=== PATIENT | male | born 1950 | race Caucasian/White ===

== ENCOUNTER 2023-10-14 12:39 | Outpatient (RCR) | payer MEDICARE, SELFPAY | END 2023-10-14 23:59 | disposition home or self-care (01) | LOC: RPT 12:39 | PROVIDERS: ATTENDING PHYSICIAN Physical Medicine & Rehabilitation; FAMILY PHYSICIAN Family Medicine | DX: M25.562 Pain in left knee (principal); M76.62 Achilles tendinitis, left leg; Z73.6 Limitation of activities due to disability | CPT/HCPCS: 97110; 97112; 97140; 97164; 97530 ==

== ENCOUNTER 2023-10-30 14:47 | Outpatient (RCR) | payer MEDICARE, SELFPAY | END 2023-11-02 07:40 | disposition home or self-care (01) | LOC: RPT 14:47 | PROVIDERS: ATTENDING PHYSICIAN Physical Medicine & Rehabilitation; FAMILY PHYSICIAN Family Medicine | DX: M25.562 Pain in left knee (principal); M76.62 Achilles tendinitis, left leg; Z73.6 Limitation of activities due to disability | CPT/HCPCS: 97110; 97112; 97140 ==

== ENCOUNTER 2024-01-19 15:57 | Emergency (ER) | payer MEDICARE, SELFPAY ==
[2024-01-19 16:03] VITALS: BP 183/90
[2024-01-19 16:23] LABS: % Basophils 0.5 % (0-2); % Eosinophils 2.8 % (0-6); % Immature Granulocytes 0.2 % (0-0.5); % Lymphocytes 24.6 % (20.5-51.1); % Monocytes 11.3 % (1.7-9.3); % Neutrophils 60.6 % (42.2-75.2); Absolute Basophils 0.1 10^3/uL (0-0.2); Absolute Eosinophils 0.3 10^3/uL (0-0.7); Absolute Lymphocytes 2.3 10^3/uL (1.2-3.4); Absolute Monocytes 1.1 10^3/uL (0.1-0.6); Absolute Neutrophils 5.7 10^3/uL (1.4-6.5); Hemoglobin 17.3 g/dL (13.0-18.0); Mean Corp Hgb Conc. 35.3 g/dL (33.0-37.0); Mean Corpuscular Hgb 33.2 pg (27.0-31.0); Mean Platelet Volume 11.2 fL (7.4-10.4); Nucleated Red Blood Cells % 0 % (-); Platelet Count 161 10^3/uL (130-400); Red Blood Cell Count 5.21 10^6/uL (4.70-6.10); Red Cell Dist. Width 11.7 % (11.5-14.5); White Blood Cell Count 9.4 10^3/uL (4.8-10.8)
[2024-01-19 16:45] LABS: ALT (SGPT) 59 U/L (0-50); AST (SGOT) 88 U/L (17-59); Albumin 4.4 g/dl (3.5-5.0); Alkaline Phosphatase 68 U/L (38-126); Blood Urea Nitrogen 39 mg/dl (9-20); Calcium 9.4 mg/dl (8.4-10.2); Carbon Dioxide 24 mmol/L (22-30); Chloride 109 mmol/L (98-107); Glucose 96 mg/dl (70-99); Potassium 4.2 mmol/L (3.5-5.1); Sodium 141 mmol/L (135-145); Total Bilirubin 0.4 mg/dl (0.2-1.3); Total Protein 6.8 g/dl (6.3-8.2); eGFR > 60.00
[2024-01-19 16:56] VITALS: BP 187/82
--- NOTE | 2024-01-19 18:35 | ED.GENMED ---
History of Present Illness
General
Chief Complaint: Psychiatric Problem
Source: patient, spouse and family
Exam Limitations: altered mental status
Time Seen by Provider: 01/19/24 16:58
Nursing documentation reviewed up to this point in time: agreed with
Travel History
Have you had any contact with someone who has COVID-19?: No
Do you have any symptoms of coronavirus? Fever > 100 degrees, chills, cough, shortness of breath, sore throat, loss of taste or smell, muscle aches, or headache?: No
History of Present Illness
History of Present Illness:
73-year-old male past medical history of ADHD anxiety bipolar disorder, CVA, hypertension hyperlipidemia presenting to the emergency department today with his roommate and family member with concerns of erratic behavior over the past few days. Had
recent changes to his psychiatric medications including discontinuation of Adderall and bupropion but additionally takes carbamazepine Xanax Vraylar topiramate. Spouse was concerned that he did not want to get dressed today and wanted to be naked
and go outside. He has been able to eat and drink. He denies any specific chest pain shortness of breath abdominal pain recent illness. He claims to have been taking his medications as prescribed he is not sure where he is he is not sure of the
date he does know the president is Gil Verdin he does know when he was born.
Past History
Past History
ED Past Medical History: HTN, Hypercholesterolemia, Psychiatric (bipolar affective disorder with manic psychosis) and Other (attention deficit hyperactivity disorder, TESTICULAR HYPOFUNCTION, POLYMYALGIA rheumatica)
ED Past Surgical History: Other (Hernia repair)
Social History
Tobacco: Former smoker
Alcohol: Occasional
Drug: None
Living: with roommate
Employment: Retired
Family History
Family History: Other (reviewed and non-contributory)
Review of Systems
Review of Systems
Allergies reviewed?: Yes
All Other Systems: ROS reviewed and negative except as documented in HPI and ROS
Phy Exam
Physical Exam
Physical Exam:
GENERAL: Alert , in no apparent distress
EYE: pupils equal and reactive
NECK: Supple, no significant adenopathy.
ENT: o/p clr, mmm.
CARDIAC: Regular rate and rhythm .
LUNGS: Clear breath sounds bilaterally, no acute respiratory distress, no wheezes/rales/rhonchi
ABDOMEN: Soft, without focal tenderness, no r/g, no cvat
NEUROLOGICAL: Alert not oriented to place or time, no focal neuro deficits
SKIN: Warm and dry, skin intact.
MUSCULOSKELETAL: No edema, well perfused.
PSYCH: Normal and appropriate interaction.
Course
Orders/Labs/Results
Orders:
Orders
01/19/24 16:08
EKG [Electrocardiogram (*1)] Urgent
Reason for Study: Fatigue / Weakness
EKG- Treatment ONCE
01/19/24 16:14
CBC/With Diff [Complete Blood Count/With Diff] Urgent
CMP [Comprehensive Metabolic Panel] Urgent
01/19/24 17:17
CT Head W/o Iv Contrast Urgent
Comment:
Reason For Exam: ams
01/19/24 19:43
Urine Drug Abuse Screen Urgent
01/19/24 20:31
one to one [ED Special Safety Observation] ONCE
Observation level: One to One
01/19/24 20:39
Urinalysis Reflex To Culture Urgent
Date Specimen was Collected: 01/19/24
Time Specimen was Collected: 20:39
Abnormal Lab Results
01/19/24
16:14
MCH 33.2 H pg
(27.0-31.0)
MPV 11.2 H fL
(7.4-10.4)
Absolute Monos (auto) 1.1 H 10^3/uL
(0.1-0.6)
Monocytes % 11.3 H %
(1.7-9.3)
Chloride 109 H mmol/L
(98-107)
BUN 39 H mg/dl
(9-20)
AST 88 H U/L
(17-59)
ALT 59 H U/L
(0-50)
01/19/24 16:14
01/19/24 16:14
Vital Signs
Initial and Last Documented VS:
Initial Vital Signs
Temp Pulse Resp BP Pulse Ox
98.9 F 87 18 183/90 97
01/19/24 16:03 01/19/24 16:03 01/19/24 16:03 01/19/24 16:03 01/19/24 16:03
Last Documented Vital Signs
Temp Pulse Resp BP Pulse Ox
98.9 F 87 16 187/82 97
01/19/24 16:03 01/19/24 16:56 01/19/24 16:56 01/19/24 16:56 01/19/24 16:56
MDM/Problems Addressed
MDM/Problems Addressed:
73-year-old male presenting to the emergency department today with concerns of confusion according to spouse and family member. He has been very erratic did not want to get dressed today one of the go outside while naked. He had a recent
medication change from his psychiatrist. Denies any specific additional symptoms other than feeling 'off'. Upon arrival here patient is hypertensive but otherwise vital signs are normal. Labs are unremarkable CT scan of the head was performed CT
scan without acute process. Labs showing potential slight dehydration but able to tolerate with oral hydration. Otherwise patient was assessed by crisis recommending inpatient psychiatric care. Patient's spouse is following 302 patient was placed
on one-to-one placement.
*Critical Care Note
Total Time (30-74mins, 75-104mins- exclusive of procedures): Not Applicable
ED Attending Note
-
Portions of this chart may have been created with voice recognition software.� Occasional wrong word or��sound alike� substitutions may have occurred due to the inherent limitations of voice recognition software.
Discharge Plan
Departure
Patient Disposition: Psych Facility
Date of Disposition: 01/19/24
Time of Disposition: 20:31
Patient with high blood pressure during this ER visit?: No
Condition: Good
Covid-19: Not Applicable
Discharge Problem:
Psychiatric disturbance
Prescriptions:
No Action
topiramate 50 MG tablet
50 mg PO HS
carbamazepine 200 MG capsule, ER multiphase 12 hr
400 mg PO BID
Vraylar 1.5 MG capsule
3 mg PO DAILY
celecoxib 200 mg capsule
200 mg PO DAILY
alprazolam 0.5 mg tablet
0.5 mg PO BID
Patient Comments:
01/19/2024: last filled 12/08/23, 60 tabs for 30 days from [facility]
tamsulosin 0.4 mg Capsule
0.4 mg PO HS
pantoprazole 40 mg Tablet,Delayed Release (Dr/Ec)
40 mg PO HS
morphine 15 mg tablet
15 mg PO BID PRN (Reason: moderate pain)
Patient Comments:
01/19/2024: last filled 12/30/23, 60 tabs for 30 days from [facility]
valsartan 160 mg tablet
160 mg PO BID
tadalafil 5 mg Tablet
5 mg PO HS
zolpidem 12.5 mg Tablet,Ext Release Multiphase
12.5 mg PO HS
Patient Comments:
01/19/2024: last filled 09/09/21, 30 tabs for 30 days from [facility]
testosterone 20.25 mg/1.25 gram (1.62 %) gel in metered-dose pump
4 pump transdermal DAILY
Patient Comments:
01/19/2024: Family friend believes pt may have used too much of this medications, due to finding multiple open packets, and saying very inappropriate remarks
Movantik 25 mg Tablet
25 mg PO HS
rosuvastatin 20 MG tablet
20 mg PO HS
aspirin 81 MG tablet,chewable
81 mg PO DAILY Qty: 90 0RF
Referrals:
Jerome Mcfadden MD [Family Provider] -
Interventions
Interventions:
*Risk Screen - Suicide Last Done: 01/19/24 16:09
*General Assessment Last Done: 01/19/24 16:09
*Neglect/Abuse Screening Last Done: 01/19/24 16:46
*ED COVID-19 Vaccine History Last Done: 01/19/24 16:09
ED-Psychological Assessment Last Done: 01/19/24 17:01
Discharge Date and Time
Print Language: NEPALI
[2024-01-19 22:40] VITALS: BP 160/92
[2024-01-19 22:57] LABS: Urine Albumin Trace (Neg - Trace); Urine Bilirubin 1+ (Negative); Urine Character Clear (Clear); Urine Color Yellow; Urine Glucose Negative (Negative); Urine Ketone Trace (Negative); Urine Leukocyte Trace (Negative); Urine Nitrite Negative (Negative); Urine Occult Blood Negative (Negative); Urine Urobilinogen 1+ (Neg - 1+)
[2024-01-19 23:06] LABS: Amphetamines Negative (Negative); Barbiturates Negative (Negative); Benzodiazepines Positive (Negative); Buprenorphine Negative (Negative); Cocaine Negative (Negative); Marijuana Positive (Negative); Methadone Negative (Negative); Methamphetamines Negative (Negative); Opiates Negative (Negative); Phencyclidine Negative (Negative); Tricyclic Antidepressants Negative (Negative)
[2024-01-19 23:07] LABS: Urine Red Blood Cell None Seen /HPF (0-2); Urine Squamous Cell 0-2 /LPF (Few); Urine White Cell 0-2 /HPF (0-5)
[2024-01-19] MEDS: XANAX 0.5 MG PO (23:32)
[2024-01-19] MEDS: AMBIEN 5 MG PO (23:32)
[2024-01-19] MEDS: TEGRETOL XR (EXTENDED RELEASE) 400 MG PO (23:32)
[2024-01-19] MEDS: MORPHINE SULFATE 15 MG PO (23:32)
[2024-01-19] MEDS: TOPAMAX 50 MG PO (23:32)
[2024-01-19 23:33] LABS: Fentanyl, Urine Negative (Negative)
[2024-01-20] MEDS: SAPHRIS 5 MG SL (06:00)
[2024-01-20 06:01] VITALS: BP 139/86
[2024-01-20 09:20] VITALS: BP 180/92
[2024-01-20] MEDS: LOW STRENGTH ASPIRIN 81 MG PO (10:42)
[2024-01-20] MEDS: TEGRETOL XR (EXTENDED RELEASE) 400 MG PO (10:42)
[2024-01-20] MEDS: DIOVAN 160 MG PO (10:42)
[2024-01-20] MEDS: CELEBREX 200 MG PO (10:42)
[2024-01-20] MEDS: XANAX 0.5 MG PO (10:42)
[2024-01-20] MEDS: MORPHINE SULFATE 15 MG PO (10:43)
[2024-01-20 12:30] LABS: COVID-19 Antigen Negative (Negative)
== END 2024-01-20 13:36 ==
LOC: EMR 15:57
PROVIDERS: Emergency Medicine; Physician Assistant; Student in an Organized Health Care Education/Training Program; EMERGENCY PHYSICIAN Emergency Medicine; FAMILY PHYSICIAN Family Medicine
DX: F99 Mental disorder, not otherwise specified (principal); I10 Essential (primary) hypertension; Z87.891 Personal history of nicotine dependence; Z11.52 Encounter for screening for COVID-19
CPT/HCPCS: 99285; 70450; 80053; 80306; 80307; 81003; 81015; 85025; 87811; 93005

== ENCOUNTER → 2024-04-29 09:28 | Outpatient (REF) | payer MEDICARE, SELFPAY ==
[2024-04-29 10:39] LABS: % Basophils 0.5 % (0-2); % Eosinophils 5.9 % (0-6); % Immature Granulocytes 0.4 % (0-0.5); % Lymphocytes 20.7 % (20.5-51.1); % Monocytes 8.7 % (1.7-9.3); % Neutrophils 63.8 % (42.2-75.2); Absolute Eosinophils 0.5 10^3/uL (0-0.7); Absolute Lymphocytes 1.7 10^3/uL (1.2-3.4); Absolute Monocytes 0.7 10^3/uL (0.1-0.6); Absolute Neutrophils 5.2 10^3/uL (1.4-6.5); Hematocrit 37.9 % (39.0-52.0); Hemoglobin 12.9 g/dL (13.0-18.0); Mean Corpuscular Hgb 33.2 pg (27.0-31.0); Mean Corpuscular Volume 97.7 fL (80.0-94.0); Mean Platelet Volume 10.3 fL (7.4-10.4); Nucleated Red Blood Cells % 0 % (-); Platelet Count 184 10^3/uL (130-400); Red Blood Cell Count 3.88 10^6/uL (4.70-6.10); Red Cell Dist. Width 12.5 % (11.5-14.5); White Blood Cell Count 8.2 10^3/uL (4.8-10.8)
[2024-04-29 11:12] LABS: ALT (SGPT) 23 U/L (0-50); AST (SGOT) 41 U/L (17-59); Albumin 3.9 g/dl (3.5-5.0); Alkaline Phosphatase 119 U/L (38-126); Blood Urea Nitrogen 21 mg/dl (9-20); Calcium 9.4 mg/dl (8.4-10.2); Carbon Dioxide 29 mmol/L (22-30); Chloride 102 mmol/L (98-107); Glucose 82 mg/dl (70-99); HDL Cholesterol 41 mg/dl; LDL Cholesterol, Calculated 76 mg/dl; Potassium 4.5 mmol/L (3.5-5.1); Sodium 139 mmol/L (135-145); Total Bilirubin 0.4 mg/dl (0.2-1.3); Total Cholesterol 140 mg/dl (50-199); Total Protein 6.2 g/dl (6.3-8.2); Triglyceride 117 mg/dl (10-149); Very Low Density Lipoprotein 23 mg/dl (0-30); eGFR > 60.00
[2024-04-29 11:42] LABS: TSH Reflex To Free T4 1.16 uIU/ml (0.47-4.68)
== END ==
LOC: REG 09:28
PROVIDERS: ATTENDING PHYSICIAN Family Medicine
DX: I10 Essential (primary) hypertension (principal); E78.00 Pure hypercholesterolemia, unspecified; E78.5 Hyperlipidemia, unspecified; Z13.0 Encounter for screening for diseases of the blood and blood-forming organs and certain disorders involving the immune mechanism; Z13.29 Encounter for screening for other suspected endocrine disorder
CPT/HCPCS: 36415; 80053; 80061; 84443; 85025

== ENCOUNTER → 2024-07-12 15:05 | Outpatient (REF) | payer MEDICARE, SELFPAY | LOC: MRI 3T 15:05 | PROVIDERS: ATTENDING PHYSICIAN Nurse Practitioner Adult Health; FAMILY PHYSICIAN Family Medicine | DX: I63.9 Cerebral infarction, unspecified (principal); R26.9 Unspecified abnormalities of gait and mobility; R53.1 Weakness | CPT/HCPCS: 70551 ==

== ENCOUNTER → 2024-11-18 11:38 | Outpatient (REF) | payer MEDICARE, SELFPAY ==
[2024-11-18 12:56] LABS: % Basophils 0.5 % (0-2); % Eosinophils 3.5 % (0-6); % Immature Granulocytes 0.3 % (0-0.5); % Lymphocytes 19.9 % (20.5-51.1); % Monocytes 8.9 % (1.7-9.3); % Neutrophils 66.9 % (42.2-75.2); Absolute Basophils 0.1 10^3/uL (0-0.2); Absolute Eosinophils 0.3 10^3/uL (0-0.7); Absolute Lymphocytes 1.9 10^3/uL (1.2-3.4); Absolute Monocytes 0.9 10^3/uL (0.1-0.6); Absolute Neutrophils 6.5 10^3/uL (1.4-6.5); Hematocrit 49.2 % (39.0-52.0); Hemoglobin 16.1 g/dL (13.0-18.0); Mean Corp Hgb Conc. 32.7 g/dL (33.0-37.0); Mean Corpuscular Hgb 31.7 pg (27.0-31.0); Mean Corpuscular Volume 96.9 fL (80.0-94.0); Mean Platelet Volume 10.6 fL (7.4-10.4); Nucleated Red Blood Cells % 0 % (-); Platelet Count 174 10^3/uL (130-400); Red Blood Cell Count 5.08 10^6/uL (4.70-6.10); Red Cell Dist. Width 13.4 % (11.5-14.5); White Blood Cell Count 9.7 10^3/uL (4.8-10.8)
[2024-11-18 13:21] LABS: Lithium < 0.2 mmol/L (0.6-1.2)
[2024-11-18 13:29] LABS: Urine Albumin Negative (Neg - Trace); Urine Bilirubin Negative (Negative); Urine Character Clear (Clear); Urine Color Yellow; Urine Glucose Negative (Negative); Urine Ketone Negative (Negative); Urine Leukocyte Negative (Negative); Urine Nitrite Negative (Negative); Urine Occult Blood Negative (Negative); Urine Urobilinogen 1+ (Neg - 1+)
== END ==
LOC: REG 11:38
PROVIDERS: ATTENDING PHYSICIAN Family Medicine
DX: R30.0 Dysuria (principal); F31.32 Bipolar disorder, current episode depressed, moderate
CPT/HCPCS: 36415; 80178; 81003; 85025

== ENCOUNTER 2024-12-29 20:43 | Inpatient (IN) | payer MEDICARE, SELFPAY ==
[2024-12-29] VITALS (8 sets, daily range): BP systolic 120–179; BP diastolic 58–98; BMI 31.4; BMI 32.3
[2024-12-29 15:16] LABS: % Basophils 0.1 % (0-2); % Eosinophils 0.1 % (0-6); % Immature Granulocytes 0.3 % (0-0.5); % Lymphocytes 4.1 % (20.5-51.1); % Monocytes 6.5 % (1.7-9.3); % Neutrophils 88.9 % (42.2-75.2); Absolute Immature Granulocytes 0.1 10^3/uL (0-0.05); Absolute Lymphocytes 0.6 10^3/uL (1.2-3.4); Hematocrit 53.8 % (39.0-52.0); Hemoglobin 18.1 g/dL (13.0-18.0); Mean Corp Hgb Conc. 33.6 g/dL (33.0-37.0); Mean Corpuscular Hgb 32.3 pg (27.0-31.0); Mean Corpuscular Volume 95.9 fL (80.0-94.0); Mean Platelet Volume 10.3 fL (7.4-10.4); Nucleated Red Blood Cells % 0 % (-); Platelet Count 172 10^3/uL (130-400); Red Blood Cell Count 5.61 10^6/uL (4.70-6.10); White Blood Cell Count 14.6 10^3/uL (4.8-10.8)
[2024-12-29 15:25] LABS: ALT (SGPT) 32 U/L (0-50); AST (SGOT) 49 U/L (17-59); Albumin 4.6 g/dl (3.5-5.0); Alkaline Phosphatase 123 U/L (38-126); Blood Urea Nitrogen 14 mg/dl (9-20); Calcium 10.4 mg/dl (8.4-10.2); Carbon Dioxide 24 mmol/L (22-30); Chloride 99 mmol/L (98-107); Glucose 179 mg/dl (70-99); Lipase 90 U/L (23-300); Potassium 4.3 mmol/L (3.5-5.1); Sodium 136 mmol/L (135-145); Total Bilirubin 0.7 mg/dl (0.2-1.3); Total Protein 7.1 g/dl (6.3-8.2); eGFR > 60.00
--- NOTE | 2024-12-29 17:11 | ED.GENMED ---
History of Present Illness
General
Chief Complaint: Abdominal Pain
Time Seen by Provider: 12/29/24 16:10
History of Present Illness
History of Present Illness:
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 Patient reports symptom since yesterday. He has not been able to tolerate p.o. since yesterday and has had
vomiting, brown in color. Reports surgical history of hernia repair. Last bowel movement was yesterday, however notes that he has been more constipated. Denies chest pain or difficulty breathing. Denies fever. Denies ever having pain like this
in the past. Denies additional acute medical complaints
Past History
Past History
ED Past Medical History: HTN, Hypercholesterolemia, Psychiatric (bipolar affective disorder with manic psychosis) and Other (attention deficit hyperactivity disorder, TESTICULAR HYPOFUNCTION, POLYMYALGIA rheumatica)
ED Past Surgical History: Other (Hernia repair)
Social History
Tobacco: Former smoker
Alcohol: Occasional
Drug: None
Living: with roommate
Employment: Retired
Family History
Family History: Other (reviewed and non-contributory)
Phy Exam
Physical Exam
Physical Exam:
General: Well-appearing, no clinical signs of dehydration, nontoxic and in no acute distress
HEENT: protecting airway
Neck: appears supple
CV: Tachycardic, regular rhythm, no evidence of cyanosis
Resp: No accessory muscle use, no increased work of breathing
Abd: Moderate distention with diffuse tenderness, brown emesis on his clothing
Extremities: No deformities, no swelling
Neuro: alert, no focal neurologic deficit
: deferred
Rectal: deferred
Psych: Normal affect
Skin: Intact
Sepsis
Sepsis Screening
Sepsis Assessment: Sepsis
Sepsis Screen
Sepsis Screen: Sepsis
Date: 12/29/24
Time: 19:34
Course
Orders/Labs/Results
Orders:
Orders
12/29/24 14:56
CMP [Comprehensive Metabolic Panel] Urgent
Complete Blood Count/With Diff Urgent
Lipase Urgent
12/29/24 16:41
CT Abd/pelvis W Iv Cont Urgent
Comment:
Reason For Exam: distension with vomiting and pain
0.9% Sodium Chloride 1000 ml [Nss] 1,000 ml IV BOLUS
Ondansetron Injectable [Zofran] 4 mg IV NOW STA
12/29/24 16:49
HYDROmorphone [Dilaudid] 1 mg IV NOW STA
12/29/24 17:21
Lactic Acid Q4H
Comment: CANCEL 2nd LACTIC ACID IF 1st LACTIC ACID IS LESS THAN 2
Blood Culture Q30M
DEVORA Source: Blood/Venous
Specimen Description:
Blood Culture Q30M
[facility]ORA Source: Blood/Venous
Specimen Description:
12/29/24 19:20
Piperacillin/Tazo 4.5 Gram [Zosyn] 4.5 gram in 100 ml IV NOW
12/29/24 19:24
NG Tube [GI tube insertion- Treatment] ONCE
Abnormal Lab Results
12/29/24
14:56
WBC 14.6 H 10^3/uL
(4.8-10.8)
Hgb 18.1 H g/dL
(13.0-18.0)
Hct 53.8 H %
(39.0-52.0)
MCV 95.9 H fL
(80.0-94.0)
MCH 32.3 H pg
(27.0-31.0)
Abs Immat Gran (auto) 0.1 H 10^3/uL
(0-0.05)
Absolute Neuts (auto) 13.0 H 10^3/uL
(1.4-6.5)
Absolute Lymphs (auto) 0.6 L 10^3/uL
(1.2-3.4)
Absolute Monos (auto) 1.0 H 10^3/uL
(0.1-0.6)
Neutrophils % 88.9 H %
(42.2-75.2)
Lymphocytes % 4.1 L %
(20.5-51.1)
Glucose 179 H mg/dl
(70-99)
Calcium 10.4 H mg/dl
(8.4-10.2)
12/29/24 14:56
12/29/24 14:56
Vital Signs
Initial and Last Documented VS:
Initial Vital Signs
Temp Pulse Resp BP Pulse Ox
98.6 F 129 20 161/98 97
12/29/24 14:48 12/29/24 14:48 12/29/24 14:48 12/29/24 14:48 12/29/24 14:48
Last Documented Vital Signs
Temp Pulse Resp BP Pulse Ox
98.6 F 106 17 125/58 97
12/29/24 14:48 12/29/24 18:15 12/29/24 17:30 12/29/24 18:00 12/29/24 18:15
MDM/Problems Addressed
MDM/Problems Addressed:
74-year-old male with history of psychiatric disease and hypertension presenting for abdominal distention and vomiting. Vital signs significant for tachycardia.
On exam patient is in no acute distress, however does appear uncomfortable secondary to pain. Patient with moderate distention to the abdomen. Primary concern for acute bowel pathology such as obstruction versus a perforation. Patient had
laboratory analysis obtained prior to my assessment, leukocytosis. Patient meeting SIRS criteria so will add lactic acid and blood cultures. Dilaudid ordered for pain, and will start patient IV fluids. Plan for CT abdominal imaging with IV
contrast.
19:30 -lactic acid within normal limits. Blood pressure remains stable. Without concern for septic shock or severe sepsis. CT shows a small bowel obstruction, consistent with exam. General surgery made aware. There is also mention of pneumonia,
concern of aspiration pneumonia. Will start on Zosyn. Plan for admission. Will place
*Critical Care Note
Total Time (30-74mins, 75-104mins- exclusive of procedures): Not Applicable
ED Attending Note
-
Portions of this chart may have been created with voice recognition software.� Occasional wrong word or��sound alike� substitutions may have occurred due to the inherent limitations of voice recognition software.
Discharge Plan
Departure
Patient Disposition: Admit
Date of Disposition: 12/29/24
Time of Disposition: 19:33
Presentation/result/management discussed w/ accepting MD/DO: Hospitalist
Patient with high blood pressure during this ER visit?: No
Condition: Fair
Discharge Problem:
Small bowel obstruction, Aspiration pneumonia
Prescriptions:
No Action
topiramate 50 MG tablet
50 mg PO HS
carbamazepine 200 MG capsule, ER multiphase 12 hr
400 mg PO BID
Vraylar 1.5 MG capsule
3 mg PO DAILY
celecoxib 200 mg capsule
200 mg PO DAILY
alprazolam 0.5 mg tablet
0.5 mg PO BID
Patient Comments:
01/19/2024: last filled 12/08/23, 60 tabs for 30 days from [facility]
tamsulosin 0.4 mg Capsule
0.4 mg PO HS
pantoprazole 40 mg Tablet,Delayed Release (Dr/Ec)
40 mg PO HS
morphine 15 mg tablet
15 mg PO BID PRN (Reason: moderate pain)
Patient Comments:
01/19/2024: last filled 12/30/23, 60 tabs for 30 days from [facility]
valsartan 160 mg tablet
160 mg PO BID
tadalafil 5 mg Tablet
5 mg PO HS
zolpidem 12.5 mg Tablet,Ext Release Multiphase
12.5 mg PO HS
Patient Comments:
01/19/2024: last filled 09/09/21, 30 tabs for 30 days from [facility]
testosterone 20.25 mg/1.25 gram (1.62 %) gel in metered-dose pump
4 pump transdermal DAILY
Patient Comments:
01/19/2024: Family friend believes pt may have used too much of this medications, due to finding multiple open packets, and saying very inappropriate remarks
Movantik 25 mg Tablet
25 mg PO HS
rosuvastatin 20 MG tablet
20 mg PO HS
aspirin 81 MG tablet,chewable
81 mg PO DAILY Qty: 90 0RF
Referrals:
Jerome Mcfadden MD [Family Provider] -
Interventions
Interventions:
*Risk Screen - Suicide Last Done: 12/29/24 14:48
*General Assessment Last Done: 12/29/24 14:48
*Neglect/Abuse Screening Last Done: 12/29/24 16:38
*ED- Fall Risk Assessment Last Done: 12/29/24 16:38
*ED COVID-19 Vaccine History Last Done: 12/29/24 16:38
BD-Kiavzr-Dzmeehirqi Assessment Last Done: 12/29/24 16:38
Discharge Date and Time
Print Language: CYMRAES
[2024-12-29] MEDS: NSS 1000 IV (17:18)
[2024-12-29] MEDS: ZOFRAN 4 MG IV (17:18)
[2024-12-29] MEDS: DILAUDID 1 MG IV (17:21)
[2024-12-29 17:50] LABS: Lactic Acid 1.9 mmol/L (0.7-2.0)
--- NOTE | 2024-12-29 19:38 | HPS.HSE ---
Family Physician
-
Family Physician: Jerome Mcfadden
Chief Complaint
-
Vomiting, Abdominal Pain and Distention
History of Present Illness
Patient is a 74 y/o male past medical history of right basal ganglia stroke, hypertension, hyperlipidemia, and bipolar disorder who presents with vomiting and abdominal pain. Patient developed vomiting two days ago. He describes the emesis as brown
in color. Last night his abdomen became more distended. He has been unable to tolerate oral intake today prompting his presentation to the emergency department. He denies fever, sweats or chills.
Medical History
Past Medical History
Past Medical History: Reports Other
Additional Past Medical History:
Right Basal Ganglia Stroke
Essential Hypertension
Hyperlipidemia
Spinal Stenosis
Bipolar Disorder / Anxiety
BPH
Hypogonadism
Past Surgical History: Reports Other
Additional Past Surgical History:
Left Direct Inguinal Hernia Repair
Social History
Tobacco: Former Smoker
Family History
Family History: Not pertinent
Allergies / Home Medications
Allergies reflects when Allergies were last updated in [facility].
Home Medications with original date entered in [facility]
Allergy/Medication List:
Allergies
Allergy/AdvReac Type Severity Reaction Status Date / Time
chlorpromazine Allergy paralysis Verified 12/29/24 14:50
[From Thorazine]
Home Medications
aspirin 81 mg chewable tablet 81 mg PO DAILY #90 tabs 01/09/22
tadalafil 5 mg tablet 5 mg PO QPM 01/19/24
tamsulosin 0.4 mg capsule 0.4 mg PO HS 01/19/24
testosterone 4 pump transdermal DAILY 01/19/24
amantadine HCl 100 mg tablet 100 mg PO DAILY 12/29/24
atorvastatin 80 mg tablet (Lipitor) 80 mg PO QPM 12/29/24
bupropion HCl 100 mg tablet,12 hr sustained-release (Wellbutrin SR) 100 mg PO DAILY 12/29/24
buspirone 10 mg tablet 10 mg PO DAILY 12/29/24
clonazepam 1 mg tablet 0.5 mg PO BID 12/29/24
coenzyme Q10 100 mg capsule (CoQ-10) 200 mg PO DAILY 12/29/24
dextroamphetamine-amphetamine 7.5 mg tablet (Adderall) 7.5 mg PO TID 12/29/24
diphenhydramine 25 mg-acetaminophen 500 mg tablet (Acetaminophen PM) 2 tab PO HS 12/29/24
doxepin 100 mg capsule 100 mg PO HS 12/29/24
glucosamine-chondroitin 250 mg-200 mg tablet (Osteo Bi-Flex) 1 tab PO DAILY 12/29/24
losartan 100 mg tablet 100 mg PO DAILY 12/29/24
oxcarbazepine 150 mg tablet 150 mg PO BID 12/29/24
risperidone 2 mg tablet (Risperdal) 2 mg PO HS 12/29/24
therapeutic multivitamin 1 tab PO DAILY 12/29/24
venlafaxine 75 mg capsule,extended release 24 hr (Effexor XR) 75 mg PO DAILY 12/29/24
Review of Systems
-
A 12 point ROS was completed and negative except as noted: Yes
Constitutional: Denies Fever
Respiratory: Reports Cough
Cardiac: Denies Chest Pain or Palpitations
Abdomen/GI: Reports See HPI
Skin: Reports Rash (Groin)
Physical Exam
Vital Signs
Vital Signs
Temp Pulse Resp BP Pulse Ox
98.6 F 106 17 125/58 97
12/29/24 14:48 12/29/24 18:15 12/29/24 17:30 12/29/24 18:00 12/29/24 18:15
Physical Exam
General: Other (Appears very uncomfortable, occasional spitting out brown colored liquid)
HEENT: Anicteric and Oxygen (Nasal Cannula)
Respiratory: Non Labored Respirations and Decreased Breath Sounds (Poor Inspirator Effort)
Cardiac: S1/S2, Regular Rhythm and Tachycardia
GI: Soft, Tender (Mild throughout), Distended and Other (High pitched bowel sounds)
Rectal: Deferred by Provider
Genito-urinary: Clear Urine
Musculoskeletal: No Clubbing, No Cyanosis and No Edema
Skin: Warm, Dry and Other (Mild erythema bilateral groin folds)
Neuro: Awake, Alert, Oriented and Nonfocal/grossly intact
Psych: Calm
Laboratory Results
-
12/29/24 14:56
12/29/24 14:56
Laboratory Results
Lactic Acid Cancelled 12/29/24 20:45
Total Bilirubin 0.7 mg/dl (0.2-1.3) 12/29/24 14:56
AST 49 U/L (17-59) 12/29/24 14:56
ALT 32 U/L (0-50) 12/29/24 14:56
Alkaline Phosphatase 123 U/L (38-126) 12/29/24 14:56
Lipase 90 U/L (23-300) 12/29/24 14:56
Data Reviewed
-
CT Scan: Report Reviewed by me
Lab Data: Labs Reviewed by me
Impression/Plan
-
Small Bowel Obstruction
-Consult Surgery
-Place NGT
-Continue NPO/IVFs
-Continue anti-emetics prn
Aspiration Pneumonia
-Continue Unasyn
Essential Hypertension
-Monitor blood pressure
-Continue hydralazine prn
Hyperlipidemia
-Statin on hold while NPO
Bipolar Disorder
-Hold all oral meds
-Will use Ativan 0.5mg q12h, and q4hprn anxiety until able to resume meds
BPH
-Monitor bladder scans
Hypogonadism
-Patient will bring own testosterone cream from home
DVT proph: Lovenox
Code Status: Full Code
--- NOTE | 2024-12-29 20:15 | W.PN.UPDATE ---
Update Note
Progress Note Update
Patient seen in conjunction with [facility] BELT INSPECTOR. I agree with the findings and assessment physical. I concur with the assessment and plan.
Briefly, this is a 74-year-old with past medical history significant for bipolar affective disorder with manic episodes, hypertension, hyperlipidemia, BPH who presents to the emergency department with abdominal pain, abdominal distention vomiting
and slight increase in oxygen requirement.
According to patient and family started having abdominal pain about 2 days ago. He was brought vomiting brown material. Overnight he developed significant distention of the abdomen compared with baseline. He also had increased abdominal pain.
Denies any fevers or chills. Denies any acute changes in medications. Denies any recent procedures. History is notable for a hernia repair in the past but nothing recent.
In the emergency department he was afebrile, blood pressure was 125/60 with a pulse of 106 and was satting 94% on 2 L. He had a white count of 14.6, hemoglobin of 18 and platelet count of 172. Electrolytes BUN/creatinine were all in the normal
range. LFTs were unremarkable.
CT of the abdomen pelvis shows an acute small bowel obstruction with transition point between the jejunum and the distal ileum. There is also a large left lower lobe consolidation and bilateral pneumonia noted on CT scan.
Assessment and plan
74-year-old with acute small bowel obstruction complicated by aspiration pneumonia.
- admit to med/surg
- etiology of obstruction likely adhesion, no signs of ischemia
- NPO, NGT placement stat
- IV maintenance fluids
- holding oral medications tonight (may restart in am if NG tube can be clamped as he is on mulitple neuroleptics and tamsulosin)
- Surgery consulted
- IV unasyn for aspiration pneumonia (no recent hospitalizations, no recent abx, no h/o DM II and no smoking hx)
DVT PPX - lovenox sq
Code status - Full Code
[2024-12-29] MEDS: UNASYN IV (20:51)
[2024-12-29] MEDS: ATIVAN 0.5 MG IV (22:54)
[2024-12-29] MEDS: NSS (PRESERVATIVE FREE) 0.25 ML IV (22:56)
[2024-12-29] MEDS: D5/0.45%NSS with KCL 10 MEQ 1000 IV (22:57)
[2024-12-29] MEDS: DESENEX/MITRAZOL/ZEASORB 1 APPLIC TOPICAL (23:12)
[2024-12-30] MEDS: UNASYN IV ×4 (01:25→19:53)
[2024-12-30 03:07] VITALS: BP 144/76
[2024-12-30 07:41] VITALS: BP 150/79
--- NOTE | 2024-12-30 08:25 | CON.GS ---
Addendum entered and electronically signed by Andrew Dumont MD 12/30/24 13:46:
Patient is a 74 yo M with a PMH of anxiety/depression, bipolar disorder, BPH, and s/p left inguinal hernia repair with mesh who presents with approximately 2 days of nausea, vomiting, and increased abdominal distention and pain. Mr. Worthy states
that his symptoms began somewhat abruptly approximately 2 days ago. He reports multiple episodes of nausea and vomiting. He continues to pass flatus including during this admission. Last bowel movement was approximately 2 days ago. He does
report chronic issues with constipation. He occasionally takes Colace and 'stool softeners'. States that he has moved his bowels daily. He does report eating a large amount of fiber cereal prior to the onset of symptoms. No fevers or chills.
Currently states that his symptoms are improved -less abdominal pain and distention, continues to pass flatus. He denies ever having a prior bowel obstruction.
Gen: NAD
HEENT: NGT with light bilious output
Abd: soft, non-tender, moderate distension, tympanitic, non-peritoneal, no palpable hernia
Labs and CT scan imaging were reviewed
Patient is a 74 yo M p/w SBO likely secondary to adhesions
The natural history and pathophysiology of bowel obstructions was reviewed. CT scan and X-ray imaging were reviewed and discussed with the patient. No evidence of bowel ischemia or perforation, no radiographic signs of closed loop obstruction.
Patient comfortable with some signs of clinical improvement. Options for management reviewed - including trial of medical management with bowel rest versus surgical management with laparoscopic possible open lysis of adhesions possible bowel
resection. Patient preference to avoid an operation if possible. Recommend and plan for bowel rest and decompression. If no improvement in 24 to 48 hours would recommend a contrasted study. All questions answered.
-- NPO, IVF, NGT decompression
-- Correct lytes, minimize narcotics
-- Contrast study in 24-48 hours if no improvement
Original Note:
Medical History
-
Chief Complaint: n/v/pain
History of Present Illness:
Mr Worthy is a 74 yo male with a history of bipolar, left inguinal hernia repair, right basal ganglia cva, spinal stenosis who is primarily WC bound but does use a walker for transfers who presents for nausea, vomiting and abdominal pain which
began 2 days ago and persisted with increasing abdominal distention which caused him to present through the ED. An NGT was placed in the ED with relief in pain and nausea. He reports the distention is better as well. His last BM was 2 days ago
before onset of symptoms. He does report that he is passing flatus occasionally. On exam, the abdomen is nontender but quite distended.
Past Medical History
Past Medical History: CVA, HTN, Psychiatric (bipolar/anxiety) and Other (bph, hypogonadism)
Past Surgical History: Hernia Repair (left direct inguinal hernia repair)
Social History
Tobacco: Former Smoker
Personal: Partner
Living: With Family
Family History
Family History: Reviewed & Not Pertinent
Allergies / Home Medications
Allergy/AdvReac Type Severity Reaction Status Date / Time
chlorpromazine Allergy paralysis Verified 12/29/24 14:50
[From Thorazine]
�Medication �Instructions �Recorded �Confirmed �Type
tadalafil 5 mg tablet 5 mg PO QPM BPH 01/19/24 12/29/24 History
tamsulosin 0.4 mg capsule 0.4 mg PO HS BPH 01/19/24 12/29/24 History
testosterone 4 pump transdermal DAILY HORMONE 01/19/24 12/29/24 History
amantadine HCl 100 mg tablet 100 mg PO DAILY PARKINSONS 12/29/24 12/29/24 History
atorvastatin 80 mg tablet (Lipitor) 80 mg PO QPM High Cholesterol 12/29/24 12/29/24 History
bupropion HCl 100 mg tablet,12 hr 100 mg PO DAILY Mental 12/29/24 12/29/24 History
sustained-release (Wellbutrin SR) Health/Anxiety
buspirone 10 mg tablet 10 mg PO DAILY Mental 12/29/24 12/29/24 History
Health/Anxiety
clonazepam 1 mg tablet 0.5 mg PO BID Mental Health/Anxiety 12/29/24 12/29/24 History
coenzyme Q10 100 mg capsule 200 mg PO DAILY Supplement 12/29/24 12/29/24 History
(CoQ-10)
dextroamphetamine-amphetamine 7.5 7.5 mg PO TID ADD 12/29/24 12/29/24 History
mg tablet (Adderall)
diphenhydramine 25 2 tab PO HS PAIN/SLEEP 12/29/24 12/29/24 History
mg-acetaminophen 500 mg tablet
(Acetaminophen PM)
doxepin 100 mg capsule 100 mg PO HS Mental Health/Anxiety 12/29/24 12/29/24 History
glucosamine-chondroitin 250 mg-200 1 tab PO DAILY Supplement 12/29/24 12/29/24 History
mg tablet (Osteo Bi-Flex)
losartan 100 mg tablet 100 mg PO DAILY Blood Pressure 12/29/24 12/29/24 History
oxcarbazepine 150 mg tablet 150 mg PO BID Mental Health/Anxiety 12/29/24 12/29/24 History
risperidone 2 mg tablet (Risperdal) 2 mg PO HS Mental Health/Anxiety 12/29/24 12/29/24 History
therapeutic multivitamin 1 tab PO DAILY Supplement 12/29/24 12/29/24 History
venlafaxine 75 mg capsule,extended 75 mg PO DAILY Mental 12/29/24 12/29/24 History
release 24 hr (Effexor XR) Health/Anxiety
aspirin 81 mg chewable tablet 81 mg PO DAILY Blood Clot 12/30/24 12/29/24 History
Prevention/Tx
Review of Systems
-
History Source: Patient
All other systems: Negative unless noted
A 10 point review of systems was completed, and was negative except as per HPI.
Physical Exam
Vital Signs
Temp Pulse Resp BP Pulse Ox
97.9 F 115 16 150/79 95
12/30/24 07:41 12/30/24 07:41 12/30/24 07:41 12/30/24 07:41 12/30/24 07:41
12/29/24 12/30/24 12/31/24
06:59 06:59 06:59
Actual Weight 93.44 kg
Body Mass Index (BMI) 32.3
Lab Results
WBC 14.6 10^3/uL (4.8-10.8) H 12/29/24 14:56
Hgb 18.1 g/dL (13.0-18.0) H 12/29/24 14:56
Hct 53.8 % (39.0-52.0) H 12/29/24 14:56
Plt Count 172 10^3/uL (130-400) 12/29/24 14:56
Abs Immat Gran (auto) 0.1 10^3/uL (0-0.05) H 12/29/24 14:56
Neutrophils % 88.9 % (42.2-75.2) H 12/29/24 14:56
Physical Exam
General: Well Developed and Well Nourished
HEENT: Moist Mucous Membranes
Respiratory: Non Labored Respirations
GI: Soft, Non Tender, Distended and Other (NGT with bilious outputs)
Skin: Warm
Neuro: Awake, Alert and AO x 3
Psych: Calm
Data Reviewed
-
CT Scan: Image Personally Visualized and interpreted, Report Reviewed by me, Discussed with Physician, Discussed with Nurse and Discussed with Patient
Labs: Labs Reviewed by me, Discussed with Physician and Discussed with Patient
Old Records: Reviewed
Assessment / Plan
-
74 yo male with h/o left inguinal hernia repair presenting with 2 days of nausea, vomiting and worsening abdominal pain. He is passing flatus but no BM's for 2 days. NGT was placed in the ED last noc for 1200ml of outputs with another 900ml this AM
of bilious outputs. Pain resolved, still with distention. Leukocytosis present on admission, now resolved. Tachycardic with hypoxia requiring O2. On ABX for aspiration PNA. CT imaging with partial small bowel obstruction and transition point near
the jejunum. Unclear etiology. No evidence of bowel threat/compromise.
--Continue NGT for decompression
--IVF while NPO
--Continue NPO. Given high NGT outputs, would hold PO meds
--Medical management as per primary team
[2024-12-30 08:30] LABS: Hematocrit 50.6 % (39.0-52.0); Mean Corp Hgb Conc. 33.6 g/dL (33.0-37.0); Mean Corpuscular Hgb 32.1 pg (27.0-31.0); Mean Corpuscular Volume 95.5 fL (80.0-94.0); Platelet Count 153 10^3/uL (130-400); Red Cell Dist. Width 14.5 % (11.5-14.5); White Blood Cell Count 7.7 10^3/uL (4.8-10.8)
[2024-12-30] MEDS: NSS (PRESERVATIVE FREE) 0.25 ML IV ×2 (08:31→19:53)
[2024-12-30] MEDS: ATIVAN 0.5 MG IV ×2 (08:31→19:53)
[2024-12-30] MEDS: DESENEX/MITRAZOL/ZEASORB 1 APPLIC TOPICAL ×2 (08:33→19:53)
[2024-12-30 09:41] LABS: Blood Urea Nitrogen 22 mg/dl (9-20); Calcium 10.2 mg/dl (8.4-10.2); Carbon Dioxide 30 mmol/L (22-30); Chloride 98 mmol/L (98-107); Estimated Creatinine Clearance 66 ml/min; Glucose 150 mg/dl (70-99); Magnesium 1.8 mg/dl (1.6-2.3); Potassium 4.2 mmol/L (3.5-5.1); Sodium 139 mmol/L (135-145); eGFR > 60.00
[2024-12-30 11:08] VITALS: BP 155/82
[2024-12-30] MEDS: D5/0.45%NSS with KCL 10 MEQ 1000 IV (14:18)
[2024-12-30] MEDS: ZOFRAN 4 MG IV (14:20)
[2024-12-30 15:07] VITALS: BP 163/94
--- NOTE | 2024-12-30 15:10 | W.PN.HOSP.TC ---
Today's Communication/Plan
-
Assessment / Plan
Assessment / Plan
NAD
Scleral Anicteric, NGT to wall suction with dark liquid material in canister
MMM
No JVD
CTABL
RRR, S1/S2
Soft, NT, distended, BS-
Warm, Dry
AAOx3
Calm
Small bowel obstruction
NGT for decompression
IV fluids
Antiemetics
Minimize narcotics
Per surgery contrast study in 24 to 48 hours if no improvement
N.p.o.
Aspiration pneumonia
Continue Unasyn
Hypertension
Continue antihypertensives
Hyperlipidemia
Resume statin when able to tolerate p.o.
Bipolar disorder
Ativan
Hold mood stabilizers
BPH
Bladder scans
Resume Flomax
Anticipated Discharge: > 48 hours
Subjective/Interval History
-
Date of Service: December 30, 2024
seen and examined
no new complaints
ngt to suction
feels a little better, abd not as distended
Objective Data
-
Labs:
Laboratory Results
12/30/24
08:02
WBC 7.7
Hgb 17.0
Hct 50.6
Plt Count 153
Sodium 139
Potassium 4.2
Chloride 98
Carbon Dioxide 30
BUN 22 H
Creatinine 1.1
Glucose 150 H
Calcium 10.2
Vital Signs:
Vital Signs
Temp Pulse Resp BP Pulse Ox
100.1 F 116 16 163/94 94
12/30/24 15:07 12/30/24 15:07 12/30/24 15:07 12/30/24 15:07 12/30/24 15:07
I&O
12/29/24 12/30/24 12/31/24
06:59 06:59 06:59
Intake Total 480 / 480
Output Total 150 / 150
Balance 330 / 330
[2024-12-30] MEDS: NON-FORMULARY ITEM TRANSDERM (15:23)
[2024-12-30] MEDS: LOVENOX 40 MG SC (17:18)
--- NOTE | 2024-12-30 17:30 | CM ---
Met with patient to obtain information for assessment. Patient stated that he lives with his significant other, his SO's son and daughter in law. He stated that he has 24 hr cg through an aide named, Ellie. Family does die cutter operator, cooking,
cleaning and laundry. Family assists with transportation when needed. He denied DME. He has never been to a SNF but did relay that he has been to an acute rehab in the past.
Patient has a prescription plan, and uses, [facility] for all of his medications.
Patient's PCP is, Jerome Mcfadden.
Plan: Case management will continue to follow and assist with discharge planning. Will watch for VN needs.
[2024-12-30 19:16] VITALS: BP 157/96
[2024-12-30 23:08] VITALS: BP 156/89
[2024-12-31] VITALS (8 sets, daily range): BP systolic 127–175; BP diastolic 57–95; BMI 32.2
[2024-12-31] MEDS: D5/0.45%NSS with KCL 10 MEQ 1000 IV ×2 (01:41→15:42)
[2024-12-31] MEDS: UNASYN IV ×4 (01:42→20:36)
[2024-12-31] MEDS: APRESOLINE 5 MG IV (03:52)
[2024-12-31] MEDS: ATIVAN 0.5 MG IV ×4 (05:27→23:45)
[2024-12-31] MEDS: NSS (PRESERVATIVE FREE) 0.25 ML IV ×4 (05:27→23:45)
--- NOTE | 2024-12-31 06:15 | PTCARENOTE ---
EKG ordered for 0600 completed per order. EKG read Critical result: long QTc. JOYA Casas notified. Plan of care ongoing.
--- NOTE | 2024-12-31 06:25 | W.PN.UPDATE ---
Update Note
Progress Note Update
qtc 659 this am, asymptomatic. Per chart review, patient on multiple different psych meds at home that was placed on hold during admission time.
Patient currently on tele, will monitor qtc, morning lab still pending will d/c zofran and repeat EKG.
Please consider cardiology consult as needed for symptoms.
[2024-12-31 07:54] LABS: Hematocrit 47.5 % (39.0-52.0); Mean Corp Hgb Conc. 33.7 g/dL (33.0-37.0); Mean Corpuscular Hgb 32.5 pg (27.0-31.0); Mean Corpuscular Volume 96.3 fL (80.0-94.0); Platelet Count 147 10^3/uL (130-400); Red Blood Cell Count 4.93 10^6/uL (4.70-6.10); Red Cell Dist. Width 14.3 % (11.5-14.5); White Blood Cell Count 4.1 10^3/uL (4.8-10.8)
[2024-12-31] MEDS: DESENEX/MITRAZOL/ZEASORB 1 APPLIC TOPICAL ×2 (08:16→20:36)
[2024-12-31] MEDS: NON-FORMULARY ITEM 4 PUMP TRANSDERM (08:20)
[2024-12-31 08:22] LABS: Blood Urea Nitrogen 25 mg/dl (9-20); Calcium 9.6 mg/dl (8.4-10.2); Carbon Dioxide 34 mmol/L (22-30); Chloride 97 mmol/L (98-107); Estimated Creatinine Clearance 73 ml/min; Glucose 140 mg/dl (70-99); Magnesium 2.1 mg/dl (1.6-2.3); Potassium 3.7 mmol/L (3.5-5.1); Sodium 139 mmol/L (135-145); eGFR > 60.00
--- NOTE | 2024-12-31 11:39 | W.PN.HOSP.TC ---
Today's Communication/Plan
-
Assessment / Plan
Assessment / Plan
NAD
Scleral Anicteric, NGT to wall suction with dark liquid material in canister
MMM
No JVD
CTABL
RRR, S1/S2
Softer then yesterdau, NT, distended, BS-
Warm, Dry
AAOx3
Calm
Small bowel obstruction
NGT for decompression
IV fluids
Antiemetics
Minimize narcotics
Per surgery contrast study in 24 to 48 hours if no improvement
N.p.o.
Abd xray
Prolonged Qtc
-avoid Qtc prolonging agents
keep K >4, Mg >2
monitor on tele
zofran stopped, started tigan
Aspiration pneumonia
Continue Unasyn
Hypertension
Continue antihypertensives
Hyperlipidemia
Resume statin when able to tolerate p.o.
Bipolar disorder
Ativan
Hold mood stabilizers
BPH
Bladder scans
Resume Flomax
Anticipated Discharge: > 48 hours
Subjective/Interval History
-
Date of Service: December 31, 2024
Seen and examined. No new complaints. No acute overnight events.
asking to drink water.
roomate are at bedside
Objective Data
-
Labs:
Laboratory Results
12/31/24
07:28
WBC 4.1 L
Hgb 16.0
Hct 47.5
Plt Count 147
Sodium 139
Potassium 3.7
Chloride 97 L
Carbon Dioxide 34 H
BUN 25 H
Creatinine 1.0
Glucose 140 H
Calcium 9.6
Vital Signs:
Vital Signs
Temp Pulse Resp BP Pulse Ox
99.1 F 93 16 134/88 94
12/31/24 11:20 12/31/24 11:20 12/31/24 11:20 12/31/24 11:20 12/31/24 11:20
I&O
12/30/24 12/31/24 01/01/25
06:59 06:59 06:59
Intake Total 480 / 480 1120 / 1120
Output Total 150 / 150 2450 / 2450
Balance 330 / 330 -1330 / -1330
--- NOTE | 2024-12-31 12:10 | W.PN.GS2 ---
Addendum entered and electronically signed by Walter Cano MD 12/31/24 13:01:
I saw and examined the patient.
The NURSE TRANSITION's note was reviewed and I agree with the note.
Comment:
74-year-old male who presents with partial SBO associated with bilateral pneumonia, history of inguinal hernia repair; being treated nonoperatively with NGT and bowel rest
Afebrile, 100-110, normotensive; ABD soft, moderately distended (slightly improved from yesterday per [place]), minimally tender, no rebound or guarding
WBC 4.1 from 7.7, Hb 16.0 from 17.0
� Partial SBO, likely adhesive, no concern for perforation or closed-loop
�Discussed the treatment options, including surgery versus nonoperative management; patient indicated he would prefer to avoid surgery if possible; explained the risk of failure of nonoperative management, including, but not limited to, worsening
of the obstruction and possible perforation requiring urgent surgery; patient understood
�Exam stable, slightly improved, and no hemodynamic instability; continue nonoperative measures
�Will repeat AXR; if no significant improvement by tomorrow, will repeat CT with p.o. contrast
� Continue n.p.o. with NGT and IVF, no p.o. meds
� Minimize narcotics
� Encourage IS, OOB
� Send EKG for tachycardia, showing junctional rhythm; discussed with hospitalist, who will repeat
� Appreciate hospitalist
Original Note:
Today's Communication / Plan
-
Continue NPO with NGT to LIWS
Assessment / Plan
-
74 yo male p/w SBO likely secondary to adhesions
On ABX for aspiration pna secondary to vomiting
Tachycardia improved this am, tmax of 100.1, BP stable
Labs stable
Patient comfortable with some signs of clinical improvement, passing flatus, no further pain. Options for management reviewed - including trial of medical management with bowel rest versus surgical management with laparoscopic possible open lysis
of adhesions possible bowel resection. Patient preference to avoid an operation if possible.
-- NPO with ice chips for comfort
-- IVF
-- XR this am
-- Continue NGT decompression
-- Correct lytes, minimize narcotics
-- Contrast study in 24-48 hours if no improvement
Subjective Data
-
Date of Service: December 31, 2024
Patient seen and examined at bedside with Dr. Cano. Denies vomiting but having intermittent nausea. Very thirsty and wants water. Denies pain. Notes that he continues to pass flatus
Objective Data
-
Intake and Output
12/30/24 12/31/24 01/01/25
06:59 06:59 06:59
Intake Total 480 / 480 1120 / 1120
Output Total 150 / 150 2450 / 2450
Balance 330 / 330 -1330 / -1330
Intake:
Oral fluids 480 / 480
IV fluids (Total) 880 / 880
IV piggybacks 240 / 240
Output:
Drain Output (Total) 2450 / 2450
Sump 2450 / 2450
Urine, Voided 150 / 150
Other:
How many times incontinent 2 1
MODERATE amount urine
How many times incontinent 3
SATURATED amount urine
Vital Signs
Temp Pulse Resp BP Pulse Ox
99.1 F 93 16 134/88 94
12/31/24 11:20 12/31/24 11:20 12/31/24 11:20 12/31/24 11:20 12/31/24 11:20
Lab Results
12/31/24 07:28
12/31/24 07:28
Calcium 9.6 mg/dl (8.4-10.2) 12/31/24 07:28
Magnesium 2.1 mg/dl (1.6-2.3) 12/31/24 07:28
Total Bilirubin 0.7 mg/dl (0.2-1.3) 12/29/24 14:56
AST 49 U/L (17-59) 12/29/24 14:56
ALT 32 U/L (0-50) 12/29/24 14:56
Alkaline Phosphatase 123 U/L (38-126) 12/29/24 14:56
Total Protein 7.1 g/dl (6.3-8.2) 12/29/24 14:56
Albumin 4.6 g/dl (3.5-5.0) 12/29/24 14:56
Physical Exam
-
NAD
ABD soft, distended, non-tender
NGT with bilious outputs
[2024-12-31] MEDS: DILAUDID 0.25 MG IV ×3 (13:11→22:37)
[2024-12-31] MEDS: FLUSH (NSS) 4 FLUSH IV (13:12)
[2024-12-31] MEDS: LOVENOX 40 MG SC (17:07)
[2024-12-31] MEDS: CHLORASEPTIC/SORE THROAT SPRAY 2 SPRAY PO ×2 (20:36→22:38)
[2024-12-31] MEDS: TIGAN 200 MG IM (23:01)
[2025-01-01] MEDS: UNASYN IV ×4 (01:58→19:40)
[2025-01-01] MEDS: DILAUDID 0.25 MG IV ×4 (02:13→22:32)
[2025-01-01 03:17] VITALS: BP 161/86
[2025-01-01] MEDS: ATIVAN 0.5 MG IV ×3 (04:53→19:39)
[2025-01-01] MEDS: D5/0.45%NSS with KCL 10 MEQ 1000 IV ×3 (04:54→23:08)
[2025-01-01] MEDS: NSS (PRESERVATIVE FREE) 0.25 ML IV ×3 (04:54→19:39)
[2025-01-01] MEDS: CHLORASEPTIC/SORE THROAT SPRAY 2 SPRAY PO (04:54)
[2025-01-01 05:30] VITALS: BMI 31.6
--- NOTE | 2025-01-01 05:33 | PTCARENOTE ---
Patient very anxious throughout shift and c/o pain. See MAR. At start of shift, patient c/o sore throat. JOYA Xie notified, new order rec'd for Chloraseptic spray PRN. See MAR. Patient c/o pain to abdomen. Low output noted in NGT at start of
shift. NGT irrigated per orders with 30 cc tap water. NGT immediately drained 400 mL of dark green output after irrigation. NGT irrigated Q4H per order. Abdomen remains firm and distended. NGT drained 1950 mL this shift. EKG done per orders this AM.
Patient remains anxious, frequently asking for water and ice chips. Patient educated on importance of following NPO order. Patient continues to ask for water. Call kerns within reach. Plan of care ongoing.
[2025-01-01 07:03] LABS: Hematocrit 48.1 % (39.0-52.0); Mean Corp Hgb Conc. 33.3 g/dL (33.0-37.0); Mean Corpuscular Hgb 32.1 pg (27.0-31.0); Mean Corpuscular Volume 96.4 fL (80.0-94.0); Mean Platelet Volume 10.1 fL (7.4-10.4); Platelet Count 148 10^3/uL (130-400); Red Blood Cell Count 4.99 10^6/uL (4.70-6.10); Red Cell Dist. Width 13.9 % (11.5-14.5); White Blood Cell Count 5.2 10^3/uL (4.8-10.8)
[2025-01-01 07:20] VITALS: BP 170/88
[2025-01-01 07:26] LABS: Blood Urea Nitrogen 26 mg/dl (9-20); Carbon Dioxide 36 mmol/L (22-30); Chloride 94 mmol/L (98-107); Estimated Creatinine Clearance 80 ml/min; Glucose 136 mg/dl (70-99); Potassium 3.5 mmol/L (3.5-5.1); Sodium 138 mmol/L (135-145); eGFR > 60.00
[2025-01-01 08:00] VITALS: BP 152/78
[2025-01-01] MEDS: NSS (PRESERVATIVE FREE) 10 ML IV (08:26)
[2025-01-01] MEDS: PROTONIX IV 40 MG IV (08:26)
[2025-01-01] MEDS: DESENEX/MITRAZOL/ZEASORB 1 APPLIC TOPICAL ×2 (08:37→19:40)
[2025-01-01] MEDS: KCL 160 MEQ IV (08:42)
--- NOTE | 2025-01-01 09:57 | W.PN.GS2 ---
Addendum entered and electronically signed by Walter Cano MD 01/01/25 19:47:
I saw and examined the patient.
The LUMBER PRESS OPERATOR's note was reviewed and I agree with the note.
Comment:
Patient denies worsening of his abdominal pain or nausea, but does feel more bloated. No flatus today.
Afebrile, vital stable, ABD soft, moderately distended and tympanitic (similar to yesterday), mildly tender in the epigastric region, no rebound or guarding
WBC 5.2, lactate 1.8
� Repeat CT showing worsening bowel distention associated with SBO, but no pneumatosis or free air; explained findings to patient and that continued nonoperative management will unlikely resolve his issue at this point; therefore, I recommend
surgery, which the patient is amenable to; will add on the case to the OR tomorrow and discuss with general surgery
�Continue n.p.o. with NGT and IVF
Original Note:
Today's Communication / Plan
-
CT abd/pelvis
Assessment / Plan
-
74 yo male p/w SBO likely secondary to adhesions
On ABX for aspiration pna secondary to vomiting
Tachycardia improved, afebrile, BP elevated but stable
CBC stable, no leukocytosis
BUN/Cr ration elevated, suspect dehydration secondary to volume loss from GI outputs
Patient with increased pain and nausea, no longer passing flatus. NGT outputs elevated overnight >2L over 24h
-- NPO with ice chips for comfort
-- IVF, increased rate to 100ml/hr
-- CT imaging this AM. PO contrast via NGT as tolerated
-- NGT decompression (clamp for contrast then resume post testing)
Further surgical recs pending repeat imaging
Subjective Data
-
Date of Service: January 01, 2025
Patient seen and examined at bedside. Feels much worse today. Nausea present. Holding emesis bag. Pain returned to upper mid abdomen. No longer passing flatus.
Objective Data
-
Intake and Output
12/31/24 01/01/25 01/02/25
06:59 06:59 06:59
Intake Total 1120 / 1120 1120 / 1120
Output Total 2450 / 2450 2350 / 2350
Balance -1330 / -1330 -1230 / -1230
Intake:
IV fluids (Total) 880 / 880 880 / 880
IV piggybacks 240 / 240 240 / 240
Output:
Drain Output (Total) 2450 / 2450 2350 / 2350
Sump 2450 / 2450 2350 / 2350
Other:
Number of approximated MODERATE 3
amounts of urine
How many times incontinent 1 1
MODERATE amount urine
How many times incontinent 3 2
SATURATED amount urine
Vital Signs
Temp Pulse Resp BP Pulse Ox
97.8 F 98 20 170/88 95
01/01/25 07:20 01/01/25 07:20 01/01/25 07:20 01/01/25 07:20 01/01/25 07:20
Lab Results
01/01/25 06:28
01/01/25 06:28
Calcium 9.0 mg/dl (8.4-10.2) 01/01/25 06:28
Magnesium 2.1 mg/dl (1.6-2.3) 12/31/24 07:28
Total Bilirubin 0.7 mg/dl (0.2-1.3) 12/29/24 14:56
AST 49 U/L (17-59) 12/29/24 14:56
ALT 32 U/L (0-50) 12/29/24 14:56
Alkaline Phosphatase 123 U/L (38-126) 12/29/24 14:56
Total Protein 7.1 g/dl (6.3-8.2) 12/29/24 14:56
Albumin 4.6 g/dl (3.5-5.0) 12/29/24 14:56
Physical Exam
-
NAD
ABD soft, significant distention, mildly tender to mid/upper abdomen
NGT with high bilious outputs
[2025-01-01] MEDS: NON-FORMULARY ITEM 4 PUMP TRANSDERM (10:30)
[2025-01-01] MEDS: OMNIPAQUE 50 ML PO (10:38)
[2025-01-01 11:20] VITALS: BP 156/83
--- NOTE | 2025-01-01 12:42 | W.PN.HOSP.TC ---
Today's Communication/Plan
-
CT abdomen pelvis with IV p.o. contrast
Continue NGT to gastric suction
IV fluids
N.p.o.
F/u surgery recs
Assessment / Plan
Assessment / Plan
NAD
Scleral Anicteric, NGT to wall suction with dark liquid material in canister
MMM
No JVD
CTABL
RRR, S1/S2
Softer then yesterdau, NT, distended, BS-
Warm, Dry
AAOx3
Calm
Small bowel obstruction
NGT for decompression
IV fluids
Antiemetics
Minimize narcotics
CT abdomen pelvis with IV p.o. contrast ordered by surgeon
N.p.o.
Prolonged Qtc
-Repeat EKG without evidence of QTc prolongation
If need to provide Zofran for other QTc prolonging antiemetics agents then can do so
-Would repeat EKG after though
Aspiration pneumonia
Continue Unasyn
Hypertension
Continue antihypertensives
Hyperlipidemia
Resume statin when able to tolerate p.o.
Bipolar disorder
Ativan
Hold mood stabilizers
BPH
Bladder scans
Resume Flomax
Anticipated Discharge: > 48 hours
Subjective/Interval History
-
Date of Service: January 01, 2025
Seen and examined. No new complaints. No acute overnight events.
Remains on NGT to suction abdomen remains distended
Objective Data
-
Labs:
Laboratory Results
01/01/25
06:28
WBC 5.2
Hgb 16.0
Hct 48.1
Plt Count 148
Sodium 138
Potassium 3.5
Chloride 94 L
Carbon Dioxide 36 H
BUN 26 H
Creatinine 0.9
Glucose 136 H
Calcium 9.0
Vital Signs:
Vital Signs
Temp Pulse Resp BP Pulse Ox
97.5 F 99 20 156/83 95
01/01/25 11:20 01/01/25 11:20 01/01/25 11:20 01/01/25 11:20 01/01/25 11:20
I&O
12/31/24 01/01/25 01/02/25
06:59 06:59 06:59
Intake Total 1120 / 1120 1120 / 1120
Output Total 2450 / 2450 2350 / 2350
Balance -1330 / -1330 -1230 / -1230
[2025-01-01 15:35] VITALS: BP 138/79
[2025-01-01] MEDS: LOVENOX 40 MG SC (17:21)
--- NOTE | 2025-01-01 18:14 | PTCARENOTE ---
Pt with temp 100.5 Dr Cano made aware, no new orders.
[2025-01-01 19:03] LABS: Lactic Acid 1.8 mmol/L (0.7-2.0)
[2025-01-01 23:00] VITALS: BP 154/86
[2025-01-01] MEDS: OFIRMEV 100 IV (23:04)
--- NOTE | 2025-01-02 00:51 | PTCARENOTE ---
Patient anxious at start of shift. Scheduled ativan administered. Patient frequently asking for water. Re-educated frequently on NPO order with some ice chips. Rounded on patient about 15 minutes later, patient pulled out IV in R hand where IVF was
running. Patient stated that he pulled out his IV because he 'wanted something to drink.' Patient trying to pull at other IV site and NGT. JOYA Xie notified. New order rec'd for b/l soft wrist limb restraints and 4 side rails. Restraints
placed on patient. Educated patient on the importance of maintaining a safe environment. Ice chips given to patient. PRN pain medication administered per orders. NGT continues to drain dark green output. Plan of care ongoing.
[2025-01-02] MEDS: UNASYN IV ×4 (01:26→21:23)
[2025-01-02] MEDS: DILAUDID 0.25 MG IV ×2 (04:39→16:04)
[2025-01-02 06:00] VITALS: BMI 31.7
[2025-01-02 07:05] VITALS: BP 157/90
[2025-01-02] MEDS: DESENEX/MITRAZOL/ZEASORB 1 APPLIC TOPICAL ×2 (07:52→21:24)
[2025-01-02] MEDS: NON-FORMULARY ITEM 4 PUMP TRANSDERM (07:58)
--- NOTE | 2025-01-02 08:09 | W.PN.GS2 ---
Addendum entered and electronically signed by Jason Ruiz MD 01/02/25 09:05:
I saw and examined the patient independently.
The resident's documentation was reviewed and I agree with the note, assessment and plan except where noted below.
Comment: This is a 74-year-old male who presents with small bowel obstruction of unclear etiology. He does have a history of a open left inguinal hernia repair but reports no prior intra-abdominal surgeries and has no abdominal incisions/scars that
I can see. He is distended on exam with an NG tube that is still putting out a significant amount of bilious output.
He is tachycardic and was febrile yesterday, I suspect this is evolving aspiration pneumonia.
Can continue NPO, okay for ice chips for comfort. Continue antibiotics, may need to broaden coverage. Will defer to primary.
Continue IV fluids
Will get a chest x-ray and abdominal x-ray.
Tentatively plan for diagnostic lap today.
All questions answered, patient agreeable to plan of care above.
Risks/Benefits/Alternatives, expected postoperative course and possible complications (bleeding, infection, injury to surrounding structures, acute/chronic pain) discussed at length. Patient wishes to proceed with surgery. All questions answered.
Consent to be obtained.
I spent 60 minutes in total for the care of this patient today including direct patient care and counseling, reviewing labs, imaging, coordination of care, as well as documentation.
Original Note:
Today's Communication / Plan
-
Most recent abdominal/pelvis CT conducted on 01/01/2025 showed findings compatible with persistent small bowel obstruction which appears to be high-grade. Continue antibiotics. X-ray of the abdomen and chest ordered. Continue NGT decompression.
Patient remains n.p.o. with ice chips. Possible surgery today if tachycardia is controlled and if patient is stable for surgery.
Assessment / Plan
-
74 yo male p/w SBO likely secondary to adhesions
On Zosyn for aspiration pneumonia secondary to vomiting - CT of abdomen on 01/01/25 showed minimal bilateral pleural effusions. Mild to moderate parenchymal opacity within the visualized lower lungs, most likely atelectasis, pneumonia could be
possible
Patient remains tachycardic but improved from yesterday, afebrile but was febrile yesterday at 102.1 �F, BP elevated at 157/90 but stable
CBC stable, no leukocytosis
BUN/Cr ration elevated, suspect dehydration secondary to volume loss from GI outputs
Patient with pain and nausea, passing a small amount of flatus. NGT -2080 from 01/01/25-01/02/25. (Intake was 820 mL and output was 2900 mL with a -2079 balance)
-- Continue NPO with ice chips for comfort
-- Continue IVF
-- CT abdomen and pelvis conducted on 01/01/2025 showed findings compatible with persistent small bowel obstruction which appears to be high-grade. Mild mesenteric edema with minimal fluid adjacent to the liver and spleen within upper quadrants seen.
-- Abdominal x-ray and chest x-ray ordered to assess SBO status and possible PNA
-- Incentive Spirometry
-- Continue NGT decompression (clamp for contrast then resume post testing)
-- Continue antibiotics for possible pneumonia
-- Tentative plan for surgery if tachycardia controlled and if patient stable for surgery
Subjective Data
-
Date of Service: January 02, 2025
Met with patient at the bedside. He is sitting uncomfortably in bed. Pain continues mid abdomen. Passing small amount of flatus. Asks for ice chips for his dry mouth.
Objective Data
-
Intake and Output
01/01/25 01/02/25 01/03/25
06:59 06:59 06:59
Intake Total 1120 / 1120 820 / 820
Output Total 2350 / 2350 1800 / 1800 1100 / 1100
Balance -1230 / -1230 -980 / -980 -1100 / -1100
Intake:
IV fluids (Total) 880 / 880 820 / 820
IV piggybacks 240 / 240
Output:
Drain Output (Total) 2350 / 2350 1100 / 1100
Sump 2350 / 2350 1100 / 1100
Gastrointestinal tube output ( 1799 / 1799
Total)
Gastrostomy 1799 / 1800
Other:
Number of approximated MODERATE 3
amounts of urine
How many times incontinent 1 1
MODERATE amount urine
How many times incontinent 2 2
SATURATED amount urine
Vital Signs
Temp Pulse Resp BP Pulse Ox
98.0 F 112 18 157/90 94
01/02/25 07:05 01/02/25 07:05 01/02/25 07:05 01/02/25 07:05 01/02/25 07:05
Lab Results
01/01/25 06:28
01/01/25 06:28
Calcium 9.0 mg/dl (8.4-10.2) 01/01/25 06:28
Magnesium 2.1 mg/dl (1.6-2.3) 12/31/24 07:28
Total Bilirubin 0.7 mg/dl (0.2-1.3) 12/29/24 14:56
AST 49 U/L (17-59) 12/29/24 14:56
ALT 32 U/L (0-50) 12/29/24 14:56
Alkaline Phosphatase 123 U/L (38-126) 12/29/24 14:56
Total Protein 7.1 g/dl (6.3-8.2) 12/29/24 14:56
Albumin 4.6 g/dl (3.5-5.0) 12/29/24 14:56
Physical Exam
-
General: Appears uncomfortable, speaks in short words with discomfort
HEENT: Anicteric and Oxygen (Nasal Cannula), NGT w/ bilious tinge
Respiratory: Non Labored Respirations, clear on auscultations
Cardiac: S1/S2, Regular Rhythm and Tachycardia
GI: Soft, Tender (Mild throughout), Distended
Musculoskeletal: No Clubbing, No Cyanosis and No Edema
Skin: Warm, Dry
Neuro: Awake, Alert, Oriented and Nonfocal/grossly intact
Patient has a weaver catheter: No
[2025-01-02] MEDS: ATIVAN 0.5 MG IV ×3 (09:17→21:22)
[2025-01-02] MEDS: PROTONIX IV 40 MG IV (09:17)
[2025-01-02] MEDS: NSS (PRESERVATIVE FREE) 10 ML IV (09:17)
[2025-01-02] MEDS: NSS (PRESERVATIVE FREE) 0.25 ML IV ×3 (09:18→21:23)
[2025-01-02] MEDS: CHLORASEPTIC/SORE THROAT SPRAY 1 SPRAY PO (09:30)
[2025-01-02] MEDS: D5/0.45%NSS with KCL 10 MEQ 1000 IV ×2 (09:37→17:48)
[2025-01-02] MEDS: TIGAN 200 MG IM (09:55)
--- NOTE | 2025-01-02 11:52 | W.PN.HOSP.TC ---
Today's Communication/Plan
-
Add tele monitor to use IV metoprolol
Assessment / Plan
Assessment / Plan
Physical Exam
General: Not in distress
HEENT: Anicteric and Oxygen (Nasal Cannula). NG tube
Respiratory: Non Labored Respirations and Decreased Breath Sounds (Poor Inspirator Effort)
Cardiac: S1/S2, Regular Rhythm and Tachycardia
GI: Soft, distended.
Rectal: No bleeding.
Genito-urinary: Clear Urine
Musculoskeletal: No Clubbing, No Cyanosis and No Edema
Skin: Warm, Dry and Other (Mild erythema bilateral groin folds)
Neuro: Awake, Alert, Oriented and Nonfocal/grossly intact
Psych: Calm
# Small bowel obstruction
NGT for decompression
IV fluids
Antiemetics
Patient continues to have abdominal discomfort requiring pain medication
Repeat abdominal x-ray showed persistent small bowel dilatation
Plan per surgery for diagnostic laparoscopy
#Prolonged Qtc
Recheck EKG. Stopped Zofran
# Acute hypoxic respiratory insufficiency, pulmonary atelectasis
No fever. Leukocytosis resolved.
Chest x-ray showed mild pulmonary edema with bibasilar opacification consistent with subsegmental atelectasis/pneumonia
On intravenous Unasyn since December 30, can do 5 days
# Sinus tachycardia, reactive
# Primary hypertension
Uncontrolled, patient has been off his blood pressure medication since admission
Will add as needed IV metoprolol
Hyperlipidemia
Resume statin when able to tolerate p.o.
Bipolar disorder/ ADHD
Patient takes Klonopin 0.5 mg twice a day. While n.p.o., changed to IV Ativan to avoid withdrawal symptoms.
Patient has not been able to take his usual psych medication including Adderall, BuSpar, Wellbutrin, doxepin and Oxcarbazepine
# BPH
Bladder scans
Resume Flomax
Total time spent to see the patient, examine the patient, review data and lab results, discuss treatment plan with patient, nursing staff around 55 minutes
Anticipated Discharge: > 48 hours
Subjective/Interval History
-
Date of Service: January 02, 2025
Seen earlier
Going to OR
Objective Data
-
Vital Signs:
Vital Signs
Temp Pulse Resp BP Pulse Ox
98.0 F 112 18 157/90 94
01/02/25 07:05 01/02/25 07:05 01/02/25 07:05 01/02/25 07:05 01/02/25 07:05
I&O
01/01/25 01/02/25 01/03/25
06:59 06:59 06:59
Intake Total 1120 / 1120 820 / 820
Output Total 2350 / 2350 1800 / 1800 1100 / 1100
Balance -1230 / -1230 -980 / -980 -1100 / -1100
[2025-01-02] MEDS: LOPRESSOR 2.5 MG IV ×2 (14:14→17:47)
[2025-01-02 15:00] VITALS: BP 181/91
--- NOTE | 2025-01-02 15:23 | CM ---
Reviewed notes, patient still requiring medical care. Will look at patient's functional status once he is able to participate therapy to determine discharge plan.
Plan: Case management will continue to follow and assist with discharge planning. SNF s home.
[2025-01-02] MEDS: APRESOLINE 5 MG IV ×2 (16:02→23:56)
[2025-01-02 17:24] LABS: Glucose - Point of Care 111 mg/dl (70-99)
[2025-01-02] MEDS: LOVENOX 40 MG SC (17:47)
[2025-01-02] MEDS: OFIRMEV 100 IV (18:06)
--- NOTE | 2025-01-02 18:31 | PTCARENOTE ---
Pt BP was 185/93 at 1600 after IV hydralazine from 1500 BP of 181/91. Temp 100.2 axillary and 102.6 rectally. HR in 120's. 94% on 2L NC. Pt has no complaints of pain, abdomen distended but non tender to touch. Pt was very diaphoretic and said he
felt 'hot'. Ice packs placed around patient's neck and head. MD notified of vitals and IV Tylenol given. 1800 IV Lopressor also given. Pt calling out for water, but currently NPO for surgery tomorrow.
[2025-01-02 19:18] VITALS: BP 152/86
[2025-01-02 23:50] VITALS: BP 209/105
[2025-01-03] VITALS (24 sets, daily range): BP systolic 100–207; BP diastolic 61–101; BMI 31.6
[2025-01-03] MEDS: LOPRESSOR 2.5 MG IV ×2 (01:00→06:22)
[2025-01-03] MEDS: UNASYN IV ×3 (02:23→14:13)
--- NOTE | 2025-01-03 07:10 | W.PN.GS2 ---
Addendum entered and electronically signed by Madhu Xavier MD 01/03/25 13:50:
Update: Pt seen together with POA in preop area. He appears to have more insight at this time, he was able to tell me his current problem (bowel obstruction) and he was able to explain the plan (laparoscopic and possible open surgery). He verbalized
understanding of the risks, including but not limited to injury to intra-abdominal structures, infection, bleeding, anastomotic leak/stricture, CVA, HI, DVT and expressed his desire to proceed with surgery. He asked that his POA sign the consent.
Addendum entered and electronically signed by Madhu Xavier MD 01/03/25 13:32:
I saw and examined the patient.
The resident's note was reviewed and I agree with the note.
Comment: Pt is not oriented, he is perseverating on wanting ice chips which he is allowed to have. Nursing reports no bowel movements. He says he is passing flatus but unclear if his answer is reliable. His belly is soft and nontender. Febrile
today to 101.4. Tachycarida to 110s. Hypertensive to SBP 180s. No leukocytosis, expected electrolyte derangements considering NPO/NGT.
Challenging situation. He is not capacitated to make his own decisions, he does not have insight into his current condition nor prognosis. His exam is fairly benign and his he has no leukocytosis. He spiked a fever again today. Unclear source, could
be aspiration PNA or intra-abdominal source. This was discussed with his POA who reports he would want to have surgery if it was a life saving measure. In my opinion his bowel obstruction will not improve without surgery. Plan for dx laparoscopy,
possible exploratory laparotomy, possible bowel resection. Upon review of CT images it appears the transition point is in the right mid abdomen, anterior.
Original Note:
Today's Communication / Plan
-
Patient remains n.p.o. with comfort ice chips. Patient's abdomen grossly distended and tympanitic. Tentative plans for surgery today.
Assessment / Plan
-
74 yo male p/w SBO likely secondary to adhesions
On Zosyn for aspiration pneumonia secondary to vomiting - CT of abdomen on 01/01/25 showed minimal bilateral pleural effusions. Mild to moderate parenchymal opacity within the visualized lower lungs, most likely atelectasis, pneumonia could be
possible
Patient remains tachycardic but improved from yesterday, afebrile but was febrile yesterday at 102.1 �F, BP elevated at 157/90 but stable
CBC stable, no leukocytosis
BUN/Cr ration elevated, suspect dehydration secondary to volume loss from GI outputs
Patient with pain and nausea, passing a small amount of flatus. NGT -2080 from 01/01/25-01/02/25. (Intake was 820 mL and output was 2900 mL with a -2079 balance)
-- Continue NPO with ice chips for comfort
-- Continue IVF
-- CT abdomen and pelvis conducted on 01/01/2025 showed findings compatible with persistent small bowel obstruction which appears to be high-grade. Mild mesenteric edema with minimal fluid adjacent to the liver and spleen within upper quadrants seen.
-- Abdominal x-ray and chest x-ray ordered to assess SBO status and possible PNA
-- Incentive Spirometry
-- Continue NGT decompression (clamp for contrast then resume post testing)
-- Continue antibiotics for possible pneumonia
-- Tentative plan for surgery today
Subjective Data
-
Date of Service: January 03, 2025
Met with patient at the bedside. He continues to be visibly uncomfortable with NG tube output. He asks for comfort ice chips repeatedly. Patient said that he had passed some flatus. Said his abdominal pain is 'a lot' but could not specify a
number. Patient states that he is still anticipating his upcoming surgery.
Objective Data
-
Intake and Output
01/02/25 01/03/25 01/04/25
06:59 06:59 06:59
Intake Total 820 / 820 1560 / 1560
Output Total 1800 / 1800 1700 / 1700
Balance -980 / -980 -140 / -140
Intake:
IV fluids (Total) 820 / 820 1200 / 1200
IV piggybacks 360 / 360
Output:
Drain Output (Total) 1700 / 1700
Sump 1700 / 1700
Gastrointestinal tube output ( 1800 / 1800
Total)
Gastrostomy 1800 / 1800
Other:
How many times incontinent 1 2
MODERATE amount urine
How many times incontinent 2 1
SATURATED amount urine
Vital Signs
Temp Pulse Resp BP Pulse Ox
99.6 F 119 19 183/99 92
01/03/25 03:55 01/03/25 06:22 01/03/25 03:55 01/03/25 06:22 01/03/25 03:55
Lab Results
01/01/25 06:28
01/01/25 06:28
Calcium 9.0 mg/dl (8.4-10.2) 01/01/25 06:28
Magnesium 2.1 mg/dl (1.6-2.3) 12/31/24 07:28
Total Bilirubin 0.7 mg/dl (0.2-1.3) 12/29/24 14:56
AST 49 U/L (17-59) 12/29/24 14:56
ALT 32 U/L (0-50) 12/29/24 14:56
Alkaline Phosphatase 123 U/L (38-126) 12/29/24 14:56
Total Protein 7.1 g/dl (6.3-8.2) 12/29/24 14:56
Albumin 4.6 g/dl (3.5-5.0) 12/29/24 14:56
Physical Exam
-
General: Appears uncomfortable, speaks in short words with discomfort
HEENT: Anicteric and Oxygen (Nasal Cannula), NGT w/ bilious tinge
Respiratory: Non Labored Respirations, clear on auscultations
Cardiac: S1/S2, Regular Rhythm and Tachycardia
GI: Soft, Tender (Mild throughout), Distended, tympanitic
Musculoskeletal: No Clubbing, No Cyanosis and No Edema
Skin: Warm, Dry
Neuro: Awake, Alert, Oriented and Nonfocal/grossly intact
Patient has a weaver catheter: No
Patient has a central line: No
[2025-01-03] MEDS: D5/0.45%NSS with KCL 10 MEQ 1000 IV (07:50)
[2025-01-03] MEDS: NON-FORMULARY ITEM 4 PUMP TRANSDERM (07:51)
[2025-01-03] MEDS: APRESOLINE 5 MG IV (07:51)
[2025-01-03] MEDS: NSS (PRESERVATIVE FREE) 0.25 ML IV ×3 (07:52→20:17)
[2025-01-03] MEDS: PROTONIX IV 40 MG IV (07:52)
[2025-01-03] MEDS: ATIVAN 0.5 MG IV ×3 (07:52→20:17)
[2025-01-03] MEDS: NSS (PRESERVATIVE FREE) 10 ML IV (07:54)
[2025-01-03] MEDS: DESENEX/MITRAZOL/ZEASORB 1 APPLIC TOPICAL (08:12)
[2025-01-03 08:42] LABS: Hematocrit 45.7 % (39.0-52.0); Hemoglobin 15.7 g/dL (13.0-18.0); Mean Corp Hgb Conc. 34.4 g/dL (33.0-37.0); Mean Corpuscular Hgb 32.2 pg (27.0-31.0); Mean Corpuscular Volume 93.6 fL (80.0-94.0); Platelet Count 143 10^3/uL (130-400); Red Blood Cell Count 4.88 10^6/uL (4.70-6.10); Red Cell Dist. Width 13.9 % (11.5-14.5); White Blood Cell Count 9.3 10^3/uL (4.8-10.8)
[2025-01-03 09:27] LABS: Blood Urea Nitrogen 18 mg/dl (9-20); Calcium 7.8 mg/dl (8.4-10.2); Carbon Dioxide 23 mmol/L (22-30); Chloride 102 mmol/L (98-107); Estimated Creatinine Clearance 90 ml/min; Glucose 102 mg/dl (70-99); Magnesium 2.1 mg/dl (1.6-2.3); Phosphorus 1.5 mg/dl (2.5-4.5); Sodium 139 mmol/L (135-145); eGFR > 60.00
[2025-01-03] MEDS: LOPRESSOR 5 MG IV ×2 (11:56→18:49)
[2025-01-03] MEDS: OFIRMEV 100 IV (11:58)
--- NOTE | 2025-01-03 12:28 | W.PN.HOSP.TC ---
Today's Communication/Plan
-
Abdomen is distended and tender, surgery is aware
Continue with strict n.p.o., IV antibiotic, IV fluid.
Assessment / Plan
Assessment / Plan
Physical Exam
General: Not in distress
HEENT: Anicteric and Oxygen (Nasal Cannula). NG tube
Respiratory: Non Labored Respirations and Decreased Breath Sounds (Poor Inspirator Effort)
Cardiac: S1/S2, Regular Rhythm and Tachycardia
GI: Soft, distended.
Rectal: No bleeding.
Genito-urinary: Clear Urine
Musculoskeletal: No Clubbing, No Cyanosis and No Edema
Skin: Warm, Dry and Other (Mild erythema bilateral groin folds)
Neuro: Awake, Alert, Oriented and Nonfocal/grossly intact
Psych: Calm
# Small bowel obstruction
Constellation of fever, tachycardia, abdominal pain and distention with signs of small bowel obstruction indicate evolving sepsis
NGT for decompression
IV fluids
Antiemetics strict NPO.
Surgery was made aware of patient's condition.
Per staff, patient was offered surgery yesterday but declined, family intervened and seem to be agreeable for surgical intervention.
Discussed with nursing staff
Appreciate surgery input
#Prolonged Qtc
Recheck EKG. Stopped Zofran
# Acute hypoxic respiratory insufficiency, pulmonary atelectasis
No fever. Leukocytosis resolved. No history of cough or worsening hypoxia.
Chest x-ray showed mild pulmonary edema with bibasilar opacification consistent with subsegmental atelectasis/pneumonia
On intravenous Unasyn since December 30,
Blood culture negative.
# Sinus tachycardia, reactive
# Primary hypertension
Uncontrolled, patient has been off his blood pressure medication since admission
With ongoing tachycardia which is reactive, we will increase dose of IV metoprolol, continue telemonitoring
Hyperlipidemia
Resume statin when able to tolerate p.o.
Bipolar disorder/ ADHD
Patient takes Klonopin 0.5 mg twice a day. While n.p.o., changed to IV Ativan to avoid withdrawal symptoms.
Patient has not been able to take his usual psych medication including Adderall, BuSpar, Wellbutrin, doxepin and Oxcarbazepine
# BPH
Bladder scans
Resume Flomax
Total time spent to see the patient, examine the patient, review data and lab results, discuss treatment plan with patient, surgery, nursing staff around 67 minutes
Anticipated Discharge: > 48 hours
Subjective/Interval History
-
Date of Service: January 03, 2025
Objective Data
-
Labs:
Laboratory Results
01/03/25
08:27
WBC 9.3
Hgb 15.7
Hct 45.7
Plt Count 143
Sodium 139
Potassium 3.0 L
Chloride 102
Carbon Dioxide 23
BUN 18
Creatinine 0.8
Glucose 102 H
Calcium 7.8 L
Vital Signs:
Vital Signs
Temp Pulse Resp BP Pulse Ox
101.4 F H 97 18 167/90 95
01/03/25 11:45 01/03/25 11:56 01/03/25 11:45 01/03/25 11:56 01/03/25 11:45
I&O
01/02/25 01/03/25 01/04/25
06:59 06:59 06:59
Intake Total 820 / 820 1560 / 1560
Output Total 1800 / 1800 1700 / 1700
Balance -980 / -980 -140 / -140
--- NOTE | 2025-01-03 15:54 | W.IMMPOSTOP ---
Surgical Immed Post Op Note
-
Primary Surgeon: Duc
Assisting: Macy BOUCHER
Pre-op Diagnosis: Small bowel obstruction
Post-op Diagnosis: Ileus
Procedure Performed: Diagnostic laparoscopy, exploratory laparotomy, repair small bowel enterotomy
Anesthesia Type: GETA + TAP block
Specimen / Cultures: None
Estimated Blood Loss: 5cc
Complications: Small bowel enterotomy, repaired in 2 layers with 2-0 silk suture
Operative Findings: Distended viable small bowel, run from ligament of treitz to cecum without any stricture, adhesions or sign of mechanical obstruction; smooth taper noted from dilated to decompressed; 3mm enterotomy mid jejunum at the mesenteric
border repaired in 2 layers with 2-0 silk suture. 2mm serosal tear repaired with 2-0 silk lembert sutures. NGT palpated in stomach. 4L warm saline washout.
[2025-01-03] MEDS: DEMEROL 12.5 MG IV (16:07)
[2025-01-03] MEDS: DILAUDID 0.25 MG IV ×4 (16:40→20:15)
[2025-01-03 16:57] LABS: Blood Urea Nitrogen 19 mg/dl (9-20); Calcium 7.2 mg/dl (8.4-10.2); Carbon Dioxide 26 mmol/L (22-30); Chloride 100 mmol/L (98-107); Estimated Creatinine Clearance 80 ml/min; Glucose 137 mg/dl (70-99); Lactic Acid 2.9 mmol/L (0.7-2.0); Magnesium 2.3 mg/dl (1.6-2.3); Phosphorus 3.1 mg/dl (2.5-4.5); Potassium 3.8 mmol/L (3.5-5.1); Sodium 140 mmol/L (135-145); eGFR > 60.00
[2025-01-03 17:04] LABS: Hematocrit 50.5 % (39.0-52.0); Hemoglobin 16.3 g/dL (13.0-18.0); Mean Corp Hgb Conc. 32.3 g/dL (33.0-37.0); Mean Corpuscular Hgb 31.9 pg (27.0-31.0); Mean Corpuscular Volume 98.8 fL (80.0-94.0); Mean Platelet Volume 10.2 fL (7.4-10.4); Platelet Count 205 10^3/uL (130-400); Red Blood Cell Count 5.11 10^6/uL (4.70-6.10); Red Cell Dist. Width 14.3 % (11.5-14.5); White Blood Cell Count 7.5 10^3/uL (4.8-10.8)
[2025-01-03 17:05] LABS: Absolute Neutrophils -Man Diff 4.1 10^3/uL (1.4-6.5); Band Neutrophils 0 % (0-3); Eosinophils 3 % (0-6); Lymphocytes 27 % (20-51); Metamyelocytes 2 % (-); Monocytes 4 % (2-9); Myelocytes 9 % (-); Platelets Checked Yes; Segmented Neutrophils 55 % (42-75)
[2025-01-03 17:06] LABS: Nucleated Red Blood Cells 2 (-)
[2025-01-03 17:07] LABS: Normal RBC Morphology No; Poikilocytosis Slight; Polychromasia 1+
[2025-01-03] MEDS: D5/0.45%NSS with KCL 10 MEQ IV (17:07)
[2025-01-03 17:09] LABS: Anisocytosis 1+; Macrocytosis 1+; Microcytosis 1+
[2025-01-03 17:10] LABS: Total Cells Counted 100
--- NOTE | 2025-01-03 17:20 | W.PN.UPDATE ---
Addendum entered and electronically signed by Tegan Emery MD 01/03/25 18:07:
Addendum
I updated his contact Mr. Walter Lewis
Original Note:
Update Note
Progress Note Update
Called to see the patient in PACU
Patient underwent diagnostic laparoscopy, exploratory laparotomy with repair of small bowel enterotomy by Dr. Xavier
Patient in PACU having high fever, rigors and was placed on nonrebreather, patient was given Demerol. Discussed with anesthesiologist
Transfer to ICU
Discussed with ICU doctor
Continue with nasal oxygen supplementation
Strict n.p.o.
Blood culture x 2
Urine test and urine culture
Lactic acid
CBC
Influenza screen/COVID screen/Legionella and streptococcal antigen tests
Procalcitonin
MRSA screen
Change antibiotic to IV cefepime and IV vancomycin
CT scan of the chest with contrast
Will follow
Discussed with ID doctor, appreciate surgery, ID and ICU doctor input
[2025-01-03 18:28] LABS: B.E. -1.6 mmol/L; HCO3 22.1 mmol/L (21-28); PCO2 34 mmHg (35-48); PO2 181 mmHg (83-108); pH 7.42 (7.35-7.45)
[2025-01-03 18:29] LABS: Urine Albumin 3+ (Neg - Trace); Urine Bilirubin Negative (Negative); Urine Glucose Negative (Negative); Urine Ketone 3+ (Negative); Urine Leukocyte Negative (Negative); Urine Nitrite Negative (Negative); Urine Occult Blood 3+ (Negative); Urine Urobilinogen Negative (Neg - 1+)
[2025-01-03 18:36] LABS: Urine Character Clear (Clear); Urine Color Yellow
[2025-01-03 18:37] LABS: Urine Squamous Cell 0-2 /LPF (Few)
[2025-01-03 18:38] LABS: Urine Bacteria Few (Negative); Urine Red Blood Cell 0-2 /HPF (0-2); Urine White Cell 0-2 /HPF (0-5)
[2025-01-03] MEDS: LOVENOX 40 MG SC (18:49)
[2025-01-03] MEDS: STERILE WATER FOR INJECTION 10 ML IV (18:51)
[2025-01-03] MEDS: MAXIPIME 2000 MG IV (18:51)
[2025-01-03] MEDS: VANCOCIN 540 MG IV (18:58)
--- NOTE | 2025-01-03 19:00 | PTCARENOTE ---
Rec'd pt from PACU @ approximately 1810. Pt rec'd drowsy but easily arousable. Knows name and . Mildly anxious...easily calmed w/ conversation. Did not arrive w/ restraints. S1 S2 reg w/ ST on monitor. +PP. No edema. On 10L simple
mask...sats 98%. Lungs diminished....right base w/ coarse crackles 1/2 up posteriorly. Moist NPC. Abdomen obese and distended...no BS. (L) fredi wood (60cm) -> LIWS...draining greenish brown liquid. Incontinent of yellow urine. Skin pale in
color. CHG bath done on arrival. Intact drsg on sacrum and bilateral heels. Mid line abdominal aquacell dressing w/ shadowing. 6 puncture sites w/ bandaids...some required reinforcement. Stage 2 noted on left side of penis. 20P LFA and 18P RW.
VS documented. All swabs, labs, and blood cultures sent per MD orders. Will continue to monitor.
[2025-01-03 19:02] LABS: Carbon Dioxide 21 mmol/L (22-30); Chloride 102 mmol/L (98-107); Potassium 3.1 mmol/L (3.5-5.1); Sodium 137 mmol/L (135-145)
[2025-01-03 19:04] LABS: COVID-19 Antigen Negative (Negative)
--- NOTE | 2025-01-03 19:10 | PHA.VAN.IN ---
Assessment
- Assessment
Renal Function: Appears similar to baseline
Maximum Temperature: 102.1 F axillary 01/01 @ 2300
Concomitant Antimicrobials: cefepime
AUC Dosing Plan
- Dosing Variables
Dosing Weight (kg): 91.5
Dosing CrCl (ml/min): 80
Vd coefficient (L/kg): 0.7
- Empiric Dosing
Initial / Loading Dose: vanc 2000mg
Maintenance Regimen: vanc 1000mg Q12H
Estimated AUC (mcg*h/mL): 457
Estimated Peak (mcg*h/mL): 27.3
Estimated Trough (mcg/ml): 12.5
Estimated Half Life (H): 9.8
- Monitoring
No levels ordered at this time: consider levels in next few days
Pharmacokinetics Vancomycin I
- -
Patient Age: 74
Patient Sex: Male
Vancomycin Day #: 1
Indication: Gi / Intra-Abdominal
Requesting Provider: Dr. Emery
Pertinent Antimicrobial Allergies:
no pertinent antimicrobial allergies
Height / Weight:
Height 5 ft 7 in
Actual Weight 91.535 kg
Pertinent Past Medical History: BMI ~32
- Vital Signs / Lab Results
Temp Pulse Resp BP Pulse Ox
101.2 F H 109 20 147/66 96
01/03/25 17:45 01/03/25 18:49 01/03/25 17:40 01/03/25 18:49 01/03/25 17:45
Lab Results - Hematology
01/01/25 01/03/25 01/03/25
06:28 08:27 16:23
WBC 5.2 9.3 7.5
Band Neutrophils 0
Lab Results - Chemistry
01/01/25 01/03/25 01/03/25
06:28 08:27 16:23
BUN 26 H 18 19
Creatinine 0.9 0.8 0.9
Estimated Creat Clear 80 90 80
01/01/25 01/03/25 01/03/25
18:42 16:23 17:08
Lactic Acid 1.8 2.9 H Cancelled
Lab Results - Urine
01/03/25
18:22
Urine Nitrite (Reflex) Negative
Leukocyte Esterase Rfl Negative
Urine WBC (Reflex) 0-2
Ur Squamous Epith Cells 0-2
Urine Bacteria (Reflex) Few A
Microbiology Results
01/03/25 18:32 Influenza Types A & B ([place]) - Final
Nasal Swab Negative for Influenza A & B, NAAT
Negative results must be combined with clinical observations
and patient history.
Nucleic Acid Amplification test (NAAT)performed on the
[employer] NOW platform.
12/29/24 17:21 Blood Culture - Final
Blood/Venous No Growth - Final Report
12/29/24 17:21 Blood Culture - Final
Blood/Venous No Growth - Final Report
[2025-01-03 19:16] LABS: Procalcitonin 1.41 ng/ml (0.0-0.25)
[2025-01-03] MEDS: KCL 160 MEQ IV (19:38)
--- NOTE | 2025-01-03 20:00 | PTCARENOTE ---
rec`d pt at 1900 drowsy but awakens to verbal stimuli. assessment as documented. ESPINO. rt hand tremors from baseline. ST on monitor. + pulses. nonrebreather POX mid 90s. coarse, crackle lung sounds. midline aquacell d/i. minimal drainage. round,
obese abdomen. left nare OGT draining green/brown bilius. heel foams. sacral foam. incontinent urine. PIVS flushed and patent. call kerns in reach. safe environment maintained.
[2025-01-03] MEDS: CALCIUM CHLORIDE 10% SYRINGE 60 MG IV (20:23)
[2025-01-03] MEDS: LASIX 40 MG IV (20:29)
[2025-01-03] MEDS: DESENEX/MITRAZOL/ZEASORB TOPICAL (21:23)
[2025-01-03] MEDS: TYLENOL/FEVERALL 650 MG RECTAL (23:06)
[2025-01-03 23:09] LABS: Lactic Acid 1.1 mmol/L (0.7-2.0)
[2025-01-04] VITALS (26 sets, daily range): BP systolic 90–161; BP diastolic 47–85; PULSE 112–127; O2SAT 95–96; BMI 30.5
[2025-01-04] MEDS: LOPRESSOR 5 MG IV ×4 (00:56→17:26)
[2025-01-04] MEDS: DILAUDID 0.25 MG IV ×7 (01:01→21:35)
[2025-01-04 04:34] LABS: ALT (SGPT) 26 U/L (0-50); AST (SGOT) 70 U/L (17-59); Albumin 2.9 g/dl (3.5-5.0); Alkaline Phosphatase 64 U/L (38-126); Blood Urea Nitrogen 22 mg/dl (9-20); Calcium 7.9 mg/dl (8.4-10.2); Carbon Dioxide 21 mmol/L (22-30); Chloride 107 mmol/L (98-107); Estimated Creatinine Clearance 72 ml/min; Glucose 116 mg/dl (70-99); Magnesium 2.3 mg/dl (1.6-2.3); Potassium 3.6 mmol/L (3.5-5.1); Sodium 142 mmol/L (135-145); Total Bilirubin 0.9 mg/dl (0.2-1.3); Total Protein 5.2 g/dl (6.3-8.2); eGFR > 60.00
[2025-01-04 04:53] LABS: Hematocrit 46.7 % (39.0-52.0); Hemoglobin 15.6 g/dL (13.0-18.0); Mean Corp Hgb Conc. 33.4 g/dL (33.0-37.0); Mean Corpuscular Hgb 31.8 pg (27.0-31.0); Mean Corpuscular Volume 95.3 fL (80.0-94.0); Mean Platelet Volume 10.5 fL (7.4-10.4); Platelet Count 166 10^3/uL (130-400); Red Cell Dist. Width 14.5 % (11.5-14.5); White Blood Cell Count 14.1 10^3/uL (4.8-10.8)
[2025-01-04] MEDS: MAXIPIME 2000 MG IV (05:53)
[2025-01-04] MEDS: STERILE WATER FOR INJECTION 10 ML IV (05:53)
[2025-01-04] MEDS: VANCOCIN 200 IV ×2 (05:53→17:26)
[2025-01-04] MEDS: TYLENOL/FEVERALL 650 MG RECTAL (05:56)
--- NOTE | 2025-01-04 06:09 | DOWNTIME ---
There was a [employer] Downtime on 01/04/2025 from 0100 to 01/05/2024 at 0420 . Downtime documentation of patient's care, including medication administrations, has been reconciled in the electronic record per guidelines. Refer to the
patient's paper chart under the miscellaneous tab to see printed paper medication records and downtime forms.
--- NOTE | 2025-01-04 06:17 | W.PN.HOSP.TC ---
Addendum entered and electronically signed by Tegan Emery MD 01/04/25 15:08:
Addendum
Acute toxic metabolic encephalopathy on underlying bipolar disorder
Original Note:
Today's Communication/Plan
-
.
Assessment / Plan
Assessment / Plan
Physical Exam
General: Not in distress
HEENT: Anicteric and Oxygen (Nasal Cannula). NG tube
Respiratory: Non Labored Respirations and Decreased Breath Sounds (Poor Inspirator Effort)
Cardiac: S1/S2, Regular Rhythm and Tachycardia
GI: Soft, distended.
Rectal: No bleeding.
Genito-urinary: Clear Urine
Musculoskeletal: No Clubbing, No Cyanosis and No Edema
Skin: Warm, Dry and Other (Mild erythema bilateral groin folds)
Neuro: Awake, Alert, Oriented and Nonfocal/grossly intact
Psych: Calm
# Small bowel obstruction
Constellation of fever, tachycardia, abdominal pain and distention with signs of small bowel obstruction indicate evolving sepsis
Status post diagnostic laparoscopy and exploratory laparotomy - Small bowel enterotomy repaired in 2 layers on 01/03
NGT for decompression
IV fluids
Antiemetics
NPO.
PICC line, TPN
Appreciate surgery input
# Hypokalemia, replete
#Prolonged Qtc
Recheck EKG. Stopped Zofran
# Acute hypoxic respiratory failure
Respiratory status worsened postoperatively that required nonrebreather
Imaging studies including CAT scan of the chest consistent with bilateral pneumonia, aspiration pneumonia
No fever. Leukocytosis resolved. No history of cough or worsening hypoxia.
Negative COVID and influenza screen. Negative Legionella and Streptococcus pneumoniae Antigen�
MRSA screen is pending.
Repeat blood culture pending. Blood culture on admission no growth
Started on broad-spectrum antibiotic
Discussed with ID and pulmonary doctors, appreciate input
# Sinus tachycardia, reactive
Continue with IV metoprolol
# Primary hypertension
Continue with IV metoprolol.
# Hyperlipidemia
Resume statin when able to tolerate p.o.
Bipolar disorder/ ADHD
Patient takes Klonopin 0.5 mg twice a day. While n.p.o., changed to IV Ativan to avoid withdrawal symptoms.
Patient has not been able to take his usual psych medication including Adderall, BuSpar, Wellbutrin, doxepin and Oxcarbazepine
Will discuss with psych doctor
# BPH
Bladder scans
High risk for retention
Total time spent to see the patient, examine the patient, review data and lab results, discuss treatment plan with patient, his friend, nursing staff around 67 minutes
Anticipated Discharge: > 48 hours
Subjective/Interval History
-
Date of Service: January 04, 2025
Objective Data
-
Labs:
Laboratory Results
01/03/25 01/03/25 01/03/25
18:22 18:29 18:35
WBC
Hgb
Hct
Plt Count
HCO3 22.1 Cancelled
Sodium 137
Potassium 3.1 L
Chloride 102
Carbon Dioxide 21 L
BUN
Creatinine
Glucose
Calcium
Total Bilirubin
AST
ALT
Alkaline Phosphatase
01/04/25
02:55
WBC 14.1 H
Hgb 15.6
Hct 46.7
Plt Count 166
HCO3
Sodium 142
Potassium 3.6
Chloride 107
Carbon Dioxide 21 L
BUN 22 H
Creatinine 1.0
Glucose 116 H
Calcium 7.9 L
Total Bilirubin 0.9
AST 70 H
ALT 26
Alkaline Phosphatase 64
Vital Signs:
Vital Signs
Temp Pulse Resp BP Pulse Ox
100.9 F H 98 34 119/66 95
01/04/25 05:30 01/04/25 06:00 01/04/25 06:00 01/04/25 06:00 01/04/25 05:45
I&O
01/02/25 01/03/25 01/04/25
06:59 06:59 06:59
Intake Total 820 / 820 1560 / 1560 400 / 400
Output Total 1800 / 1800 1700 / 1700 100 / 100
Balance -980 / -980 -140 / -140 300 / 300
--- NOTE | 2025-01-04 07:32 | W.PN.GS2 ---
Addendum entered and electronically signed by Madhu Xavier MD 01/04/25 12:38:
Addendum: IV abx for PNA
Addendum entered and electronically signed by Madhu Xavier MD 01/04/25 11:58:
I saw and examined the patient.
The resident's note was reviewed and I agree with the note.
Comment: 74M with ileus POD1 s/p dx lap converted to ex lap for sb iatrogenic injury with minimal contamination
This am perseverating about ice chips, similar to yesterday's am encounter. Denies pain, denies n/v, denies flatus/BM. Unclear how reliable his answers are. On exam he is more distended today, belly is soft and approp ttp, dressings cdi with some
strikethrough, ng output thin dawn bilious. Cont NPO/NGT. Rec psych consult (I suspect the risperidone is what led to the ileus), TPN and PICC ordered, PT/OT, abx for PNA per Hospitalist. No indication at this time for ICU status, recommend IMU level
of care.
Original Note:
Today's Communication / Plan
-
Status post diagnostic laparoscopy and exploratory laparotomy - Small bowel enterotomy repaired in 2 layers with 2-0 silk suture. Continue antibiotics and appreciate ID recommendations. NPO with TPN. Continue NGT as there is continued bilious
drainage - will consider clamp trial once appropriate.
Assessment / Plan
-
74 yo male p/w SBO likely secondary to adhesions
On Zosyn for aspiration pneumonia secondary to vomiting - CT of abdomen on 01/01/25 showed minimal bilateral pleural effusions. Mild to moderate parenchymal opacity within the visualized lower lungs, most likely atelectasis, pneumonia could be
possible
Patient remains tachycardic but improved from yesterday, afebrile but was febrile yesterday at 102.1 �F, BP elevated at 157/90 but stable
CBC stable, no leukocytosis
BUN/Cr ration elevated, suspect dehydration secondary to volume loss from GI outputs
Patient with pain and nausea, passing a small amount of flatus. NGT -2080 from 01/01/25-01/02/25. (Intake was 820 mL and output was 2900 mL with a -2079 balance)
Suspect paralytic ileus secondary to risperidone
Patient is febrile and in the ICU on 01/04/25
-- Continue NPO
-- Continue IVF
-- CT abdomen and pelvis conducted on 01/01/2025 showed findings compatible with persistent small bowel obstruction which appears to be high-grade. Mild mesenteric edema with minimal fluid adjacent to the liver and spleen within upper quadrants seen.
-- Abdominal x-ray and chest x-ray ordered to assess SBO status and possible PNA
-- Incentive Spirometry
-- Continue NGT decompression - continued bilious drainage
-- Continue antibiotics for possible aspiration pneumonia - appreciate ID recommendations
-- Status post diagnostic laparoscopy and exploratory laparotomy - Small bowel enterotomy repaired in 2 layers with 2-0 silk suture
-- Chest CT on 01/04/2025 showed parenchymal opacity within the posterior aspect of both lower lobes. There are additional patchy areas of focal airspace opacity within both lungs.
Subjective Data
-
Date of Service: January 04, 2025
Patient laying in bed sleeping. Was arousable but somnolent. Asked for fluid to wet his mouth and throat.
Objective Data
-
Intake and Output
01/03/25 01/04/25 01/05/25
06:59 06:59 06:59
Intake Total 1560 / 1560 400 / 400
Output Total 1700 / 1700 100 / 100
Balance -140 / -140 300 / 300
Intake:
IV fluids (Total) 1200 / 1200 400 / 400
Normosol 400 / 400
IV piggybacks 360 / 360
Output:
Drain Output (Total) 1700 / 1700 100 / 100
Sump 1700 / 1700 100 / 100
Other:
How many times incontinent 2 2
MODERATE amount urine
How many times incontinent 1 4
SATURATED amount urine
Vital Signs
Temp Pulse Resp BP Pulse Ox
100.9 F H 98 34 119/66 95
01/04/25 05:30 01/04/25 06:00 01/04/25 06:00 01/04/25 06:00 01/04/25 05:45
Lab Results
01/04/25 02:55
01/04/25 02:55
Calcium 7.9 mg/dl (8.4-10.2) L 01/04/25 02:55
Phosphorus 3.1 mg/dl (2.5-4.5) 01/03/25 16:23
Magnesium 2.3 mg/dl (1.6-2.3) 01/04/25 02:55
Total Bilirubin 0.9 mg/dl (0.2-1.3) 01/04/25 02:55
AST 70 U/L (17-59) H 01/04/25 02:55
ALT 26 U/L (0-50) 01/04/25 02:55
Alkaline Phosphatase 64 U/L (38-126) 01/04/25 02:55
Total Protein 5.2 g/dl (6.3-8.2) L 01/04/25 02:55
Albumin 2.9 g/dl (3.5-5.0) L 01/04/25 02:55
Physical Exam
-
General: Appears uncomfortable, somnolent, febrile
HEENT: Anicteric and Oxygen (Nasal Cannula), NGT w/ bilious tinge
Respiratory: Non Labored Respirations, clear on auscultations
Cardiac: S1/S2, Regular Rhythm and Tachycardia
GI: Soft, Tender (Mild throughout), Distended, tympanitic
Musculoskeletal: No Clubbing, No Cyanosis and No Edema
Skin: Warm, Dry
Neuro: Awake, Alert, Oriented and Nonfocal/grossly intact
Patient has a weaver catheter: No
Patient has a central line: No
[2025-01-04] MEDS: ATIVAN 0.5 MG IV ×3 (07:35→20:05)
[2025-01-04] MEDS: NSS (PRESERVATIVE FREE) 0.25 ML IV ×2 (07:36→21:36)
[2025-01-04] MEDS: PROTONIX IV 40 MG IV (07:36)
[2025-01-04] MEDS: NSS (PRESERVATIVE FREE) 10 ML IV (07:36)
--- NOTE | 2025-01-04 08:00 | PTCARENOTE ---
recd 0715 handoff at bedside, turned for comfort. VS noted. CHIQUITA garcia marked, requested pain meds for non-ratable abd pain. anxious, calls 'help me' even when standing in room performing care. no other c/o. no bowel sounds. incont, attends
changed.
--- NOTE | 2025-01-04 08:33 | CON.INTV ---
Consultation
Consultation Request
Date/Time Consultation Requested: 01/03/2025
Date/Time Consultation Performed: 01/04/2025
Requesting Provider: Tegan Emery
Performing Provider: Ruth Soler
Reason for Consultation: Hypoxia
Medical History
-
Chief Complaint: Shortness of breath
History of Present Illness:
Patient is a 74 y/o male past medical history of right basal ganglia stroke, hypertension, hyperlipidemia, and bipolar disorder who presented to ED on 12/29 with vomiting and abdominal pain. Patient developed vomiting two days prior to presentation.
CT scan was suggestive of SBO. Patient was managed conservatively without significant improvement. He had a follow-up CT scan on 01/01 which was still suggestive of bowel obstruction:
12/2015: CT Abd/Pelvis findings compatible with persistent small bowel obstruction which appears to be high-grade. Mild mesenteric edema with minimal fluid adjacent to the liver and spleen within the upper quadrants.
No evidence of free intraperitoneal air. Minimal bilateral pleural effusions. Mild to moderate parenchymal opacity within the visualized lower lungs, most likely atelectasis, although pneumonia is also possible. Two calcifications within the
visualized medial right lower lobe, most likely calcified granulomas.
01/03, patient was taken to the OR for laparotomy where no obvious obstruction was noted and patient's presentation was felt to be related to severe ileus. Postsurgery, in PACU, patient was noted to be short of breath, hypoxic with increasing
oxygen requirement. He was started on nonrebreather and was transferred to ICU. Diet Attendant consult was requested for further management.
Medical History
Past Medical History
Past Medical History: Reports Other
Additional Past Medical History:
Right Basal Ganglia Stroke
Essential Hypertension
Hyperlipidemia
Spinal Stenosis
Bipolar Disorder / Anxiety
BPH
Hypogonadism
Past Surgical History: Reports Other
Additional Past Surgical History:
Left Direct Inguinal Hernia Repair
Social History
Tobacco: Former Smoker
Family History
Family History: Not pertinent
Allergies / Home Medications
Allergies
Allergy/AdvReac Type Severity Reaction Status Date / Time
chlorpromazine Allergy paralysis Verified 12/29/24 14:50
[From Thorazine]
Home Medications
�Medication �Instructions �Recorded �Confirmed �Last Taken �Type
tadalafil 5 mg tablet 5 mg PO QPM BPH 01/19/24 12/29/24 12/28/24 History
tamsulosin 0.4 mg capsule 0.4 mg PO HS BPH 01/19/24 12/29/24 12/28/24 History
testosterone 4 pump transdermal DAILY 01/19/24 12/29/24 Unknown History
Hypogonadism
amantadine HCl 100 mg tablet 100 mg PO DAILY Parkinsons symptoms 12/29/24 12/29/24 12/28/24 History
atorvastatin 80 mg tablet (Lipitor) 80 mg PO QPM High Cholesterol 12/29/24 12/29/24 12/28/24 History
bupropion HCl 100 mg tablet,12 hr 100 mg PO DAILY Mental 12/29/24 12/29/24 12/28/24 History
sustained-release (Wellbutrin SR) Health/Anxiety
buspirone 10 mg tablet 10 mg PO DAILY Mental 12/29/24 12/29/24 12/29/24 History
Health/Anxiety
clonazepam 1 mg tablet 0.5 mg PO BID Mental Health/Anxiety 12/29/24 12/29/24 12/28/24 History
coenzyme Q10 100 mg capsule 200 mg PO DAILY Supplement 12/29/24 12/29/24 12/28/24 History
(CoQ-10)
dextroamphetamine-amphetamine 7.5 7.5 mg PO TID Mental Health/Anxiety 12/29/24 12/29/24 12/28/24 History
mg tablet (Adderall)
diphenhydramine 25 2 tab PO HS PAIN/SLEEP 12/29/24 12/29/24 12/28/24 History
mg-acetaminophen 500 mg tablet
(Acetaminophen PM)
doxepin 100 mg capsule 100 mg PO HS Mental Health/Anxiety 12/29/24 12/29/24 12/28/24 History
glucosamine-chondroitin 250 mg-200 1 tab PO DAILY Supplement 12/29/24 12/29/24 12/28/24 History
mg tablet (Osteo Bi-Flex)
losartan 100 mg tablet 100 mg PO DAILY Blood Pressure 12/29/24 12/29/24 12/28/24 History
oxcarbazepine 150 mg tablet 150 mg PO BID Mental Health/Anxiety 12/29/24 12/29/24 12/28/24 History
risperidone 2 mg tablet (Risperdal) 2 mg PO HS Mental Health/Anxiety 12/29/24 12/29/24 12/28/24 History
therapeutic multivitamin 1 tab PO DAILY Supplement 12/29/24 12/29/24 12/28/24 History
venlafaxine 75 mg capsule,extended 75 mg PO DAILY Mental 12/29/24 12/29/24 12/28/24 History
release 24 hr (Effexor XR) Health/Anxiety
aspirin 81 mg chewable tablet 81 mg PO DAILY Blood Clot 12/30/24 12/29/24 12/28/24 History
Prevention/Tx
Review of Systems
-
Hematologic/Lymphatic: Other (Reports feeling thirsty anf repeatedly asking for ice chips. )
Vitals / Labs / Diagnostic Testing
Vital Signs
Temp Pulse Resp BP Pulse Ox
100 F 98 34 119/66 95
01/04/25 07:53 01/04/25 06:00 01/04/25 06:00 01/04/25 06:00 01/04/25 05:45
Lab Data
01/04/25 02:55
01/04/25 02:55
Laboratory Results
01/03/25 01/03/25
18:22 18:29
pH 7.42 Cancelled
pCO2 34 L Cancelled
pO2 181 H Cancelled
HCO3 22.1 Cancelled
O2 Delivery Level Cancelled
Microbiology
01/03/25 18:32 Urine Legionella Urinary Antigen - Final
Negative for Legionella pneumophila Serogroup 1 antigen.
A negative result does not rule out the possiblity of
Legionella infection due to other serogroups or species of
Legionella. Clinical correlation is recommended.
01/03/25 18:32 Urine Streptococcus pneumoniae Antigen (M - Final
Negative for Streptococcus pneumoniae antigen.
A negative result does not exclude infection with
Streptococcus pneumoniae. Clinical correlation is
recommended.
01/03/25 18:32 Nasal Swab Influenza Types A & B ([place]) - Final
Negative for Influenza A & B, NAAT
Negative results must be combined with clinical observations
and patient history.
Nucleic Acid Amplification test (NAAT)performed on the
[employer] platform.
12/29/24 17:21 Blood/Venous Blood Culture - Final
No Growth - Final Report
12/29/24 17:21 Blood/Venous Blood Culture - Final
No Growth - Final Report
Diagnostic Testing:
Physical Exam
-
HEENT: Normocephalic and Moist Mucous Membranes (Dry oral mucosa )
Cardiovascular: S1/S2
Respiratory: Clear and Non-Labored Respirations
GI: Distended
Neurology: Awake and Alert
Skin: Warm
General: Comfortable
Assessment
-
Patient is a 74-year-old gentleman was admitted to hospital in 12/29 with abdominal pain and vomiting, initial CT suggestive of small bowel obstruction. He failed conservative management had a repeat CT on 01/01 which was suggestive of persistent
bowel obstruction. He was taken to the OR on 01/03 and post laparotomy developed hypoxia and increasing oxygen requirement which prompted transfer to the ICU. Patient was noted to have bilateral pneumonia, suspicious for aspiration. He responded
well to antibiotic NG tube suction and supplemental oxygen with the overnight improvement.
#1. Acute hypoxic respiratory failure with multifocal pneumonia, concerning for aspiration pneumonia. Abdominal distention and atelectasis also contributing.
-Continue O2 support, stat ABG was performed with reassuring pO2. 7.42/34/181
-Patient since has been transitioned from nonrebreather to mid flow
-Unasyn discontinued, currently on vancomycin and Zosyn. Patient received 1 dose of Lasix on 01/03.
-Follow-up on MRSA screen, sputum culture and blood cultures
-Work of breathing acceptable
-Incentive spirometry
-Antibiotic management per infectious disease service
-Activity as tolerated
#2. Severe ileus/SBO, s/p ex lap
-NG in place
-Reportedly no SBO on ex-lap, primarily ileus contributing
-Gen surgery case
-Plan for starting TPN via PICC line today
-IV Calcium given for low Ionized calcium
#3. h/o Bipolar/ADHD
-All meds on hold as NPO
-Might need to consider par-enteral alternative meds if stays NPO
#4. Incidental calcified granulomas in the right lower lobe
-This can be followed as an outpatient, likely a residual of previous infection
DVT & GI prophylaxis with Lovenox and Protonix
Critical Care time 60 mins -- The patient is admitted for acute critical illness for the treatment of vital organ failure and/or prevention of further life-threatening conditions. Total care includes time spent in review of history, physical exam,
medications, hemodynamic/ventilator parameters, laboratory data, imaging and discussion with house staff, pharmacy, respiratory therapy, alarm adjuster, and nursing.
Data:
CT Chest 01/04:
Moderate respiratory motion artifact which limits evaluation of the inferior segmental and subsegmental pulmonary arteries.
There is no evidence for central pulmonary embolism.
Minimal bilateral posterior pleural effusions
Parenchymal opacity within the posterior aspect of both lower lobes is most likely atelectasis. However, there are additional patchy areas of focal airspace opacity within both lungs, and findings would suggest that there is bilateral pneumonia as
well. Because of the patchy distribution and the lack of Maximino B lines, this is probably not a patchy pulmonary edema pattern, although also considered because of the recent surgery.
ECHO 2021:
Normal left ventricular systolic function. Left ventricular ejection fraction is 50-55% normal regional wall motion. Mild concentric left ventricular hypertrophy.
Normal right ventricular size and function. Thickened mitral valve leaflets. Mild mitral regurgitation. No intracardiac mass or thrombus formation seen on this transthoracic
echocardiogram.
--- NOTE | 2025-01-04 08:41 | PHA.VAN.FU ---
Vancomycin Assessment / Plan
- Assessment
Renal Function: Stable
WBC's are: Trending Up
In the past 24 hrs, patient has been: Febrile
Concomitant Antimicrobials: cefepime
- Dosing Plan
Continue: Vanc 1000mg Q12H
- Monitoring Plan
No level(s) ordered at this time: follow renal function trend - may consider dose by level
- Follow Up
Pharmacy will continue to follow.
Vancomycin Follow UP
- -
Patient Age: 74
Patient Sex: Male
Vancomycin Day #: 2
Indication: Gi / Intra-Abdominal
Requesting Provider: Dr. Emery
Pertinent Antimicrobial Allergies:
no pertinent antimicrobial allergies
Height / Weight:
Height 5 ft 7 in
Actual Weight 88.2 kg
Pertinent Past Medical History: BMI ~32
- Vital Signs / Lab Results
Temp Pulse Resp BP Pulse Ox
100 F 98 34 119/66 95
01/04/25 07:53 01/04/25 06:00 01/04/25 06:00 01/04/25 06:00 01/04/25 05:45
Lab Results - Hematology
01/03/25 01/03/25 01/04/25
08:27 16:23 02:55
WBC 9.3 7.5 14.1 H
Band Neutrophils 0
Lab Results - Chemistry
01/03/25 01/03/25 01/04/25
08:27 16:23 02:55
BUN 18 19 22 H
Creatinine 0.8 0.9 1.0
Estimated Creat Clear 90 80 72
Albumin 2.9 L
01/01/25 01/03/25 01/03/25
18:42 16:23 17:08
Lactic Acid 1.8 2.9 H Cancelled
01/03/25 01/03/25
18:29 22:35
Lactic Acid Cancelled 1.1
Lab Results - Urine
01/03/25
18:22
Urine Nitrite (Reflex) Negative
Leukocyte Esterase Rfl Negative
Ur Squamous Epith Cells 0-2
Microbiology Results
01/03/25 18:32 Legionella Urinary Antigen - Final
Urine Negative for Legionella pneumophila Serogroup 1 antigen.
A negative result does not rule out the possiblity of
Legionella infection due to other serogroups or species of
Legionella. Clinical correlation is recommended.
Streptococcus pneumoniae Antigen (M - Final
Negative for Streptococcus pneumoniae antigen.
A negative result does not exclude infection with
Streptococcus pneumoniae. Clinical correlation is
recommended.
01/03/25 18:32 Influenza Types A & B ([place]) - Final
Nasal Swab Negative for Influenza A & B, NAAT
Negative results must be combined with clinical observations
and patient history.
Nucleic Acid Amplification test (NAAT)performed on the
[employer] platform.
12/29/24 17:21 Blood Culture - Final
Blood/Venous No Growth - Final Report
12/29/24 17:21 Blood Culture - Final
Blood/Venous No Growth - Final Report
--- NOTE | 2025-01-04 09:30 | CON.ID ---
Consultation
-
Date/Time Consultation Requested: 01/03/25 17:10
Date/Time Consultation Performed: 01/04/25 9:31
Requesting Provider: Dr Emery
Performing Provider: Dr Garg
Reason for Consultation: fever
Chief Complaint / Past History
Chief Complaint
Vomiting, Abdominal Pain and Distention
History of Present Illness
Mr Worthy is a 74 year old male with history of R basal ganglia stroke, bipolar disorder, ambulatory dysfunction who presented here 12/29 for vomiting and abdominal pain of 2 days duration. Vomitus was nonbilious, progressed to abdominal distension
and anorexia and presented to the ER. No fevers, sweats or chills. Last BM was two days before arrival. He continued with passing flatus.
Since arrival here patient was initially afebrile, bp stable, wbc initially 14.6 then normalized on HD2 now 14, hbg currently 15, plt 166, there was a L shift on arrival resolved when last checked 01/03, na 142, cr 1.0, lactic acid 1.1, lfts
essentially normal, 01/03 a procalcitonin was done at 1.4 in the setting of normal renal function, UA 01/03 no pyuria, 01/03 covid ag negative, 01/03 CT chest PE study: Parenchymal opacity within the posterior aspect of both lower lobes is most likely
atelectasis. However, there are additional patchy areas of focal airspace opacity within both lungs, and findings would suggest that there is bilateral pneumonia as well, 01/02 CXR: Bibasilar opacification which could represent subsegmental
atelectasis and/or pneumonia. 01/02 AXR: SBO, 01/01 ct a&P iv and oral contrast: high grade sbo, possible pneumonia, 12/29 CT a/p with IV contrast: acute SBO, consolidation suspicious for aspiration pneumonia. NGT placed in the ER with improvement in
distension, nausea and vomiting, however not overall resolving, taken to the OR on 01/03 for Diagnostic laparoscopy, exploratory laparotomy, repair small bowel enterotomy. I was notified but not aware of the possible enterotomies, vancomycin and
cefepime was discussed last night via tiger text, reviewing the OR note today I have transitioned to vancomycin and zosyn.
Past History
Additional Past Medical History:
Right Basal Ganglia Stroke
Essential Hypertension
Hyperlipidemia
Spinal Stenosis
Bipolar Disorder / Anxiety
BPH
Hypogonadism
Additional Past Surgical History:
Left Direct Inguinal Hernia Repair
Allergy History:
chlorpromazine [From Thorazine] Allergy (Verified 12/29/24 14:50)
paralysis
Medications Reviewed: Yes
Social History
Tobacco: Former Smoker
Personal: Partner
Living: With Family
Family History
Family History: Not Pertinent
Review of Systems
Review of Systems
General: Fever
All systems: All other systems were reviewed and were negative
Vital Signs
Temp Pulse Resp BP Pulse Ox
100 F 98 34 119/66 95
01/04/25 07:53 01/04/25 06:00 01/04/25 06:00 01/04/25 06:00 01/04/25 05:45
Physical Exam
Physical Exam
Constitutional: Acutely Ill
Cardiovascular: Regular Rate and S1/S2; Negative Murmur or Rub
Pulmonary: Clear and Symmetric; Negative Wheezes, Rales or Rhonchi
Gastrointestinal: Soft, Tender, Distended and Normal Bowel Sounds
Skin: Warm and Dry; Negative Rash or Jaundice
Neurological: Awake
Psychological: Confused
Lab / Diagnostic Study Results
01/04/25 02:55
01/04/25 02:55
Abs Immat Gran (auto) 0.1 10^3/uL (0-0.05) H 12/29/24 14:56
Absolute Neuts (auto) 13.0 10^3/uL (1.4-6.5) H 12/29/24 14:56
Absolute Lymphs (auto) 0.6 10^3/uL (1.2-3.4) L 12/29/24 14:56
Absolute Monos (auto) 1.0 10^3/uL (0.1-0.6) H 12/29/24 14:56
Absolute Basos (auto) 0.0 10^3/uL (0-0.2) 12/29/24 14:56
Total Counted 100 01/03/25 16:23
Immature Gran % 0.3 % (0-0.5) 12/29/24 14:56
Neutrophils % 88.9 % (42.2-75.2) H 12/29/24 14:56
Lymphocytes % 4.1 % (20.5-51.1) L 12/29/24 14:56
Monocytes % 6.5 % (1.7-9.3) 12/29/24 14:56
Eosinophils % 0.1 % (0-6) 12/29/24 14:56
Basophils % 0.1 % (0-2) 12/29/24 14:56
Abs Neuts (Manual) 4.1 10^3/uL (1.4-6.5) 01/03/25 16:23
Segmented Neutrophils 55 % (42-75) 01/03/25 16:23
Band Neutrophils 0 % (0-3) 01/03/25 16:23
Lymphocytes (Manual) 27 % (20-51) 01/03/25 16:23
Eosinophils (Manual) 3 % (0-6) 01/03/25 16:23
Lactic Acid 1.1 mmol/L (0.7-2.0) 01/03/25 22:35
Procalcitonin 1.41 ng/ml (0.0-0.25) H 01/03/25 18:35
Ur Squamous Epith Cells 0-2 /LPF (Few) 01/03/25 18:22
Microbiology Results
Micro:
01/03/25 18:32 Legionella Urinary Antigen - Final
Urine Negative for Legionella pneumophila Serogroup 1 antigen.
A negative result does not rule out the possiblity of
Legionella infection due to other serogroups or species of
Legionella. Clinical correlation is recommended.
Streptococcus pneumoniae Antigen (M - Final
Negative for Streptococcus pneumoniae antigen.
A negative result does not exclude infection with
Streptococcus pneumoniae. Clinical correlation is
recommended.
01/03/25 18:32 Blood Culture - Pending
Blood/Venous
01/03/25 18:32 Influenza Types A & B ([place]) - Final
Nasal Swab Negative for Influenza A & B, NAAT
Negative results must be combined with clinical observations
and patient history.
Nucleic Acid Amplification test (NAAT)performed on the
[employer] platform.
01/03/25 18:36 Blood Culture - Pending
Blood/Venous
25 18:32 MRSA Screen - Pending
Nose
12/29/24 17:21 Blood Culture - Final
Blood/Venous No Growth - Final Report
12/29/24 17:21 Blood Culture - Final
Blood/Venous No Growth - Final Report
Assessment / Plan
Post Operative Fever
s/p 01/03 Diagnostic laparoscopy, exploratory laparotomy, repair small bowel enterotomy
Possible Aspiration Pneumonia
- 01/03 blood cultures x2 in progress
- sputum culture if able to obtain one
- procalcitonin will not price changer given enterotomy
- recently on unasyn
- agree with vancomycin pending MRSA screen
- start zosyn - given enterotomy recommend anaerobic coverage, recent course of unasyn recommend esbl and pseudomonal coverage
[2025-01-04 09:45] LABS: Glucose - Point of Care 107 mg/dl (70-99)
[2025-01-04] MEDS: NON-FORMULARY ITEM 4 PUMP TRANSDERM (11:36)
[2025-01-04] MEDS: DESENEX/MITRAZOL/ZEASORB 1 APPLIC TOPICAL ×2 (11:36→21:36)
[2025-01-04] MEDS: ZOSYN 100 IV ×2 (12:09→17:26)
--- NOTE | 2025-01-04 12:49 | PTCARENOTE ---
visitors bedside, pt with frequent requests for swab, help, ice even when delivering said requests. after 2 ice chips slowly with HOB up and supervision in room, requested oral suction, voice very thick and watery. mouth care given. c/o abd pain,
medicated see MAR for times, presently asleep. awaiting PICC line placement.
--- NOTE | 2025-01-04 13:18 | CM ---
CM following re: discharge planning.
Discussed in rounds, reviewed pt's chart, met with pt. Per Rounds meeting, pt is POD#1 Status post diagnostic laparoscopy and exploratory laparotomy, NPO with TPN. Continue NGT, continue supportive care.
Per CM note pt lives with his significant other, his SO's son and daughter in law. He stated that he has 24 hr caregivers through an aide named, Ellie and pt is assisted with ADL and IADL.
PT and OT will evaluate the pt when clinically appropriate to determine a level of care at discharge.
D/C plan: uncertain at this time and will depend on pt's progress.
CM will follow with discharge plan updates as hospitalization progresses
--- NOTE | 2025-01-04 14:19 | WOUNDNOTE ---
PENIS(LEFT SIDE)
--- NOTE | 2025-01-04 14:43 | PN.CDI ---
Addendum entered and electronically signed by Tegan Emery MD 01/04/25 15:07:
Hypokalemia
Original Note:
CDI
- -
CDI:
Physician Documentation Request
Admit Date: 12/29/24 20:43
Dear Doctor Rupert,
Patient admitted for bowel obstruction.
01/03 Potassium chloride 20 meq IV administered
Laboratory Tests
01/03/25 01/03/25
08:27 18:35
Potassium 3.0 L 3.1 L
Based on the above, could you clarify in the progress notes, the appropriate diagnosis, if significant, that supports the above abnormalities and additional evaluation, monitoring and/or treatment rendered:
Hypokalemia
Abnormal lab value insignificant
Other
Use of terms such as suspected, likely, concern for, or probable (associated with a specific diagnosis that is being evaluated, monitored, or treated as if it exists) are acceptable and can be coded in the inpatient setting, when documented at the
time of discharge.
Thank you,
Gala Ashby RN, BSN
CDI Specialist
Available via [facility] text
Please use your independent medical judgment in providing your response.
--- NOTE | 2025-01-04 14:50 | WOUNDNOTE ---
WO RN NOTE: Patient visited for stage 1 to penis. Per RN, patient was noted to have wound when condom cath was removed. Suspect that pressure from condom cath occurred due to retracted penis. Wound was cleaned and Vaseline applied. Patient is on a
Centrella max air with turning schedule. Heels and sacrum intact. Patient currently NPO with NG tube. Staff should avoid condom cath in the future due to retracted penis. Will confirm orders and update RN. Will follow as needed.
--- NOTE | 2025-01-04 15:00 | PTCARENOTE ---
OOB to chair assist 2 with PT. Back to bed for PICC placement min assist 2, once standing, legs strong and gait steady. required cuing.
--- NOTE | 2025-01-04 15:01 | CON.MD ---
Consultation - Medical
-
patient seen chart reviewed. patient appears to be in some distress. he had just received ativan prn for anxiety . he was able to tell me he has hx 'bipolar disorder, adhd and depression'. i asked him if he had ever heard voices or made a
suicide attempt both of which he denied. he said he has been hospitalized many times in the past but could not tell me when. it appears from the chart that he was last hospitalized in 2022. the patient came to w c/o abdominal pain. /distention.
there was also some ? aspiration pneumonia. the abdominal sx persisted and worsened, and he developed a fever. it was thought he had an obstruction and he had surgery on 12.29 to relieve the obstruction. he was not found to be obstructed and at
this point it is surmised that the obstruction might be secondary to medication side effect. i did call patient's out pt psychiatrist. mr mohamud was able to tell me he sees dr kyle and gave me permission to speak to him . dr kyle reports patient
has a hx of bipolar one disorder and has been floridly psychotic. (see the hospital notes on prior occasions). dr kyle also feels patient has adhd. the patient's med list as is presented in the record was verified by dr kyle. patient was
taking wellbutrin 100 mg daily buspar 10 mg daily. trileptal 150 mg bid risperdal 2 mg q hs effexor 75 mg daily doxepin 100 mt q hs klonopin o.5 mg bid adderall 7.5 mg tid and amantadine [address] kyle was considering tapering risperdal as
patient has been stable for some months. the patient is normally appropriate and able to be conversant. he does have mild cognitive impairment. dr kyle reports patient has had several strokes and through physical therapy speech improved a lot
hence ability to communicate verbally is good. the patient is npo currently and is only receiving ativan prn iv.
past psych hx patient has long hx bipolar disorder and has been depressed manic and psychotic. he has allegedly hx of adhd as well. he has been hospitalized psychiatrically several times in fact two of the episodes of psychosis are documented in
the hospital charts and resulted in two hospital stays. 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 noted vraylar
tegretol topamax xanax and zolpidem in the record in addition to those listed above he sees dr ioana kyle
medical hx see above patient w hx cva htn hld bph 'testicular hypofunctions' is mentioned gerd polymyalgia rheumatica spinal stenosis
fh non contributory
substance abuse denied
social hx lives w significant other and his family. 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 no children never
mse alert and oriented x3 speech is at times difficult to understand . thought process is slowed . paucity of thought and expression . appears depressed. denied si or psychosis. aver intelligence insight judgment impaired patient kept asking for
ice chips which is noted in others' progress notes as well.
dx tme secondary to underlying medical illness. bipolar disorder unspecified.
recommendations it is possible that patient's sx of bowel hypofunction has to do with anticholinergic effects of many of the medications he takes. risperdal, effexor, DOXEPIN and AMANTADINE... even benadryl all have anticholinergic effects. i
would not restart his psych medications for now and use prn iv ativan if needed for agitation. will reassess his condition on going and consider whether intervention w antipsychotics is needed. even his c/o need for ice chips may have to do with
the anticholinergic effect of DRY MOUTH. will follow
--- NOTE | 2025-01-04 16:22 | VATNOTE ---
01/04 RT DL 5FR PICC placed under maximum barrier sterility. Patient tolerated procedure. TCL 44cm ECL0. To be redressed next Thursday. X-ray ordered for tip placement confirmation.
[2025-01-04] MEDS: LOVENOX 40 MG SC (17:26)
[2025-01-04] MEDS: STERILE WATER FOR INJECTION IV (18:12)
--- NOTE | 2025-01-04 18:24 | PTCARENOTE ---
voice is raspy after ice chips, occas dribbling, few ice chips given. pt with continual requests for ice, nurse, help. Notes abd pain, med as noted, see MAR.
--- NOTE | 2025-01-04 19:38 | PTCARENOTE ---
report to next RN in IMU, taken by bed to room 3355. calmer after last dose pain medication. ice chips given carefully.
[2025-01-04 20:43] LABS: Magnesium 2.7 mg/dl (1.6-2.3); Triglycerides 369 mg/dl (10-149)
[2025-01-04] MEDS: Parenteral Nutrition, Central 920 IV (21:38)
[2025-01-05] VITALS (12 sets, daily range): BP systolic 101–155; BP diastolic 53–79; BMI 30.7
[2025-01-05] MEDS: ZOSYN 100 IV ×5 (01:05→23:56)
[2025-01-05] MEDS: LOPRESSOR 5 MG IV ×5 (01:06→23:56)
[2025-01-05] MEDS: ATIVAN 0.5 MG IV ×4 (01:55→20:04)
[2025-01-05] MEDS: DILAUDID 0.25 MG IV ×4 (01:55→12:22)
--- NOTE | 2025-01-05 02:14 | PTCARENOTE ---
Pt transferred from ICU via bed. Pt drowsy; not oriented to time. NGT in right nare to LIS. Pt makes no attempts to remove the tube. Pt frequently requesting ice chips; does not understand why he can't have a lot of ice. Pt c/o pain in abd;
PRN dilaudid administered per order (see MAR). Pt anxious; administered PRN Ativan per order (see MAR). Dressing on abdomen is C/D/I; original post op dressing intact. Hypoactive bowel sounds; no BM this shift. Resting in bed with call kerns in
reach.
--- NOTE | 2025-01-05 06:18 | W.PN.HOSP.TC ---
Today's Communication/Plan
-
Need bladder scan with MARIA ISABEL now
Stop Mg in TPN
Replace K
will d/w surgery
Assessment / Plan
Assessment / Plan
Physical Exam
General: Not in distress
HEENT: Anicteric and Oxygen (Nasal Cannula). NG tube
Respiratory: Non Labored Respirations and Decreased Breath Sounds (Poor Inspirator Effort)
Cardiac: S1/S2, Regular Rhythm and Tachycardia
GI: Soft, distended.
Rectal: No bleeding.
Genito-urinary: no hematuria
Musculoskeletal: No Clubbing, No Cyanosis and No Edema
Skin: Warm, Dry and Other (Mild erythema bilateral groin folds)
Neuro: Awake, Alert, Oriented and Nonfocal/grossly intact
Psych: Calm
# Small bowel obstruction
Constellation of fever, tachycardia, abdominal pain and distention with signs of small bowel obstruction indicate evolving sepsis
Status post diagnostic laparoscopy and exploratory laparotomy - Small bowel enterotomy repaired in 2 layers on 01/03
NGT for decompression
IV fluids
Antiemetics
NPO
PICC line, TPN
Appreciate surgery input
# Hypokalemia, replace
# Hypermagnesemia, will hold magnesium in TPN
# MARIA ISABEL
WIll screen and monitor for urinary retention, will d/w nursing staff
#Prolonged Qtc
Recheck EKG. Stopped Zofran
# Acute hypoxic respiratory failure
Respiratory status worsened postoperatively that required nonrebreather, now on nasal O2
Imaging studies including CAT scan of the chest consistent with bilateral pneumonia, aspiration pneumonia
No fever. Leukocytosis resolved. No history of cough or worsening hypoxia.
Negative COVID and influenza screen. Negative Legionella and Streptococcus pneumoniae Antigen�
MRSA screen is negative
Repeat blood culture negative Blood culture on admission no growth
Started on broad-spectrum antibiotic
Discussed with ID and pulmonary doctors, appreciate input
# Sinus tachycardia, reactive
Continue with IV metoprolol
# Primary hypertension
Continue with IV metoprolol.
# Hyperlipidemia
Resume statin when able to tolerate p.o.
Bipolar disorder/ ADHD
Patient takes Klonopin 0.5 mg twice a day. While n.p.o., changed to IV Ativan to avoid withdrawal symptoms.
Patient has not been able to take his usual psych medication including Adderall, BuSpar, Wellbutrin, doxepin and Oxcarbazepine
Will discuss with psych doctor
# BPH
Bladder scans
High risk for retention
Total time spent to see the patient, examine the patient, review data and lab results, discuss treatment plan with patient, his friend, nursing staff around 67 minutes
Anticipated Discharge: > 48 hours
Subjective/Interval History
-
Date of Service: January 05, 2025
No sob
No chest pain
Objective Data
-
Labs:
Laboratory Results
01/05/25
05:38
Sodium Pending
Potassium Pending
Chloride Pending
Carbon Dioxide Pending
BUN Pending
Creatinine Pending
Glucose Pending
Calcium Pending
Vital Signs:
Vital Signs
Temp Pulse Resp BP Pulse Ox
98.8 F 93 36 109/53 95
01/05/25 02:46 01/05/25 05:45 01/05/25 05:45 01/05/25 05:32 01/05/25 05:45
I&O
01/03/25 01/04/25 01/05/25
06:59 06:59 06:59
Intake Total 1560 / 1560 630 / 630 480 / 480
Output Total 1700 / 1700 700 / 700 400 / 400
Balance -140 / -140 -70 / -70 80 / 80
[2025-01-05] MEDS: VANCOCIN 200 IV (06:28)
--- NOTE | 2025-01-05 07:18 | W.PN.GS2 ---
Addendum entered and electronically signed by Jordin Gan MD 01/05/25 11:39:
Patient seen and examined in follow-up this a.m. with resident.
NG tube in place. Patient requesting ice chips. Complains of NG tube. Complains of abdominal pain.
AFVSS
ABD: Distended and tympanitic. Mild tenderness on palpation. No rigidity or guarding.
Midline incisional dressing removed and changed. Alejandro in place. No significant active drainage, old blood removed. Clean dressing reapplied.
NG tube in place with bilious contents in canister/tubing
A/P: 74-year-old male POD #2 status post exploratory laparotomy, repair of small bowel enterotomy x 2
Maintain NG tube -okay to give psychiatric medications that may be beneficial/needed with NG tube in place and clamped temporarily. Will be uncertain how well medications may be absorbed enterically.
Otherwise bowel rest except ice chips for comfort
Hospitalist adjusting and renewing TPN
Will follow
Original Note:
Today's Communication / Plan
-
Continue current anxiolytics. Continue antibiotics. Continue analgesics and antiemetics as needed. Continue TPN until diet is advanced and oral intake is adequate. Continue NGT as it is still draining diffusely bilious drainage.
Assessment / Plan
-
74 yo male p/w SBO likely secondary to adhesions
On Zosyn for aspiration pneumonia secondary to vomiting - CT of abdomen on 01/01/25 showed minimal bilateral pleural effusions. Mild to moderate parenchymal opacity within the visualized lower lungs, most likely atelectasis, pneumonia could be
possible
Patient remains tachycardic but improved from yesterday, afebrile but was febrile yesterday at 102.1 �F, BP elevated at 157/90 but stable
CBC stable, no leukocytosis
BUN/Cr ration elevated, suspect dehydration secondary to volume loss from GI outputs
Patient with pain and nausea, passing a small amount of flatus. NGT -2080 from 01/01/25-01/02/25. (Intake was 820 mL and output was 2900 mL with a -0 balance)
Suspect paralytic ileus secondary to risperidone
Patient is febrile and in the ICU on 01/04/25
-- Continue NPO
-- Continue IVF
-- CT abdomen and pelvis conducted on 01/01/2025 showed findings compatible with persistent small bowel obstruction which appears to be high-grade. Mild mesenteric edema with minimal fluid adjacent to the liver and spleen within upper quadrants seen.
-- Abdominal x-ray and chest x-ray ordered to assess SBO status and possible PNA
-- Incentive Spirometry
-- Continue NGT decompression - continued bilious drainage
-- Continue antibiotics for possible aspiration pneumonia - appreciate ID recommendations
-- PPD #3 Status post diagnostic laparoscopy and exploratory laparotomy - Small bowel enterotomy repaired in 2 layers with 2-0 silk suture
-- Chest CT on 01/04/2025 showed parenchymal opacity within the posterior aspect of both lower lobes. There are additional patchy areas of focal airspace opacity within both lungs.
Subjective Data
-
Date of Service: January 05, 2025
Met with patient at the bedside. He continues to have abdominal pain near his incision site. He asks for ice chips to wet his mouth. He states that he has passes flatus and has been passing stools.
Objective Data
-
Intake and Output
01/04/25 01/05/25 01/06/25
06:59 06:59 06:59
Intake Total 630 / 630 480 / 480
Output Total 700 / 700 400 / 400
Balance -70 / -70 80 / 80
Intake:
Oral fluids 50 / 50
IV fluids (Total) 400 / 400
Normosol 400 / 400
IV piggybacks 200 / 200 400 / 400
Amount instilled into GI Tube ( 30 / 30 30 / 30
Total)
[place] Sump 30 / 30 30 / 30
Output:
Drain Output (Total) 100 / 100
Sump 100 / 100
Gastrointestinal tube output ( 600 / 600 400 / 400
Total)
[place] Sump 600 / 600 400 / 400
Other:
How many times incontinent 1
SMALL amount urine
How many times incontinent 5 2
MODERATE amount urine
How many times incontinent 4
SATURATED amount urine
Vital Signs
Temp Pulse Resp BP Pulse Ox
98.8 F 93 36 109/53 95
01/05/25 02:46 01/05/25 05:45 01/05/25 05:45 01/05/25 05:32 01/05/25 05:45
Lab Results
01/04/25 02:55
Calcium 7.9 mg/dl (8.4-10.2) L 01/04/25 02:55
Phosphorus 3.1 mg/dl (2.5-4.5) 01/03/25 16:23
Magnesium 2.7 mg/dl (1.6-2.3) H 01/04/25 20:15
Total Bilirubin 0.9 mg/dl (0.2-1.3) 01/04/25 02:55
AST 70 U/L (17-59) H 01/04/25 02:55
ALT 26 U/L (0-50) 01/04/25 02:55
Alkaline Phosphatase 64 U/L (38-126) 01/04/25 02:55
Total Protein 5.2 g/dl (6.3-8.2) L 01/04/25 02:55
Albumin 2.9 g/dl (3.5-5.0) L 01/04/25 02:55
Physical Exam
-
General: Appears uncomfortable, somnolent, febrile
HEENT: Anicteric and Oxygen (Nasal Cannula), NGT w/ bilious tinge
Respiratory: Non Labored Respirations, clear on auscultations
Cardiac: S1/S2, Regular Rhythm and Tachycardia
GI: Soft, Tender (Mild throughout), Distended, tympanitic
Musculoskeletal: No Clubbing, No Cyanosis and No Edema
Skin: Warm, Dry
Neuro: Awake, Alert, Oriented and Nonfocal/grossly intact
Patient has a weaver catheter: No
Patient has a central line: No
[2025-01-05 09:00] LABS: Blood Urea Nitrogen 47 mg/dl (9-20); Calcium 7.5 mg/dl (8.4-10.2); Carbon Dioxide 30 mmol/L (22-30); Chloride 106 mmol/L (98-107); Estimated Creatinine Clearance 51 ml/min; Glucose 158 mg/dl (70-99); Magnesium 3.1 mg/dl (1.6-2.3); Potassium 3.3 mmol/L (3.5-5.1); Sodium 143 mmol/L (135-145)
[2025-01-05] MEDS: NSS (PRESERVATIVE FREE) 10 ML IV (09:03)
[2025-01-05] MEDS: PROTONIX IV 40 MG IV (09:03)
[2025-01-05] MEDS: NSS (PRESERVATIVE FREE) 0.25 ML IV ×2 (09:03→20:04)
[2025-01-05] MEDS: DESENEX/MITRAZOL/ZEASORB 1 APPLIC TOPICAL ×2 (09:04→21:58)
--- NOTE | 2025-01-05 09:06 | W.PN.PUL3 ---
Today's Communication / Plan
-
Continue with pain control
Head of bed elevated, aspiration precautions
TPN per surgery
DVT prophylaxis
Assessment
-
Patient is a 74-year-old gentleman was admitted to hospital in 12/29 with abdominal pain and vomiting, initial CT suggestive of small bowel obstruction. He failed conservative management had a repeat CT on 01/01 which was suggestive of persistent
bowel obstruction. He was taken to the OR on 01/03 and post laparotomy developed hypoxia and increasing oxygen requirement which prompted transfer to the ICU. Patient was noted to have bilateral pneumonia, suspicious for aspiration. He responded
well to antibiotic NG tube suction and supplemental oxygen with the overnight improvement.
#1. Acute hypoxic respiratory failure with multifocal pneumonia, concerning for aspiration pneumonia. Abdominal distention and atelectasis also contributing.
Rapid shallow breathing noted, but oxygenation adequate
patient is complaining of pain but just received pain medication per nursing
remains on Zosyn/vancomycin, vancomycin discontinued
Despite rapid shallow breathing, oxygenation stable and when not anxious, adequate breathing pattern
incentive spirometry
infectious disease following
#2. Severe ileus/SBO, s/p ex lap
NG tube remains in place
Plan for starting TPN via PICC line today
#3. h/o Bipolar/ADHD
-All meds on hold as NPO
-Might need to consider par-enteral alternative meds if stays NPO
-Patient with intermittent anxiety but appears comfortable with consolation
-Psychiatry consult
#4. Incidental calcified granulomas in the right lower lobe
This can be followed as an outpatient, likely a residual of previous infection
DVT & GI prophylaxis with Lovenox and Protonix
reviewed with nursing
Data:
CT Chest 01/04:
Moderate respiratory motion artifact which limits evaluation of the inferior segmental and subsegmental pulmonary arteries.
There is no evidence for central pulmonary embolism.
Minimal bilateral posterior pleural effusions
Parenchymal opacity within the posterior aspect of both lower lobes is most likely atelectasis. However, there are additional patchy areas of focal airspace opacity within both lungs, and findings would suggest that there is bilateral pneumonia as
well. Because of the patchy distribution and the lack of Maximino B lines, this is probably not a patchy pulmonary edema pattern, although also considered because of the recent surgery.
ECHO 2021:
Normal left ventricular systolic function. Left ventricular ejection fraction is 50-55% normal regional wall motion. Mild concentric left ventricular hypertrophy.
Normal right ventricular size and function. Thickened mitral valve leaflets. Mild mitral regurgitation. No intracardiac mass or thrombus formation seen on this transthoracic
echocardiogram.
Subjective Data
-
Date of Service:
Date of Service: January 05, 2025
Subjective:
Patient agitated at times, anxious. NG tube in place. Tremulous at times. Appears comfortable otherwise from a respiratory standpoint. Nursing at bedside
Objective Data
Data Reviewed
Vital Signs / I&O / Oxygen:
Vital Signs
Temp Pulse Resp BP Pulse Ox
98.8 F 93 36 109/53 95
01/05/25 02:46 01/05/25 05:45 01/05/25 05:45 01/05/25 05:32 01/05/25 05:45
Intake and Output
01/04/25 01/05/25 01/06/25
06:59 06:59 06:59
Intake Total 630 / 630 480 / 480
Output Total 700 / 700 400 / 400
Balance -70 / -70 80 / 80
SaO2 95
Nasal Cannula flow liters per 6
minute
Physical Exam
General: Comfortable ( anxious at times) and Other ( right upper extremity PICC)
HEENT: Normocephalic and Anicteric
Cardiovascular: S1-S2, Regular Rhythm, Murmur (n), Rub (n) and Peripheral Edema (tr)
Respiratory: Wheeze (n), Crackles (n), Rhonchi (n) and Other (Poor inspiratory effort)
GI: Soft, Non Distended, Tender ( no rebound or guarding), NG Tube and Other ( abdominal incision with dressing, no rebound)
Neurology: Awake, Alert and No Motor Deficits ( moves extremities)
Skin: Cyanosis (n), Jaundice (n) and Rash (n)
Labs/Micro/Reports
Lab Data
01/04/25 02:55
01/05/25 07:53
Microbiology
01/03/25 18:32 Nose MRSA Screen - Final
No Methicillin Resistant Staphylococcus aureus isolated.
01/03/25 18:36 Blood/Venous Blood Culture - Preliminary
No Growth in 24 hours- Final report to follow
01/03/25 18:32 Blood/Venous Blood Culture - Preliminary
No Growth in 24 hours- Final report to follow
01/03/25 18:32 Urine Legionella Urinary Antigen - Final
Negative for Legionella pneumophila Serogroup 1 antigen.
A negative result does not rule out the possiblity of
Legionella infection due to other serogroups or species of
Legionella. Clinical correlation is recommended.
01/03/25 18:32 Urine Streptococcus pneumoniae Antigen (M - Final
Negative for Streptococcus pneumoniae antigen.
A negative result does not exclude infection with
Streptococcus pneumoniae. Clinical correlation is
recommended.
01/03/25 18:32 Nasal Swab Influenza Types A & B ([place]) - Final
Negative for Influenza A & B, NAAT
Negative results must be combined with clinical observations
and patient history.
Nucleic Acid Amplification test (NAAT)performed on the
[employer] platform.
12/29/24 17:21 Blood/Venous Blood Culture - Final
No Growth - Final Report
12/29/24 17:21 Blood/Venous Blood Culture - Final
No Growth - Final Report
[2025-01-05 10:17] LABS: Phosphorus 2.1 mg/dl (2.5-4.5)
--- NOTE | 2025-01-05 11:08 | W.PN.ID1 ---
Date of Service
Date of Service: January 05, 2025
Today's Communication
- MRSA screen negative - stopped vancomycin
- c/w zosyn
Assessment / Plan
Post Operative Fever
s/p 01/03 Diagnostic laparoscopy, exploratory laparotomy, repair small bowel enterotomy
Possible Aspiration Pneumonia
Anxiety
- 01/03 blood cultures x2 in progress
- sputum culture if able to obtain one- yet to produce one
- MRSA screen negative - stopped vancomycin
- c/w zosyn
Chief Complaint
-: Fever
Subjective / Review of Systems
fever curve improved
BP stable off of antibiotics
anxiety is prominent
Vital Signs / Physical Exam
Vital Signs
Vital Signs
Temp Pulse Resp BP Pulse Ox
98.6 F 97 31 144/74 94
01/05/25 07:50 01/05/25 08:00 01/05/25 08:00 01/05/25 08:00 01/05/25 09:00
Physical Exam
Constitutional: No Acute Distress
Cardiovascular: Regular Rate and S1/S2; Negative Murmur or Rub
Pulmonary: Clear and Symmetric; Negative Wheezes, Rales or Rhonchi
Gastrointestinal: Soft, Tender, Distended and Normal Bowel Sounds
Skin: Warm and Dry; Negative Rash or Jaundice
Neurological: Awake
Psychological: Confused
Objective Data
Lab Data
Lab Results
01/04/25 02:55
01/05/25 07:53
Estimated Creat Clear 51 ml/min 01/05/25 07:53
Lactic Acid 1.1 mmol/L (0.7-2.0) 01/03/25 22:35
Total Bilirubin 0.9 mg/dl (0.2-1.3) 01/04/25 02:55
AST 70 U/L (17-59) H 01/04/25 02:55
ALT 26 U/L (0-50) 01/04/25 02:55
Alkaline Phosphatase 64 U/L (38-126) 01/04/25 02:55
Most recent labs reviewed.
Micro Results:
01/03/25 18:32 MRSA Screen - Final
Nose No Methicillin Resistant Staphylococcus aureus isolated.
01/03/25 18:36 Blood Culture - Preliminary
Blood/Venous No Growth in 24 hours- Final report to follow
01/03/25 18:32 Blood Culture - Preliminary
Blood/Venous No Growth in 24 hours- Final report to follow
01/03/25 18:32 Legionella Urinary Antigen - Final
Urine Negative for Legionella pneumophila Serogroup 1 antigen.
A negative result does not rule out the possiblity of
Legionella infection due to other serogroups or species of
Legionella. Clinical correlation is recommended.
Streptococcus pneumoniae Antigen (M - Final
Negative for Streptococcus pneumoniae antigen.
A negative result does not exclude infection with
Streptococcus pneumoniae. Clinical correlation is
recommended.
01/03/25 18:32 Influenza Types A & B ([place]) - Final
Nasal Swab Negative for Influenza A & B, NAAT
Negative results must be combined with clinical observations
and patient history.
Nucleic Acid Amplification test (NAAT)performed on the
[employer] platform.
12/29/24 17:21 Blood Culture - Final
Blood/Venous No Growth - Final Report
12/29/24 17:21 Blood Culture - Final
Blood/Venous No Growth - Final Report
--- NOTE | 2025-01-05 11:17 | CM ---
Patient with Dx SBO s/p diagnostic & exploratory laparotomy - Small bowel enterotomy 01/03. O2 6L. NGT/NPO/TPN/IVF. PICC. Seen by wound care nurse. Per nursing; drowsy, weak gait/transfers. PT/OT; requires assist of 2, recommend skilled rehab.
As per prior CM notes; patient has a 24 hour caregiver at home.
Spoke with ASHLEY Watson; his daughter in law Ellie is here at hospital today and will give him an update how patient is doing. Agree to discuss d/c needs & plans when closer to d/c.
Plan continue to follow diet needs, O2 needs, mobility needs.
Plan TBD.
[2025-01-05] MEDS: DILAUDID IV (12:20)
[2025-01-05 12:21] LABS: Glucose - Point of Care 133 mg/dl (70-99)
--- NOTE | 2025-01-05 13:28 | PTCARENOTE ---
Patient alert and oriented, very anxious. Patient calling out constantly for nurse. NPO except for ice chips. TPN infusing as ordered. VS stable.
--- NOTE | 2025-01-05 13:47 | PN.CDI ---
Addendum entered and electronically signed by Tegan Emery MD 01/05/25 14:21:
stage 1 pressure wound on penis.
Original Note:
CDI
- -
CDI:
Physician Documentation Request
Admit Date: 12/29/24 20:43
Dear Doctor Rupert,
Patient admitted for bowel obstruction.
01/04 Wound care note: 'Patient visited for stage 1 to penis. Per RN, patient was noted to have wound when condom cath was removed. Suspect that pressure from condom cath occurred due to retracted penis. Wound was cleaned and Vaseline applied.'
Physician documentation of the type and location of wounds is required for compliant documentation. Based on the above clinical findings and your assessment, please provide the following in your progress note:
1. Location of the ulcer/wound, including laterality.
2. Type (etiology) of ulcer/wound:
- Diabetic ulcer
- Arterial (ischemic) ulcer
- Traumatic wound
- Venous stasis ulcer
- Pressure (decubitus) ulcer
- Non-healing surgical wound
- Other
- Unable to determine
3. For a non-pressure ulcer, please indicate the depth/severity:
- Limited to the breakdown of skin
- With fat layer exposed
- With necrosis of muscle
- With necrosis of bone
- Other
- Unable to determine
4. If a pressure ulcer, please also include the stage* of the ulcer:
- Stage 1 - Skin intact, non-blanchable redness
- Stage 2 - Partial thickness loss of dermis, includes intact or open blister
- Stage 3 - Full thickness tissue not including bone, tendon or muscle
- Stage 4 - Full thickness tissue loss, including exposed bone, tendon or muscle
- Unstageable - Full thickness loss in which the base of the ulcer is covered by slough (yellow, dawn, meza, green or brown) and/or eschar (dawn, brown or black) in the wound bed.
- Unable to determine
Use of terms such as suspected, likely, concern for, or probable (associated with a specific diagnosis that is being evaluated, monitored, or treated as if it exists) are acceptable and can be coded in the inpatient setting, when documented at the
time of discharge.
Thank you,
Gala Ashby RN, BSN
CDI Specialist
Available via [employer] text
Please use your independent medical judgment in providing your response.
*Source: National Pressure Ulcer Advisory Panel (NPUAP)
[2025-01-05] MEDS: POTASSIUM PHOSPHATE 259.0909 MEQ IV (13:57)
[2025-01-05] MEDS: FLUSH (NSS) 1 FLUSH IV (13:58)
--- NOTE | 2025-01-05 14:27 | W.PN.UPDATE ---
Addendum entered and electronically signed by Sudheer Peter MD 01/05/25 16:13:
recheck ecg re qtc
Original Note:
Update Note
Progress Note Update
patient seen chart reviewed. spoke with nursing and with family practice resident on surgical rotation as well as pharmacy. mr mohamud is much the same. he was a little more interactive eg told me he had belly pain but most kept repeating that he
wanted 'ice chips' which could still be residua from anticholinergicity of meds. discussed w nursing and with pharmacy whether there could be some wd factor from meds which are unable to be considered given npo status. i have some concern re
psychosis without risperdal but there is no sign of it currently. if he becomes agitated would continue to use ativan. i have some concerns given qtc w using haldol iv and concerns re im zyprexa given its anticholinergicity. discussed with
pharmacy the issue of effexor withdrawal. we do only capsule effexor which we cannot administer since he is npo. the dose of effexor was on the small side 75 mg so hopefully this will not be much of an issue. will continue to follow
[2025-01-05] MEDS: DILAUDID 0.5 MG IV ×3 (16:00→23:57)
[2025-01-05] MEDS: NON-FORMULARY ITEM 4 PUMP TRANSDERM (16:57)
[2025-01-05] MEDS: LOVENOX 40 MG SC (17:21)
[2025-01-05] MEDS: TYLENOL/FEVERALL 650 MG RECTAL (17:22)
[2025-01-05 17:49] LABS: Glucose - Point of Care 129 mg/dl (70-99)
[2025-01-05] MEDS: Parenteral Nutrition, Central 1030 IV (21:58)
[2025-01-05 23:30] LABS: Glucose - Point of Care 123 mg/dl (70-99)
[2025-01-06] VITALS (13 sets, daily range): BP systolic 114–178; BP diastolic 59–84; BMI 30.3
[2025-01-06] MEDS: ATIVAN 0.5 MG IV ×5 (03:08→23:58)
[2025-01-06] MEDS: DILAUDID 0.5 MG IV ×6 (03:08→21:14)
[2025-01-06] MEDS: NSS (PRESERVATIVE FREE) 0.25 ML IV ×5 (03:09→23:58)
--- NOTE | 2025-01-06 04:08 | PTCARENOTE ---
Received pt at change off shift. Pt very anxious throughout shift; administered scheduled and PRN dose of Ativan as ordered (see MAR). Dilaudid provided per order for pain (see MAR). Both medications worked well for pt as he was able to get some
sleep. Hygiene care provided. Abd dressing remains C/D/I. Resting in bed with call kerns in reach.
[2025-01-06 04:32] LABS: Hematocrit 40.6 % (39.0-52.0); Hemoglobin 13.3 g/dL (13.0-18.0); Mean Corp Hgb Conc. 32.8 g/dL (33.0-37.0); Mean Corpuscular Hgb 31.9 pg (27.0-31.0); Mean Corpuscular Volume 97.4 fL (80.0-94.0); Mean Platelet Volume 11.2 fL (7.4-10.4); Platelet Count 173 10^3/uL (130-400); Red Blood Cell Count 4.17 10^6/uL (4.70-6.10); White Blood Cell Count 16.3 10^3/uL (4.8-10.8)
[2025-01-06 04:58] LABS: Blood Urea Nitrogen 41 mg/dl (9-20); Carbon Dioxide 28 mmol/L (22-30); Chloride 113 mmol/L (98-107); Estimated Creatinine Clearance 59 ml/min; Glucose 132 mg/dl (70-99); Magnesium 2.9 mg/dl (1.6-2.3); Phosphorus 2.5 mg/dl (2.5-4.5); Potassium 3.8 mmol/L (3.5-5.1); Sodium 148 mmol/L (135-145); eGFR > 60.00
[2025-01-06 05:58] LABS: Glucose - Point of Care 112 mg/dl (70-99)
[2025-01-06] MEDS: ZOSYN 100 IV ×4 (06:00→23:59)
[2025-01-06] MEDS: LOPRESSOR 5 MG IV ×4 (06:00→23:59)
--- NOTE | 2025-01-06 06:24 | W.PN.HOSP.TC ---
Today's Communication/Plan
-
Adjusted TPN, d/w pharmacist
low dose Risperdal
c/w IV Antibiotics
IV metoprolol
Assessment / Plan
Assessment / Plan
Physical Exam
General: Not in distress, keep saying repeating words.
HEENT: Anicteric and Oxygen (Nasal Cannula). NG tube
Respiratory: Non Labored Respirations and Decreased Breath Sounds (Poor Inspirator Effort)
Cardiac: S1/S2, Regular Rhythm and Tachycardia
GI: Soft, distended.
Rectal: No bleeding.
Genito-urinary: no hematuria
Musculoskeletal: No Clubbing, No Cyanosis and No Edema
Skin: Warm, Dry and Other (Mild erythema bilateral groin folds)
Neuro: Awake, disoriented.
Psych: agitated.
# Toxic metabolic encephalopathy
Suspect combination of sepsis/underlying mental disorder/psych medication side effects
For now focus on supportive care.
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
Add low-dose Risperdal, EKG with a QTc is normal
Pain control
Treating sepsis with antibiotics
Remains high risk for prolonged encephalopathy
# Small bowel obstruction
Constellation of fever, tachycardia, abdominal pain and distention with signs of small bowel obstruction indicate evolving sepsis
Status post diagnostic laparoscopy and exploratory laparotomy - Small bowel enterotomy repaired in 2 layers on 01/03
NGT for decompression
IV fluids
Antiemetics
NPO
PICC line, TPN
Appreciate surgery input
# Hypokalemia, replaced
# Hypermagnesemia, stopped magnesium in TPN
# Hypophosphatemia
Replaced
# MARIA ISABEL
No retention on bladder scan
creatinine came down
#Prolonged Qtc
Recheck EKG. Stopped Zofran
# Acute hypoxic respiratory failure
Respiratory status worsened postoperatively that required nonrebreather, now on nasal O2
Imaging studies including CAT scan of the chest consistent with bilateral pneumonia, aspiration pneumonia
No fever. Leukocytosis resolved. No history of cough or worsening hypoxia.
Negative COVID and influenza screen. Negative Legionella and Streptococcus pneumoniae Antigen�
MRSA screen is negative
Repeat blood culture negative Blood culture on admission no growth
Started on broad-spectrum antibiotic
Discussed with ID and pulmonary doctors, appreciate input
# Sinus tachycardia, reactive
Continue with IV metoprolol
# Primary hypertension
Continue with IV metoprolol.
# Hyperlipidemia
Resume statin when able to tolerate p.o.
Bipolar disorder/ ADHD
Patient takes Klonopin 0.5 mg twice a day. While n.p.o., changed to IV Ativan to avoid withdrawal symptoms.
Patient has not been able to take his usual psych medication including Adderall, BuSpar, Wellbutrin, doxepin and Oxcarbazepine
Will discuss with psych doctor
# BPH
Bladder scans
High risk for retention
Total time spent to see the patient, examine the patient, review data and lab results, discuss treatment plan with patient, his friend, nursing staff around 67 minutes
Anticipated Discharge: > 48 hours
Subjective/Interval History
-
Date of Service: January 06, 2025
No chest pain
No sob
Objective Data
-
Labs:
Laboratory Results
01/06/25
03:55
WBC 16.3 H
Hgb 13.3
Hct 40.6
Plt Count 173
Sodium 148 H
Potassium 3.8
Chloride 113 H
Carbon Dioxide 28
BUN 41 H
Creatinine 1.2
Glucose 132 H
Calcium 8.0 L
Vital Signs:
Vital Signs
Temp Pulse Resp BP Pulse Ox
98.1 F 103 28 173/76 93
01/06/25 03:50 01/06/25 06:00 01/06/25 06:00 01/06/25 06:00 01/05/25 22:00
I&O
01/04/25 01/05/25 01/06/25
06:59 06:59 06:59
Intake Total 630 / 630 480 / 480 1167 / 1167
Output Total 700 / 700 400 / 400 1550 / 1550
Balance -70 / -70 80 / 80 -383 / -383
[2025-01-06] MEDS: DESENEX/MITRAZOL/ZEASORB 1 APPLIC TOPICAL ×2 (07:48→19:27)
[2025-01-06] MEDS: NSS (PRESERVATIVE FREE) 10 ML IV (07:48)
[2025-01-06] MEDS: PROTONIX IV 40 MG IV (07:48)
--- NOTE | 2025-01-06 07:56 | W.PN.GS2 ---
Addendum entered and electronically signed by Jordin Gan MD 01/06/25 15:27:
Patient seen and examined independently of nursing surgical services director this afternoon.
Patient continues to call out the name of Connie. Also calling out abdominal pain and discomfort from NG tube.
Low-grade tachycardia, BP stable
Abdomen: Softly distended, mild tenderness palpation but no rebound, no rigidity, no guarding
Midline laparotomy incision with valdemar. No erythema, no drainage and skin edges approximated
NG tube remains bilious
A/P: POD #3 status post ex lap, repair of small bowel enterotomy
Maintain NG tube decompression until strong signs of GI recovery and reduced/nonbilious NG tube outputs
Hospitalist writing TPN
Leukocytosis persistent and further elevated today. Abdominal examination fairly benign other than modest distention but no signs of peritonitis. Midline incision without infectious signs. May just be reactive postoperative inflammatory nature
but closely follow.
Infectious disease following for antibiotic recommendations
Original Note:
Today's Communication / Plan
-
The patient is visibly uncomfortable and it does not appear that this patient's pain is being well controlled. He is visibly anxious and I worry that his symptoms are secondary to an infectious process rather than psychiatric decompensation.
Patient's white blood cell count continues to rise suggesting an acute infectious process. Continue IV antibiotics.
Assessment / Plan
-
74 yo male p/w SBO likely secondary to adhesions
On Zosyn for aspiration pneumonia secondary to vomiting - CT of abdomen on 01/01/25 showed minimal bilateral pleural effusions. Mild to moderate parenchymal opacity within the visualized lower lungs, most likely atelectasis, pneumonia could be
possible
Patient remains tachycardic but improved from yesterday, afebrile but was febrile yesterday at 102.1 �F, BP elevated at 157/90 but stable
CBC stable, no leukocytosis
BUN/Cr ration elevated, suspect dehydration secondary to volume loss from GI outputs
Patient with pain and nausea, passing a small amount of flatus. NGT -2079 from 01/01/25-01/02/25. (Intake was 820 mL and output was 2900 mL with a -2079 balance)
Suspect paralytic ileus secondary to risperidone
Patient is febrile and in the ICU on 01/04/25
-- Continue NPO
-- Continue IVF
-- CT abdomen and pelvis conducted on 01/01/2025 showed findings compatible with persistent small bowel obstruction which appears to be high-grade. Mild mesenteric edema with minimal fluid adjacent to the liver and spleen within upper quadrants seen.
-- Abdominal x-ray and chest x-ray ordered to assess SBO status and possible PNA
-- Incentive Spirometry
-- Continue NGT decompression - continued bilious drainage
-- Continue antibiotics for possible aspiration pneumonia - appreciate ID recommendations
-- PPD #3 Status post diagnostic laparoscopy and exploratory laparotomy - Small bowel enterotomy repaired in 2 layers with 2-0 silk suture
-- Chest CT on 01/04/2025 showed parenchymal opacity within the posterior aspect of both lower lobes. There are additional patchy areas of focal airspace opacity within both lungs.
-- Continue IV antibiotics
Subjective Data
-
Date of Service: January 06, 2025
Met with patient at the bedside. He appears acutely uncomfortable and states that his abdomen hurts immensely. When asked to point where it hurts he points to his surgical incision wound. He also points to his abdomen diffusely. He is unable to
specify more than that as to where his abdomen hurts. Patient repeatedly repeats the word 'please' over and over in an anxious manner.
Objective Data
-
Intake and Output
01/05/25 01/06/25 01/07/25
06:59 06:59 06:59
Intake Total 480 / 480 1167 / 1167
Output Total 400 / 400 1550 / 1550
Balance 80 / 80 -383 / -383
Intake:
Oral fluids 50 / 50
IV piggybacks 400 / 400 650 / 650
TPN/PPN 387 / 387
Amount instilled into GI Tube ( 130 / 130
Total)
Temple Sump 30 130 / 130
Output:
Gastrointestinal tube output ( 400 / 400 1550 / 1550
Total)
Temple Sump 400 / 400 1550 / 1550
Other:
How many times incontinent 1
SMALL amount urine
How many times incontinent 2 1
MODERATE amount urine
How many times incontinent 1
SATURATED amount urine
Vital Signs
Temp Pulse Resp BP Pulse Ox
98.1 F 103 28 173/76 93
01/06/25 03:50 01/06/25 06:00 01/06/25 06:00 01/06/25 06:00 01/05/25 22:00
Lab Results
01/06/25 03:55
01/06/25 03:55
Calcium 8.0 mg/dl (8.4-10.2) L 01/06/25 03:55
Phosphorus 2.5 mg/dl (2.5-4.5) 01/06/25 03:55
Magnesium 2.9 mg/dl (1.6-2.3) H 01/06/25 03:55
Total Bilirubin 0.9 mg/dl (0.2-1.3) 01/04/25 02:55
AST 70 U/L (17-59) H 01/04/25 02:55
ALT 26 U/L (0-50) 01/04/25 02:55
Alkaline Phosphatase 64 U/L (38-126) 01/04/25 02:55
Total Protein 5.2 g/dl (6.3-8.2) L 01/04/25 02:55
Albumin 2.9 g/dl (3.5-5.0) L 01/04/25 02:55
Physical Exam
-
General: Appears uncomfortable, somnolent, febrile
HEENT: Anicteric and Oxygen (Nasal Cannula), NGT w/ slightly bilious tinge
Respiratory: Non Labored Respirations, clear on auscultations
Cardiac: S1/S2, Regular Rhythm
GI: Soft, Tender (Mild throughout), Distended
Musculoskeletal: No Clubbing, No Cyanosis and No Edema
Skin: Warm, Dry
Neuro: Awake, Alert
Psych: Anxious
Patient has a weaver catheter: No
Patient has a central line: No
[2025-01-06] MEDS: NON-FORMULARY ITEM 4 PUMP TRANSDERM (08:34)
[2025-01-06] MEDS: RISPERDAL 0.25 MG PO ×2 (08:39→19:28)
--- NOTE | 2025-01-06 08:42 | W.PN.PUL3 ---
Today's Communication / Plan
-
continue antibiotics per primary service, surgery
NG tube remains in place
Oxygen weaning down to 3 L, 98%
Aspiration precautions, nutrition
DVT prophylaxis
We will sign off. Please call with questions
Assessment
-
Patient is a 74-year-old gentleman was admitted to hospital in 12/29 with abdominal pain and vomiting, initial CT suggestive of small bowel obstruction. He failed conservative management had a repeat CT on 01/01 which was suggestive of persistent
bowel obstruction. He was taken to the OR on 01/03 and post laparotomy developed hypoxia and increasing oxygen requirement which prompted transfer to the ICU. Patient was noted to have bilateral pneumonia, suspicious for aspiration. He responded
well to antibiotic NG tube suction and supplemental oxygen with the overnight improvement.
#1. Acute hypoxic respiratory failure with multifocal pneumonia, concerning for aspiration pneumonia. Abdominal distention and atelectasis also contributing.
patient appears to be comfortable while sleeping this morning,Weaned down to 3 L, 98% during my assessment
Suspect that many of his symptoms may be due to anxiety, pain
remains on Zosyn
incentive spirometry
infectious disease following
Doppler study negative for DVT
#2. Severe ileus/SBO, s/p ex lap
NG tube remains in place
TPN via PICC line today
#3. h/o Bipolar/ADHD
-All meds on hold as NPO
-Might need to consider par-enteral alternative meds if stays NPO
-Patient with intermittent anxiety but appears comfortable with consolation
-Psychiatry consult
#4. Incidental calcified granulomas in the right lower lobe
This can be followed as an outpatient, likely a residual of previous infection
DVT & GI prophylaxis with Lovenox and Protonix
reviewed with nursing
We will sign off. Please call with questions
Data:
CT Chest 01/04:
Moderate respiratory motion artifact which limits evaluation of the inferior segmental and subsegmental pulmonary arteries.
There is no evidence for central pulmonary embolism.
Minimal bilateral posterior pleural effusions
Parenchymal opacity within the posterior aspect of both lower lobes is most likely atelectasis. However, there are additional patchy areas of focal airspace opacity within both lungs, and findings would suggest that there is bilateral pneumonia as
well. Because of the patchy distribution and the lack of Maximino B lines, this is probably not a patchy pulmonary edema pattern, although also considered because of the recent surgery.
ECHO 2021:
Normal left ventricular systolic function. Left ventricular ejection fraction is 50-55% normal regional wall motion. Mild concentric left ventricular hypertrophy.
Normal right ventricular size and function. Thickened mitral valve leaflets. Mild mitral regurgitation. No intracardiac mass or thrombus formation seen on this transthoracic
echocardiogram.
Subjective Data
-
Date of Service:
Date of Service: January 06, 2025
Subjective:
Patient examined earlier this morning, sleeping comfortably. 98% on 6 L. Did not awaken during the exam
Objective Data
Data Reviewed
Vital Signs / I&O / Oxygen:
Vital Signs
Temp Pulse Resp BP Pulse Ox
99.2 F 103 28 173/76 93
01/06/25 07:29 01/06/25 06:00 01/06/25 06:00 01/06/25 06:00 01/05/25 22:00
Intake and Output
01/05/25 01/06/25 01/07/25
06:59 06:59 06:59
Intake Total 480 / 480 1167 / 1167
Output Total 400 / 400 1550 / 1550
Balance 80 / 80 -383 / -383
SaO2 93
Nasal Cannula flow liters per 6
minute
Physical Exam
General: Comfortable ( anxious at times) and Other ( right upper extremity PICC)
HEENT: Normocephalic
Cardiovascular: S1-S2, Regular Rhythm, Murmur (n), Rub (n) and Peripheral Edema (tr)
Respiratory: Wheeze (n), Crackles (n), Rhonchi (n) and Other ( decreased)
GI: Soft, Non Distended, Non Tender, NG Tube and Other ( abdominal incision with dressing, no rebound)
Neurology: No Motor Deficits ( moves extremities) and Lethargic ( moves extremities while examined but does not fully awaken)
Skin: Cyanosis (n) and Rash (n)
Labs/Micro/Reports
Lab Data
01/06/25 03:55
01/06/25 03:55
Microbiology
01/03/25 18:36 Blood/Venous Blood Culture - Preliminary
No Growth in 48 hours- Final report to follow
01/03/25 18:32 Blood/Venous Blood Culture - Preliminary
No Growth in 48 hours- Final report to follow
01/03/25 18:32 Nose MRSA Screen - Final
No Methicillin Resistant Staphylococcus aureus isolated.
01/03/25 18:32 Urine Legionella Urinary Antigen - Final
Negative for Legionella pneumophila Serogroup 1 antigen.
A negative result does not rule out the possiblity of
Legionella infection due to other serogroups or species of
Legionella. Clinical correlation is recommended.
01/03/25 18:32 Urine Streptococcus pneumoniae Antigen (M - Final
Negative for Streptococcus pneumoniae antigen.
A negative result does not exclude infection with
Streptococcus pneumoniae. Clinical correlation is
recommended.
01/03/25 18:32 Nasal Swab Influenza Types A & B ([place]) - Final
Negative for Influenza A & B, NAAT
Negative results must be combined with clinical observations
and patient history.
Nucleic Acid Amplification test (NAAT)performed on the
[employer] platform.
12/29/24 17:21 Blood/Venous Blood Culture - Final
No Growth - Final Report
12/29/24 17:21 Blood/Venous Blood Culture - Final
No Growth - Final Report
--- NOTE | 2025-01-06 10:38 | PTCARENOTE ---
Assumed care of patient this morning. While awake, patient just keeps repeating the same words. Pt will answer some questions with one word answers but then goes back to repeating whatever word he was saying prior. He states that his stomach hurts.
RN explained that he has had surgery on his stomach and there may be some pain, patient does not appear to understand. Pain medication given as ordered. Abdomen is round and tender to palpation, hypoactive bowel sounds. He did have a small BM smear.
NGT remains in his L nare, flushed and site care performed. Pt was bathed with CHG wipes and pericare performed. Pt cooperative with care. Assessment, care and VS as charted.
--- NOTE | 2025-01-06 11:11 | W.PN.ID1 ---
Date of Service
Date of Service: January 06, 2025
Today's Communication
- stopped vancomycin 01/05, given relapse of fevers, progression of leukocytosis will restart at this time
- c/w zosyn
- add micafungin
Assessment / Plan
Post Operative Fever
s/p 01/03 Diagnostic laparoscopy, exploratory laparotomy, repair small bowel enterotomy
Possible Aspiration Pneumonia
Anxiety
- 01/03 blood cultures x2 in progress
- sputum culture if able to obtain one- yet to produce one
- stopped vancomycin 01/05, given relapse of fevers, progression of leukocytosis will restart at this time
- c/w zosyn
- add micafungin
Chief Complaint
-: Fever
Subjective / Review of Systems
febrile to tamx os 101.4 yesterday, overall fever curve improved
hypertensive
remains repetitive and anxious
'my stomach hurts' - expected post operatively, abdomen soft
Vital Signs / Physical Exam
Vital Signs
Vital Signs
Temp Pulse Resp BP Pulse Ox
99.2 F 93 30 178/84 92
01/06/25 07:29 01/06/25 11:02 01/06/25 10:00 01/06/25 11:02 01/06/25 10:33
Physical Exam
Constitutional: No Acute Distress
Cardiovascular: Regular Rate and S1/S2; Negative Murmur or Rub
Pulmonary: Clear and Symmetric; Negative Wheezes, Rales or Rhonchi
Gastrointestinal: Soft, Non Tender, Non Distended and Normal Bowel Sounds
Skin: Warm and Dry; Negative Rash or Jaundice
Wound: Other (surgical site clean, no erythema/warmth or drainage)
Neurological: Awake
Psychological: Confused
Objective Data
Lab Data
Lab Results
01/06/25 03:55
01/06/25 03:55
Estimated Creat Clear 59 ml/min 01/06/25 03:55
Lactic Acid 1.1 mmol/L (0.7-2.0) 01/03/25 22:35
Total Bilirubin 0.9 mg/dl (0.2-1.3) 01/04/25 02:55
AST 70 U/L (17-59) H 01/04/25 02:55
ALT 26 U/L (0-50) 01/04/25 02:55
Alkaline Phosphatase 64 U/L (38-126) 01/04/25 02:55
Most recent labs reviewed.
Micro Results:
01/03/25 18:36 Blood Culture - Preliminary
Blood/Venous No Growth in 48 hours- Final report to follow
01/03/25 18:32 Blood Culture - Preliminary
Blood/Venous No Growth in 48 hours- Final report to follow
01/03/25 18:32 MRSA Screen - Final
Nose No Methicillin Resistant Staphylococcus aureus isolated.
01/03/25 18:32 Legionella Urinary Antigen - Final
Urine Negative for Legionella pneumophila Serogroup 1 antigen.
A negative result does not rule out the possiblity of
Legionella infection due to other serogroups or species of
Legionella. Clinical correlation is recommended.
Streptococcus pneumoniae Antigen (M - Final
Negative for Streptococcus pneumoniae antigen.
A negative result does not exclude infection with
Streptococcus pneumoniae. Clinical correlation is
recommended.
01/03/25 18:32 Influenza Types A & B ([place]) - Final
Nasal Swab Negative for Influenza A & B, NAAT
Negative results must be combined with clinical observations
and patient history.
Nucleic Acid Amplification test (NAAT)performed on the
[employer] platform.
12/29/24 17:21 Blood Culture - Final
Blood/Venous No Growth - Final Report
12/29/24 17:21 Blood Culture - Final
Blood/Venous No Growth - Final Report
--- NOTE | 2025-01-06 11:30 | PHA.VAN.FU ---
Vancomycin Assessment / Plan
- Assessment
Renal Function: SCR Decreasing (increased from 01/05 but decreased today 1-->1.4-->1.2)
WBC's are: Trending Up
Concomitant Antimicrobials: piperacillin/tazobactam, micafungin
- Dosing Plan
Adjust Regimen to: dosing by level
Dosing by Level: Re-dose today (Vanc 1500mg)
Will start with dosing by level today as SCR & BUN slightly increased from earlier this admission
Vanc discontinued and resumed - missed approximately 2 doses
- Monitoring Plan
Random Level: 01/07 0600
- Follow Up
Pharmacy will continue to follow.
Vancomycin Follow UP
- -
Patient Age: 74
Patient Sex: Male
Vancomycin Day #: 4 (d/c'ed after 01/05 AM dose and resumed 01/06 AM)
Indication: Gi / Intra-Abdominal
Requesting Provider: Dr. Garg
Pertinent Antimicrobial Allergies:
no pertinent antimicrobial allergies
Height / Weight:
Height 5 ft 7 in
Actual Weight 87.6 kg
Pertinent Past Medical History: BMI ~32
- Vital Signs / Lab Results
Temp Pulse Resp BP Pulse Ox
99.2 F 93 30 178/84 92
01/06/25 07:29 01/06/25 11:02 01/06/25 10:00 01/06/25 11:02 01/06/25 10:33
Lab Results - Hematology
01/03/25 01/04/25 01/06/25
16:23 02:55 03:55
WBC 7.5 14.1 H 16.3 H
Band Neutrophils 0
Lab Results - Chemistry
01/03/25 01/04/25 01/05/25
16:23 02:55 05:38
BUN 19 22 H Cancelled
Creatinine 0.9 1.0 Cancelled
Estimated Creat Clear 80 72 Cancelled
Albumin 2.9 L
01/05/25 01/06/25
07:53 03:55
BUN 47 H 41 H
Creatinine 1.4 H 1.2
Estimated Creat Clear 51 59
Albumin
01/03/25 01/03/25 01/03/25
16:23 17:08 18:29
Lactic Acid 2.9 H Cancelled Cancelled
01/03/25
22:35
Lactic Acid 1.1
Microbiology Results
01/03/25 18:36 Blood Culture - Preliminary
Blood/Venous No Growth in 48 hours- Final report to follow
01/03/25 18:32 Blood Culture - Preliminary
Blood/Venous No Growth in 48 hours- Final report to follow
01/03/25 18:32 MRSA Screen - Final
Nose No Methicillin Resistant Staphylococcus aureus isolated.
01/03/25 18:32 Legionella Urinary Antigen - Final
Urine Negative for Legionella pneumophila Serogroup 1 antigen.
A negative result does not rule out the possiblity of
Legionella infection due to other serogroups or species of
Legionella. Clinical correlation is recommended.
Streptococcus pneumoniae Antigen (M - Final
Negative for Streptococcus pneumoniae antigen.
A negative result does not exclude infection with
Streptococcus pneumoniae. Clinical correlation is
recommended.
[2025-01-06] MEDS: VANCOCIN 530 MG IV (12:08)
[2025-01-06 12:50] LABS: Glucose - Point of Care 118 mg/dl (70-99)
[2025-01-06] MEDS: MYCAMINE 105 MG IV (12:56)
[2025-01-06] MEDS: CHLORASEPTIC/SORE THROAT SPRAY 2 SPRAY PO (14:04)
--- NOTE | 2025-01-06 15:16 | W.PN.UPDATE ---
Update Note
Progress Note Update
patient seen chart reviewed. spoke with nursing and dr aguilar. family at bedside. the patient kept repeating over and over that his stomach hurts grabbing my hand and asking for me to do something. noted surgery note this am suggests pain may be
more of a factor than psych decompenstation. in my opinion this is not psychiatrically motivated. sent message to dr aguilar. noted that small dose of risperdal has been added to patient's medications. await dr aguilar recommendation re pain.
[2025-01-06] MEDS: DILAUDID 0.25 MG IV (15:37)
[2025-01-06] MEDS: OFIRMEV 100 IV ×2 (15:45→21:14)
--- NOTE | 2025-01-06 15:55 | PTCARENOTE ---
Patient's pain medication regimen changed by . Patient expressing pain but now not due for scheduled dose of pain medication until 1800. Patient given PRN dose and scheduled dose of Ofirmev. Family at bedside updated.
[2025-01-06] MEDS: LOVENOX 40 MG SC (17:19)
[2025-01-06 17:56] LABS: Glucose - Point of Care 118 mg/dl (70-99)
[2025-01-06] MEDS: Parenteral Nutrition, Central 1030 IV (20:56)
--- NOTE | 2025-01-06 22:41 | PTCARENOTE ---
Pt received at beginning of shift resting in bed. Received pain med just prior to start of shift. Drowsy. Pt intermittently calling out/moaning. Repeatedly saying 'stomach.' Receiving Dilaudid and Ativan as ordered. Was able to take Risperdal.
Abdominal incision [employer]. Alejandro intact. Approximated with scabbed areas. Hypoactive BS. Left NGT in place at 60cm atif LIWS. Draining dark green liquid in canister. NGT patent and flushed as ordered without issue. VSS. Afebrile. POX 95% on RA. SR on
CM. Incontinent urine. Cleansed and changed. Rest of assessment as documented. Maintained on Q2hr turns. Call kerns remain within reach. Will continue to monitor.
[2025-01-06 23:47] LABS: Glucose - Point of Care 112 mg/dl (70-99)
[2025-01-06] MEDS: FLUSH (NSS) 2 FLUSH IV (23:59)
[2025-01-07] VITALS (15 sets, daily range): BP systolic 117–179; BP diastolic 55–83; BMI 29.7
[2025-01-07] MEDS: DILAUDID 0.25 MG IV ×5 (01:11→23:50)
[2025-01-07] MEDS: DILAUDID 0.5 MG IV ×6 (02:34→21:19)
[2025-01-07] MEDS: CHLORASEPTIC/SORE THROAT SPRAY 2 SPRAY PO ×2 (02:35→21:35)
[2025-01-07] MEDS: OFIRMEV 100 IV ×3 (03:49→19:10)
[2025-01-07 04:32] LABS: Hematocrit 39.4 % (39.0-52.0); Hemoglobin 12.8 g/dL (13.0-18.0); Mean Corp Hgb Conc. 32.5 g/dL (33.0-37.0); Mean Corpuscular Hgb 31.9 pg (27.0-31.0); Mean Corpuscular Volume 98.3 fL (80.0-94.0); Mean Platelet Volume 11.4 fL (7.4-10.4); Platelet Count 164 10^3/uL (130-400); Red Blood Cell Count 4.01 10^6/uL (4.70-6.10); Red Cell Dist. Width 15.1 % (11.5-14.5); White Blood Cell Count 16.4 10^3/uL (4.8-10.8)
[2025-01-07 04:43] LABS: Blood Urea Nitrogen 36 mg/dl (9-20); Calcium 8.6 mg/dl (8.4-10.2); Carbon Dioxide 26 mmol/L (22-30); Chloride 115 mmol/L (98-107); Estimated Creatinine Clearance 64 ml/min; Glucose 113 mg/dl (70-99); Magnesium 2.3 mg/dl (1.6-2.3); Potassium 4.2 mmol/L (3.5-5.1); Sodium 149 mmol/L (135-145); eGFR > 60.00
[2025-01-07 04:47] LABS: Vancomycin Random 10.3 ug/ml
[2025-01-07] MEDS: ZOSYN 100 IV ×4 (05:07→23:59)
[2025-01-07] MEDS: LOPRESSOR 5 MG IV ×3 (05:07→17:12)
[2025-01-07 05:17] LABS: Glucose - Point of Care 101 mg/dl (70-99)
--- NOTE | 2025-01-07 06:40 | W.PN.HOSP.TC ---
Today's Communication/Plan
-
Treat hypernatremia
c/w current pain control regimen, seems to work better
Blood glucose checks q 4 h for one day while on D5W
Assessment / Plan
Assessment / Plan
Physical Exam
General: No respiratory distress, patient started mumbling and became agitated upon examination
HEENT: Anicteric and Oxygen (Nasal Cannula). NG tube
Respiratory: Non Labored Respirations and Decreased Breath Sounds (Poor Inspirator Effort)
Cardiac: S1/S2, Regular Rhythm and Tachycardia
GI: Soft, distended. Unable to listen to bowel sound because of patient's continued talking
Rectal: No bleeding.
Genito-urinary: no hematuria
Musculoskeletal: No Clubbing, No Cyanosis and No Edema
Skin: Warm, Dry and Other (Mild erythema bilateral groin folds)
Neuro: Awake, disoriented. Not following commands
Psych: Agitated upon examination,
# Toxic metabolic encephalopathy
Suspect combination of sepsis/underlying mental disorder/psych medication side effects
For now focus on supportive care.
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
Add low-dose Risperdal, EKG with a QTc is normal
Pain control
CT head if no improvement
Treating sepsis with antibiotics
Remains high risk for prolonged encephalopathy
# Small bowel obstruction
Constellation of fever, tachycardia, abdominal pain and distention with signs of small bowel obstruction indicate evolving sepsis
Status post diagnostic laparoscopy and exploratory laparotomy - Small bowel enterotomy repaired in 2 layers on 01/03
NGT for decompression
IV fluids
Antiemetics
NPO
PICC line, TPN
Appreciate surgery input
# Hypernatremia, will do limited volume hypotonic IVF
# Hypokalemia, replaced
# Hypermagnesemia, stopped magnesium in TPN
# Hypophosphatemia
Replaced
# MARIA ISABEL
No retention on bladder scan
creatinine came down
#Prolonged Qtc
Recheck EKG. Stopped Zofran
# Acute hypoxic respiratory failure
Respiratory status worsened postoperatively that required nonrebreather, now on nasal O2
Imaging studies including CAT scan of the chest consistent with bilateral pneumonia, aspiration pneumonia
No fever. Leukocytosis resolved. No history of cough or worsening hypoxia.
Negative COVID and influenza screen. Negative Legionella and Streptococcus pneumoniae Antigen�
MRSA screen is negative
Repeat blood culture negative Blood culture on admission no growth
Started on broad-spectrum antibiotic
Started back on vancomycin due to high WBC. c/w Zosyn, added Micafungin.
Appreciate ID help
# Sinus tachycardia, reactive
Continue with IV metoprolol
# Primary hypertension
Continue with IV metoprolol.
# Hyperlipidemia
Resume statin when able to tolerate p.o.
Bipolar disorder/ ADHD
Patient takes Klonopin 0.5 mg twice a day. While n.p.o., changed to IV Ativan to avoid withdrawal symptoms.
Patient has not been able to take his usual psych medication including Adderall, BuSpar, Wellbutrin, doxepin and Oxcarbazepine
Will discuss with psych doctor
# BPH
Bladder scans
High risk for retention
Total time spent to see the patient, examine the patient, review data and lab results, discuss treatment plan with patient, his friend, nursing staff around 67 minutes
Anticipated Discharge: > 48 hours
Subjective/Interval History
-
Date of Service: January 07, 2025
Still incoherent and mumbling this morning
Nursing staff, patient had a peaceful night and pain is better controlled with current regimen
Objective Data
-
Labs:
Laboratory Results
01/07/25
03:56
WBC 16.4 H
Hgb 12.8 L
Hct 39.4
Plt Count 164
Sodium 149 H
Potassium 4.2
Chloride 115 H
Carbon Dioxide 26
BUN 36 H
Creatinine 1.1
Glucose 113 H
Calcium 8.6
Vital Signs:
Vital Signs
Temp Pulse Resp BP Pulse Ox
98.4 F 79 23 117/56 97
01/06/25 23:37 01/07/25 06:00 01/07/25 06:00 01/07/25 06:00 01/07/25 06:00
I&O
01/05/25 01/06/25 01/07/25
06:59 06:59 06:59
Intake Total 480 / 480 1167 / 1167 1036 / 1036
Output Total 400 / 400 1550 / 1550 450 / 450
Balance 80 / 80 -383 / -383 586 / 586
[2025-01-07] MEDS: NSS (PRESERVATIVE FREE) 10 ML IV (07:57)
[2025-01-07] MEDS: NSS (PRESERVATIVE FREE) 0.25 ML IV ×3 (07:57→21:34)
[2025-01-07] MEDS: PROTONIX IV 40 MG IV (07:57)
[2025-01-07] MEDS: ATIVAN 0.5 MG IV ×4 (07:57→21:33)
[2025-01-07] MEDS: RISPERDAL 0.25 MG PO (07:58)
[2025-01-07] MEDS: NON-FORMULARY ITEM 4 PUMP TRANSDERM (07:58)
[2025-01-07] MEDS: D5W 1000 IV (08:02)
[2025-01-07] MEDS: DESENEX/MITRAZOL/ZEASORB 1 APPLIC TOPICAL ×2 (08:06→20:00)
--- NOTE | 2025-01-07 08:14 | PHA.VAN.FU ---
Vancomycin Assessment / Plan
- Assessment
Renal Function: Stable
WBC's are: Trending Up
In the past 24 hrs, patient has been: Afebrile
Concomitant Antimicrobials: ZOSYN, MICAFUNGIN
- Assessment - Therapeutic Drug Monitoring
Random Level: 10.3
- Dosing Plan
Dosing by Level: Re-dose today (1500MG)
- Monitoring Plan
Random Level: 01/08 IN AM
CONSIDER SCHEDULE DOSING IF KIDNEY FX MAINTAINS
- Follow Up
Pharmacy will continue to follow.
Vancomycin Follow UP
- -
Patient Age: 74
Patient Sex: Male
Vancomycin Day #: 5 (d/c'ed after 01/05 AM dose and resumed 01/06 AM)
Indication: Gi / Intra-Abdominal
Requesting Provider: Dr. Garg
Pertinent Antimicrobial Allergies:
no pertinent antimicrobial allergies
Height / Weight:
Height 5 ft 7 in
Actual Weight 85.9 kg
Pertinent Past Medical History: BMI ~32
- Vital Signs / Lab Results
Temp Pulse Resp BP Pulse Ox
98.4 F 79 23 117/56 97
01/06/25 23:37 01/07/25 06:00 01/07/25 06:00 01/07/25 06:00 01/07/25 06:00
Lab Results - Hematology
01/06/25 01/07/25
03:55 03:56
WBC 16.3 H 16.4 H
Lab Results - Chemistry
01/05/25 01/05/25 01/06/25
05:38 07:53 03:55
BUN Cancelled 47 H 41 H
Creatinine Cancelled 1.4 H 1.2
Estimated Creat Clear Cancelled 51 59
01/07/25
03:56
BUN 36 H
Creatinine 1.1
Estimated Creat Clear 64
Microbiology Results
01/03/25 18:32 Blood Culture - Preliminary
Blood/Venous No Growth in 72 hours- Final report to follow
01/03/25 18:36 Blood Culture - Preliminary
Blood/Venous No Growth in 72 hours- Final report to follow
01/03/25 18:32 MRSA Screen - Final
Nose No Methicillin Resistant Staphylococcus aureus isolated.
Therapeutic Drug Monitoring
Random Vancomycin 10.3 ug/ml 01/07/25 03:56
[2025-01-07] MEDS: VANCOCIN 530 MG IV (09:56)
--- NOTE | 2025-01-07 10:24 | W.PN.ID1 ---
Date of Service
Date of Service: January 07, 2025
Today's Communication
Continue antibiotics.
Assessment / Plan
Post Operative Fever
- s/p 01/03 Diagnostic laparoscopy, exploratory laparotomy, repair small bowel enterotomy
Possible Aspiration Pneumonia
Anxiety
- 01/03 blood cultures x2 in progress
- sputum culture if able to obtain - yet to produce one
Continue with empiric vancomycin, Zosyn and micafungin.
Monitor white count and temperature curve.
Follow cultures.
����������������������������������������������������������
Chief Complaint
-: Fever
Subjective / Review of Systems
Patient seen and examined. No significant changes overnight.
Vital Signs / Physical Exam
Vital Signs
Vital Signs
Temp Pulse Resp BP Pulse Ox
98.4 F 79 23 117/56 97
01/06/25 23:37 01/07/25 06:00 01/07/25 06:00 01/07/25 06:00 01/07/25 06:00
Physical Exam
Constitutional: No Acute Distress, Comfortable and Non-toxic
Head: Other (NG tube in place to suction)
Cardiovascular: Regular Rate and S1/S2
Pulmonary: Clear and Symmetric; Negative Wheezes, Rales or Rhonchi
Gastrointestinal: Soft, Non Tender, Non Distended and Decreased Bowel Sounds
Skin: Warm and Dry; Negative Rash or Jaundice
Wound: Other (surgical site clean, no erythema/warmth or drainage)
Psychological: Calm
Objective Data
Lab Data
Lab Results
01/07/25 03:56
01/07/25 03:56
Estimated Creat Clear 64 ml/min 01/07/25 03:56
Lactic Acid 1.1 mmol/L (0.7-2.0) 01/03/25 22:35
Total Bilirubin 0.9 mg/dl (0.2-1.3) 01/04/25 02:55
AST 70 U/L (17-59) H 01/04/25 02:55
ALT 26 U/L (0-50) 01/04/25 02:55
Alkaline Phosphatase 64 U/L (38-126) 01/04/25 02:55
Most recent labs reviewed.
Micro Results:
01/03/25 18:32 Blood Culture - Preliminary
Blood/Venous No Growth in 72 hours- Final report to follow
01/03/25 18:36 Blood Culture - Preliminary
Blood/Venous No Growth in 72 hours- Final report to follow
01/03/25 18:32 MRSA Screen - Final
Nose No Methicillin Resistant Staphylococcus aureus isolated.
01/03/25 18:32 Legionella Urinary Antigen - Final
Urine Negative for Legionella pneumophila Serogroup 1 antigen.
A negative result does not rule out the possiblity of
Legionella infection due to other serogroups or species of
Legionella. Clinical correlation is recommended.
Streptococcus pneumoniae Antigen (M - Final
Negative for Streptococcus pneumoniae antigen.
A negative result does not exclude infection with
Streptococcus pneumoniae. Clinical correlation is
recommended.
01/03/25 18:32 Influenza Types A & B ([place]) - Final
Nasal Swab Negative for Influenza A & B, NAAT
Negative results must be combined with clinical observations
and patient history.
Nucleic Acid Amplification test (NAAT)performed on the
[employer] platform.
12/29/24 17:21 Blood Culture - Final
Blood/Venous No Growth - Final Report
12/29/24 17:21 Blood Culture - Final
Blood/Venous No Growth - Final Report
--- NOTE | 2025-01-07 12:03 | W.PN.GS2 ---
Addendum entered and electronically signed by Madhu Xavier MD 01/07/25 16:01:
I saw and examined the patient.
The Tool And Die Supervisor's note was reviewed and I agree with the note.
Comment: Incremental improvement. Difficult to ascertain his pain/nausea level or bowel function as this am he is non-communicative and simply repeats 'please.' Nursing recorded 2 small BMs. NGT output remains bilious. Belly is soft and approp ttp,
less distended today. Cont NPO/NGT/TPN for now. IV abx per ID.
Original Note:
Today's Communication / Plan
-
NGT/NPO
Assessment / Plan
-
74 yo male p/w SBO taken to OR with ileus noted. Suspect secondary to risperidone (currently being weaned down)
POD #4 ex lap and repair of small bowel enterotomy
Being followed on ABX for possible PNA, intermittent low grade fevers. Flu neg. Leukocytosis persists
H/H stable
Vitals stable
Beginning to have some positive signs of bowel recovery with small bm's, NGT outputs still bilious
Psychiatry following
-- Continue NPO/NGT/IVF
-- OK to clamp NGT for PO meds, IV meds preferable until more robust ROBF
-- ABX as per ID
-- Appreciate psychiatry recs
-- OOB as able
-- TPN being managed by medicine service
-- Lovenox and SCDs for VTE ppx
Subjective Data
-
Date of Service: January 07, 2025
Patient seen and examined at bedside with Dr. Xavier. Denies nausea, reports some pain. Family at bedside.
Objective Data
-
Intake and Output
01/06/25 01/07/25 01/08/25
06:59 06:59 06:59
Intake Total 1167 / 1167 1036 / 1036
Output Total 1550 / 1550 450 / 450
Balance -383 / -383 586 / 586
Intake:
IV piggybacks 650 / 650 400 / 400
TPN/PPN 387 / 387 516 / 516
Amount instilled into GI Tube ( 130 / 130 120 / 120
Total)
[place] Sump 130 / 130 120 / 120
Output:
Gastrointestinal tube output ( 1550 / 1550 450 / 450
Total)
[place] Sump 1550 / 1550 450 / 450
Other:
How many times incontinent 1 1
MODERATE amount urine
How many times incontinent 1 1 1
SATURATED amount urine
Vital Signs
Temp Pulse Resp BP Pulse Ox
100.6 F H 79 23 117/56 97
01/07/25 07:45 01/07/25 06:00 01/07/25 06:00 01/07/25 06:00 01/07/25 06:00
Lab Results
01/07/25 03:56
01/07/25 03:56
Calcium 8.6 mg/dl (8.4-10.2) 01/07/25 03:56
Phosphorus 2.5 mg/dl (2.5-4.5) 01/06/25 03:55
Magnesium 2.3 mg/dl (1.6-2.3) 01/07/25 03:56
Total Bilirubin 0.9 mg/dl (0.2-1.3) 01/04/25 02:55
AST 70 U/L (17-59) H 01/04/25 02:55
ALT 26 U/L (0-50) 01/04/25 02:55
Alkaline Phosphatase 64 U/L (38-126) 01/04/25 02:55
Total Protein 5.2 g/dl (6.3-8.2) L 01/04/25 02:55
Albumin 2.9 g/dl (3.5-5.0) L 01/04/25 02:55
Physical Exam
-
General: NAD, disheveled
HEENT: Anicteric
Respiratory: Non Labored Respirations
GI: Soft, Tender (Mild throughout), ND, NGT with bilious outputs
Musculoskeletal: No Clubbing, No Cyanosis and No Edema
Skin: Warm, Dry
Patient has a weaver catheter: No
Patient has a central line: No
[2025-01-07 12:17] LABS: Glucose - Point of Care 124 mg/dl (70-99)
[2025-01-07] MEDS: MYCAMINE 105 MG IV (12:32)
[2025-01-07 16:24] LABS: Glucose - Point of Care 117 mg/dl (70-99)
[2025-01-07] MEDS: APRESOLINE 5 MG IV (17:11)
[2025-01-07] MEDS: LOVENOX 40 MG SC (17:12)
--- NOTE | 2025-01-07 18:11 | W.PN.UPDATE ---
Update Note
Progress Note Update
Chart reviewed,spoke to nurse. This 74 y/o man admitted with bowel obstruction symptoms thought to likely be due to excessive anticholinergic medications continues to have impaired mental status. Has history of strokes. He repeatedly asks for
help. Complains of abdominal pain, but is not overtly in pain. He was restarted on low-dose Risperdal yesterday. His friend, Ellie, with whom he lives told the nurse that she though Risperdal was causing adverse effects.
Given his history of kandis and psychosis with hospitalizaitons, I am reluctant to stop all antipsychotics. Will therefore substitute Saphris (asenapine) 2.5 mg. SL HS.
Psychiatry will follow.
[2025-01-07] MEDS: FLUSH (NSS) 2 FLUSH IV ×2 (19:02→21:34)
--- NOTE | 2025-01-07 19:19 | PTCARENOTE ---
Pt with rectal temp 101.4. Skin warm to touch, flushed. Ofirmev given as ordered. Will continue to monitor.
[2025-01-07 19:31] LABS: Glucose - Point of Care 116 mg/dl (70-99)
[2025-01-07] MEDS: SAPHRIS 2.5 MG SL (21:19)
[2025-01-07] MEDS: Parenteral Nutrition, Central 1020 IV (21:20)
[2025-01-07 23:25] LABS: Glucose - Point of Care 122 mg/dl (70-99)
[2025-01-08] VITALS (13 sets, daily range): BP systolic 116–174; BP diastolic 64–90; BMI 29.3
--- NOTE | 2025-01-08 00:30 | PTCARENOTE ---
Pt continues to call out for 'Ellie', 'Rosalia' or 'please, please, please I'm going to .' Pt assured he is ok and that he is getting all the pain meds he can have. Discussed with Marli HINSON on floor. Will continue with current scheduled pain med
and prn pain med. Also receiving scheduled Ativan and prn Ativan. Giving Chloraseptic spray as needed for sore mouth. Pt continues with weak moist manager utilization cough. Oral care given. Left nare NGT patent and flushes easily. Green liquid in canister. Rest of
assessment as documented. Maintained on Q2hr turns. Can be grossly incontinent urine at times. Small smears soft brown bm intermittently. TPN continues infusing as ordered. Accuchecks as documented. Earlier rectal temp 101.4. Received Ofirmev with
good result. SR/ST on CM. 97% RA pox. Call kerns remains within reach. Will continue to monitor.
[2025-01-08] MEDS: DILAUDID 0.5 MG IV ×5 (01:49→21:47)
[2025-01-08] MEDS: ATIVAN 0.5 MG IV ×4 (01:49→12:42)
[2025-01-08] MEDS: NSS (PRESERVATIVE FREE) 0.25 ML IV ×2 (01:50→08:51)
[2025-01-08] MEDS: APRESOLINE 5 MG IV (01:50)
[2025-01-08] MEDS: FLUSH (NSS) 3 FLUSH IV (01:51)
--- NOTE | 2025-01-08 02:06 | PTCARENOTE ---
Upon assessment of pt this RN observed left nare NGT out of pt's nose and in his hand. Pt stated he didn't want it anymore. Approx 175mls green liquid in canister. Marli HINSON TT'd and made aware. Will hold off in reinserted NGT at this time. Will see
how pt's does. B/L mitts ordered to keep pt from pulling out his PICC line. Pt received schedule Dilaudid and prn Ativan at this time. Will continue to monitor.
[2025-01-08 03:19] LABS: Glucose - Point of Care 121 mg/dl (70-99)
--- NOTE | 2025-01-08 04:46 | W.PN.UPDATE ---
Update Note
Progress Note Update
notified by nurse that pt pulled NG tube out. had min drainage. Will leave out for now. May need replaced if n/v
mitts added so he does not pull out picc
[2025-01-08] MEDS: ZOSYN 100 IV ×4 (05:12→23:09)
[2025-01-08] MEDS: LOPRESSOR 5 MG IV ×5 (05:12→23:09)
[2025-01-08 05:20] LABS: Vancomycin Random 8.4 ug/ml
--- NOTE | 2025-01-08 06:18 | PTCARENOTE ---
Pt remains without NGT since he pulled it out earlier tonight. Denies nausea. No vomiting. Did c/o of B/L eyes hurting him. Eye drops ordered and instilled. Currently pt resting comfortably after received prn dose Ativan and scheduled Dilaudid. Will
continue to monitor.
--- NOTE | 2025-01-08 06:53 | W.PN.HOSP.TC ---
Today's Communication/Plan
-
Seems to have Manic episode, will reach out to Psych doctor.
Head CT scan
Pulled NG, good bowel sounds, can remain off NG for now, he can have oral Psych medications
Ordered TPN
Pending mental status, we can resume oral BP medications and oral Tylenol in near future.
Assessment / Plan
Assessment / Plan
Physical Exam
General: No respiratory distress, patient started mumbling and became agitated upon examination
HEENT: Anicteric and Oxygen (Nasal Cannula). off NG tube
Respiratory: Non Labored Respirations and Decreased Breath Sounds (Poor Inspirator Effort)
Cardiac: S1/S2, Regular Rhythm and Tachycardia
GI: Soft, less distended. + bowel sounds.
Rectal: No bleeding.
Genito-urinary: no hematuria
Musculoskeletal: No Clubbing, No Cyanosis and No Edema
Skin: Warm,
Neuro: Awake, disoriented. Not following commands
Psych: Agitated upon examination,
# Toxic metabolic encephalopathy with manic episode
Suspect combination of sepsis/underlying mental disorder- seems worsening with psychosis /psych medication side effects
c/w supportive care. His Abdominal exam is better, can have oral Psych medications.
Was on low-dose Risperdal but stopped. Was give SL Asenapine at night
CT head today with persistent altered mentation and inability to follow commands.
Remains high risk for prolonged encephalopathy due to underlying mental disorder.
History of Bipolar disorder/ ADHD
Patient takes Klonopin 0.5 mg twice a day. While n.p.o., changed to IV Ativan to avoid withdrawal symptoms.
Home regimen: Adderall, BuSpar, Wellbutrin, doxepin and Oxcarbazepine
He is followed closely by psych doctor to adjust his medications.
# Small bowel obstruction
Seems improving. Abdomen is soft and good BS.
Status post diagnostic laparoscopy and exploratory laparotomy - Small bowel enterotomy repaired in 2 layers on 01/03
NGT for decompression,pt pulled it out 01/08.
PICC line, TPN
Appreciate surgery input
# Acute hypoxic respiratory failure, now on 3-4 liters.
Respiratory status worsened postoperatively that required nonrebreather, now on nasal O2
Imaging studies including CAT scan of the chest consistent with bilateral pneumonia, aspiration pneumonia
No fever. Leukocytosis resolved. No history of cough or worsening hypoxia.
Negative COVID and influenza screen. Negative Legionella and Streptococcus pneumoniae Antigen�
MRSA screen is negative
Repeat blood culture negative Blood culture on admission no growth
Started on broad-spectrum antibiotic
Started back on vancomycin due to high WBC. c/w Zosyn, added Micafungin.
Appreciate ID help
# Hypernatremia, resolved with hypotonic IVF
# Hypokalemia, replaced
# Hypermagnesemia, resolved, held magnesium in TPN
# Hypophosphatemia
Replaced
# MARIA ISABEL
No retention on bladder scan
resolved.
#Prolonged Qtc
Resolved.
# Sinus tachycardia, reactive
Continue with IV metoprolol
# Primary hypertension
Continue with IV metoprolol & PRN IV hydralazine.
# Hyperlipidemia
Resume statin when able to tolerate p.o.
# BPH
Bladder scans
High risk for retention
Total time spent to see the patient, examine the patient, review data and lab results, discuss treatment plan with patient, psych doctor, nursing staff around 59 minutes
Anticipated Discharge: > 48 hours
Subjective/Interval History
-
Date of Service: January 08, 2025
Objective Data
-
Labs:
Laboratory Results
01/08/25
06:42
WBC Pending
Hgb Pending
Hct Pending
Plt Count Pending
Sodium Pending
Potassium Pending
Chloride Pending
Carbon Dioxide Pending
BUN Pending
Creatinine Pending
Glucose Pending
Calcium Pending
Total Bilirubin Pending
AST Pending
ALT Pending
Alkaline Phosphatase Pending
Vital Signs:
Vital Signs
Temp Pulse Resp BP Pulse Ox
98.1 F 92 28 116/64 96
01/08/25 03:00 01/08/25 06:00 01/08/25 06:00 01/08/25 06:00 01/08/25 06:00
I&O
01/06/25 01/07/25 01/08/25
06:59 06:59 06:59
Intake Total 1167 / 1167 1036 / 1036 966 / 966
Output Total 1550 / 1550 450 / 450 625 / 625
Balance -383 / -383 586 / 586 341 / 341
[2025-01-08 07:16] LABS: % Basophils 0.7 % (0-2); % Eosinophils 2.1 % (0-6); % Immature Granulocytes 4.8 % (0-0.5); % Lymphocytes 10.9 % (20.5-51.1); % Neutrophils 77.5 % (42.2-75.2); Absolute Basophils 0.1 10^3/uL (0-0.2); Absolute Eosinophils 0.3 10^3/uL (0-0.7); Absolute Immature Granulocytes 0.7 10^3/uL (0-0.05); Absolute Lymphocytes 1.6 10^3/uL (1.2-3.4); Absolute Monocytes 0.6 10^3/uL (0.1-0.6); Absolute Neutrophils 11.6 10^3/uL (1.4-6.5); Hematocrit 40.6 % (39.0-52.0); Hemoglobin 13.3 g/dL (13.0-18.0); Mean Corp Hgb Conc. 32.8 g/dL (33.0-37.0); Mean Corpuscular Hgb 32.8 pg (27.0-31.0); Mean Platelet Volume 12.2 fL (7.4-10.4); Nucleated Red Blood Cells % 0.1 % (-); Platelet Count 196 10^3/uL (130-400); Red Blood Cell Count 4.06 10^6/uL (4.70-6.10)
--- NOTE | 2025-01-08 07:45 | PTCARENOTE ---
report received. already into see pt. head ct ordered. rajendra altamirano @ 43cc/hr. call kerns in reach. will monitor.
[2025-01-08 08:06] LABS: ALT (SGPT) 67 U/L (0-50); AST (SGOT) 103 U/L (17-59); Albumin 2.8 g/dl (3.5-5.0); Alkaline Phosphatase 84 U/L (38-126); Blood Urea Nitrogen 26 mg/dl (9-20); Calcium 9.3 mg/dl (8.4-10.2); Carbon Dioxide 26 mmol/L (22-30); Chloride 112 mmol/L (98-107); Estimated Creatinine Clearance 69 ml/min; Glucose 148 mg/dl (70-99); Potassium 4.1 mmol/L (3.5-5.1); Sodium 142 mmol/L (135-145); Total Protein 5.5 g/dl (6.3-8.2); eGFR > 60.00
--- NOTE | 2025-01-08 08:20 | PHA.VAN.FU ---
Vancomycin Assessment / Plan
- Assessment
Renal Function: Stable
WBC's are: Trending Down
In the past 24 hrs, patient has been: Febrile (101.4F)
Concomitant Antimicrobials: MICAFUNGIN, ZOSYN
- Assessment - Therapeutic Drug Monitoring
Random Level: 8.4
- Dosing Plan
Adjust Regimen to: 1000MG Q12H
New Regimen Predicts: AUC (563), Peak (32.2), Trough (16.3)
- Monitoring Plan
No level(s) ordered at this time: CONSIDER AT STEADY STATE
- Follow Up
Pharmacy will continue to follow.
Vancomycin Follow UP
- -
Patient Age: 74
Patient Sex: Male
Vancomycin Day #: 6 (d/c'ed after 01/05 AM dose and resumed 01/06 AM)
Indication: Gi / Intra-Abdominal
Requesting Provider: Dr. Garg
Pertinent Antimicrobial Allergies:
no pertinent antimicrobial allergies
Height / Weight:
Height 5 ft 7 in
Actual Weight 84.9 kg
Pertinent Past Medical History: BMI ~32
- Vital Signs / Lab Results
Temp Pulse Resp BP Pulse Ox
98.1 F 92 28 116/64 96
01/08/25 03:00 01/08/25 06:00 01/08/25 06:00 01/08/25 06:00 01/08/25 06:00
Lab Results - Hematology
01/06/25 01/07/25 01/08/25
03:55 03:56 06:42
WBC 16.3 H 16.4 H 15.0 H
Lab Results - Chemistry
01/05/25 01/06/25 01/07/25
07:53 03:55 03:56
BUN 47 H 41 H 36 H
Creatinine 1.4 H 1.2 1.1
Estimated Creat Clear 51 59 64
Albumin
01/08/25 01/08/25
06:42 07:34
BUN Cancelled 26 H
Creatinine Cancelled 0.9
Estimated Creat Clear Cancelled 69
Albumin Cancelled 2.8 L
Microbiology Results
01/03/25 18:36 Blood Culture - Preliminary
Blood/Venous No Growth in 4 days- Final report to follow
01/03/25 18:32 Blood Culture - Preliminary
Blood/Venous No Growth in 4 days- Final report to follow
Therapeutic Drug Monitoring
Random Vancomycin 8.4 ug/ml 01/08/25 04:33
[2025-01-08] MEDS: PROTONIX IV 40 MG IV (08:51)
[2025-01-08] MEDS: NSS (PRESERVATIVE FREE) 10 ML IV (08:52)
[2025-01-08] MEDS: DESENEX/MITRAZOL/ZEASORB 1 APPLIC TOPICAL ×2 (08:52→19:21)
[2025-01-08] MEDS: NON-FORMULARY ITEM 4 PUMP TRANSDERM (08:52)
[2025-01-08] MEDS: VANCOCIN 200 IV ×2 (09:02→17:13)
--- NOTE | 2025-01-08 10:40 | W.PN.UPDATE ---
Addendum entered and electronically signed by Ralph Johnson MD 01/08/25 11:03:
CT of head is negative for acute changes. I spoke to Dr. Emery who gave further history of his mental state during the hospitalization with deterioration after stopping home meds even before surgery (requiring restraint). She notes he has had
crying episodes. We decided on adding Wellbutrin SR 100 mg. in AM and observing for signs of kandis. At this point, I don't thing Effexor withdrawal would be major contributor. She will be tapering Dilaudid.
Original Note:
Update Note
Progress Note Update
74 y/o man s/p abdominal surgery with history of bipolar disorder with psychosis and several hospitalizations seen for follow-up. Yesterday, I stopped Risperdal and gave Saphris 2.5 mg. SL HS which is antipsychotic mood stabilizer. He is also on
iv Ativan 0.5 mg. BID + 0.5 mg. Q4 PRN of which he has been getting doses. The nurse indicates that the Ativan is beneficial for him and wondered if an increased dose would be helpful. Dr. Emery indicated he can now have PO meds as he pulled his
own NG tube last night.
On exam today he was fast asleep. He awoke but was still repetitive in his speech and disoriented to day. Did not know name of nurse or tech. I asked about the two people he lives with and he gave minimal responses. I do not see any signs of
kandis in his behavior or speech. Seems more of a TMS presentation than psychosis.
I will continue Saphris 2.5 mg. HS which has no anticholinergic properties but should help prevent a mood episode (does can certainly be increased if necessary and can be given BID), but will increase Ativan to 1 mg. PO Q 12 H and leave 0.5 mg. IV
PRN.
Psychiatry will follow.
[2025-01-08] MEDS: MYCAMINE 105 MG IV (12:03)
[2025-01-08] MEDS: OFIRMEV 100 IV ×2 (12:32→22:55)
[2025-01-08] MEDS: DILAUDID 0.25 MG IV ×2 (12:39→17:26)
--- NOTE | 2025-01-08 14:28 | W.PN.GS2 ---
Addendum entered and electronically signed by Madhu Xavier MD 01/08/25 15:11:
I saw and examined the patient.
The Senior Speech Pathologist's note was reviewed and I agree with the note.
Comment: Pulled NGT overnight, no increased distention or emesis since then. BMs recorded by nursing. Will obtain AIRCRAFT STRUCTURAL REPAIR MECHANIC eval, OK for cld from surg standpoint pending result. TPN per hospitalist
Original Note:
Today's Communication / Plan
-
AIRCRAFT STRUCTURAL REPAIR MECHANIC eval
IVF/NPO
Assessment / Plan
-
74 yo male p/w SBO taken to OR with ileus noted. Suspect secondary to risperidone
POD #5 ex lap and repair of small bowel enterotomy
Being followed on ABX for possible PNA, intermittent low grade fevers. Flu neg. Leukocytosis persists
H/H stable
Vitals stable, continues to have intermittent fevers
Beginning to have some positive signs of bowel recovery with small bm's and improvement in exams
NGT dislodged overnight by patient
Psychiatry following and adjusting meds
CT head without acute abnormality today
-- Continue NPO/IVF
-- AIRCRAFT STRUCTURAL REPAIR MECHANIC consult prior to starting clear liquids and advancing diet
-- Replace NGT if n/v recurs
-- ABX as per ID
-- Appreciate psychiatry recs
-- OOB as able
-- TPN being managed by medicine service
-- Lovenox and SCDs for VTE ppx
Subjective Data
-
Date of Service: January 08, 2025
Patient seen and examined at bedside with Dr. Xavier. Calling out but not coherant. Answering simple yes and no questions. NGT was accidentally dislodged overnight.
Objective Data
-
Intake and Output
01/07/25 01/08/25 01/09/25
06:59 06:59 06:59
Intake Total 1036 / 1036 966 / 966
Output Total 450 / 450 625 / 625
Balance 586 / 586 341 / 341
Intake:
IV piggybacks 400 / 400 300 / 300
TPN/PPN 516 / 516 516 / 516
Amount instilled into GI Tube ( 120 / 120 150 / 150
Total)
[place] Sump 120 / 120 150 / 150
Output:
Gastrointestinal tube output ( 450 / 450 625 / 625
Total)
[place] Sump 450 / 450 625 / 625
Other:
How many times incontinent 1
MODERATE amount urine
How many times incontinent 1 1
SATURATED amount urine
Vital Signs
Temp Pulse Resp BP Pulse Ox
97.3 F 105 24 161/77 96
01/08/25 07:05 01/08/25 12:00 01/08/25 12:00 01/08/25 12:00 01/08/25 12:00
Lab Results
01/08/25 06:42
01/08/25 07:34
Calcium 9.3 mg/dl (8.4-10.2) 01/08/25 07:34
Phosphorus 2.5 mg/dl (2.5-4.5) 01/06/25 03:55
Magnesium 2.3 mg/dl (1.6-2.3) 01/07/25 03:56
Total Bilirubin 1.0 mg/dl (0.2-1.3) 01/08/25 07:34
AST 103 U/L (17-59) H 01/08/25 07:34
ALT 67 U/L (0-50) H 01/08/25 07:34
Alkaline Phosphatase 84 U/L (38-126) 01/08/25 07:34
Total Protein 5.5 g/dl (6.3-8.2) L 01/08/25 07:34
Albumin 2.8 g/dl (3.5-5.0) L 01/08/25 07:34
Physical Exam
-
General: NAD, disheveled
HEENT: Anicteric
Respiratory: Non Labored Respirations
GI: Soft, Tender (Mild throughout), ND
Patient has a weaver catheter: No
Patient has a central line: No
--- NOTE | 2025-01-08 14:56 | PTOTSP ---
SPEECH THERAPY SWALLOW EVALUATION:
Patient exhibits clinical signs of oropharyngeal dysphagia, likely acutely related critical illness 2/2 complicated medical course involving SBO, exlap, AHRF, pneumonia, and now TME. Possible chronic dysphagia component related to esophageal
dysphagia as indicated during prior VSE 04/30/2023. Patient remains at HIGH RISK for aspiration and related complications given weakness/deconditioning and confusion/agitation. Exhibiting signs concerning for aspiration at this time. Recommend strict
NPO at this time; Consider temporary non-oral means for nutrition/medication/hydration. Discussed recommendations with Dr. Emery, who reported patient requiring oral psych medications due to 'becoming suicidal and psychotic' with no alternative
after speaking with psychiatrist. Given this, discussed with Dr. Emery recommendation for ONLY NECESSARY medications crushed in puree. ST to follow, re-assess in 24 hours, determine readiness for further p.o. trials and/or oral diet and/or
instrumental assessment of swallowing as appropriate.
RECOMMEND:
1) strict NPO
2) non-oral medications/nutrition/hydration; If necessary oral medication, given crushed in puree
3) ST to follow, re-assess in 24 hours
4) Aggressive oral care QID
[2025-01-08] MEDS: LOVENOX 40 MG SC (17:13)
[2025-01-08] MEDS: CHLORASEPTIC/SORE THROAT SPRAY 2 SPRAY PO (17:26)
[2025-01-08] MEDS: ATIVAN 1 MG PO (19:21)
[2025-01-08] MEDS: NSS (PRESERVATIVE FREE) IV (19:59)
[2025-01-08] MEDS: Parenteral Nutrition, Central 1020 IV (21:49)
[2025-01-08] MEDS: SAPHRIS 2.5 MG SL (22:17)
--- NOTE | 2025-01-08 23:38 | PTCARENOTE ---
Pt AAOx2, forgetful to time but able to report place. Presents with repetitive, rushed speech. Skin flushed/red and feels hot. Axillary temp 100.7, BENDER HAND Marli notified via TT, ofirmev hung per orders. Tachycardic and hypertensive, scheduled IV
lopressor given per DEC. PO ativan scheduled, pt was able to take crushed in small amount of applesauce. Pt does present with wet/gurgly voice quality, wet PAINTER HELPER cough. Mouth care performed. Pt incontinent of urine. C/o abdominal pain, scheduled pain
medication given per DEC. Bladder scan performed to ensure urine is not causing abd pain, 95mls present post void. [place] intact on midline abd incision with some old sanguinous drainage present, ALICE. Care ongoing.
[2025-01-09] VITALS (15 sets, daily range): BP systolic 125–185; BP diastolic 62–95; BMI 29.3
[2025-01-09] MEDS: ATIVAN 0.5 MG IV ×4 (01:54→23:17)
[2025-01-09] MEDS: NSS (PRESERVATIVE FREE) 0.25 ML IV ×4 (01:55→23:17)
[2025-01-09] MEDS: DILAUDID 0.5 MG IV ×4 (03:18→21:07)
[2025-01-09 04:34] LABS: Hematocrit 44.5 % (39.0-52.0); Hemoglobin 14.8 g/dL (13.0-18.0); Mean Corp Hgb Conc. 33.3 g/dL (33.0-37.0); Mean Corpuscular Hgb 32.2 pg (27.0-31.0); Mean Corpuscular Volume 96.9 fL (80.0-94.0); Mean Platelet Volume 11.2 fL (7.4-10.4); Platelet Count 257 10^3/uL (130-400); Red Blood Cell Count 4.59 10^6/uL (4.70-6.10); Red Cell Dist. Width 14.9 % (11.5-14.5); White Blood Cell Count 17.8 10^3/uL (4.8-10.8)
[2025-01-09 04:56] LABS: ALT (SGPT) 84 U/L (0-50); AST (SGOT) 131 U/L (17-59); Albumin 3.1 g/dl (3.5-5.0); Alkaline Phosphatase 108 U/L (38-126); Blood Urea Nitrogen 40 mg/dl (9-20); Calcium 10.2 mg/dl (8.4-10.2); Carbon Dioxide 24 mmol/L (22-30); Chloride 114 mmol/L (98-107); Estimated Creatinine Clearance 42 ml/min; Glucose 143 mg/dl (70-99); Phosphorus 3.8 mg/dl (2.5-4.5); Potassium 4.6 mmol/L (3.5-5.1); Sodium 147 mmol/L (135-145); Total Protein 6.2 g/dl (6.3-8.2); eGFR 49.16
[2025-01-09 04:57] LABS: Triglycerides 500 mg/dl (10-149)
[2025-01-09] MEDS: ZOSYN 100 IV ×3 (05:15→23:13)
[2025-01-09] MEDS: LOPRESSOR 5 MG IV ×4 (05:16→23:14)
[2025-01-09] MEDS: VANCOCIN 200 IV (06:05)
--- NOTE | 2025-01-09 06:26 | PTCARENOTE ---
Pt continues with flushing, diaphoresis, feels hot to the touch. T axillary 100.9. Ice packs placed under b/l arms. Pt continues with moaning, repetitive calls for help. When asked what he needs right now, pt states 'sugar'. BG checked, 135.
Educated pt that he is getting TPN which will maintain his BG, although BG checks will continue to be performed.
[2025-01-09 06:34] LABS: Glucose - Point of Care 135 mg/dl (70-99)
--- NOTE | 2025-01-09 07:17 | W.PN.GS2 ---
Today's Communication / Plan
-
Patient should remain n.p.o. as per REGIONAL TRUCK DRIVER eval. Continue IV fluids and TPN while patient is NPO.
Assessment / Plan
-
74 yo male p/w SBO taken to OR with ileus noted. Suspected secondary to risperidone
Patient is postprocedure day #6 ex lap and repair of small bowel enterotomy
Abdominal wall incision wound appears to be healing without any drainage on 01/09/2025
Being followed on ABX for possible PNA, intermittent low grade fevers. Flu neg. Leukocytosis persists
H/H stable
Vitals stable, continues to have intermittent fevers
Beginning to have some positive signs of bowel recovery with small bm's and improvement in exams
Patient no longer has NGT�will monitor for abdominal distention
Psychiatry following and adjusting meds
CT head without acute abnormality on 01/08/2025
-- Continue NPO/IVF
-- REGIONAL TRUCK DRIVER assessment recommended that the patient remain n.p.o. and only essential crushed medicines added to pur�ed food - can be reassessed when the patient is more at his baseline
-- Replace NGT if n/v recurs or abdominal distention
-- ABX as per ID
-- Appreciate psychiatry recs
-- OOB as able
-- TPN being managed by medicine service
-- Lovenox and SCDs for VTE ppx
Subjective Data
-
Date of Service: January 09, 2025
Met with patient at the bedside. He is awake laying in bed repeating the phrase 'please' over and over. Patient was unable to answer if he was in pain or not. Patient visibly anxious and it is uncertain if he is understanding the questions asked
of him.
Objective Data
-
Intake and Output
01/08/25 01/09/25 01/10/25
06:59 06:59 06:59
Intake Total 966 / 966 1316 / 1316
Output Total 625 / 625 300 / 300
Balance 341 / 341 1016 / 1016
Intake:
IV piggybacks 300 / 300 800 / 800
TPN/PPN 516 / 516 516 / 516
Amount instilled into GI Tube ( 150 / 150
Total)
[place] Sump 150 / 150
Output:
Gastrointestinal tube output ( 625 / 625
Total)
[place] Sump 625 / 625
Urine, Voided 300 / 300
Other:
How many times incontinent 1 1
SATURATED amount urine
Vital Signs
Temp Pulse Resp BP Pulse Ox
100.9 F H 108 25 151/81 92
01/09/25 06:17 01/09/25 06:02 01/09/25 06:02 01/09/25 06:02 01/09/25 06:02
Lab Results
01/09/25 04:13
01/09/25 04:13
Calcium 10.2 mg/dl (8.4-10.2) 01/09/25 04:13
Phosphorus 3.8 mg/dl (2.5-4.5) 01/09/25 04:13
Magnesium 2.0 mg/dl (1.6-2.3) 01/09/25 04:13
Total Bilirubin 1.0 mg/dl (0.2-1.3) 01/09/25 04:13
AST 131 U/L (17-59) H 01/09/25 04:13
ALT 84 U/L (0-50) H 01/09/25 04:13
Alkaline Phosphatase 108 U/L (38-126) 01/09/25 04:13
Total Protein 6.2 g/dl (6.3-8.2) L 01/09/25 04:13
Albumin 3.1 g/dl (3.5-5.0) L 01/09/25 04:13
Physical Exam
-
General: NAD, disheveled
HEENT: Anicteric
Respiratory: Non Labored Respirations
GI: Soft, Tender (Mild throughout), ND
Patient has a weaver catheter: No
Patient has a central line: No
[2025-01-09] MEDS: NSS (PRESERVATIVE FREE) IV (07:35)
[2025-01-09] MEDS: OFIRMEV 100 IV ×3 (08:27→20:32)
[2025-01-09] MEDS: DILAUDID 0.25 MG IV ×4 (08:27→23:57)
[2025-01-09] MEDS: ATIVAN 1 MG PO (08:27)
[2025-01-09] MEDS: DESENEX/MITRAZOL/ZEASORB 1 APPLIC TOPICAL ×2 (08:28→20:32)
[2025-01-09] MEDS: PROTONIX IV 40 MG IV (08:28)
[2025-01-09] MEDS: NON-FORMULARY ITEM 4 PUMP TRANSDERM (08:28)
[2025-01-09] MEDS: NSS (PRESERVATIVE FREE) 10 ML IV (08:28)
[2025-01-09] MEDS: APRESOLINE 5 MG IV (08:29)
[2025-01-09] MEDS: REFRESH EYE DROPS (PF) 1 DROPS OPHTH (08:29)
[2025-01-09] MEDS: WELLBUTRIN REGULAR RELEASE 50 MG PO ×2 (10:08→20:32)
[2025-01-09] MEDS: 0.45%NACL 1000 IV (10:08)
[2025-01-09 10:44] LABS: COVID-19 Antigen Negative (Negative)
[2025-01-09 11:20] LABS: Glucose - Point of Care 146 mg/dl (70-99)
--- NOTE | 2025-01-09 11:38 | PTCARENOTE ---
Patient tachycardic, diaphoretic, tachypneic and with fevers. Given dose of Ofirmev this morning. Also orders for EKG, CT abd/pelvis, NGT for contrast, IVF, and now cooling blanket. Pt with eyes open, repeating himself over and over. Pt not
answering questions, other than orientation questions. Pt medicated per MAR for pain and anxiety. NGT placed, portable abd XR taken. Midline abdominal incision is intact, old yellow bruising around incision. Pt's partner and the partner's daughter
were at the bedside and updated. Assessment, care and VS as charted.
--- NOTE | 2025-01-09 11:55 | W.PN.ID1 ---
Date of Service
Date of Service: January 09, 2025
Today's Communication
CT a/p,
Continue abx's.
Assessment / Plan
Fever - persists
Leukocytosis trending up
Sepsis
High grade SBO s/p 01/03 Diagnostic laparoscopy, exploratory laparotomy, repair small bowel enterotomy
Acute elevated LFT's
Anxiety
- 01/03 blood cultures x2 neg
-COVID/Flu neg
- Chest CT atelectasis
- Pt without improvement despite broad-spectrum antibiotics
- Recommend CT a/p to evaluate for abscess.
- Continue with empiric vancomycin, Zosyn and micafungin for now
Monitor white count and temperature curve.
����������������������������������������������������������
Chief Complaint
-: Fever
Subjective / Review of Systems
c/o abdominal pain
Vital Signs / Physical Exam
Vital Signs
Vital Signs
Temp Pulse Resp BP Pulse Ox
101.5 F H 132 33 150/78 90
01/09/25 07:05 01/09/25 10:00 01/09/25 08:00 01/09/25 10:00 01/09/25 11:46
Physical Exam
Constitutional: Acutely Ill
Head: Other (NGT in place)
Eyes: Sclera Anicteric
Cardiovascular: S1/S2 and Other (tachycardic)
Pulmonary: Coarse (bases)
Gastrointestinal: Soft, Tender (mild diffuse), Distended and Other (No bowel sounds)
Genito-Urinary: Negative CVA Tenderness
Extremities: Negative Edema
Neurological: Awake
Lines: PICC
Objective Data
Lab Data
Lab Results
01/09/25 04:13
Estimated Creat Clear 42 ml/min 01/09/25 04:13
Lactic Acid 1.1 mmol/L (0.7-2.0) 01/03/25 22:35
Total Bilirubin 1.0 mg/dl (0.2-1.3) 01/09/25 04:13
AST 131 U/L (17-59) H 01/09/25 04:13
ALT 84 U/L (0-50) H 01/09/25 04:13
Alkaline Phosphatase 108 U/L (38-126) 01/09/25 04:13
Most recent labs reviewed.
Micro Results:
01/09/25 10:16 Influenza Types A & B ([place]) - Final
Nasal Swab Negative for Influenza A & B, NAAT
Negative results must be combined with clinical observations
and patient history.
Nucleic Acid Amplification test (NAAT)performed on the
[employer] platform.
01/03/25 18:36 Blood Culture - Final
Blood/Venous No Growth - Final Report
01/03/25 18:32 Blood Culture - Final
Blood/Venous No Growth - Final Report
01/03/25 18:32 MRSA Screen - Final
Nose No Methicillin Resistant Staphylococcus aureus isolated.
01/03/25 18:32 Legionella Urinary Antigen - Final
Urine Negative for Legionella pneumophila Serogroup 1 antigen.
A negative result does not rule out the possiblity of
Legionella infection due to other serogroups or species of
Legionella. Clinical correlation is recommended.
Streptococcus pneumoniae Antigen (M - Final
Negative for Streptococcus pneumoniae antigen.
A negative result does not exclude infection with
Streptococcus pneumoniae. Clinical correlation is
recommended.
01/03/25 18:32 Influenza Types A & B ([place]) - Final
Nasal Swab Negative for Influenza A & B, NAAT
Negative results must be combined with clinical observations
and patient history.
Nucleic Acid Amplification test (NAAT)performed on the
[employer] platform.
12/29/24 17:21 Blood Culture - Final
Blood/Venous No Growth - Final Report
12/29/24 17:21 Blood Culture - Final
Blood/Venous No Growth - Final Report
01/09/25 AXR: Several dilated bowel loops seen within the left lower quadrant.
Care Review
Plan reviewed with: Physician (Dr. Florecita Bell and Jourdan Dunn)
[2025-01-09] MEDS: TORADOL 15 MG IV (12:01)
--- NOTE | 2025-01-09 12:01 | W.PN.HOSP.TC ---
Addendum entered and electronically signed by Saturnino Bell MD 01/09/25 16:21:
Sepsis with unclear source at this time
Will obtain CT abdomen pelvis with IV and p.o. contrast to rule out abscess
Continue empiric antibiotics
Fever follow-up on CT abdomen pelvis
Consider repeat cultures
Appreciate ID inputs
Cooling blanket as elevated renal function therefore cannot provide NSAID and elevated LFTs and cannot provide IV acetaminophen
ID following
Ileus
S/p ex lap with small bowel enterotomy
Removed NGT overnight
Surgery will plan to replace today
TME likely multifactorial in the setting of sepsis
Psychiatric disorders
Continue IV Ativan as on home Klonopin
Hyponatremia and MARIA ISABEL with a free water deficit of 2.5 L
On TPN likely underdosed
Would appreciate surgery and pharmacies recommendations in terms of repletion
As next TPN bag will start in the evening we will start half NS at a rate of 75 and repeat BMP in afternoon
Transaminitis
Likely related to sepsis, viral panel negative
Avoid hepatotoxins.
Follow-up abdominal CT
Original Note:
Today's Communication/Plan
-
-Abdominal CT
-Started IV fluids for free water deficit
-Started on bupropion 50 mg twice daily
-Follow-up cultures
-Follow-up BMP, CBC, temperature curve
-Follow-up mental status
Assessment / Plan
Assessment / Plan
#Sepsis likely secondary to SBO versus pneumonia
-CT abdomen pending
-Fever spikes-persistent leukocytosis
-Continue broad empiric antibiotic regimen
-No growth on blood cultures so far
# TME likely multifactorial secondary to sepsis and contribution due to underlying psychiatric disorder (BPD with manic episode/ADHD)
-Mental condition status does not seem improved
-CT head on 01/08/2025: No acute abnormality
-Possible secondary combination of sepsis and underlying psychiatric disorders
-Home medication for his psychiatric problems include: Adderall, BuSpar, Wellbutrin, doxepin and Oxcarbazepine
-Psychiatry on board (antipsychotic medication-will continue asenapine at night) -he was started on bupropion 50 mg twice daily(ER form changed to IR form to be able to get crushed) on 01/09/2025
-Patient`s home dose Klonopin was switched to IV Ativan to avoid withdrawal symptoms and being n.p.o.
-Patient has history of prolonged encephalopathy secondary having mental disorder-has a close follow-up at [facility]
# S/P ex lap and repair of small bowel enterotomy
-Status post diagnostic laparoscopy and exploratory laparotomy - Small bowel enterotomy repaired in 2 layers on 01/03
-Patient underwent surgery due SBO and ileus was noted which suspected secondary to risperidone.
-POD#6
-Patient removed NGT tube by himself which was for decompression on 01/09/2024--can be considered to replace if patient develops vomiting/nausea or abdominal distention
-General Surgery on board
-Strict n.p.o.-patient has been on TPN-on the essential crush medication can be only given
-Likely developed free water deficit on TPN-started on IV fluids
-Fever spikes with persistent leukocytosis-ID on board
-Abdominal CT with contrast ordered and pending
# Possible aspiration pneumonia
-Continue with empiric vancomycin, Zosyn and micafungin
-Follow-up temperature curve and WBC
# MARIA ISABEL likely secondary to free water deficit
-Sodium level 147, BUN 40, creatinine 1.5 this a.m.
-Free water deficit calculated as 2.5 L(started on DS 5 and NS)
-Patient has been on TPN-surgery team will be discussed about adjustments for TPN
-Vancomycin dose adjusted based on creatinine level per pharmacy
-Follow-up with bladder scan
-Follow CMP
# Transaminitis possibly secondary to sepsis versus hepatobiliary disease
-LFTs gradually increasing
-Total bilirubin WNL( 1.0)
-No findings on physical exam
-Abdominal CT pending
-GI consultation can be considered with worsening LFT levels
# Hypernatremia
-Started on IV fluids
-Follow BMPs
# Hypokalemia
-Resolved
# Hypermagnesemia
-Resolved, held magnesium in TPN
# Hypophosphatemia
-Resolved
#Prolonged Qtc
-Resolved.
# Sinus tachycardia, reactive
Continue with IV metoprolol
# Primary hypertension
Continue with IV metoprolol & PRN IV hydralazine.
# Hyperlipidemia
Resume statin when able to tolerate p.o.
# BPH
Bladder scans
High risk for retention
#DVT prophylaxis
Lovenox and SCDs
Anticipated Discharge: 24 - 48 hours
Subjective/Interval History
-
Date of Service: January 09, 2025
Patient was seen in his bed, moaning and asking help repeatedly. He was awake, but not alert or oriented. He had difficulty to apply apply simple two words comments.
Objective Data
-
Labs:
Laboratory Results
01/09/25 01/09/25
04:13 13:00
WBC 17.8 H
Hgb 14.8
Hct 44.5
Plt Count 257 D
Sodium 147 H Pending
Potassium 4.6 Pending
Chloride 114 H Pending
Carbon Dioxide 24 Pending
BUN 40 H Pending
Creatinine 1.5 H Pending
Glucose 143 H Pending
Calcium 10.2 Pending
Total Bilirubin 1.0
AST 131 H
ALT 84 H
Alkaline Phosphatase 108
Vital Signs:
Vital Signs
Temp Pulse Resp BP Pulse Ox
101.5 F H 132 33 150/78 90
01/09/25 07:05 01/09/25 10:00 01/09/25 08:00 01/09/25 10:00 01/09/25 11:46
I&O
01/08/25 01/09/25 01/10/25
06:59 06:59 06:59
Intake Total 966 / 966 1316 / 1316
Output Total 625 / 625 300 / 300
Balance 341 / 341 1016 / 1016
Review of Systems
-
Unable to obtain full review of systems at this time due to: Other (Patient seems some agitated and does not responds to questions. ROS was not reliable due to patient's mental status)
Physical Exam
-
General: Appears Chronically Ill
HEENT: Normocephalic, Atraumatic and Oxygen (On nasal supplemental oxygen)
Respiratory: Non Labored Respirations and Decreased Breath Sounds
Cardiac: Regular Rhythm, S1/S2 and Tachycardic
GI: Soft, Nondistended, Tender (Mildly) and Other (Remote NG tube yesterday by the patient himself)
Genito-urinary: [place] (Urine color seems normal yellow)
Musculoskeletal: No Clubbing, No Cyanosis and No Edema
Skin: Warm and IV Access / Catheter Site (PICC line on the right side(on right cubitus) )
Neuro: Awake and Oriented (disoriented)
Psych: Confused and Agitated
[2025-01-09] MEDS: MYCAMINE 105 MG IV (12:11)
--- NOTE | 2025-01-09 12:29 | PHA.VAN.FU ---
Vancomycin Assessment / Plan
- Assessment
Renal Function: SCR Increasing
WBC's are: Trending Up
Concomitant Antimicrobials: piperacillin/tazobactam, micafungin
- Dosing Plan
Adjust Regimen to: dosing by level due to increase in SCR
- Monitoring Plan
Random Level: 01/10 0600
- Follow Up
Pharmacy will continue to follow.
Vancomycin Follow UP
- -
Patient Age: 74
Patient Sex: Male
Vancomycin Day #: 7 (d/c'ed after 01/05 AM dose and resumed 01/06 AM)
Indication: Gi / Intra-Abdominal
Requesting Provider: Dr. Garg
Pertinent Antimicrobial Allergies:
no pertinent antimicrobial allergies
Height / Weight:
Height 5 ft 7 in
Actual Weight 84.7 kg
Pertinent Past Medical History: BMI ~32
- Vital Signs / Lab Results
Temp Pulse Resp BP Pulse Ox
101.5 F H 132 38 129/72 90
01/09/25 07:05 01/09/25 12:02 01/09/25 12:00 01/09/25 12:02 01/09/25 11:46
Lab Results - Hematology
01/07/25 01/08/25 01/09/25
03:56 06:42 04:13
WBC 16.4 H 15.0 H 17.8 H
Lab Results - Chemistry
01/07/25 01/08/25 01/08/25
03:56 06:42 07:34
BUN 36 H Cancelled 26 H
Creatinine 1.1 Cancelled 0.9
Estimated Creat Clear 64 Cancelled 69
Albumin Cancelled 2.8 L
01/09/25
04:13
BUN 40 H
Creatinine 1.5 H
Estimated Creat Clear 42
Albumin 3.1 L
Microbiology Results
01/09/25 10:16 Influenza Types A & B ([place]) - Final
Nasal Swab Negative for Influenza A & B, NAAT
Negative results must be combined with clinical observations
and patient history.
Nucleic Acid Amplification test (NAAT)performed on the
[employer] platform.
01/03/25 18:36 Blood Culture - Final
Blood/Venous No Growth - Final Report
01/03/25 18:32 Blood Culture - Final
Blood/Venous No Growth - Final Report
Therapeutic Drug Monitoring
Random Vancomycin 8.4 ug/ml 01/08/25 04:33
[2025-01-09] MEDS: ZOSYN 50 IV (13:16)
[2025-01-09] MEDS: OMNIPAQUE 50 ML PO (14:02)
--- NOTE | 2025-01-09 14:53 | W.PN.UPDATE ---
Update Note
Progress Note Update
Pt seen, chart reviewed, discussed with nursing staff. Pt npo due to aspiration risk, is able to take SL Saphris, Bupropion 50 mg crushed in small amount of applesauce. On approach pt asleep, upon waking pt mumbling 'please, please hurry' over and
over, does not make eye contact or answer any questions. Pt noted to be restless when awake. Reviewed prescriptions in PDMP- Klonopin was last filled Nov 13- almost 2 months ago. Pt's psychiatric polypharmacy, including multiple anticholinergic
agents, multiple classes and Adderall, have been held. Low dose of immediate release Wellbutrin ordered due to reported crying spells. Ativan 1 mg IV Q12 hr started at HS 01/08. Pt is receiving doses of Ativan 0.5 mg Q4 hr prn.
Imp: TME, with confusion, lethargy, mild restlessness and anxiety
Rec: continue Saphris (SL, not significantly anticholinergic), taper standing Ativan to 0.5 mg BID, continue prn IV Ativan 0.5 mg, continue immediate release Bupropion
will follow
[2025-01-09 15:41] LABS: Blood Urea Nitrogen 43 mg/dl (9-20); Calcium 9.7 mg/dl (8.4-10.2); Carbon Dioxide 24 mmol/L (22-30); Chloride 113 mmol/L (98-107); Estimated Creatinine Clearance 45 ml/min; Glucose 155 mg/dl (70-99); Potassium 4.2 mmol/L (3.5-5.1); Sodium 145 mmol/L (135-145)
--- NOTE | 2025-01-09 15:41 | CM ---
CM following re: discharge planning.
Reviewed pt's chart, met with p[t.
Pt is POD#6 ex lap and repair of small bowel enterotomy, awake, but not alert or oriented, continue TPN, psychiatry, ID, Surgery following.
PT and OT evaluation noted - SNF level of care recommended. CM will discuss options of SNFs when pt is more awake and able to participate in conversation.
D/C plan: preferred SNF.
CM will follow with discharge plan updates as hospitalization progresses
--- NOTE | 2025-01-09 16:39 | PTCARENOTE ---
Patient taken to and from CT scan with RN.
[2025-01-09] MEDS: LOVENOX 40 MG SC (17:02)
[2025-01-09] MEDS: NOVOLOG FLEXPEN-LOW RESISTANCE SC (18:32)
[2025-01-09 18:42] LABS: Glucose - Point of Care 123 mg/dl (70-99)
[2025-01-09] MEDS: Parenteral Nutrition, Central 1070 IV (21:04)
[2025-01-09] MEDS: SAPHRIS 2.5 MG SL (21:07)
--- NOTE | 2025-01-09 21:55 | PTCARENOTE ---
Received patient at start of shift. Patient aao x1-[address], confusion and forgetfulness noted. Patient with frequent, repetative, garbled verbalizations, unable to console. ST on the monitor. Rectal temp 100.4 at start of shift. Around
2100 rectal temp increased to 100.6. Cooling blanket resumed at that time. Lung sounds are coarse, rhonchi noted with wet intermittent cough. NGT at 75 to left nare, connected to LWIS and draining dark green fluid. Patient incontinent, saturated
covidien. Hygiene provided and patient bathed with CHG wipes, repositioned for pressure relief and comfort. TPN started at 2100 at 45ml/hr per order to right PICC. Foams to heels remain c/d/i. Patient has NS 0.45% at 75ml/hr to right PICC. Will
continue to monitor patient closely.
[2025-01-09 23:44] LABS: Glucose - Point of Care 151 mg/dl (70-99)
[2025-01-09] MEDS: NOVOLOG FLEXPEN-LOW RESISTANCE 1 UNITS SC (23:57)
[2025-01-10] VITALS (36 sets, daily range): BP systolic 131–190; BP diastolic 67–112; PULSE 115; O2SAT 96; BMI 29.4
[2025-01-10] MEDS: OFIRMEV 100 IV ×2 (02:45→08:08)
[2025-01-10] MEDS: 0.45%NACL 1000 IV ×3 (02:56→20:32)
[2025-01-10] MEDS: DILAUDID 0.5 MG IV ×4 (03:00→22:46)
[2025-01-10] MEDS: ATIVAN 0.5 MG IV ×4 (04:57→20:07)
[2025-01-10] MEDS: NSS (PRESERVATIVE FREE) 0.25 ML IV ×4 (04:58→20:08)
[2025-01-10] MEDS: DILAUDID 0.25 MG IV ×2 (04:59→20:06)
[2025-01-10] MEDS: LOPRESSOR 5 MG IV ×3 (05:00→17:52)
[2025-01-10 05:01] LABS: Hematocrit 41.3 % (39.0-52.0); Hemoglobin 13.4 g/dL (13.0-18.0); Mean Corp Hgb Conc. 32.4 g/dL (33.0-37.0); Mean Corpuscular Hgb 31.5 pg (27.0-31.0); Mean Corpuscular Volume 96.9 fL (80.0-94.0); Mean Platelet Volume 11.5 fL (7.4-10.4); Platelet Count 264 10^3/uL (130-400); Red Blood Cell Count 4.26 10^6/uL (4.70-6.10); Red Cell Dist. Width 14.7 % (11.5-14.5); White Blood Cell Count 18.8 10^3/uL (4.8-10.8)
[2025-01-10] MEDS: ZOSYN 100 IV (05:03)
[2025-01-10 05:31] LABS: Vancomycin Random 9.4 ug/ml
[2025-01-10 05:41] LABS: Blood Urea Nitrogen 46 mg/dl (9-20); Calcium 10.3 mg/dl (8.4-10.2); Carbon Dioxide 24 mmol/L (22-30); Chloride 113 mmol/L (98-107); Estimated Creatinine Clearance 48 ml/min; Glucose 149 mg/dl (70-99); Magnesium 1.8 mg/dl (1.6-2.3); Phosphorus 3.6 mg/dl (2.5-4.5); Potassium 4.4 mmol/L (3.5-5.1); Sodium 148 mmol/L (135-145); eGFR 58.37
[2025-01-10 05:42] LABS: Triglycerides 416 mg/dl (10-149)
[2025-01-10] MEDS: NOVOLOG FLEXPEN-LOW RESISTANCE 1 UNITS SC ×2 (06:28→13:55)
[2025-01-10 06:35] LABS: Glucose - Point of Care 155 mg/dl (70-99)
--- NOTE | 2025-01-10 07:08 | W.PN.GS2 ---
Addendum entered and electronically signed by Madhu Xavier MD 01/10/25 10:35:
I saw and examined the patient.
The resident's note was reviewed and I agree with the note.
Comment: Does not participate in encounter. BM recorded yesterday. Abd soft, mild distention. Incision without erythema or drainage, mild ecchymosis is present. Failed swallow eval, will cont NGT/NPO/TPN. CT yesterday without intra-abdominal fluid
collection, images are c/w ongoing ileus. Small subcutaneous fluid collection noted at midline incision, without rim enhancement. Several valdemar were removed at bedside and old blood was evacuated. This was cultured. There was no pus, no odor.
Suspect ongoing infectious issues are of pulmonary origin. Wound was packed, wound care orders placed.
Original Note:
Today's Communication / Plan
-
Patient remains n.p.o. with NGT. NGT drained [address] of the abdomen conducted on 01/10/2025 hide findings suggesting an adynamic ileus - partial small bowel obstruction was also possible. surgical incision from procedure appears to be
healing well with no discoloration or drainage.
Assessment / Plan
-
74 yo male p/w SBO taken to OR with ileus noted. Suspected secondary to risperidone
Patient is postprocedure day #6 ex lap and repair of small bowel enterotomy
Abdominal wall incision wound appears to be healing without any drainage on 01/09/2025
Being followed on ABX for possible PNA, intermittent low grade fevers. Flu neg. Leukocytosis persists
H/H stable
Vitals stable, continues to have intermittent fevers
Beginning to have some positive signs of bowel recovery with small bm's and improvement in exams
NGT has been reinserted -500 mL of output on 01/10/2025
Psychiatry following and adjusting meds
CT head without acute abnormality on 01/08/2025
CT of the abdomen conducted on 01/10/2025 hide findings suggesting an adynamic ileus - partial small bowel obstruction was also possible.
-- Continue NPO/IVF
-- [employer] assessment recommended that the patient remain n.p.o. and only essential crushed medicines added to pur�ed food - can be reassessed when the patient is more at his baseline
-- NGT has been replaced - following output
-- ABX as per ID
-- Appreciate psychiatry recs
-- OOB as able
-- TPN being managed by medicine service
-- Lovenox and SCDs for VTE ppx
Subjective Data
-
Date of Service: January 10, 2025
Met with patient at the bedside. He is still perseverating that he needs help and repeats the word 'please' over and over. Patient is responsive to questions and when asked if his abdomen hurts he said no. Patient was unable to clarify whether he
has had a bowel movement or passed flatus recently.
Objective Data
-
Intake and Output
01/09/25 01/10/25 01/11/25
06:59 06:59 06:59
Intake Total 1316 / 1316 2585 / 2585
Output Total 300 / 300 500 / 500
Balance 1016 / 1016 2084 / 2084
Intake:
IV fluids (Total) 1800 / 1800
IV piggybacks 800 / 800 755 / 755
TPN/PPN 516 / 516
Amount instilled into GI Tube ( 30 / 30
Total)
[place] Sump 30 / 30
Output:
Gastrointestinal tube output ( 500 / 500
Total)
[place] Sump 500 / 500
Urine, Voided 300 / 300
Other:
How many times incontinent 1
MODERATE amount urine
How many times incontinent 1 3
SATURATED amount urine
Vital Signs
Temp Pulse Resp BP Pulse Ox
99.2 F 85 22 135/71 91
01/10/25 02:56 01/10/25 06:00 01/10/25 06:00 01/10/25 06:00 01/10/25 05:00
Lab Results
01/10/25 04:46
01/10/25 04:46
Calcium 10.3 mg/dl (8.4-10.2) H 01/10/25 04:46
Phosphorus 3.6 mg/dl (2.5-4.5) 01/10/25 04:46
Magnesium 1.8 mg/dl (1.6-2.3) 01/10/25 04:46
Total Bilirubin 1.0 mg/dl (0.2-1.3) 01/09/25 04:13
AST 131 U/L (17-59) H 01/09/25 04:13
ALT 84 U/L (0-50) H 01/09/25 04:13
Alkaline Phosphatase 108 U/L (38-126) 01/09/25 04:13
Total Protein 6.2 g/dl (6.3-8.2) L 01/09/25 04:13
Albumin 3.1 g/dl (3.5-5.0) L 01/09/25 04:13
Physical Exam
-
General: NAD, disheveled
HEENT: Anicteric
Respiratory: Non Labored Respirations
GI: Soft, Tender (Mild throughout), ND
Patient has a weaver catheter: No
Patient has a central line: No
[2025-01-10] MEDS: APRESOLINE 5 MG IV (08:04)
[2025-01-10] MEDS: NSS (PRESERVATIVE FREE) 10 ML IV (08:11)
[2025-01-10] MEDS: PROTONIX IV 40 MG IV (08:11)
[2025-01-10] MEDS: DESENEX/MITRAZOL/ZEASORB 1 APPLIC TOPICAL ×2 (08:11→20:33)
[2025-01-10 08:19] LABS: ALT (SGPT) 85 U/L (0-50); AST (SGOT) 115 U/L (17-59)
--- NOTE | 2025-01-10 08:22 | PHA.VAN.FU ---
Vancomycin Assessment / Plan
- Assessment
Renal Function: SCR Decreasing
WBC's are: Stable
Concomitant Antimicrobials: piperacillin/tazobactam, micafungin
received IV contrast 01/09
- Assessment - Therapeutic Drug Monitoring
Random Level: 9.4 - drawn ~22.5H after previous dose of 1g
- Dosing Plan
Dosing by Level: Re-dose today (Vanc 1500mg)
- Monitoring Plan
Random Level: 01/11 06
- Follow Up
Pharmacy will continue to follow.
Vancomycin Follow UP
- -
Patient Age: 74
Patient Sex: Male
Vancomycin Day #: 8 (d/c'ed after 01/05 AM dose and resumed 01/06 AM)
Indication: Gi / Intra-Abdominal
Requesting Provider: Dr. Garg
Pertinent Antimicrobial Allergies:
no pertinent antimicrobial allergies
Height / Weight:
Height 5 ft 7 in
Actual Weight 85.2 kg
Pertinent Past Medical History: BMI ~32
- Vital Signs / Lab Results
Temp Pulse Resp BP Pulse Ox
99.2 F 100 22 170/82 91
01/10/25 02:56 01/10/25 08:04 01/10/25 06:00 01/10/25 08:04 01/10/25 05:00
Lab Results - Hematology
01/08/25 01/09/25 01/10/25
06:42 04:13 04:46
WBC 15.0 H 17.8 H 18.8 H
Lab Results - Chemistry
01/08/25 01/08/25 01/09/25
06:42 07:34 04:13
BUN Cancelled 26 H 40 H
Creatinine Cancelled 0.9 1.5 H
Estimated Creat Clear Cancelled 69 42
Albumin Cancelled 2.8 L 3.1 L
01/09/25 01/09/25 01/09/25
13:20 14:14 15:06
BUN Cancelled Cancelled 43 H
Creatinine Cancelled Cancelled 1.4 H
Estimated Creat Clear Cancelled Cancelled 45
Albumin
01/10/25
04:46
BUN 46 H
Creatinine 1.3
Estimated Creat Clear 48
Albumin
Microbiology Results
01/09/25 10:16 Influenza Types A & B ([place]) - Final
Nasal Swab Negative for Influenza A & B, NAAT
Negative results must be combined with clinical observations
and patient history.
Nucleic Acid Amplification test (NAAT)performed on the
[employer] platform.
01/03/25 18:36 Blood Culture - Final
Blood/Venous No Growth - Final Report
01/03/25 18:32 Blood Culture - Final
Blood/Venous No Growth - Final Report
Therapeutic Drug Monitoring
Random Vancomycin 9.4 ug/ml 01/10/25 04:46
--- NOTE | 2025-01-10 09:09 | W.PN.HOSP.TC ---
Today's Communication/Plan
-
-Replace Zosyn with meropenem in case of drug fever
-Follow up wound culture
-Rect supp ordered for rectal dilatation
-Started on 0.45% NS at 100 ml/h to manage free water deficit
-Stopped giving med through NGT (draining fluid )
-Follow CBC, CMP, lactic acid
Assessment / Plan
Assessment / Plan
#Sepsis likely secondary to SBO versus pneumonia
-CT abdomen c/w adynamic ileus, a possible partial small bowel obstruction and a possible small bowel infarction and a possible pneumonia
-Fever spikes continues -persistent leukocytosis
-Continue with empiric vancomycin and micafungin
-Zosyn replaced with meropenem in case of drug fever
-No growth on blood cultures so far
-General surgery saw the patient this am noting mild ecchymosis on incision area (CT on 01/09/25 showed small subcutaneous fluid collection at midline incision without rim enhancement) Surhery team removed several valdemar and old blood was evacuated
and sent for to be cultured. No pus or odor was observed on incision area
-Follow up wound culture
-Follow up lactic acid: Lactic acid 0.8
-Rectal supp ordered for rectal dilatation
# TME likely multifactorial secondary to sepsis and contribution due to underlying psychiatric disorder (BPD with manic episode/ADHD)
-Mental condition status does not seem improved
-CT head on 01/08/2025: No acute abnormality
-Possible secondary combination of sepsis and underlying psychiatric disorders
-Home medication for his psychiatric problems include: Adderall, BuSpar, Wellbutrin, doxepin and Oxcarbazepine
-Psychiatry on board (antipsychotic medication-will continue asenapine at night) -he was started on bupropion 50 mg twice daily(ER form changed to IR form to be able to get crushed) on 01/09/2025
-His bupropion could not be given due NGT suction
-Patient`s home dose Klonopin was switched to IV Ativan to avoid withdrawal symptoms and being n.p.o.
-Patient has history of prolonged encephalopathy secondary having mental disorder-has a close follow-up at IMU
# S/P ex lap and repair of small bowel enterotomy
-Status post diagnostic laparoscopy and exploratory laparotomy - Small bowel enterotomy repaired in 2 layers on 01/03
-Patient underwent surgery due SBO and ileus was noted which suspected secondary to risperidone.
-POD#7
-Patient removed NGT tube by himself which was for decompression on 01/09/2024--NGT placed again on 01/09/25
-General Surgery on board
-Strict n.p.o.-patient has been on TPN
-Likely developed free water deficit on TPN-started on IV fluids
-Fever spikes with persistent leukocytosis-ID on board
# Possible aspiration pneumonia
-Continue with empiric vancomycin,meropenem and micafungin
-Follow-up temperature curve and WBC
# MARIA ISABEL likely secondary to free water deficit
-Sodium level 148, BUN 46, creatinine 1.3 this a.m.
-Free water deficit calculated as 2.9 L(started on 0.45 NS at 100 ml/h)
-Patient has been on TPN-surgery team following
-Vancomycin dose adjusted based on creatinine level per pharmacy
-Follow-up with bladder scan
-Follow CMP
# Transaminitis possibly secondary to sepsis versus hepatobiliary disease
-LFTs gradually increased and still elevated
-Total bilirubin WNL( 1.0)
-No findings on physical exam
-GI consultation can be considered with worsening LFT levels
# Hypernatremia
-Started on IV fluids
-Follow BMPs
# Hypokalemia
-Resolved
# Hypermagnesemia
-Resolved, held magnesium in TPN
# Hypophosphatemia
-Resolved
#Prolonged Qtc
-Resolved.
# Sinus tachycardia, reactive
Continue with IV metoprolol
# Primary hypertension
Continue with IV metoprolol & PRN IV hydralazine.
# Hyperlipidemia
Resume statin when able to tolerate p.o.
# BPH
Bladder scans
High risk for retention
#DVT prophylaxis
Lovenox and SCDs
Anticipated Discharge: 24 - 48 hours
Subjective/Interval History
-
Date of Service: January 10, 2025
Patient was seen with his caregiver at bedside. Patient repeating the word of please over and over again. Patient had some facial expressions complaint with abdominal pain during abdominal exam .
Objective Data
-
Labs:
Laboratory Results
01/10/25
04:46
WBC 18.8 H
Hgb 13.4
Hct 41.3
Plt Count 264
Sodium 148 H
Potassium 4.4
Chloride 113 H
Carbon Dioxide 24
BUN 46 H
Creatinine 1.3
Glucose 149 H
Calcium 10.3 H
AST 115 H
ALT 85 H
Vital Signs:
Vital Signs
Temp Pulse Resp BP Pulse Ox
99.2 F 100 22 170/82 91
01/10/25 02:56 01/10/25 08:04 01/10/25 06:00 01/10/25 08:04 01/10/25 05:00
I&O
01/09/25 01/10/25 01/11/25
06:59 06:59 06:59
Intake Total 1316 / 1316 2585 / 2585
Output Total 300 / 300 500 / 500
Balance 1016 / 1016 208 / 2085
Review of Systems
-
Unable to obtain full review of systems at this time due to: Other (Patient had difficulty to communicate due his mental status. His ROS is not reliable)
Physical Exam
-
General: Well Developed, Well Nourished, Appears Chronically Ill and Obese
HEENT: Normocephalic, Atraumatic, Moist Mucous Membranes, Oxygen (On nasal supplemental oxygen) and Other (Has NGT )
Respiratory: Non Labored Respirations and Decreased Breath Sounds
Cardiac: Regular Rhythm, S1/S2 and Tachycardic
GI: Nondistended and Tender
Musculoskeletal: No Clubbing, No Cyanosis and No Edema
Skin: Warm and IV Access / Catheter Site (PICC line on the right side(on right cubitus) )
Neuro: Awake and Other (Disoriented )
[2025-01-10] MEDS: VANCOCIN 530 MG IV (10:09)
[2025-01-10 10:27] LABS: Lactic Acid 0.8 mmol/L (0.7-2.0)
--- NOTE | 2025-01-10 11:01 | W.PN.ID1 ---
Date of Service
Date of Service: January 10, 2025
Today's Communication
- Continue with empiric vancomycin and micafungin for now.
- Replace Zosyn with meropenem in case of drug fever
Assessment / Plan
Fever - may be trending down past 24hrs
Leukocytosis persists
Sepsis
High grade SBO s/p 01/03 Diagnostic laparoscopy, exploratory laparotomy, repair small bowel enterotomy
Encephalopathy
Anxiety
- 01/03 blood cultures x2 neg
-COVID/Flu neg
- Chest CT atelectasis
- 01/09 CT a/p: no intra-abd abscess; possible hematoma underlying skin valdemar.
Surgery removed valdemar and evacuated old blood -> cx pending.
- Continue with empiric vancomycin and micafungin for now.
- Replace Zosyn with meropenem in case of drug fever
- Monitor white count and temperature curve.
Updated [id number] Ellie White ([phone])
����������������������������������������������������������
Chief Complaint
-: Fever and Leukocytosis
Subjective / Review of Systems
keeps repeating 'please, please'
Vital Signs / Physical Exam
Vital Signs
Vital Signs
Temp Pulse Resp BP Pulse Ox
99.1 F 100 22 170/82 91
01/10/25 07:05 01/10/25 08:04 01/10/25 06:00 01/10/25 08:04 01/10/25 05:00
Physical Exam
Constitutional: Acutely Ill
Head: Other (NGT in place)
Eyes: Sclera Anicteric
Cardiovascular: S1/S2 and Other (tachycardic)
Pulmonary: Coarse (bases)
Gastrointestinal: Soft, Tender (mild diffuse), Distended and Other (No bowel sounds)
Genito-Urinary: Negative [place] or CVA Tenderness
Extremities: Negative Edema
Skin: Negative Rash
Wound: Other (Abdomen dressing dry)
Neurological: Negative Meningeal Signs
Psychological: Confused
Lines: PICC
Objective Data
Lab Data
Lab Results
01/10/25 04:46
01/10/25 04:46
Estimated Creat Clear 48 ml/min 01/10/25 04:46
Lactic Acid 0.8 mmol/L (0.7-2.0) 01/10/25 10:00
Total Bilirubin 1.0 mg/dl (0.2-1.3) 01/09/25 04:13
AST 115 U/L (17-59) H 01/10/25 04:46
ALT 85 U/L (0-50) H 01/10/25 04:46
Alkaline Phosphatase 108 U/L (38-126) 01/09/25 04:13
Most recent labs reviewed.
Micro Results:
01/10/25 10:22 Anaerobic Culture - Pending
Hematoma
01/10/25 10:04 Wound Culture - Pending
Hematoma Gram Stain - Pending
01/09/25 10:16 Influenza Types A & B ([place]) - Final
Nasal Swab Negative for Influenza A & B, NAAT
Negative results must be combined with clinical observations
and patient history.
Nucleic Acid Amplification test (NAAT)performed on the
[employer] platform.
01/03/25 18:36 Blood Culture - Final
Blood/Venous No Growth - Final Report
01/03/25 18:32 Blood Culture - Final
Blood/Venous No Growth - Final Report
01/03/25 18:32 MRSA Screen - Final
Nose No Methicillin Resistant Staphylococcus aureus isolated.
01/03/25 18:32 Legionella Urinary Antigen - Final
Urine Negative for Legionella pneumophila Serogroup 1 antigen.
A negative result does not rule out the possiblity of
Legionella infection due to other serogroups or species of
Legionella. Clinical correlation is recommended.
Streptococcus pneumoniae Antigen (M - Final
Negative for Streptococcus pneumoniae antigen.
A negative result does not exclude infection with
Streptococcus pneumoniae. Clinical correlation is
recommended.
01/03/25 18:32 Influenza Types A & B ([place]) - Final
Nasal Swab Negative for Influenza A & B, NAAT
Negative results must be combined with clinical observations
and patient history.
Nucleic Acid Amplification test (NAAT)performed on the
[employer] platform.
12/29/24 17:21 Blood Culture - Final
Blood/Venous No Growth - Final Report
12/29/24 17:21 Blood Culture - Final
Blood/Venous No Growth - Final Report
01/09/25 AXR: Several dilated bowel loops seen within the left lower quadrant.
01/09/25 CT a/p: Dilated loops of proximal to mid small bowel with normal caliber distal small bowel, although a focal isolated transition zone is not demonstrated. Findings most likely represent an adynamic ileus. A partial small bowel obstruction
is still possible. As warranted, follow-up abdominal radiographs may be helpful to assess progression of intraluminal GI contrast through the bowel. Midline anterior abdominal and pelvic scar with skin valdemar. There is some soft tissue density
within the anterior abdominal and pelvic wall underlying the skin valdemar, including a rounded component. This may suggest hematoma/blood products. No evidence for a focal fluid collection at this time.Small amount of fluid in the posterior lower
right hemithorax, with mild loculation. Parenchymal opacity within both lower lobes, most likely atelectasis, although pneumonia is also possible. Moderate distention of the rectum with stool, transverse dimension of 6.4 cm. No evidence for
stercoral colitis.
[2025-01-10] MEDS: WELLBUTRIN REGULAR RELEASE PO (11:27)
[2025-01-10] MEDS: NON-FORMULARY ITEM 4 PUMP TRANSDERM (11:35)
[2025-01-10] MEDS: MYCAMINE 105 MG IV (11:47)
[2025-01-10] MEDS: REFRESH EYE DROPS (PF) 1 DROPS OPHTH ×2 (12:13→20:48)
[2025-01-10 13:15] LABS: Glucose - Point of Care 170 mg/dl (70-99)
--- NOTE | 2025-01-10 13:18 | CM ---
Patient with Dx High grade SBO s/p 01/03 diagnostic & exploratory laparotomy, small bowel enterotomy, sepsis. Febrile - cooling blanket. Elevated WBC. O2 3L midflow. NPO/NGT/TPN. PICC. Receiving Ofirmev gtt, IV Abx, IV Dilaudid. PT & OT 01/04;
assist of 2, recommend skilled rehab. PT/OT held 01/09; not medically stable for activity. Nurses notes 01/09; confused, forgetful. Seen by wound care nurse.
CM continuing to follow.
Plan follow up once seen again by PT/OT.
Plan speak with patient/SO Walter re; SNF when patient is closer to discharge.
[2025-01-10] MEDS: STERILE WATER FOR INJECTION 10 ML IV ×2 (13:56→22:47)
[2025-01-10] MEDS: MERREM 500 MG IV ×2 (13:57→22:47)
--- NOTE | 2025-01-10 14:13 | PTCARENOTE ---
Patient is confused, moaning at times with anxiety. Tremors from rectal temp of 101.3. Discussed with resident Janett. Patient has green drainage from NGT. TPN infusing, CHG bath completed. Family at bedside.
[2025-01-10] MEDS: TORADOL 15 MG IV (14:40)
--- NOTE | 2025-01-10 15:24 | W.PN.UPDATE ---
Update Note
Progress Note Update
Pt seen, reviewed with nursing staff. Pt continues to be confused/delirious, moaning, repeats 'please,please, come here', but unable to say more/express what is going on. Nursing reports pt appearing to RIS/hallucinate; was talking to
relatives per family. Pt is NPO, not able to take Wellbutrin today, started and took 2 doses yesterday. Pt is febrile, with generalized tremor. Pt is receiving doses of prn Ativan 0.5 mg IV in addition to routine dosing, with limited benefit. Pt
has been able to get Saphris 2.5 mg SL at HS, started on 01/07.
Imp: TME, with confusion, lethargy, mild restlessness/tremor and anxiety, reported hallucinations.
Hx of Bipolar d/o with h/o episodes of akndis in the past
Rec: Increase Saphris to 2.5 mg BID (SL, not significantly anticholinergic), continue Ativan to 0.5 mg BID with plan to taper off, continue prn IV Ativan 0.5 mg
Will stop immediate release Bupropion- pt unable to take po and may be increasing tremor/anxiety/hallucinations
will follow
[2025-01-10] MEDS: DULCOLAX 10 MG RECTAL (16:16)
[2025-01-10] MEDS: LOVENOX 40 MG SC (17:52)
[2025-01-10] MEDS: FLUSH (NSS) 2 FLUSH IV (17:53)
[2025-01-10 18:13] LABS: Glucose - Point of Care 149 mg/dl (70-99)
[2025-01-10] MEDS: NOVOLOG FLEXPEN-LOW RESISTANCE SC (18:24)
--- NOTE | 2025-01-10 19:14 | PTCARENOTE ---
Complete patient care provided. Pt given rectal suppository for small amount of loose brown stool.
[2025-01-10] MEDS: SAPHRIS 2.5 MG SL (20:34)
[2025-01-10] MEDS: Parenteral Nutrition, Central 1030 IV (20:38)
[2025-01-10 23:49] LABS: Glucose - Point of Care 143 mg/dl (70-99)
[2025-01-11] VITALS (34 sets, daily range): BP systolic 137–188; BP diastolic 57–106; BMI 29.8
[2025-01-11] MEDS: NOVOLOG FLEXPEN-LOW RESISTANCE SC ×4 (00:30→17:29)
[2025-01-11] MEDS: LOPRESSOR 5 MG IV ×5 (00:30→23:55)
[2025-01-11] MEDS: ATIVAN 0.5 MG IV ×4 (00:31→20:19)
[2025-01-11] MEDS: NSS (PRESERVATIVE FREE) 0.25 ML IV ×4 (00:32→20:19)
--- NOTE | 2025-01-11 01:45 | PTCARENOTE ---
Assumed care of Pt from Day RN. When bringing in medication for Pt pain and anxiety Pt was seen with oxygen off in hand by nose with NGT also between fingers. Pt listening to request to let go of NGT, luckily bridge tape that is holding in place was
sturdy. No marking movement of NGT still at 75, placement heard and flushed, Pt appeared to tolerated well. Requesting B/L mitts from night [employer], order placed. Pt repeatedly crying out saying 'help me, please please'. Emotional support given along
with PRN medications. Pt having multiple soft stools through out shift.
[2025-01-11] MEDS: DILAUDID 0.25 MG IV ×2 (02:07→17:48)
[2025-01-11] MEDS: DILAUDID 0.5 MG IV ×4 (04:41→21:17)
[2025-01-11] MEDS: APRESOLINE 5 MG IV ×2 (04:42→16:45)
[2025-01-11] MEDS: MERREM 500 MG IV ×4 (05:27→23:55)
[2025-01-11] MEDS: STERILE WATER FOR INJECTION 10 ML IV ×4 (05:28→23:55)
[2025-01-11 05:36] LABS: Glucose - Point of Care 119 mg/dl (70-99)
[2025-01-11 05:52] LABS: Lactic Acid 0.7 mmol/L (0.7-2.0)
[2025-01-11 05:56] LABS: Vancomycin Random 10.8 ug/ml
[2025-01-11 05:58] LABS: Hematocrit 38.1 % (39.0-52.0); Hemoglobin 12.5 g/dL (13.0-18.0); Mean Corp Hgb Conc. 32.8 g/dL (33.0-37.0); Mean Corpuscular Hgb 31.7 pg (27.0-31.0); Mean Corpuscular Volume 96.7 fL (80.0-94.0); Mean Platelet Volume 11.9 fL (7.4-10.4); Platelet Count 275 10^3/uL (130-400); Red Blood Cell Count 3.94 10^6/uL (4.70-6.10); Red Cell Dist. Width 14.6 % (11.5-14.5); White Blood Cell Count 13.8 10^3/uL (4.8-10.8)
--- NOTE | 2025-01-11 06:12 | PTCARENOTE ---
PRNs given for hypertension, pain and anxiety(see MAR). Pt continues to cry out saying, 'please please please'. When asking what we can do for him Pt responding 'I want to , Im going to '. Emotional support given through out night.
[2025-01-11 06:16] LABS: Blood Urea Nitrogen 37 mg/dl (9-20); Carbon Dioxide 22 mmol/L (22-30); Chloride 115 mmol/L (98-107); Estimated Creatinine Clearance 70 ml/min; Glucose 146 mg/dl (70-99); Potassium 4.4 mmol/L (3.5-5.1); Sodium 145 mmol/L (135-145); eGFR > 60.00
[2025-01-11 08:28] LABS: ALT (SGPT) 62 U/L (0-50); AST (SGOT) 85 U/L (17-59); Magnesium 1.9 mg/dl (1.6-2.3)
[2025-01-11 08:46] LABS: Triglycerides 392 mg/dl (10-149)
--- NOTE | 2025-01-11 09:05 | PHA.VAN.FU ---
Vancomycin Assessment / Plan
- Assessment
Renal Function: SCR Decreasing
WBC's are: Trending Down
Concomitant Antimicrobials: meropenem, micafungin
- Assessment - Therapeutic Drug Monitoring
Random Level: 10.8 - drawn ~19.5H after previous dose of 1250mg
- Dosing Plan
Dosing by Level: Re-dose today (Vanc 1500mg)
Will keep as once daily dosing for today - with BUN & SCR continuing to trend down, may eventually require Q12; however, levels currently remain appropriate for Q24H dosing
- Monitoring Plan
Random Level: 01/12 0600
Monitoring Comments: received IV contrast 01/09
- Follow Up
Pharmacy will continue to follow.
Vancomycin Follow UP
- -
Patient Age: 74
Patient Sex: Male
Vancomycin Day #: 9 (d/c'ed after 01/05 AM dose and resumed 01/06 AM)
Indication: Gi / Intra-Abdominal
Requesting Provider: Dr. Garg
Pertinent Antimicrobial Allergies:
no pertinent antimicrobial allergies
Height / Weight:
Height 5 ft 7 in
Actual Weight 86.3 kg
Pertinent Past Medical History: BMI ~32
- Vital Signs / Lab Results
Temp Pulse Resp BP Pulse Ox
99.4 F 91 22 163/75 96
01/11/25 07:30 01/11/25 06:00 01/11/25 06:00 01/11/25 06:00 01/11/25 06:00
Lab Results - Hematology
01/09/25 01/10/25 01/11/25
04:13 04:46 05:26
WBC 17.8 H 18.8 H 13.8 H
Lab Results - Chemistry
01/09/25 01/09/25 01/09/25
04:13 13:20 14:14
BUN 40 H Cancelled Cancelled
Creatinine 1.5 H Cancelled Cancelled
Estimated Creat Clear 42 Cancelled Cancelled
Albumin 3.1 L
01/09/25 01/10/25 01/11/25
15:06 04:46 05:26
BUN 43 H 46 H 37 H
Creatinine 1.4 H 1.3 1.0
Estimated Creat Clear 45 48 70
Albumin
01/10/25 01/11/25
10:00 05:26
Lactic Acid 0.8 0.7
Microbiology Results
01/10/25 10:04 Gram Stain - Preliminary
Hematoma
01/09/25 10:16 Influenza Types A & B ([place]) - Final
Nasal Swab Negative for Influenza A & B, NAAT
Negative results must be combined with clinical observations
and patient history.
Nucleic Acid Amplification test (NAAT)performed on the
[employer] platform.
Therapeutic Drug Monitoring
Random Vancomycin 10.8 ug/ml 01/11/25 05:26
--- NOTE | 2025-01-11 09:08 | W.PN.HOSP.TC ---
Today's Communication/Plan
-
-NGT was removed by surgery team
-Oxygen is weaning as able to
-Started on IV Enalaprilat
-Failed at swallow test - Will stay NPO
-Wound culture negative gram stain/ culture pending
-Micafungin stopped by ID
Assessment / Plan
Assessment / Plan
#Sepsis likely secondary to SBO versus pneumonia
-CT abdomen 01/09: c/w adynamic ileus, a possible partial small bowel obstruction and a possible small bowel infarction and a possible pneumonia
-Fever spikes continues
-Lactic acid: Lactic acid 0.8 on 01/10 and 0.7 on 01/11-No need to track - not likely bowel infarction
-persistent leukocytosis with gradually trending down WBC -ID on board
-Continue with empiric meropenem and vancomycin --- stopped micafungin
-No growth on blood cultures so far
-General surgery following: NGT was removed this am- failed with speech assessment-will continue TPN- wound negative gram satin-wound culture pending- at wound area no pus, no erythema, no odor
# TME likely multifactorial secondary to sepsis and contribution due to underlying psychiatric disorder (BPD with manic episode/ADHD)
-Mental condition status seen improved this morning-oriented to place and himself
-CT head on 01/08/2025: No acute abnormality
-Possible secondary combination of sepsis and underlying psychiatric disorders
-Home medication for his psychiatric problems include: Adderall, BuSpar, Wellbutrin, doxepin and Oxcarbazepine
-Psychiatry on board (antipsychotic medication-will continue asenapine at night) -he was started on bupropion 50 mg twice daily(ER form changed to IR form to be able to get crushed) on 01/09/2025
-His bupropion could not be given due NGT suction on 01/10
-Patient`s home dose Klonopin was switched to IV Ativan to avoid withdrawal symptoms and being n.p.o.
-Patient has history of prolonged encephalopathy secondary having mental disorder-has a close follow-up at IMU
# S/P ex lap and repair of small bowel enterotomy
-Status post diagnostic laparoscopy and exploratory laparotomy - Small bowel enterotomy repaired in 2 layers on 01/03
-Patient underwent surgery due SBO and ileus was noted which suspected secondary to risperidone.
-POD#8
-General Surgery on board
-NGT removed this am
-He failed at swallow test-Will stay NPO
# Possible aspiration pneumonia
-Continue with empiric vancomycin,meropenem and micafungin
-Follow-up temperature curve and WBC
# MARIA ISABEL likely secondary to free water deficit
-Improved following IV Fluids
-Sodium level 145, BUN 37, creatinine 1.0 this a.m.
-Patient has been on TPN-surgery team following
-Follow-up with bladder scan
-Follow CMP
# Transaminitis possibly secondary to sepsis versus hepatobiliary disease
-Improving
-LFTs gradually trending down
-No findings on physical exam
-GI consultation can be considered with worsening LFT levels
# Hypernatremia
-Resolved
-Follow BMPs
# Hypokalemia
-Resolved
# Hypermagnesemia
-Resolved, held magnesium in TPN
# Hypophosphatemia
-Resolved
#Prolonged Qtc
-Resolved.
# Sinus tachycardia, reactive
Continue with IV metoprolol
# Primary hypertension
-Started IV Enalaprilat
-Continue with IV metoprolol & PRN IV hydralazine.
# Hyperlipidemia
Resume statin when able to tolerate p.o.
# BPH
Bladder scans
High risk for retention
#DVT prophylaxis
Lovenox and SCDs
Anticipated Discharge: 24 - 48 hours
Subjective/Interval History
-
Date of Service: January 11, 2025
At 08.00 am-Patient was seen at bedside moaning. He was repeating the sentence of 'I need my eyes and please'. He could not follow 2 words commands.
Around 10.00 am, He was seen with Dr Bell. He was found awake and oriented to place and himself.
Objective Data
-
Labs:
Laboratory Results
01/11/25
05:26
WBC 13.8 H
Hgb 12.5 L
Hct 38.1 L
Plt Count 275
Sodium 145
Potassium 4.4
Chloride 115 H
Carbon Dioxide 22
BUN 37 H
Creatinine 1.0
Glucose 146 H
Calcium 9.0
AST 85 H
ALT 62 H
Vital Signs:
Vital Signs
Temp Pulse Resp BP Pulse Ox
99.4 F 91 22 163/75 96
01/11/25 07:30 01/11/25 06:00 01/11/25 06:00 01/11/25 06:00 01/11/25 06:00
I&O
01/10/25 01/11/25 01/12/25
06:59 06:59 06:59
Intake Total 2585 / 2585 3783 / 3783
Output Total 500 / 500 300 / 300
Balance 2085 / 2085 3483 / 3483
Review of Systems
-
Unable to obtain full review of systems at this time due to: Other (ROS is not reliable due patient`s mental status )
Physical Exam
-
General: Well Developed, Well Nourished, Appears Chronically Ill and Obese
HEENT: Normocephalic, Atraumatic and Other (NGT removed this am )
Respiratory: Non Labored Respirations, Decreased Breath Sounds and Other (on 5 L nasal cannula )
Cardiac: Regular Rhythm, S1/S2 and Tachycardic
GI: Soft and Tender (mildly)
Genito-urinary: Other (weaver removed/ on pad )
Musculoskeletal: No Clubbing, No Cyanosis and No Edema
Skin: Warm, Dry and IV Access / Catheter Site (PICC line on the right arm )
Neuro: Awake, Oriented (oriented himself and place ) and Other
[2025-01-11] MEDS: 0.45%NACL 1000 IV ×3 (09:09→20:18)
[2025-01-11] MEDS: DESENEX/MITRAZOL/ZEASORB 1 APPLIC TOPICAL ×2 (09:36→21:20)
[2025-01-11] MEDS: PROTONIX IV 40 MG IV (09:36)
[2025-01-11] MEDS: NSS (PRESERVATIVE FREE) 10 ML IV (09:37)
[2025-01-11] MEDS: SAPHRIS 2.5 MG SL ×2 (09:37→20:19)
--- NOTE | 2025-01-11 09:45 | W.PN.ID1 ---
Date of Service
Date of Service: January 11, 2025
Today's Communication
- Continue with empiric vancomycin today
- stopped micafungin
- Replaced Zosyn with meropenem 01/10 in case of drug fever
- Monitor white count and temperature curve.
Assessment / Plan
Fever - may be trending down
Leukocytosis persists
Sepsis
High grade SBO s/p 01/03 Diagnostic laparoscopy, exploratory laparotomy, repair small bowel enterotomy
Encephalopathy
Anxiety
- Chest CT atelectasis and possible pneumonia
- was not able to produce a sputum
- 01/09 CT a/p: no intra-abd abscess; possible hematoma underlying skin valdemar.
Surgery removed valdemar and evacuated old blood -> cx negative.
- Continue with empiric vancomycin today
- stopped micafungin
- Replaced Zosyn with meropenem 01/10 in case of drug fever
- Monitor white count and temperature curve.
Updated [id number] Ellie White ([phone])
����������������������������������������������������������
Chief Complaint
-: Fever and Leukocytosis
Subjective / Review of Systems
fever curve may be resolving
BP stable
incontinent of urine
complaining that he needs to pee
more alert today by nursing report
Vital Signs / Physical Exam
Vital Signs
Vital Signs
Temp Pulse Resp BP Pulse Ox
99.4 F 91 22 163/75 96
01/11/25 07:30 01/11/25 06:00 01/11/25 06:00 01/11/25 06:00 01/11/25 06:00
Physical Exam
Constitutional: No Acute Distress
Cardiovascular: Regular Rate and S1/S2; Negative Murmur or Rub
Pulmonary: Clear and Symmetric; Negative Wheezes or Rales
Gastrointestinal: Soft, Non Tender, Non Distended and Normal Bowel Sounds
Skin: Warm and Dry; Negative Rash or Jaundice
Objective Data
Lab Data
Lab Results
01/11/25 05:26
01/11/25 05:26
Estimated Creat Clear 70 ml/min 01/11/25 05:26
Lactic Acid 0.7 mmol/L (0.7-2.0) 01/11/25 05:
Total Bilirubin 1.0 mg/dl (0.2-1.3) 01/09/25 04:13
AST 85 U/L (17-59) H 01/11/25 05:26
ALT 62 U/L (0-50) H 01/11/25 05:26
Alkaline Phosphatase 108 U/L (38-126) 01/09/25 04:13
Most recent labs reviewed.
Micro Results:
01/10/25 10:22 Anaerobic Culture - Preliminary
Hematoma Culture pending. Anaerobic cultures are examined after 3
days incubation. Additional information to follow.
01/10/25 10:04 Wound Culture - Preliminary
Hematoma No growth
Gram Stain - Preliminary
01/09/25 10:16 Influenza Types A & B ([place]) - Final
Nasal Swab Negative for Influenza A & B, NAAT
Negative results must be combined with clinical observations
and patient history.
Nucleic Acid Amplification test (NAAT)performed on the
[employer] platform.
01/03/25 18:36 Blood Culture - Final
Blood/Venous No Growth - Final Report
01/03/25 18:32 Blood Culture - Final
Blood/Venous No Growth - Final Report
01/03/25 18:32 MRSA Screen - Final
Nose No Methicillin Resistant Staphylococcus aureus isolated.
01/03/25 18:32 Legionella Urinary Antigen - Final
Urine Negative for Legionella pneumophila Serogroup 1 antigen.
A negative result does not rule out the possiblity of
Legionella infection due to other serogroups or species of
Legionella. Clinical correlation is recommended.
Streptococcus pneumoniae Antigen (M - Final
Negative for Streptococcus pneumoniae antigen.
A negative result does not exclude infection with
Streptococcus pneumoniae. Clinical correlation is
recommended.
01/03/25 18:32 Influenza Types A & B ([place]) - Final
Nasal Swab Negative for Influenza A & B, NAAT
Negative results must be combined with clinical observations
and patient history.
Nucleic Acid Amplification test (NAAT)performed on the
[employer] platform.
12/29/24 17:21 Blood Culture - Final
Blood/Venous No Growth - Final Report
12/29/24 17:21 Blood Culture - Final
Blood/Venous No Growth - Final Report
01/09/25 AXR: Several dilated bowel loops seen within the left lower quadrant.
01/09/25 CT a/p: Dilated loops of proximal to mid small bowel with normal caliber distal small bowel, although a focal isolated transition zone is not demonstrated. Findings most likely represent an adynamic ileus. A partial small bowel obstruction
is still possible. As warranted, follow-up abdominal radiographs may be helpful to assess progression of intraluminal GI contrast through the bowel. Midline anterior abdominal and pelvic scar with skin valdemar. There is some soft tissue density
within the anterior abdominal and pelvic wall underlying the skin valdemar, including a rounded component. This may suggest hematoma/blood products. No evidence for a focal fluid collection at this time.Small amount of fluid in the posterior lower
right hemithorax, with mild loculation. Parenchymal opacity within both lower lobes, most likely atelectasis, although pneumonia is also possible. Moderate distention of the rectum with stool, transverse dimension of 6.4 cm. No evidence for
stercoral colitis.
[2025-01-11] MEDS: NON-FORMULARY ITEM 4 PUMP TRANSDERM (10:37)
[2025-01-11] MEDS: VANCOCIN 530 MG IV (10:38)
--- NOTE | 2025-01-11 11:14 | W.PN.GS2 ---
Addendum entered and electronically signed by Madhu Xavier MD 01/11/25 12:03:
I saw and examined the patient.
The resident's note was reviewed and I agree with the note.
Comment: Does not participate in encounter. Multiple BMs. Minimal NGT output. Belly soft, incision cdi, wound opening with some old blood, no pus, no erythema, no odor. Wound Cx pending. DC NGT. Cont TPN. IV abx per ID. Swallow eval
Original Note:
Today's Communication / Plan
-
Abdominal incision wound was repacked. There was no pus and no odor. Patient had 3 small bowel movements in the last 24 hours. NGT discontinued. Continue TPN until adequate oral intake. Antibiotics as per infectious diseases. Appreciate
psychiatry recommendations.
Assessment / Plan
-
74 yo male p/w SBO taken to OR with ileus noted. Suspected secondary to risperidone
Patient is postprocedure day #8 ex lap and repair of small bowel enterotomy
Abdominal wall incision wound appears to be healing without any drainage on 01/09/2025
Being followed on ABX for possible PNA, intermittent low grade fevers. Flu neg. Leukocytosis persists
H/H stable
Vitals stable, continues to have intermittent fevers
Beginning to have some positive signs of bowel recovery with small bm's and improvement in exams
NGT has been reinserted -500 mL of output on 01/10/2025
Psychiatry following and adjusting meds
CT head without acute abnormality on 01/08/2025
CT of the abdomen conducted on 01/10/2025 hide findings suggesting an adynamic ileus - partial small bowel obstruction was also possible.
-- Continue NPO/IVF
-- ABAP DEVELOPER assessment recommended that the patient remain n.p.o. and only essential crushed medicines added to pur�ed food - can be reassessed when the patient is more at his baseline
-- NGT has been replaced - following output
-- ABX as per ID
-- Appreciate psychiatry recs
-- OOB as able
-- TPN being managed by medicine service
-- Lovenox and SCDs for VTE ppx
Subjective Data
-
Date of Service: January 11, 2025
Met with patient at the bedside. He seems more calm today but remains confused and unable to articulate what he is feeling physically. Continuously repeats the word 'please.'
Objective Data
-
Intake and Output
01/10/25 01/11/25 01/12/25
06:59 06:59 06:59
Intake Total 2585 / 2585 3783 / 3783
Output Total 500 / 500 300 / 300
Balance 2085 / 2085 3483 / 3483
Intake:
Oral fluids 0 / 0
IV fluids (Total) 1800 / 1800 2300 / 2300
IV piggybacks 755 / 755 300 / 300
TPN/PPN 1013 / 1013
Amount instilled into GI Tube ( 30 / 30 170 / 170
Total)
[place] Sump 30 / 30 170 / 170
Output:
Gastrointestinal tube output ( 500 / 500 300 / 300
Total)
[place] Sump 500 / 500 300 / 300
Other:
Number of approximated MODERATE 1
amounts of urine
How many times incontinent 1 1
MODERATE amount urine
How many times incontinent 3 1 1
SATURATED amount urine
Vital Signs
Temp Pulse Resp BP Pulse Ox
99.3 F 99 25 174/82 95
01/11/25 11:09 01/11/25 11:00 01/11/25 11:00 01/11/25 11:00 01/11/25 11:00
Lab Results
01/11/25 05:26
01/11/25 05:26
Calcium 9.0 mg/dl (8.4-10.2) 01/11/25 05:26
Phosphorus 3.6 mg/dl (2.5-4.5) 01/10/25 04:46
Magnesium 1.9 mg/dl (1.6-2.3) 01/11/25 05:26
Total Bilirubin 1.0 mg/dl (0.2-1.3) 01/09/25 04:13
AST 85 U/L (17-59) H 01/11/25 05:26
ALT 62 U/L (0-50) H 01/11/25 05:26
Alkaline Phosphatase 108 U/L (38-126) 01/09/25 04:13
Total Protein 6.2 g/dl (6.3-8.2) L 01/09/25 04:13
Albumin 3.1 g/dl (3.5-5.0) L 01/09/25 04:13
Physical Exam
-
General: NAD, disheveled
HEENT: Anicteric
Respiratory: Non Labored Respirations
NGT with clear and bilious drainage
GI: Soft, Tender (Mild throughout), ND
Patient has a weaver catheter: No
Patient has a central line: No
[2025-01-11] MEDS: REFRESH EYE DROPS (PF) 1 DROPS OPHTH ×3 (11:36→21:22)
[2025-01-11 12:24] LABS: Glucose - Point of Care 139 mg/dl (70-99)
--- NOTE | 2025-01-11 13:58 | PTCARENOTE ---
Patient is awake, alert today, oriented to person, place and and year. Patient is able to make needs known, sitting in chair position in bed with family at bedside. NGT removed as per surgeons orders, patient weaned off oxygen, pulse ox 97% on room
air. Patient is less anxious today, easily calmed down. Only one dose of ativan administered today. Patients temp is 99 rectally at this time, improved from yesterday.
[2025-01-11] MEDS: VASOTEC 0.625 MG IV (14:28)
--- NOTE | 2025-01-11 15:23 | W.PN.UPDATE ---
Update Note
Progress Note Update
patient seen chart reviewed. discussed w nursing. noted patient now taking saphris 2.5 mg bid . he continues w ativan o.5 mg bid continues w prn ativan but none during day shift today as per ju his nurse. (he did have two in the wee hours of
the morning.) patient did seem a tad better today. he was oriented x3 which of course is positive but still unable to engage in any meaningful conversation. he continues to murmur 'help me help me' and to ask for ice chips. called pharmacy for
artificial saliva thinking that dry mouth of anticholinergicity could be playing a role here. he also complained his eyes hurt. he has artificial tears. agree w holding wellbutrin which is difficult to administer given npo . some people also find
it to be anxiety provoking as well. will continue to follow.
[2025-01-11] MEDS: OASIS 2 SPRAY PO ×3 (16:41→21:17)
[2025-01-11] MEDS: LOVENOX 40 MG SC (17:39)
[2025-01-11 17:40] LABS: Glucose - Point of Care 124 mg/dl (70-99)
[2025-01-11] MEDS: CHLORASEPTIC/SORE THROAT SPRAY 1 SPRAY PO (17:43)
[2025-01-11] MEDS: Parenteral Nutrition, Central 1030 IV (20:21)
--- NOTE | 2025-01-11 22:29 | PTCARENOTE ---
Patient awake and alert at start of shift. Repetitive verbalizations for short period of time, able to reassure over time. NSR on the monitor, trace edema to b/l le's, weak pedal pulses, positive radial pulses b/l. Lungs with coarse rhonchi, pox 95%
on ra. BS hypoactive x4, patient had small smear of bm at start of shift. Incontinent of large amount of urine aeb saturated covidien. Hygiene provided at that time along with CHG wipes. Sacral dressing c/d/i. Abd dressing to be changed shortly.
Small amount of sangenous shading noted on ABD pad. New TPN administered and running at 43ml/hr through right PICC, 0.45% NS at 100ml running through 2nd lumen of right PICC as well. Patient resting in bed at this time with observed comfort. Will
continue to monitor patient closely.
[2025-01-12] VITALS (26 sets, daily range): BP systolic 97–198; BP diastolic 58–100; PULSE 95; O2SAT 98; BMI 29.4
[2025-01-12] MEDS: DILAUDID 0.25 MG IV ×3 (00:09→13:59)
[2025-01-12] MEDS: REFRESH EYE DROPS (PF) 1 DROPS OPHTH ×2 (00:10→15:01)
[2025-01-12] MEDS: NOVOLOG FLEXPEN-LOW RESISTANCE SC (00:14)
[2025-01-12 00:26] LABS: Glucose - Point of Care 136 mg/dl (70-99)
[2025-01-12] MEDS: ATIVAN 0.5 MG IV ×4 (01:14→20:36)
[2025-01-12] MEDS: NSS (PRESERVATIVE FREE) 0.25 ML IV ×3 (01:14→20:36)
[2025-01-12 04:13] LABS: Hematocrit 38.3 % (39.0-52.0); Hemoglobin 12.7 g/dL (13.0-18.0); Mean Corp Hgb Conc. 33.2 g/dL (33.0-37.0); Mean Corpuscular Hgb 32.2 pg (27.0-31.0); Mean Corpuscular Volume 97.2 fL (80.0-94.0); Mean Platelet Volume 11.6 fL (7.4-10.4); Platelet Count 329 10^3/uL (130-400); Red Blood Cell Count 3.94 10^6/uL (4.70-6.10); Red Cell Dist. Width 14.4 % (11.5-14.5); White Blood Cell Count 13.4 10^3/uL (4.8-10.8)
[2025-01-12] MEDS: DILAUDID 0.5 MG IV ×4 (04:25→21:34)
[2025-01-12 04:36] LABS: ALT (SGPT) 70 U/L (0-50); AST (SGOT) 92 U/L (17-59); Albumin 2.8 g/dl (3.5-5.0); Alkaline Phosphatase 114 U/L (38-126); Blood Urea Nitrogen 29 mg/dl (9-20); Calcium 8.6 mg/dl (8.4-10.2); Carbon Dioxide 22 mmol/L (22-30); Chloride 115 mmol/L (98-107); Estimated Creatinine Clearance 78 ml/min; Glucose 147 mg/dl (70-99); Potassium 4.3 mmol/L (3.5-5.1); Sodium 144 mmol/L (135-145); Total Bilirubin 0.5 mg/dl (0.2-1.3); Total Protein 5.7 g/dl (6.3-8.2); eGFR > 60.00
--- NOTE | 2025-01-12 04:43 | PTCARENOTE ---
Patients BP elevated. Scheduled Dilaudid administered per order. Will monitor BP and administer additional PRN medications as needed. Will continue to monitor closely.
Patient saturated covidien at this time. Care provided. Patient has saturated covidien 4x thus far. Will continue to monitor.
--- NOTE | 2025-01-12 04:54 | PTCARENOTE ---
Patient calling out overnight, 'Please, help me, please', repetitively. RN provided support, active listening, and prn's as needed throughout shift. Midline dressing changed earlier this am, dressing remains c/d/i. Will continue to monitor.
[2025-01-12] MEDS: MERREM 500 MG IV ×4 (05:56→23:55)
[2025-01-12] MEDS: STERILE WATER FOR INJECTION 10 ML IV ×4 (05:56→23:55)
[2025-01-12] MEDS: LOPRESSOR 5 MG IV ×3 (05:56→17:51)
[2025-01-12] MEDS: NOVOLOG FLEXPEN-LOW RESISTANCE 1 UNITS SC ×3 (06:07→18:47)
[2025-01-12 06:19] LABS: Glucose - Point of Care 160 mg/dl (70-99)
--- NOTE | 2025-01-12 06:45 | W.PN.HOSP.TC ---
Addendum entered and electronically signed by Saturnino Bell MD 01/12/25 13:07:
Sepsis, unclear as to etiology but likely related to PNA, ? Drug-induced fever
-Currently on meropenem per infectious diseases.
-Vancomycin and Zosyn and micafungin have been discontinued
-Culture data negative thus far which includes blood cultures wound culture Legionella strep
-COVID flu negative
Ileus
S/p ex lap with small bowel enterotomy
S?p NGT, removed on 01/11
-Evaled by speech rec IDDSI 4
On TPN, would continue for now to ensure tolerating PO intake well
-Will need to follow for refeeding syndrome, Daily Ca, Phos, Mg and K
Surgery was able to take some stapls and drain hematoma - cx thus far negative
TME likely multifactorial in the setting of sepsis
Psychiatric disorders
Resume home neuropsych agents
Hyponatremia and MARIA ISABEL Resolved
Transaminitis
Likely related to sepsis, viral panel negative
Avoid hepatotoxins.
Follow-up abdominal CT
Original Note:
Today's Communication/Plan
-
-Palliative care assessment pending
-Follow temperature curve, CBC, CMP, Mg, P
-Speech reassessed the patient this am - started on clear liquids with surgery team recc
Assessment / Plan
Assessment / Plan
#Sepsis likely secondary to SBO versus pneumonia
-CT abdomen 01/09: c/w adynamic ileus, a possible partial small bowel obstruction and a possible small bowel infarction and a possible pneumonia
-Fever spikes continues
-Lactic acid: Lactic acid 0.8 on 01/10 and 0.7 on 01/11-No need to track - not likely bowel infarction
-persistent leukocytosis with gradually trending down WBC -ID on board
-Continue with empiric meropenem and vancomycin --- stopped micafungin
-No growth on blood cultures so far
-General surgery following: NGT was removed on 01/11
-Wound negative gram satin-wound culture no growth so far - at wound area no pus, no erythema, no odor
# TME likely multifactorial secondary to sepsis and contribution due to underlying psychiatric disorder (BPD with manic episode/ADHD)
-Mental condition status seen improved-oriented X3
-CT head on 01/08/2025: No acute abnormality
-Possible secondary combination of sepsis and underlying psychiatric disorders
-Home medication for his psychiatric problems include: Adderall, BuSpar, Wellbutrin, doxepin and Oxcarbazepine
-Psychiatry on board (antipsychotic medication-will continue asenapine at night) -he was started on bupropion 50 mg twice daily(ER form changed to IR form to be able to get crushed) on 01/09/2025
-His bupropion could not be given due NGT suction on 01/10-- Can be restarted if can tolerate liquid diet
-Patient`s home dose Klonopin was switched to IV Ativan to avoid withdrawal symptoms and being n.p.o.
-Patient has history of prolonged encephalopathy secondary having mental disorder-has a close follow-up at [facility]
-Palliative care was consulted
# S/P ex lap and repair of small bowel enterotomy
-Status post diagnostic laparoscopy and exploratory laparotomy - Small bowel enterotomy repaired in 2 layers on 01/03
-Patient underwent surgery due SBO and ileus was noted which suspected secondary to risperidone.
-POD#8
-General Surgery on board
-NGT removed
-Speech reassessed the patient and will start thin liquids which discussed with general surgery
- Will continue TPN until fully tolerate oral taking
# Possible aspiration pneumonia
-Continue with empiric vancomycin,meropenem
-Follow-up temperature curve and WBC
# MARIA ISABEL likely secondary to free water deficit
-Improved following IV Fluids
-Creatinine 0.9 this a.m.
-Follow-up with bladder scan
-Follow CMP
# Transaminitis possibly secondary to sepsis versus hepatobiliary disease
-Improving
-LFTs gradually trending down
-No findings on physical exam
-GI consultation can be considered with worsening LFT levels
# Hypernatremia
-Resolved
-Follow BMPs
# Hypokalemia
-Resolved
# Hypermagnesemia
-Mg 2.4 this am
-Pharmacy informed
-TPN will be adjusted
# Hypophosphatemia
-Resolved
#Prolonged Qtc
-Resolved.
# Sinus tachycardia, reactive
Continue with IV metoprolol
# Primary hypertension
-Continue IV Enalaprilat
-Continue with IV metoprolol & PRN IV hydralazine.
# Hyperlipidemia
Resume statin when able to tolerate p.o.
# BPH
Bladder scans
High risk for retention
#DVT prophylaxis
Lovenox and SCDs
Anticipated Discharge: 24 - 48 hours
Subjective/Interval History
-
Date of Service: January 12, 2025
Patient seen more awake and alert this morning. He was fully oriented. Complained abdominal pain and pointed surgery site. He was able to follow 2 words commands. He repeated the word of please many times during the visit.
Objective Data
-
Labs:
Laboratory Results
01/12/25
04:05
WBC 13.4 H
Hgb 12.7 L
Hct 38.3 L
Plt Count 329
Sodium 144
Potassium 4.3
Chloride 115 H
Carbon Dioxide 22
BUN 29 H
Creatinine 0.9
Glucose 147 H
Calcium 8.6
Total Bilirubin 0.5
AST 92 H
ALT 70 H
Alkaline Phosphatase 114
Vital Signs:
Vital Signs
Temp Pulse Resp BP Pulse Ox
98.7 F 98 19 166/81 96
01/12/25 03:00 01/12/25 05:56 01/12/25 04:00 01/12/25 05:56 01/12/25 04:00
I&O
01/10/25 01/11/25 01/12/25
06:59 06:59 06:59
Intake Total 2585 / 2585 3783 / 3783 2916 / 2916
Output Total 500 / 500 300 / 300
Balance 2085 / 2085 3483 / 3483 2916 / 2916
Review of Systems
-
History Source: Patient
EENT: Reports No Symptoms Reported
Respiratory: Reports No Symptoms
Cardiac: Reports No Symptoms
Abdomen/GI: Reports Abdominal Pain
Genitourinary: Reports No Symptoms
Musculoskeletal: Reports Other (generalized weakness)
Skin: Reports No Symptoms
Neuro: Reports No Symptoms
Physical Exam
-
General: Well Developed, Well Nourished, Appears Chronically Ill and Obese
HEENT: Normocephalic and Atraumatic
Respiratory: Clear to Auscultation
Cardiac: Regular Rhythm and S1/S2
GI: Soft, Nondistended and Tender (Mild abdominal area )
Musculoskeletal: No Clubbing, No Cyanosis and No Edema
Skin: Warm
Neuro: Awake, Alert, Oriented and AO x 3
Psych: Anxious
--- NOTE | 2025-01-12 07:11 | W.PN.GS2 ---
Addendum entered and electronically signed by Andrew Dumont MD 01/12/25 11:45:
Patient seen and examined.
Limiting reactions. Does report abdominal soreness. Currently undergoing speech eval. Reports from nursing of continued flatus and loose stools.
Gen: NAD
Abd: soft, mild tenderness, mild distension, non-peritoneal, incision c/d/i - valdemar in place, 2-3 cm opening, bloody drainage, no bilious or purulent discharge
74 yo male p/w SBO taken to OR with ileus noted. Suspected secondary to risperidone
POD#9 s/p ex lap and repair of small bowel enterotomy
Abdominal wall incision wound appears to be healing without any drainage on 01/09/2025
Being followed on ABX for possible PNA, intermittent low grade fevers. Flu neg. Leukocytosis continues to trend downward
H/H stable
Vitals stable, afebrile
Beginning to have some positive signs of bowel recovery with small bm's and improvement in exams
Psychiatry following and adjusting meds
CT head without acute abnormality on 01/08/2025
CT of the abdomen conducted on 01/10/2025 hide findings suggesting an adynamic ileus - partial small bowel obstruction was also possible.
-- BUYER TOBACCO HEAD assessment recommended that the patient remain n.p.o. and only essential crushed medicines added to pur�ed food - can be reassessed when the patient is more at his baseline
-- TPN renewed
-- NGT has been discontinued�monitor for abdominal distention, discomfort, nausea, vomiting
-- Abdominal wound culture negative
-- ABX as per ID
-- Appreciate psychiatry recs
-- OOB as able
-- Lovenox and SCDs for VTE ppx
Original Note:
Today's Communication / Plan
-
Patient's white blood cell count continues to trend downward. Patient remains n.p.o. until repeat swallow eval following NGT removal. May advance diet if appropriate depending on evaluation from speech eval. If oral intake is adequate we may
consider discontinuing TPN. Appreciate psychiatry and infectious diseases recommendations.
Assessment / Plan
-
74 yo male p/w SBO taken to OR with ileus noted. Suspected secondary to risperidone
Patient is postprocedure day #9 ex lap and repair of small bowel enterotomy
Abdominal wall incision wound appears to be healing without any drainage on 01/09/2025
Being followed on ABX for possible PNA, intermittent low grade fevers. Flu neg. Leukocytosis continues to trend downward
H/H stable
Vitals stable, afebrile
Beginning to have some positive signs of bowel recovery with small bm's and improvement in exams
Psychiatry following and adjusting meds
CT head without acute abnormality on 01/08/2025
CT of the abdomen conducted on 01/10/2025 hide findings suggesting an adynamic ileus - partial small bowel obstruction was also possible.
-- Continue NPO/IVF
-- BUYER TOBACCO HEAD assessment recommended that the patient remain n.p.o. and only essential crushed medicines added to pur�ed food - can be reassessed when the patient is more at his baseline
-- NGT has been discontinued�monitor for abdominal distention, discomfort, nausea, vomiting
-- Abdominal wound culture negative
-- ABX as per ID
-- Appreciate psychiatry recs
-- OOB as able
-- Lovenox and SCDs for VTE ppx
Subjective Data
-
Date of Service: January 12, 2025
Was patient to the bedside. Patient had a slightly better day yesterday as per nursing staff. Patient shared some stories about his past and also made mention of a prior marriage. Unfortunately he again became confused later on in the evening.
Patient saturated his bed sheet over 4 times. Patient has only had small smears of bowel movements.
Objective Data
-
Intake and Output
01/11/25 01/12/25 01/13/25
06:59 06:59 06:59
Intake Total 3783 / 3783 2916 / 2916
Output Total 300 / 300
Balance 3483 / 3483 2916 / 2916
Intake:
Oral fluids 0 / 0 0 / 0
IV fluids (Total) 2300 / 2300 2400 / 2400
IV piggybacks 300 / 300
TPN/PPN 1013 / 1013 516 / 516
Amount instilled into GI Tube ( 170 / 170
Total)
[place] Sump 170 / 170
Output:
Gastrointestinal tube output ( 300 / 300
Total)
[place] Sump 300 / 300
Other:
Number of approximated MODERATE 1
amounts of urine
How many times incontinent 1
MODERATE amount urine
How many times incontinent 1 1
SATURATED amount urine
Vital Signs
Temp Pulse Resp BP Pulse Ox
98.7 F 98 19 166/81 96
01/12/25 03:00 01/12/25 05:56 01/12/25 04:00 01/12/25 05:56 01/12/25 04:00
Lab Results
01/12/25 04:05
01/12/25 04:05
Calcium 8.6 mg/dl (8.4-10.2) 01/12/25 04:05
Phosphorus 3.6 mg/dl (2.5-4.5) 01/10/25 04:46
Magnesium 1.9 mg/dl (1.6-2.3) 01/11/25 05:26
Total Bilirubin 0.5 mg/dl (0.2-1.3) 01/12/25 04:05
AST 92 U/L (17-59) H 01/12/25 04:05
ALT 70 U/L (0-50) H 01/12/25 04:05
Alkaline Phosphatase 114 U/L (38-126) 01/12/25 04:05
Total Protein 5.7 g/dl (6.3-8.2) L 01/12/25 04:05
Albumin 2.8 g/dl (3.5-5.0) L 01/12/25 04:05
Physical Exam
-
General: NAD, disheveled
HEENT: Anicteric
Respiratory: Non Labored Respirations
GI: Soft, incision healing, wound opening with some old blood, no pus, no erythema, no odor
Patient has a weaver catheter: No
Patient has a central line: No
[2025-01-12 07:15] LABS: Magnesium 2.4 mg/dl (1.6-2.3); Phosphorus 2.7 mg/dl (2.5-4.5)
--- NOTE | 2025-01-12 08:11 | PHA.VAN.FU ---
Vancomycin Assessment / Plan
- Assessment
Renal Function: SCR Decreasing
WBC's are: Stable
In the past 24 hrs, patient has been: Afebrile
Concomitant Antimicrobials: meropenem
- Assessment - Therapeutic Drug Monitoring
Random Level: 11 - drawn ~17.5H after previous dose of 1500mg
- Dosing Plan
Dosing by Level: Re-dose today (Vanc 1500mg)
- Monitoring Plan
Random Level: 01/13 0600
- Follow Up
Pharmacy will continue to follow.
Vancomycin Follow UP
- -
Patient Age: 74
Patient Sex: Male
Vancomycin Day #: 10 (d/c'ed after 01/05 AM dose and resumed 01/06 AM)
Indication: Gi / Intra-Abdominal
Requesting Provider: Dr. Garg
Pertinent Antimicrobial Allergies:
no pertinent antimicrobial allergies
Height / Weight:
Height 5 ft 7 in
Actual Weight 85 kg
Pertinent Past Medical History: BMI ~32
- Vital Signs / Lab Results
Temp Pulse Resp BP Pulse Ox
98.7 F 98 19 166/81 96
01/12/25 03:00 01/12/25 05:56 01/12/25 04:00 01/12/25 05:56 01/12/25 04:00
Lab Results - Hematology
01/10/25 01/11/25 01/12/25
04:46 05:26 04:05
WBC 18.8 H 13.8 H 13.4 H
Lab Results - Chemistry
01/09/25 01/09/25 01/09/25
13:20 14:14 15:06
BUN Cancelled Cancelled 43 H
Creatinine Cancelled Cancelled 1.4 H
Estimated Creat Clear Cancelled Cancelled 45
Albumin
01/10/25 01/11/25 01/12/25
04:46 05:26 04:05
BUN 46 H 37 H 29 H
Creatinine 1.3 1.0 0.9
Estimated Creat Clear 48 70 78
Albumin 2.8 L
01/10/25 01/11/25
10:00 05:26
Lactic Acid 0.8 0.7
Microbiology Results
01/10/25 10:22 Anaerobic Culture - Preliminary
Hematoma Culture pending. Anaerobic cultures are examined after 3
days incubation. Additional information to follow.
01/10/25 10:04 Wound Culture - Preliminary
Hematoma No growth
Gram Stain - Preliminary
Therapeutic Drug Monitoring
Random Vancomycin 11.0 ug/ml 01/12/25 04:05
[2025-01-12] MEDS: DESENEX/MITRAZOL/ZEASORB 1 APPLIC TOPICAL ×2 (08:12→20:38)
[2025-01-12] MEDS: PROTONIX IV 40 MG IV (08:13)
[2025-01-12] MEDS: NSS (PRESERVATIVE FREE) 10 ML IV (08:15)
[2025-01-12] MEDS: OASIS 2 SPRAY PO ×4 (08:16→21:35)
[2025-01-12] MEDS: SAPHRIS 2.5 MG SL ×2 (08:17→20:36)
--- NOTE | 2025-01-12 09:05 | W.PN.ID1 ---
Date of Service
Date of Service: January 12, 2025
Today's Communication
- awaiting anaerobic culture
- increased suspicion of drug fever
- stopped vancomycin today
- c/w meropenem day 10 of antibiotics since the OR
Assessment / Plan
Fever - resolved
Leukocytosis improving
High grade SBO s/p 01/03 Diagnostic laparoscopy, exploratory laparotomy, repair small bowel enterotomy
Encephalopathy
Anxiety
- awaiting anaerobic culture
- increased suspicion of drug fever
- stopped vancomycin today
- c/w meropenem day 10 of antibiotics since the OR
- double lumen PICC in the right arm
- Monitor white count and temperature curve.
����������������������������������������������������������
Chief Complaint
-: Fever and Leukocytosis
Subjective / Review of Systems
remains afebrile
bp stable
delirium overnight
NGT removed yesterday
less ativan required yesterday
remains on TPN for present
Vital Signs / Physical Exam
Vital Signs
Vital Signs
Temp Pulse Resp BP Pulse Ox
98.7 F 98 19 166/81 96
01/12/25 03:00 01/12/25 05:56 01/12/25 04:00 01/12/25 05:56 01/12/25 04:00
Physical Exam
Constitutional: No Acute Distress, Chronically Ill and Non-toxic
Cardiovascular: Regular Rate and S1/S2; Negative Murmur or Rub
Pulmonary: Clear and Symmetric; Negative Wheezes or Rales
Gastrointestinal: Soft, Non Tender, Non Distended and Normal Bowel Sounds
Skin: Warm and Dry; Negative Rash or Jaundice
Wound: Other (mild strike through on the dressing)
Objective Data
Lab Data
Lab Results
01/12/25 04:05
01/12/25 04:05
Estimated Creat Clear 78 ml/min 01/12/25 04:05
Lactic Acid 0.7 mmol/L (0.7-2.0) 01/11/25 05:26
Total Bilirubin 0.5 mg/dl (0.2-1.3) 01/12/25 04:05
AST 92 U/L (17-59) H 01/12/25 04:05
ALT 70 U/L (0-50) H 01/12/25 04:05
Alkaline Phosphatase 114 U/L (38-126) 01/12/25 04:05
Most recent labs reviewed.
Micro Results:
01/10/25 10:22 Anaerobic Culture - Preliminary
Hematoma Culture pending. Anaerobic cultures are examined after 3
days incubation. Additional information to follow.
01/10/25 10:04 Wound Culture - Preliminary
Hematoma No growth
Gram Stain - Preliminary
01/09/25 10:16 Influenza Types A & B ([place]) - Final
Nasal Swab Negative for Influenza A & B, NAAT
Negative results must be combined with clinical observations
and patient history.
Nucleic Acid Amplification test (NAAT)performed on the
[employer] platform.
01/03/25 18:36 Blood Culture - Final
Blood/Venous No Growth - Final Report
01/03/25 18:32 Blood Culture - Final
Blood/Venous No Growth - Final Report
01/03/25 18:32 MRSA Screen - Final
Nose No Methicillin Resistant Staphylococcus aureus isolated.
01/03/25 18:32 Legionella Urinary Antigen - Final
Urine Negative for Legionella pneumophila Serogroup 1 antigen.
A negative result does not rule out the possiblity of
Legionella infection due to other serogroups or species of
Legionella. Clinical correlation is recommended.
Streptococcus pneumoniae Antigen (M - Final
Negative for Streptococcus pneumoniae antigen.
A negative result does not exclude infection with
Streptococcus pneumoniae. Clinical correlation is
recommended.
01/03/25 18:32 Influenza Types A & B ([place]) - Final
Nasal Swab Negative for Influenza A & B, NAAT
Negative results must be combined with clinical observations
and patient history.
Nucleic Acid Amplification test (NAAT)performed on the
[employer] platform.
12/29/24 17:21 Blood Culture - Final
Blood/Venous No Growth - Final Report
12/29/24 17:21 Blood Culture - Final
Blood/Venous No Growth - Final Report
01/09/25 AXR: Several dilated bowel loops seen within the left lower quadrant.
01/09/25 CT a/p: Dilated loops of proximal to mid small bowel with normal caliber distal small bowel, although a focal isolated transition zone is not demonstrated. Findings most likely represent an adynamic ileus. A partial small bowel obstruction
is still possible. As warranted, follow-up abdominal radiographs may be helpful to assess progression of intraluminal GI contrast through the bowel. Midline anterior abdominal and pelvic scar with skin valdemar. There is some soft tissue density
within the anterior abdominal and pelvic wall underlying the skin valdemar, including a rounded component. This may suggest hematoma/blood products. No evidence for a focal fluid collection at this time.Small amount of fluid in the posterior lower
right hemithorax, with mild loculation. Parenchymal opacity within both lower lobes, most likely atelectasis, although pneumonia is also possible. Moderate distention of the rectum with stool, transverse dimension of 6.4 cm. No evidence for
stercoral colitis.
[2025-01-12] MEDS: NON-FORMULARY ITEM 4 PUMP TRANSDERM (10:36)
[2025-01-12] MEDS: 0.45%NACL 1000 IV ×2 (10:39→19:31)
[2025-01-12] MEDS: TIGAN 200 MG IM (10:50)
--- NOTE | 2025-01-12 11:10 | PTOTSP ---
Dysphagia Therapy
Impression: At least moderate oral stage, unspecified pharyngeal dysphagia. Dysphagia risk elevated given acute on chronic cognitive changes, dependence for assistance with feeding. Patient at risk for fluctuations in swallowing function including
due to on-going need for medications that may impact NGOC. Discontinue diet if worsened dysphagia or aspiration signs observed.
Recommendation:
1. Cautious IDDSI Level 4 Puree, Thin Liquids
2. Medications: crushed in puree if medically cleared to do so
3. Strategies: upright to 90 degrees, full supervision/assistance, small single sips/bites, slow rate, ensure patient swallows before next sip/bite, check for oral residue, oral care w/ suctioning after meals, remain upright 30 minutes after meals
4. Oral care 3-5x daily
5. Video swallow study if/when cleared to objectively assess swallowing function
6. Dysphagia tx f/u at the acute care level for instruction in compensations
[2025-01-12] MEDS: DULCOLAX 10 MG RECTAL (11:19)
--- NOTE | 2025-01-12 11:20 | W.PN.UPDATE ---
Update Note
Progress Note Update
patient seen chart reviewed. patient was in with PT when seen . he is definitely better oriented yesterday and today and was able to answer some questions eg was that his partner's d that was visiting earlier this week but remains difficult to
engage in any signficant conversation. nursing over night felt he had regressed and that he had continued to be restless mumbling throughout the night. he received one prn ativan during the night. he felt nauseated when seen this am and needed a
bucket in case he vomited. no changes made in his psych medication. while he is marginally improved it is not clear to me that so far asenapine has offered any great benefit although it is still early
[2025-01-12] MEDS: VASOTEC 0.625 MG IV ×2 (11:22→17:51)
[2025-01-12 12:12] LABS: Glucose - Point of Care 157 mg/dl (70-99)
--- NOTE | 2025-01-12 14:48 | PTCARENOTE ---
Pt presents as assessed. Aox3, very agitated and restless. Emotional support provided. OOB to chair with PT for a short time via segundo lift. Cleared by ST for diet with supervision; full liquids ordered by provider. Pt tolerated well. Family at
bedside, updated on plan of care. Safe environment and Q2T maintained.
[2025-01-12] MEDS: APRESOLINE 5 MG IV (14:57)
[2025-01-12] MEDS: LOVENOX 40 MG SC (17:50)
[2025-01-12 18:45] LABS: Glucose - Point of Care 158 mg/dl (70-99)
[2025-01-12] MEDS: Parenteral Nutrition, Central 1170 IV (21:13)
[2025-01-12 21:43] LABS: Glucose - Point of Care 129 mg/dl (70-99)
[2025-01-12 22:09] LABS: Glucose - Point of Care 131 mg/dl (70-99)
[2025-01-13] VITALS (25 sets, daily range): BP systolic 99–168; BP diastolic 55–118; BMI 29.7
[2025-01-13] MEDS: LOPRESSOR 5 MG IV ×5 (00:01→23:40)
--- NOTE | 2025-01-13 01:14 | PTCARENOTE ---
Caring for pt overnight. aaox3 but confused and forgetful. Hand tremors. Very anxious. Repeating words/sayings. Q2T. TPN. IVF. IVabx. Incontinent. BA on. Ativan & dilaudid given. Hypoactive BS. Midline incision CDI. Pt currently sleeping, call kerns
in reach. Will monitor.
[2025-01-13] MEDS: DILAUDID 0.5 MG IV (04:04)
[2025-01-13 04:41] LABS: Hematocrit 38.9 % (39.0-52.0); Hemoglobin 12.7 g/dL (13.0-18.0); Mean Corp Hgb Conc. 32.6 g/dL (33.0-37.0); Mean Platelet Volume 11.8 fL (7.4-10.4); Platelet Count 367 10^3/uL (130-400); Red Blood Cell Count 3.97 10^6/uL (4.70-6.10); Red Cell Dist. Width 14.3 % (11.5-14.5); White Blood Cell Count 13.2 10^3/uL (4.8-10.8)
[2025-01-13 05:05] LABS: Blood Urea Nitrogen 30 mg/dl (9-20); Calcium 8.6 mg/dl (8.4-10.2); Carbon Dioxide 21 mmol/L (22-30); Chloride 112 mmol/L (98-107); Estimated Creatinine Clearance 78 ml/min; Glucose 127 mg/dl (70-99); Magnesium 2.6 mg/dl (1.6-2.3); Potassium 4.5 mmol/L (3.5-5.1); Sodium 143 mmol/L (135-145); eGFR > 60.00
[2025-01-13] MEDS: VASOTEC 0.625 MG IV ×5 (05:16→23:40)
[2025-01-13] MEDS: STERILE WATER FOR INJECTION 10 ML IV ×4 (05:17→23:39)
[2025-01-13] MEDS: MERREM 500 MG IV ×4 (05:17→23:39)
--- NOTE | 2025-01-13 07:00 | W.PN.GS2 ---
Today's Communication / Plan
-
Patient's white blood cell count continues to trend downward. TPN continues as the the patient's oral intake is still not adequate. Speech and swallow recommends IDDSI level 4 pur�e, thin liquids. They recommend that medications can be crushed in
pur�e if medically cleared to do so.
Assessment / Plan
-
74 yo male p/w SBO taken to OR with ileus noted. Suspected secondary to risperidone
Patient is postprocedure day #10 ex lap and repair of small bowel enterotomy
Abdominal wall incision wound appears to be healing without any drainage on 01/09/2025
Being followed on ABX for possible PNA, intermittent low grade fevers. Flu neg. Leukocytosis continues to trend downward
H/H stable
Vitals stable, afebrile
Beginning to have some positive signs of bowel recovery with small bm's and improvement in exams
Psychiatry following and adjusting meds
CT head without acute abnormality on 01/08/2025
CT of the abdomen conducted on 01/10/2025 hide findings suggesting an adynamic ileus - partial small bowel obstruction was also possible.
-- Continue NPO/IVF
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 They also recommended that medications be crushed in pur�e if medically cleared to do so.
-- NGT has been discontinued�monitor for abdominal distention, discomfort, nausea, vomiting
-- Abdominal wound culture negative
-- ABX as per ID
-- Appreciate psychiatry recs
-- OOB as able
-- Lovenox and SCDs for VTE ppx
Subjective Data
-
Date of Service: January 13, 2025
Met with patient at the bedside. He was seen laying in bed sleeping. Patient stated that he felt hot and wanted to be uncovered. He also was thirsty for ice chips and asked for them. When asked if he feels any pain he states yes and that he
points to his abdomen generalized. He describes the pain as a 'gas attack.' He states that he has passed flatus but no stool.
Objective Data
-
Intake and Output
01/12/25 01/13/25 01/14/25
06:59 06:59 06:59
Intake Total 2916 / 2916
Balance 2916 / 2916
Intake:
Oral fluids 0 / 0
IV fluids (Total) 2400 / 2400
TPN/PPN 516 / 516
Other:
How many times incontinent 1
MODERATE amount urine
How many times incontinent 1 1
SATURATED amount urine
Vital Signs
Temp Pulse Resp BP Pulse Ox
98.4 F 94 20 163/89 97
01/13/25 04:03 01/13/25 04:01 01/13/25 04:01 01/13/25 04:01 01/13/25 04:01
Lab Results
01/13/25 04:08
01/13/25 04:08
Calcium 8.6 mg/dl (8.4-10.2) 01/13/25 04:08
Phosphorus 2.7 mg/dl (2.5-4.5) 01/12/25 04:05
Magnesium 2.6 mg/dl (1.6-2.3) H 01/13/25 04:08
Total Bilirubin 0.5 mg/dl (0.2-1.3) 01/12/25 04:05
AST 92 U/L (17-59) H 01/12/25 04:05
ALT 70 U/L (0-50) H 01/12/25 04:05
Alkaline Phosphatase 114 U/L (38-126) 01/12/25 04:05
Total Protein 5.7 g/dl (6.3-8.2) L 01/12/25 04:05
Albumin 2.8 g/dl (3.5-5.0) L 01/12/25 04:05
Physical Exam
-
General: NAD, disheveled
HEENT: Anicteric
Respiratory: Non Labored Respirations
GI: Soft, incision healing, wound opening with some old blood, no pus, no erythema, no odor
Patient has a weaver catheter: No
Patient has a central line: No
[2025-01-13] MEDS: NON-FORMULARY ITEM 4 PUMP TRANSDERM (07:56)
[2025-01-13] MEDS: NSS (PRESERVATIVE FREE) 0.25 ML IV ×2 (07:59→19:34)
[2025-01-13] MEDS: PROTONIX IV 40 MG IV (07:59)
[2025-01-13] MEDS: OASIS 2 SPRAY PO ×4 (08:00→21:14)
[2025-01-13] MEDS: SAPHRIS 2.5 MG SL (08:00)
[2025-01-13] MEDS: ATIVAN 0.5 MG IV ×2 (08:00→19:35)
[2025-01-13] MEDS: NSS (PRESERVATIVE FREE) 10 ML IV (08:00)
[2025-01-13] MEDS: DESENEX/MITRAZOL/ZEASORB 1 APPLIC TOPICAL ×2 (08:00→19:34)
[2025-01-13 08:33] LABS: Glucose - Point of Care 158 mg/dl (70-99)
--- NOTE | 2025-01-13 08:45 | W.PN.HOSP.TC ---
Addendum entered and electronically signed by Saturnino Bell MD 01/13/25 16:27:
NAD
Scleral Anicteric
MMM
No JVD
CTABL
RRR, S1/S2
Soft, NT, ND, BS+
-Staple line appears intact
Warm, Dry
AAOx person place
Sepsis, unclear as to etiology but likely related to PNA, ? Drug-induced fever
-Currently on meropenem per infectious diseases, day
-Vancomycin and Zosyn and micafungin have been discontinued
-Culture data negative thus far which includes blood cultures wound culture Legionella strep
-COVID flu negative
Ileus
S/p ex lap with small bowel enterotomy
S?p NGT, removed on 01/11
-Evaled by speech rec IDDSI 4
On TPN, would continue for now to ensure tolerating PO intake well
-Will need to follow for refeeding syndrome, Daily Ca, Phos, Mg and K
Surgery was able to take some stapls and drain hematoma - cx thus far negative
TME likely multifactorial in the setting of sepsis
Psychiatric disorders
Psychiatry adjusted neuropsychiatric agents and started Seroquel
Hyponatremia and MARIA ISABEL Resolved
Transaminitis
Likely related to sepsis, viral panel negative
Avoid hepatotoxins.
Original Note:
Today's Communication/Plan
-
-Speech on board for following oral taking
-IV opioids switched oral oxycodone
-Planing to switch oral losartan and ordered 50 mg-( If can tolerate oral taking losartan can go up 100 and IV enalaprilat can be dc)
-Bupropion 50 mg can be restarted based on his oral taking
-Palliative care assessment
-Follow CBC, CMP, Ca, Phos, Mg and K
Assessment / Plan
Assessment / Plan
#Sepsis unclear as to etiology but likely related to PNA vs SBO
-CT abdomen 01/09: c/w adynamic ileus, a possible partial small bowel obstruction and a possible small bowel infarction and a possible pneumonia
-Fever spikes continues
-persistent leukocytosis with gradually trending down WBC -ID on board
-Continue with empiric meropenem/ vancomycin, zosyn and micafungin stopped
-No growth on blood cultures so far
-Wound negative gram satin-wound culture no growth so far - at wound area no pus, no erythema, no odor
# S/P ex lap and repair of small bowel enterotomy
-Status post diagnostic laparoscopy and exploratory laparotomy on 01/03 due SBO which suspected secondary to risperidone.
-POD#10
-General surgery following: NGT was removed on 01/11
-Speech reassessed the patient and will start thin liquids which discussed with general surgery
-Will continue TPN until tolerate oral taking
-Evaluated by speech rec: IDDSI 4
-Switched IV opioids to oral form for abdominal pain
-IV Toradol PRN with cautious given recovering from MARIA ISABEL
# Primary hypertension
-Continue IV Enalaprilat
-Planing to switch oral losartan and ordered 50 mg-
-If can tolerate oral taking losartan can go up 100 and enalaprilat can be discontinued
-Patient has difficulty to tolerate oral taking
-Speech team is following
-Continue with IV metoprolol & PRN IV hydralazine.
# TME likely multifactorial secondary to sepsis and contribution due to underlying psychiatric disorder (BPD with manic episode/ADHD)
-Mental condition status seen improved-oriented X3
-CT head on 01/08/2025: No acute abnormality
-Possible secondary combination of sepsis and underlying psychiatric disorders
-Home medication for his psychiatric problems include: Adderall, BuSpar, Wellbutrin, doxepin and Oxcarbazepine
-Psychiatry on board (antipsychotic medication-will continue asenapine at night) -he was started on bupropion 50 mg twice daily(ER form changed to IR form to be able to get crushed) on 01/09/2025
-His bupropion could not be given due NGT suction on 01/10-- Can be restarted if can tolerate liquid diet
-Patient`s home dose Klonopin was switched to IV Ativan to avoid withdrawal symptoms and being n.p.o.
-Patient has history of prolonged encephalopathy secondary having mental disorder-has a close follow-up at [facility]
-Palliative care was awaiting today to assess the patient
# MARIA ISABEL likely secondary to free water deficit
-Improved following IV Fluids
-Creatinine 0.9 this a.m.
-Follow-up with bladder scan
-Follow CMP
# Transaminitis possibly secondary to sepsis versus hepatobiliary disease
-Improving
-LFTs gradually trending down
-No findings on physical exam
-GI consultation can be considered with worsening LFT levels
# Hypermagnesemia
-Mg 2.4 this am
-Pharmacy informed
-TPN will be adjusted
# Sinus tachycardia, reactive
Continue with IV metoprolol
# Hyperlipidemia
Resume statin when able to tolerate p.o.
# BPH
Bladder scans
High risk for retention
#DVT prophylaxis
Lovenox and SCDs
Anticipated Discharge: 24 - 48 hours
Subjective/Interval History
-
Date of Service: January 13, 2025
Patient was found awake and alert this am in his bed. He reported having abdominal pain. He asked for more ice-chips. He was able to tolerate ice cream yesterday, but had difficulty to tolerate all clear liquids. Speech is on board and following.
Objective Data
-
Labs:
Laboratory Results
01/13/25
04:08
WBC 13.2 H
Hgb 12.7 L
Hct 38.9 L
Plt Count 367
Sodium 143
Potassium 4.5
Chloride 112 H
Carbon Dioxide 21 L
BUN 30 H
Creatinine 0.9
Glucose 127 H
Calcium 8.6
Vital Signs:
Vital Signs
Temp Pulse Resp BP Pulse Ox
98.4 F 86 19 164/89 95
01/13/25 04:03 01/13/25 07:00 01/13/25 07:00 01/13/25 07:00 01/13/25 08:12
I&O
01/12/25 01/13/25 01/14/25
06:59 06:59 06:59
Intake Total 2915 / 2915
Balance 2915 / 2915
Review of Systems
-
History Source: Patient
EENT: Reports No Symptoms Reported
Respiratory: Reports No Symptoms
Cardiac: Reports No Symptoms
Abdomen/GI: Reports Abdominal Pain
Genitourinary: Reports No Symptoms
Musculoskeletal: Reports Other (generalized weakness)
Skin: Reports No Symptoms
Neuro: Reports No Symptoms and Other (See HPI )
Psych: Reports Other (See HPI )
Physical Exam
-
General: Well Developed, Well Nourished, Appears Chronically Ill and Obese
HEENT: Normocephalic and Atraumatic
Respiratory: Clear to Auscultation
Cardiac: Regular Rhythm and S1/S2
GI: Soft, Nondistended and Tender (Mild abdominal area)
Musculoskeletal: No Clubbing, No Cyanosis and No Edema
Skin: Warm and IV Access / Catheter Site (PICC line on the right arm)
Neuro: Awake, Alert, Oriented, AO x 3 and Other (Can follow 2 word commands-but can not continue a meaningful conversation )
Psych: Calm
[2025-01-13] MEDS: NOVOLOG FLEXPEN-LOW RESISTANCE 1 UNITS SC ×2 (09:39→17:25)
[2025-01-13] MEDS: TORADOL 15 MG IV (09:40)
[2025-01-13 09:56] LABS: ALT (SGPT) 97 U/L (0-50); AST (SGOT) 114 U/L (17-59)
--- NOTE | 2025-01-13 10:03 | W.PN.ID1 ---
Date of Service
Date of Service: January 13, 2025
Today's Communication
- c/w meropenem day 11 of 14 of antibiotics since the OR
- double lumen PICC in the right arm
- Monitor white count and temperature curve.
Assessment / Plan
Fever - resolved
Leukocytosis improving
High grade SBO s/p 01/03 Diagnostic laparoscopy, exploratory laparotomy, repair small bowel enterotomy
Encephalopathy
Anxiety
- awaiting anaerobic culture
- increased suspicion of drug fever
- c/w meropenem day 11 of 14 of antibiotics since the OR
- double lumen PICC in the right arm
- Monitor white count and temperature curve.
����������������������������������������������������������
Chief Complaint
-: Fever and Leukocytosis
Subjective / Review of Systems
afebrile
bp stable
confusion, agitation ongoing
Vital Signs / Physical Exam
Vital Signs
Vital Signs
Temp Pulse Resp BP Pulse Ox
98.4 F 86 19 164/89 95
01/13/25 04:03 01/13/25 07:00 01/13/25 07:00 01/13/25 07:00 01/13/25 08:12
Physical Exam
Constitutional: No Acute Distress and Chronically Ill
Cardiovascular: Regular Rate and S1/S2; Negative Murmur or Rub
Pulmonary: Clear and Symmetric; Negative Wheezes or Rales
Gastrointestinal: Soft, Non Tender, Non Distended and Normal Bowel Sounds
Skin: Warm and Dry; Negative Rash or Jaundice
Objective Data
Lab Data
Lab Results
01/13/25 04:08
01/13/25 04:08
Estimated Creat Clear 78 ml/min 01/13/25 04:08
Lactic Acid 0.7 mmol/L (0.7-2.0) 01/11/25 05:26
Total Bilirubin 0.5 mg/dl (0.2-1.3) 01/12/25 04:05
AST 114 U/L (17-59) H 01/13/25 04:08
ALT 97 U/L (0-50) H 01/13/25 04:08
Alkaline Phosphatase 114 U/L (38-126) 01/12/25 04:05
Most recent labs reviewed.
Micro Results:
01/10/25 10:04 Wound Culture - Preliminary
Hematoma No growth
Gram Stain - Preliminary
01/10/25 10:22 Anaerobic Culture - Preliminary
Hematoma Culture pending. Anaerobic cultures are examined after 3
days incubation. Additional information to follow.
01/09/25 10:16 Influenza Types A & B ([place]) - Final
Nasal Swab Negative for Influenza A & B, NAAT
Negative results must be combined with clinical observations
and patient history.
Nucleic Acid Amplification test (NAAT)performed on the
[employer] platform.
01/03/25 18:36 Blood Culture - Final
Blood/Venous No Growth - Final Report
01/03/25 18:32 Blood Culture - Final
Blood/Venous No Growth - Final Report
01/03/25 18:32 MRSA Screen - Final
Nose No Methicillin Resistant Staphylococcus aureus isolated.
01/03/25 18:32 Legionella Urinary Antigen - Final
Urine Negative for Legionella pneumophila Serogroup 1 antigen.
A negative result does not rule out the possiblity of
Legionella infection due to other serogroups or species of
Legionella. Clinical correlation is recommended.
Streptococcus pneumoniae Antigen (M - Final
Negative for Streptococcus pneumoniae antigen.
A negative result does not exclude infection with
Streptococcus pneumoniae. Clinical correlation is
recommended.
01/03/25 18:32 Influenza Types A & B ([place]) - Final
Nasal Swab Negative for Influenza A & B, NAAT
Negative results must be combined with clinical observations
and patient history.
Nucleic Acid Amplification test (NAAT)performed on the
[employer] platform.
12/29/24 17:21 Blood Culture - Final
Blood/Venous No Growth - Final Report
12/29/24 17:21 Blood Culture - Final
Blood/Venous No Growth - Final Report
01/09/25 AXR: Several dilated bowel loops seen within the left lower quadrant.
01/09/25 CT a/p: Dilated loops of proximal to mid small bowel with normal caliber distal small bowel, although a focal isolated transition zone is not demonstrated. Findings most likely represent an adynamic ileus. A partial small bowel obstruction
is still possible. As warranted, follow-up abdominal radiographs may be helpful to assess progression of intraluminal GI contrast through the bowel. Midline anterior abdominal and pelvic scar with skin valdemar. There is some soft tissue density
within the anterior abdominal and pelvic wall underlying the skin valdemar, including a rounded component. This may suggest hematoma/blood products. No evidence for a focal fluid collection at this time.Small amount of fluid in the posterior lower
right hemithorax, with mild loculation. Parenchymal opacity within both lower lobes, most likely atelectasis, although pneumonia is also possible. Moderate distention of the rectum with stool, transverse dimension of 6.4 cm. No evidence for
stercoral colitis.
--- NOTE | 2025-01-13 10:47 | W.CON.PAL ---
Consultation
-
Date/Time Consultation Requested: 01/12/2025
Date/Time Consultation Performed: 01/13/2025
Performing Provider: Dr. Youssef
Reason for Consult: Goals of Care Discussion
Primary Diagnosis: Encephalopathy
Reason for Admission
Illness Course/HPI
Renée is a 74 y/o male with pmhx of r basal canglia cva, bipolar disorder, htn, hld, who was admtite to hospital 12/29 with SBO. he has been confused and encephalopathic, and was receiving nutrition via TPN during hospital course. Palliative care
consulted to assess given concern for nutrition and encepahlopathy, if hospice appropriate.
Chart reviewed. Reviewed psychiatry and other speciality notes.
Today Renée is awake and conversant. appars confused, however able to tell me his name. that his partner's name is walter. walter's son and daughter in law dariela have been his primary caregivers. 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
He was started on clear liquid diet yesterday and has been doing well with this.
Functional Status
Spoke with Walter over the phone who confirmed details that Renée had shared.
Renée requires asstiance for transfers at baseline, ambulates short distances with walker with standby assistance. family assists with IADLs. They have housekeeping services. Walter is physically ill himself, and walter's son and daughter in law
moved up to stay with them to help take care of them which has been a huge assitance for both of them.
Goals of Care Discussion
-
Patient able to participate in discussion at time of visit: No
Patient Goals
Patient is conversant but unable to have meaningful discussion today on goals of care.
Spoke with Walter who reports he has medical poa. He reports that renée has completed a LW but never submitted it to his primary care doctor and he does not know if it was finalized or what it contained. He states that renée told the doctors this
time he would want everything to be done. We talked about the concern for nutrition and encephalopathy, but that also today seems to be doing a bit better - tolerating clears. Will need to see how he does over the next few days. Walter shares that
renée would likely not want a feeding tube as his mother needed a feeding tube for her last year of life and that was not a good experience. Walter shares that renée does not like the word 'hospice' based on his mother's experiences and other
friends experiences. Will revisit this discussion as we sees how he progresses over next few days. We discussed palliative care services and is interested in this at this time.
Pain & Symptom Assessment
-
patient reports back pain
Objective Data
-
Objective Data:
Vital Signs
Temp Pulse Resp BP Pulse Ox
97.5 F 86 19 164/89 95
01/13/25 07:11 01/13/25 07:00 01/13/25 07:00 01/13/25 07:00 01/13/25 08:12
Laboratory Results
01/13/25 04:08
01/13/25 04:08
Total Protein 5.7 g/dl (6.3-8.2) L 01/12/25 04:05
Albumin 2.8 g/dl (3.5-5.0) L 01/12/25 04:05
Urine Color Yellow 01/03/25 18:22
Urine Clarity Clear (Clear) 01/03/25 18:22
Urine pH 6.0 (5.0-9.0) 01/03/25 18:22
Ur Specific [place] 1.010 (<1.030) 01/03/25 18:22
Urine Ketones 3+ (Negative) A 01/03/25 18:22
Urine Bilirubin Negative (Negative) 01/03/25 18:22
Palliative Performance Scale
Palliative Performance Scale:
PPS Level Ambulation Activity & Evidence of Disease Self Care Intake Conscious Level
100% Full Normal Activity & Work; Full Intake Full
No Evidence of Disease
90% Full Normal Activity & Work; Full Normal Full
Some Evidence of Disease
80% Full Normal Activity with Effort Full Normal or Full
Some Evidence of Disease Reduced
70% Reduced Unable Normal Job/Work Full Normal or Full
Significant Disease Reduced
60% Reduced Unable Hobby/Housework Occasional Normal or Full or Confusion
Significant Disease Assistance Reduced
50% Mainly Sit/Lie Unable to do Any Work Considerable Normal or Full or Confusion
Extensive Disease Assistance Req'd Reduced
40% Mainly in Bed Unable to do Most Activity Mainly Assistance Normal or Full or Drowsy;
Extensive Disease Reduced +/- Confusion
30% Totally Bed Unable to do Any Activity Total Care Normal or Full or Drowsy;
Bound Extensive Disease Reduced +/- Confusion
20% Totally Bed Bound Unable to do Any Activity Total Care Minimal to Full or Drowsy;
Extensive Disease Sips +/- Confusion
10% Totally Bed Bound Unable to do Any Activity Total Care Mouth Care Drowsy or Coma;
Extensive Disease Only +/- Confusion
0%
PPS Score Level:
Palliative Performance Score Response
Palliative Performance Score Response: 40%
Physical Exam
-
General: Well Developed and No Apparent Distress
Skin: Facial Flushing
Neuro: Awake and Alert
Psych: Anxious
Assessment / Plan
-
Assessment/Plan:
Goals of care - ongoing discussions. Diet advanced to clears yesterday.
Palliative care to follow
total floor time, discusison with patient, rn, telephone call to poa 60 mins
--- NOTE | 2025-01-13 12:34 | W.PN.UPDATE ---
Addendum entered and electronically signed by Sudheer Peter MD 01/13/25 12:48:
patient had been on seroquel in the past stopped bc qtc . qtc is now normal.
Original Note:
Update Note
Progress Note Update
patient seen chart reviewed. spoke with nursing. the patient is more alert each day and he is grossly oriented to time place and person but he continues to be unable to engage in fluid conversation. he continues to complain of abdominal pain but i
am not sure he comprehends my explanation of why he may be in pain. he repeats frequently 'help me help me'. i did note tremor. he also seems to me to have cogwheeling rigidity. do my knowledge he was not dx w PD although had been rx with
amantadine by dr kyle for eps associated with risperdal which dr kyle was thinking of dc'ing as he had not noted psychosis in some time. will dc asenapine which can cause eps. seroquel is the best antipsychotic re eps (except clozaril which we
would not use here). i don't see overt psychosis but he is very anxious . have dc'ed asenapine and started seroquel 25 mg q hs only. called dr carolyn thomas to discuss. will have psych see patient over weekend to address. would consider neuro consult.
--- NOTE | 2025-01-13 12:45 | PTOTSP ---
Dysphagia Therapy
Impression: Mild-moderate oral stage dysphagia without overt signs/reports concerning for pharyngeal dysphagia or aspiration at the bedside. Dysphagia risk elevated given acute on chronic cognitive changes, dependence for assistance with feeding.
Patient's ability to communicate and participate in therapy improved today.
Recommendation:
1. IDDSI Level 5 Minced and Moist Thin Liquids
2. Medications: crushed in puree if medically cleared to do so
3. Strategies: upright to 90 degrees, full supervision/assistance, small single sips/bites, slow rate, ensure patient swallows before next sip/bite, check for oral residue, oral care w/ suctioning after meals, remain upright 30 minutes after meals
4. Oral care 3-5x daily
5. Dysphagia tx f/u at the acute care level for instruction in compensations
[2025-01-13] MEDS: ROXICODONE 5 MG PO ×3 (13:03→23:39)
[2025-01-13] MEDS: APRESOLINE 5 MG IV (13:06)
[2025-01-13] MEDS: NOVOLOG FLEXPEN-LOW RESISTANCE SC (13:14)
[2025-01-13 13:24] LABS: Glucose - Point of Care 148 mg/dl (70-99)
--- NOTE | 2025-01-13 13:41 | PTCARENOTE ---
Pt presents as assessed. Aox3, continues to be agitated and restless. Emotional support provided. Tolerating diet with supervision; advanced to M&M #5 by provider. Pt tolerated well. Family at bedside briefly, updated on plan of care. Safe
environment and Q2T maintained.
[2025-01-13] MEDS: COZAAR 50 MG PO (15:19)
--- NOTE | 2025-01-13 15:28 | PTCARENOTE ---
While providing pt care, pt tearful and told this RN 'I want to kill myself.' When questioned further, pt states 'I'm mentally ill; I have bipolar disorder.' [facility] placed at bedside. Nursing cutting room supervisor and Dr. Peter notified. Pt remains
tearful and continues to state he 'wants to kill himself, but believes in god so will not'. Emotional support provided. [facility] [employer] [facility] remains at bedside.
[2025-01-13] MEDS: LOVENOX 40 MG SC (17:12)
[2025-01-13 17:33] LABS: Glucose - Point of Care 155 mg/dl (70-99)
[2025-01-13] MEDS: Parenteral Nutrition, Central 1170 IV (21:12)
[2025-01-13] MEDS: SEROQUEL 25 MG PO (21:13)
[2025-01-13 22:20] LABS: Glucose - Point of Care 125 mg/dl (70-99)
[2025-01-14] VITALS (27 sets, daily range): BP systolic 93–181; BP diastolic 56–94
--- NOTE | 2025-01-14 00:22 | PTCARENOTE ---
assumed care of patient. pt is AAOx3 but forgetful, anxious, and restless at times. some garbled speech noted. sitter remains at bedside. NSR on the monitor. 92% RA. pt given full CHG bath in beginning of shift. incontinent of bowel and bladder.
midline abdominal dressing remains intact. q2t. TPN infusing without issues in right PICC. pt able to take pills with applesauce without issues. care ongoing.
[2025-01-14] MEDS: LOPRESSOR 5 MG IV ×4 (05:42→23:41)
[2025-01-14] MEDS: ROXICODONE 5 MG PO (05:42)
[2025-01-14] MEDS: STERILE WATER FOR INJECTION 10 ML IV ×4 (05:43→23:42)
[2025-01-14] MEDS: MERREM 500 MG IV ×4 (05:43→23:42)
[2025-01-14] MEDS: VASOTEC 0.625 MG IV ×4 (05:43→23:43)
[2025-01-14 05:49] LABS: Hematocrit 40.2 % (39.0-52.0); Hemoglobin 13.3 g/dL (13.0-18.0); Mean Corp Hgb Conc. 33.1 g/dL (33.0-37.0); Mean Corpuscular Hgb 31.8 pg (27.0-31.0); Mean Corpuscular Volume 96.2 fL (80.0-94.0); Mean Platelet Volume 11.4 fL (7.4-10.4); Platelet Count 432 10^3/uL (130-400); Red Blood Cell Count 4.18 10^6/uL (4.70-6.10); Red Cell Dist. Width 14.3 % (11.5-14.5); White Blood Cell Count 14.4 10^3/uL (4.8-10.8)
[2025-01-14 06:09] LABS: ALT (SGPT) 103 U/L (0-50); AST (SGOT) 113 U/L (17-59); Albumin 3.3 g/dl (3.5-5.0); Alkaline Phosphatase 149 U/L (38-126); Blood Urea Nitrogen 32 mg/dl (9-20); Calcium 8.8 mg/dl (8.4-10.2); Carbon Dioxide 21 mmol/L (22-30); Chloride 110 mmol/L (98-107); Estimated Creatinine Clearance 78 ml/min; Glucose 146 mg/dl (70-99); Magnesium 2.4 mg/dl (1.6-2.3); Phosphorus 2.7 mg/dl (2.5-4.5); Potassium 4.9 mmol/L (3.5-5.1); Sodium 141 mmol/L (135-145); Total Bilirubin 0.6 mg/dl (0.2-1.3); Total Protein 6.4 g/dl (6.3-8.2); eGFR > 60.00
[2025-01-14 07:57] LABS: Glucose - Point of Care 137 mg/dl (70-99)
[2025-01-14] MEDS: NOVOLOG FLEXPEN-LOW RESISTANCE SC ×3 (08:04→17:16)
[2025-01-14] MEDS: ATIVAN 0.5 MG IV ×3 (08:05→22:36)
[2025-01-14] MEDS: NSS (PRESERVATIVE FREE) 0.25 ML IV ×2 (08:06→22:36)
[2025-01-14] MEDS: COZAAR 50 MG PO (08:06)
[2025-01-14] MEDS: PROTONIX IV 40 MG IV (08:07)
[2025-01-14] MEDS: NSS (PRESERVATIVE FREE) 10 ML IV (08:07)
[2025-01-14] MEDS: OASIS 2 SPRAY PO ×4 (08:08→22:43)
--- NOTE | 2025-01-14 09:22 | W.PN.HOSP.TC ---
Today's Communication/Plan
-
Begin dispo planning
PT/OT recommending rehab
Assessment / Plan
Assessment / Plan
NAD
Scleral Anicteric
MMM
No JVD
CTABL
RRR, S1/S2
Soft, NT, Distended, Staple line appears CDI, though most of it is covered, the bandage is not soaked, BS+
-Staple line appears intact
Warm, Dry
AAOx person place
Sepsis, unclear as to etiology but likely related to PNA,
-Currently on meropenem per infectious diseases, day
--With that adjustment of antibiotics has been fever free since January 10
-Vancomycin and Zosyn and micafungin have been discontinued
-Culture data negative thus far which includes blood cultures wound culture Legionella strep
-COVID flu negative
Ileus
S/p ex lap with small bowel enterotomy
S?p NGT, removed on 01/11
-Evaled by speech rec IDDSI 5
On TPN, would continue for now to ensure tolerating PO intake well,
-would appreciate surgery's input on additional TPN as it appears that he is tolerating a diet
-Will need to follow for refeeding syndrome, Daily Ca, Phos, Mg and K
Surgery was able to take some stapls and drain hematoma - cx thus far negative
TME likely multifactorial in the setting of sepsis
Psychiatric disorders
Psychiatry adjusted neuropsychiatric agents and started Seroquel
Hyponatremia and MARIA ISABEL Resolved
Transaminitis
Likely related to sepsis, viral panel negative
Avoid hepatotoxins.
PT/OT recommending rehab
Anticipated Discharge: 24 - 48 hours
Subjective/Interval History
-
Date of Service: January 14, 2025
Seen and examined. Patient urgent care feeding at bedside. Tolerating diet and oral intake well
Though does state that he does not feel well however not elaborating much
Objective Data
-
Labs:
Laboratory Results
01/14/25
05:23
WBC 14.4 H
Hgb 13.3
Hct 40.2
Plt Count 432 H
Sodium 141
Potassium 4.9
Chloride 110 H
Carbon Dioxide 21 L
BUN 32 H
Creatinine 0.9
Glucose 146 H
Calcium 8.8
Total Bilirubin 0.6
AST 113 H
ALT 103 H
Alkaline Phosphatase 149 H
Vital Signs:
Vital Signs
Temp Pulse Resp BP Pulse Ox
99.1 F 82 15 132/71 95
01/14/25 07:33 01/14/25 06:00 01/14/25 06:00 01/14/25 06:00 01/14/25 06:00
--- NOTE | 2025-01-14 11:19 | W.PN.UPDATE ---
Update Note
Progress Note Update
Patient seems quite anxious with flat affect and mostly depressed mood. However denies hopelessness or suicidal thoughts which he has yesterday. He cannot sustain attention and is unable to concentrate. Intermittently he repeats 'Help me, help me '.
He is not agitated or acutely psychotic.
At this point I would continue current psychotropic medications; we will continue to F/U.
[2025-01-14 12:39] LABS: Glucose - Point of Care 148 mg/dl (70-99)
[2025-01-14] MEDS: NON-FORMULARY ITEM 4 PUMP TRANSDERM (12:58)
[2025-01-14] MEDS: DESENEX/MITRAZOL/ZEASORB 1 APPLIC TOPICAL ×2 (13:02→21:23)
--- NOTE | 2025-01-14 13:56 | W.PN.GS2 ---
Addendum entered and electronically signed by Andrew Dumont MD 01/14/25 14:50:
Patient seen and examined.
No complaints.
Gen: NAD
Abd: soft, mild tenderness, ND, non-peritoneal, midline dressing c/d/i
74 yo male p/w SBO taken to OR with ileus noted
POD#11 ex lap and repair of small bowel enterotomy
01/09 CT with small fluid collection at midline incision. Several valdemar removed and old blood evacuated. Cx sent and with no growth to date
Leukocytosis persists
No fever since 01/10, VSS
H/H stable
Psychiatry following and adjusting meds.
Ileus resolving, passing stools. Still with poor appetite and PO intake
-- Continue TPN until good PO intake
-- TECHNICIAN HELPER INSTRUMENT following, continue IDDSI 5 diet, thin liquids, crushed pills as tolerated
-- ABX as per ID
-- Appreciate psychiatry recs
-- OOB as able. PT/OT following
-- D/C scheduled narcotics, changed to PO and prn
-- Continue local incisional care
-- Lovenox and SCDs for VTE ppx
-- Medical management as per primary team
Original Note:
Today's Communication / Plan
-
Continue diet, TPN until good PO intake
Assessment / Plan
-
74 yo male p/w SBO taken to OR with ileus noted
POD#11 ex lap and repair of small bowel enterotomy
01/09 CT with small fluid collection at midline incision. Several valdemar removed and old blood evacuated. Cx sent and with no growth to date
Leukocytosis persists
No fever since 01/10, VSS
H/H stable
Psychiatry following and adjusting meds.
Ileus resolving, passing stools. Still with poor appetite and PO intake
-- Continue TPN until good PO intake
-- TECHNICIAN HELPER INSTRUMENT following, continue IDDSI 5 diet, thin liquids, crushed pills as tolerated
-- ABX as per ID
-- Appreciate psychiatry recs
-- OOB as able. PT/OT following
-- D/C scheduled narcotics, changed to PO and prn
-- Continue local incisional care
-- Lovenox and SCDs for VTE ppx
-- Medical management as per primary team
Subjective Data
-
Date of Service: January 14, 2025
Patient seen and examined at bedside with Dr. Dumont. OOB to chair. PCT at bedside and notes he has had 2 BM's. Untouched lunch tray in room, patient notes he doesn't want to eat it. Denies n/v. Denies pain.
Objective Data
-
Intake and Output
01/13/25 01/14/25 01/15/25
06:59 06:59 06:59
Intake Total 600 / 600
Output Total 50 / 50
Balance 550 / 550
Intake:
Oral fluids 600 / 600
Output:
Urine, Voided 50 / 50
Other:
How many times incontinent 1
MODERATE amount urine
How many times incontinent 1 2 1
SATURATED amount urine
Vital Signs
Temp Pulse Resp BP Pulse Ox
97.1 F 79 16 135/69 97
01/14/25 11:00 01/14/25 12:00 01/14/25 12:00 01/14/25 12:00 01/14/25 11:00
Lab Results
01/14/25 05:23
01/14/25 05:23
Calcium 8.8 mg/dl (8.4-10.2) 01/14/25 05:23
Phosphorus 2.7 mg/dl (2.5-4.5) 01/14/25 05:23
Magnesium 2.4 mg/dl (1.6-2.3) H 01/14/25 05:23
Total Bilirubin 0.6 mg/dl (0.2-1.3) 01/14/25 05:23
AST 113 U/L (17-59) H 01/14/25 05:23
ALT 103 U/L (0-50) H 01/14/25 05:23
Alkaline Phosphatase 149 U/L (38-126) H 01/14/25 05:23
Total Protein 6.4 g/dl (6.3-8.2) 01/14/25 05:23
Albumin 3.3 g/dl (3.5-5.0) L 01/14/25 05:23
Physical Exam
-
General: NAD
HEENT: Anicteric
Respiratory: Non Labored Respirations
GI: Soft, incision healing, dressing intact
Patient has a central line: Yes
[2025-01-14] MEDS: TORADOL 15 MG IV (15:26)
[2025-01-14] MEDS: DULCOLAX 10 MG RECTAL (16:43)
[2025-01-14 16:58] LABS: Glucose - Point of Care 131 mg/dl (70-99)
[2025-01-14] MEDS: LOVENOX 40 MG SC (18:12)
[2025-01-14] MEDS: MIRALAX 17 GRAMS PO (18:13)
--- NOTE | 2025-01-14 19:17 | PTCARENOTE ---
Ox3 course tremers intermittently (pt states TD), however flat/ withdrawn, depressed affect. Suicidal 1:[address] Dickson today. Remains on RAIR tele shows SR with pacs. Abdomen distended, firm +BS +Flatus. Pain throughout given Tylenol x1
and Toradol x1 today. Midline incision redressed. OOB to chair and bsc 2x today only returned pebble sized stool today - relayed to provider- SC Dulcolax given with out results- PO Miralax initiated. Incontinent of urine - uses urinal with
assistance prn. Turn q2.
[2025-01-14] MEDS: SEROQUEL 25 MG PO (21:22)
[2025-01-14] MEDS: Parenteral Nutrition, Central 1170 IV (21:24)
[2025-01-14 21:36] LABS: Glucose - Point of Care 108 mg/dl (70-99)
--- NOTE | 2025-01-14 23:58 | PTCARENOTE ---
Pt received from previous shift in bed. AAOx3, forgetful, anxious, flat affect, slow speech. Telemetry = SR w/PACs. Full phsyical assessment documented (refer to worklist). TPN infusing via RDL (brisk blood returns via both lumens). Incontinent
bowel/bladder. Assisted to bedpan, small loose brown mucoid stools. Full CHG bath completed, assisted w/oral hygiene. Turned and positioned for comfort. Call kerns w/in reach (although pt does not utilize --> calls out). Bed alarm active for
safety.
[2025-01-15] VITALS (28 sets, daily range): BP systolic 99–144; BP diastolic 56–99; PULSE 90; O2SAT 96; BMI 29.7
[2025-01-15 05:01] LABS: Hematocrit 39.1 % (39.0-52.0); Hemoglobin 12.9 g/dL (13.0-18.0); Mean Platelet Volume 11.1 fL (7.4-10.4); Platelet Count 432 10^3/uL (130-400); Red Blood Cell Count 4.03 10^6/uL (4.70-6.10); Red Cell Dist. Width 14.1 % (11.5-14.5); White Blood Cell Count 14.4 10^3/uL (4.8-10.8)
[2025-01-15] MEDS: LOPRESSOR IV (05:12)
[2025-01-15 05:26] LABS: Blood Urea Nitrogen 42 mg/dl (9-20); Calcium 8.6 mg/dl (8.4-10.2); Carbon Dioxide 22 mmol/L (22-30); Chloride 111 mmol/L (98-107); Estimated Creatinine Clearance 78 ml/min; Glucose 145 mg/dl (70-99); Potassium 4.9 mmol/L (3.5-5.1); Sodium 139 mmol/L (135-145); eGFR > 60.00
[2025-01-15] MEDS: VASOTEC IV (05:35)
[2025-01-15] MEDS: STERILE WATER FOR INJECTION 10 ML IV ×4 (05:40→23:33)
[2025-01-15] MEDS: MERREM 500 MG IV ×4 (05:40→23:33)
[2025-01-15 07:51] LABS: Glucose - Point of Care 133 mg/dl (70-99)
[2025-01-15] MEDS: NOVOLOG FLEXPEN-LOW RESISTANCE SC ×2 (08:39→12:50)
--- NOTE | 2025-01-15 09:25 | W.PN.HOSP.TC ---
Today's Communication/Plan
-
Complete meropenem dose 01/16/2025
Tolerating IDDSI 5 diet well appears to have eaten all of his breakfast tray
Await surgery recommendations on TPN
Begin disposition planning with case management
Assessment / Plan
Assessment / Plan
NAD
Scleral Anicteric
MMM
No JVD
CTABL
RRR, S1/S2
Soft, NT, distended however softer than previous day, Staple line appears CDI, though most of it is covered, the bandage is not soaked, BS+
-Staple line appears intact
Warm, Dry
AAOx person place
Sepsis, unclear as to etiology but likely related to PNA,
-Currently on meropenem per infectious diseases, day
--With that adjustment of antibiotics has been fever free since January 10
-Vancomycin and Zosyn and micafungin have been discontinued
-Culture data negative thus far which includes blood cultures wound culture Legionella strep
-COVID flu negative
Ileus
S/p ex lap with small bowel enterotomy
S/p NGT, removed on 01/11
-Evaled by speech rec IDDSI 5
On TPN, would continue for now to ensure tolerating PO intake well,
-would appreciate surgery's input on additional TPN as it appears that he is tolerating a diet
-Will need to follow for refeeding syndrome, Daily Ca, Phos, Mg and K
Surgery was able to take some stapls and drain hematoma - cx thus far negative
TME likely multifactorial in the setting of sepsis
Psychiatric disorders
Psychiatry adjusted neuropsychiatric agents and started Seroquel
Hyponatremia and MARIA ISABEL Resolved
Transaminitis
Likely related to sepsis, viral panel negative
Avoid hepatotoxins.
PT/OT recommending rehab
Anticipated Discharge: Within 24 hours
Subjective/Interval History
-
Date of Service: January 15, 2025
Seen and examined. No new complaints. No acute.
Patient medicare biller was feeding him breakfast tolerating well
Today does not state that he is in pain nor is he stating healthy
Past if he could just continue eating
Does that he is at [facility]
Objective Data
-
Labs:
Laboratory Results
01/15/25
04:39
WBC 14.4 H
Hgb 12.9 L
Hct 39.1
Plt Count 432 H
Sodium 139
Potassium 4.9
Chloride 111 H
Carbon Dioxide 22
BUN 42 H
Creatinine 0.9
Glucose 145 H
Calcium 8.6
Vital Signs:
Vital Signs
Temp Pulse Resp BP Pulse Ox
98.1 F 101 17 106/90 94
01/15/25 07:35 01/15/25 06:00 01/15/25 06:00 01/15/25 06:00 01/15/25 06:00
I&O
01/14/25 01/15/25 01/16/25
06:59 06:59 06:59
Intake Total 1428 / 1428
Output Total 50 / 50
Balance 1378 / 1378
--- NOTE | 2025-01-15 10:23 | W.PN.GS2 ---
Today's Communication / Plan
-
-- TELEVISION RECEIVER ANALYZER following, continue IDDSI 5 diet, thin liquids, crushed pills as tolerated
-- Hold on further TPN
-- Transfer to floors
Assessment / Plan
-
74 yo male p/w SBO taken to OR with ileus noted
POD#11 ex lap and repair of small bowel enterotomy
01/09 CT with small fluid collection at midline incision. Several valdemar removed and old blood evacuated. Cx sent and with no growth to date
Leukocytosis persists
No fever since 01/10, VSS
H/H stable
Psychiatry following and adjusting meds.
Ileus resolving, passing stools. PO intake improving
-- TELEVISION RECEIVER ANALYZER following, continue IDDSI 5 diet, thin liquids, crushed pills as tolerated
-- Hold on further TPN
-- Pain control: Tylenol, Toradol, Oxycodone PRN
-- ABX as per ID
-- Appreciate psychiatry recs
-- OOB as able. PT/OT following
-- Continue local incisional care
-- Lovenox and SCDs for VTE ppx
-- Medical management as per primary team
-- OK to transfer to floors
Subjective Data
-
Date of Service: January 15, 2025
No major complaints, continues to perseverate on issues with constipation. Nursing reports multiple loose bowel movements. No nausea or vomiting. Ate 100% of tray for breakfast. No fevers. OOB to chair.
Objective Data
-
Intake and Output
01/14/25 01/15/25 01/16/25
06:59 06:59 06:59
Intake Total 1428 / 1428 240 / 240
Output Total 50 / 50
Balance 1378 / 1378 240 / 240
Intake:
Oral fluids 840 / 840 240 / 240
TPN/PPN 588 / 588
Output:
Urine, Voided 50 / 50
Other:
How many times incontinent 1
MODERATE amount urine
How many times incontinent 2 1 1
SATURATED amount urine
Vital Signs
Temp Pulse Resp BP Pulse Ox
98.1 F 101 17 106/90 94
01/15/25 07:35 01/15/25 06:00 01/15/25 06:00 01/15/25 06:00 01/15/25 06:00
Lab Results
01/15/25 04:39
01/15/25 04:39
Calcium 8.6 mg/dl (8.4-10.2) 01/15/25 04:39
Phosphorus 2.7 mg/dl (2.5-4.5) 01/14/25 05:23
Magnesium 2.4 mg/dl (1.6-2.3) H 01/14/25 05:23
Total Bilirubin 0.6 mg/dl (0.2-1.3) 01/14/25 05:23
AST 113 U/L (17-59) H 01/14/25 05:23
ALT 103 U/L (0-50) H 01/14/25 05:23
Alkaline Phosphatase 149 U/L (38-126) H 01/14/25 05:23
Total Protein 6.4 g/dl (6.3-8.2) 01/14/25 05:23
Albumin 3.3 g/dl (3.5-5.0) L 01/14/25 05:23
Physical Exam
-
Gen: NAD
Abd: soft, minimal tenderness, stable mild distension, non-peritoneal, incision c/d/i - no erythema, ecchymosis around umbilicus, 3 cm opening infraumbilical with healthy granulation tissue and some old clot, no active drainage
Patient has a weaver catheter: No
Patient has a central line: Yes
[2025-01-15] MEDS: NSS (PRESERVATIVE FREE) 0.25 ML IV (10:46)
[2025-01-15] MEDS: ATIVAN 0.5 MG IV (10:46)
[2025-01-15] MEDS: PROTONIX IV 40 MG IV (10:46)
[2025-01-15] MEDS: OASIS 2 SPRAY PO ×3 (10:47→21:55)
[2025-01-15] MEDS: NSS (PRESERVATIVE FREE) 10 ML IV (10:47)
[2025-01-15] MEDS: COZAAR 50 MG PO (10:53)
[2025-01-15] MEDS: DESENEX/MITRAZOL/ZEASORB 1 APPLIC TOPICAL ×2 (10:59→22:00)
[2025-01-15] MEDS: NON-FORMULARY ITEM 4 PUMP TRANSDERM (11:06)
[2025-01-15 12:35] LABS: Glucose - Point of Care 141 mg/dl (70-99)
[2025-01-15] MEDS: VASOTEC 0.625 MG IV ×3 (13:34→23:34)
[2025-01-15] MEDS: LOPRESSOR 5 MG IV ×3 (13:37→23:34)
--- NOTE | 2025-01-15 13:44 | W.PN.UPDATE ---
Update Note
Progress Note Update
Patient is doing better, somewhat less anxious, recalls my visit wait with him yesterday.
Nursing reports coco no longer need to give him the regular Ativan as he is at times sleepy or drowsy.
Cognitively he still has difficulty sustaining attention and performing simple tasks but better.
Will D/C the standing dose of Ativan.
[2025-01-15] MEDS: OASIS PO (13:58)
--- NOTE | 2025-01-15 14:46 | PTCARENOTE ---
Patient is oriented to person, place, time and diagnosis. Today patient ate 100% of his meals, sat on the side of the bed. Watching the [employer] game in good spirits. Stating at times that he is scared, however overall anxiety is greatly improved.
[2025-01-15] MEDS: NOVOLOG FLEXPEN-LOW RESISTANCE 1 UNITS SC (17:18)
[2025-01-15] MEDS: MIRALAX 17 GRAMS PO (17:20)
[2025-01-15 17:22] LABS: Glucose - Point of Care 157 mg/dl (70-99)
[2025-01-15] MEDS: LOVENOX 40 MG SC (17:23)
[2025-01-15 21:49] LABS: Glucose - Point of Care 147 mg/dl (70-99)
[2025-01-15] MEDS: SEROQUEL 25 MG PO (22:00)
[2025-01-16] VITALS (25 sets, daily range): BP systolic 110–160; BP diastolic 62–118; BMI 29.3
--- NOTE | 2025-01-16 00:50 | PTCARENOTE ---
Pt received from previous shift in bed. AAOx3 (forgetful, flat, withdrawn, somewhat anxious). Telemetry = SR. Full physical assessment documented (refer to worklist). Pt verbalizing being constipated despite incontinence of numerous
liquid/mucoid stools. Assisted w/bedpan, pt states 'just gas' stool observed. +BS hyperactive, tympanic. Tolerating PO w/o complaint. TPN completed. Brisk blood return observed via both lumens RDL PICC. CHG bath completed. Assisted w/oral
hygiene. Protective foams placed to bilateral heels and elbows. Bed alarm active for safety. Call kerns w/in reach.
[2025-01-16] MEDS: LOPRESSOR 5 MG IV ×2 (05:57→12:01)
[2025-01-16] MEDS: VASOTEC 0.625 MG IV ×2 (05:58→12:00)
[2025-01-16] MEDS: STERILE WATER FOR INJECTION 10 ML IV ×3 (05:59→12:00)
[2025-01-16] MEDS: MERREM 500 MG IV ×3 (05:59→17:02)
[2025-01-16 06:47] LABS: ALT (SGPT) 92 U/L (0-50); AST (SGOT) 94 U/L (17-59); Alkaline Phosphatase 138 U/L (38-126); Blood Urea Nitrogen 35 mg/dl (9-20); Calcium 8.8 mg/dl (8.4-10.2); Carbon Dioxide 23 mmol/L (22-30); Chloride 110 mmol/L (98-107); Estimated Creatinine Clearance 69 ml/min; Glucose 104 mg/dl (70-99); Magnesium 2.2 mg/dl (1.6-2.3); Phosphorus 2.7 mg/dl (2.5-4.5); Potassium 5.1 mmol/L (3.5-5.1); Sodium 140 mmol/L (135-145); Total Bilirubin 0.5 mg/dl (0.2-1.3); Total Protein 5.8 g/dl (6.3-8.2); Triglycerides 395 mg/dl (10-149); eGFR > 60.00
--- NOTE | 2025-01-16 07:15 | W.PN.GS2 ---
Today's Communication / Plan
-
Patient has tolerated his IDDSI 5 minced and moist diet. CONVEYOR WEIGHER OPERATOR continues to follow. Leukocytosis continues with WBCs at 14.4 and stable. Management as per medical team.
Assessment / Plan
-
74 yo male p/w SBO taken to OR with ileus noted
POD#12 ex lap and repair of small bowel enterotomy
01/09 CT with small fluid collection at midline incision. Several valdemar removed and old blood evacuated. Cx sent and with no growth to date
Leukocytosis persists
No fever since 01/10, VSS
H/H stable
Psychiatry following and adjusting meds.
Ileus resolving, passing numerous loose stools. PO intake improving
-- CONVEYOR WEIGHER OPERATOR following, continue IDDSI 5 diet, thin liquids, crushed pills as tolerated
-- Hold on further TPN
-- Pain control: Tylenol, Toradol, Oxycodone PRN
-- ABX as per ID
-- Appreciate psychiatry recs
-- OOB as able. PT/OT following
-- Continue local incisional care
-- Lovenox and SCDs for VTE ppx
-- Medical management as per primary team
-- OK to transfer to floors
Subjective Data
-
Date of Service: January 16, 2025
Met with patient at the bedside. He is doing much better and was able to participate in the encounter. He states that his abdomen no longer that he is passing flatus easily. He stated that he was hungry and was hoping to order his breakfast soon.
Patient states that he has chills and feels cold and requested a blanket.
Objective Data
-
Intake and Output
01/15/25 01/16/25 01/17/25
06:59 06:59 06:59
Intake Total 1428 / 1428 1228 / 1228
Output Total 50 / 50
Balance 1378 / 1378 1228 / 1228
Intake:
Oral fluids 840 / 840 540 / 540
IV fluids (Total) 100 / 100
TPN/PPN 588 / 588 588 / 588
Output:
Urine, Voided 50 / 50
Other:
How many times incontinent 1 1
MODERATE amount urine
How many times incontinent 1 1
SATURATED amount urine
Number of unmeasured liquid
stools
Rectum 1
Vital Signs
Temp Pulse Resp BP Pulse Ox
98.3 F 83 14 133/69 96
01/16/25 03:17 01/16/25 06:00 01/16/25 06:00 01/16/25 06:00 01/16/25 06:00
Lab Results
01/15/25 04:39
01/16/25 05:55
Calcium 8.8 mg/dl (8.4-10.2) 01/16/25 05:55
Phosphorus 2.7 mg/dl (2.5-4.5) 01/16/25 05:55
Magnesium 2.2 mg/dl (1.6-2.3) 01/16/25 05:55
Total Bilirubin 0.5 mg/dl (0.2-1.3) 01/16/25 05:55
AST 94 U/L (17-59) H 01/16/25 05:55
ALT 92 U/L (0-50) H 01/16/25 05:55
Alkaline Phosphatase 138 U/L (38-126) H 01/16/25 05:55
Total Protein 5.8 g/dl (6.3-8.2) L 01/16/25 05:55
Albumin 3.0 g/dl (3.5-5.0) L 01/16/25 05:55
Physical Exam
-
Gen: NAD
Abd: soft, minimal tenderness, stable minimal distension, non-peritoneal, incision c/d/i - no erythema, ecchymosis around umbilicus, wound dressing in place with no active drainage
Patient has a weaver catheter: No
Patient has a central line: Yes
[2025-01-16 07:50] LABS: Glucose - Point of Care 93 mg/dl (70-99)
--- NOTE | 2025-01-16 08:37 | W.PN.HOSP.TC ---
Addendum entered and electronically signed by Donavon Bell MD 01/16/25 17:34:
I saw and evaluated the patient. I reviewed the resident�s note and agree with findings and plan as documented in the resident�s note.
Sepsis, unclear as to etiology but likely related to PNA,
-ID managing antibiotics and help appreciated
-Suspected fever relapsed today ID doing repeat infection workup
-Patient finished 14 days of meropenem therapy
-Repeat blood culture if patient starts to having fever again
Ileus - resolved
S/p ex lap with small bowel enterotomy
-S/p NGT, removed on 01/11
-Patient finished course of TPN
-Will need to follow for refeeding syndrome, Daily Ca, Phos, Mg and K
-Surgery was able to take some valdemar and drain hematoma - cx thus far negative
TME likely multifactorial in the setting of sepsis
Psychiatric disorders
Psychiatry adjusted neuropsychiatric agents and started Seroquel
Hyponatremia
MARIA ISABEL
-resolved
Transaminitis
Likely related to sepsis, viral panel negative
Avoid hepatotoxins.
Transfer med/surg
Original Note:
Today's Communication/Plan
-
-Tolerating oral taking well- PICC line removed /peripheral arterial IV ordered
-IV meds switching to oral form
-Transfer from IMU to med/surgery
-Repeat EKG (check for QT prolongation)
Assessment / Plan
Assessment / Plan
#Sepsis, unclear as to etiology possibly due to PNA
-Currently on meropenem per infectious diseases, on day 14 of 14
-Vancomycin and Zosyn and micafungin have been discontinued
-Previous blood culture and wound culture resulted negative
-Leukocytosis improving gradually
-ID on board
-No fever spikes between 01/10-01/16 am
-Suspected possible Relapse of Fever on clinically on 01/16/25 by ID: Checking for a possible source of infection
-Follow-up UA, CXR, covid/influenza screens -consideration order blood culturesX2 based on patient's clinic (temperature curve, sweating, chills)
#Ileus
-S/p ex lap with small bowel enterotomy
-S/p NGT, removed on 01/11
-Evaled by speech rec IDDSI 5-tolerating well his diet
-TPN discontinued by surgery team
-PICC line removed-continue IV meds with peripheral arterial line
-His meds planned to switch to oral form
-Will follow for refeeding syndrome, Daily Ca, Phos, Mg and K
#TME likely multifactorial in the setting of sepsis and underlying psychiatric disorders
-Improving
-Psychiatry on board adjusting neuropsychiatric agents
-Continue Seroquel 25 mg
#Hyponatremia and MARIA ISABEL Resolved
#Transaminitis
Likely related to sepsis, viral panel negative
Avoid hepatotoxin
Plan for palliative home visits after discharge.
PT/OT recommending rehab
Anticipated Discharge: 24 - 48 hours
Subjective/Interval History
-
Date of Service: January 16, 2025
This morning patient was found more awake, alert and oriented x 3. He reported some generalized and abdominal pain. He is tolerating his oral taking well.
Objective Data
-
Labs:
Laboratory Results
01/16/25 01/16/25
05:55 07:15
WBC Pending
Hgb Pending
Hct Pending
Plt Count Pending
Sodium 140
Potassium 5.1
Chloride 110 H
Carbon Dioxide 23
BUN 35 H
Creatinine 0.9
Glucose 104 H
Calcium 8.8
Total Bilirubin 0.5
AST 94 H
ALT 92 H
Alkaline Phosphatase 138 H
Vital Signs:
Vital Signs
Temp Pulse Resp BP Pulse Ox
98.3 F 83 14 133/69 96
01/16/25 03:17 01/16/25 06:00 01/16/25 06:00 01/16/25 06:00 01/16/25 06:00
I&O
01/15/25 01/16/25 01/17/25
06:59 06:59 06:59
Intake Total 1428 / 1428 1228 / 1228
Output Total 50 / 50
Balance 1378 / 1378 1228 / 1228
Review of Systems
-
History Source: Patient, Family and Records
EENT: Reports No Symptoms Reported
Respiratory: Reports No Symptoms
Cardiac: Reports No Symptoms
Abdomen/GI: Reports Abdominal Pain
Breast: Reports No Symptoms
Genitourinary: Reports No Symptoms
Musculoskeletal: Reports Other (Generalized muscle weakness)
Skin: Reports No Symptoms and Other
Neuro: Reports No Symptoms
Physical Exam
-
General: Well Developed, Well Nourished, Appears Chronically Ill and Obese
HEENT: Normocephalic and Atraumatic
Respiratory: Clear to Auscultation
Cardiac: Regular Rhythm and S1/S2
GI: Soft, Nontender (Mild tenderness on midabdominal area) and Nondistended
Musculoskeletal: No Clubbing, No Cyanosis and No Edema
Skin: Warm and IV Access / Catheter Site (PICC line on the right-planning to removed this a.m.)
Neuro: Awake, Alert, Oriented and AO x 3
Psych: Calm
[2025-01-16] MEDS: NOVOLOG FLEXPEN-LOW RESISTANCE SC ×3 (08:48→17:11)
[2025-01-16] MEDS: COZAAR 50 MG PO (08:55)
[2025-01-16] MEDS: PROTONIX IV 40 MG IV (08:56)
[2025-01-16] MEDS: DESENEX/MITRAZOL/ZEASORB 1 APPLIC TOPICAL ×2 (08:56→22:27)
[2025-01-16] MEDS: NON-FORMULARY ITEM 4 PUMP TRANSDERM (08:56)
[2025-01-16] MEDS: NSS (PRESERVATIVE FREE) 10 ML IV (08:56)
--- NOTE | 2025-01-16 09:31 | W.PN.ID1 ---
Date of Service
Date of Service: January 16, 2025
Today's Communication
Possible Relapse of Fever - clinically
- asked tech to check vitals
- UA, CXR, covid/influenza screens
- no phlebitis on exam, surgical site appears clean
- if found to have a kushal fever would repeat blood cultures x2 sets
- further workup pending observing patient today
Assessment / Plan
Fever
Leukocytosis improving
High grade SBO s/p 01/03 Diagnostic laparoscopy, exploratory laparotomy, repair small bowel enterotomy
Encephalopathy
Anxiety
Possible Relapse of Fever - clinically
- asked tech to check vitals
- UA, CXR, covid/influenza screens
- no phlebitis on exam, surgical site appears clean
- if found to have a kushal fever would repeat blood cultures x2 sets
- anaerobic culture negative
- day 14 of 14 of meropenem
- double lumen PICC in the right arm - would remove prior to dc
����������������������������������������������������������
Chief Complaint
-: Leukocytosis and Other
Subjective / Review of Systems
no fevers recorded - however on my exam flushed and sweaty, appears febrile
bp stable
ROS only notable for expected abdominal pain which has been present since surgery
Specifically denies: headache, sinus tenderness, sore throat, cough, sputum production, nausea, vomiting, diarrhea, constipation, dysuria, new rashes, tenderness over the lines, new wounds
Vital Signs / Physical Exam
Vital Signs
Vital Signs
Temp Pulse Resp BP Pulse Ox
98.3 F 87 14 126/93 96
01/16/25 03:17 01/16/25 08:55 01/16/25 06:00 01/16/25 08:55 01/16/25 06:00
Physical Exam
Constitutional: Chronically Ill and Other (flushed and sweaty)
Cardiovascular: Regular Rate and S1/S2; Negative Murmur or Rub
Pulmonary: Clear and Symmetric; Negative Wheezes or Rales
Gastrointestinal: Soft, Non Tender, Non Distended and Normal Bowel Sounds
Genito-Urinary: Negative Suprapubic Tenderness
Skin: Warm and Dry; Negative Rash or Jaundice
Wound: Other (surgical site clean, packing without drainage, no erythema, warmth, )
Neurological: Awake and Alert
Objective Data
Lab Data
Lab Results
01/16/25 05:55
Estimated Creat Clear 69 ml/min 01/16/25 05:55
Lactic Acid 0.7 mmol/L (0.7-2.0) 01/11/25 05:26
Total Bilirubin 0.5 mg/dl (0.2-1.3) 01/16/25 05:55
AST 94 U/L (17-59) H 01/16/25 05:55
ALT 92 U/L (0-50) H 01/16/25 05:55
Alkaline Phosphatase 138 U/L (38-126) H 01/16/25 05:55
Most recent labs reviewed.
Micro Results:
01/10/25 10:04 Wound Culture - Final
Hematoma No growth
Gram Stain - Final
01/10/25 10:22 Anaerobic Culture - Final
Hematoma NO ANAEROBES ISOLATED
01/09/25 10:16 Influenza Types A & B ([place]) - Final
Nasal Swab Negative for Influenza A & B, NAAT
Negative results must be combined with clinical observations
and patient history.
Nucleic Acid Amplification test (NAAT)performed on the
[employer] platform.
01/03/25 18:36 Blood Culture - Final
Blood/Venous No Growth - Final Report
01/03/25 18:32 Blood Culture - Final
Blood/Venous No Growth - Final Report
01/03/25 18:32 MRSA Screen - Final
Nose No Methicillin Resistant Staphylococcus aureus isolated.
01/03/25 18:32 Legionella Urinary Antigen - Final
Urine Negative for Legionella pneumophila Serogroup 1 antigen.
A negative result does not rule out the possiblity of
Legionella infection due to other serogroups or species of
Legionella. Clinical correlation is recommended.
Streptococcus pneumoniae Antigen (M - Final
Negative for Streptococcus pneumoniae antigen.
A negative result does not exclude infection with
Streptococcus pneumoniae. Clinical correlation is
recommended.
01/03/25 18:32 Influenza Types A & B ([place]) - Final
Nasal Swab Negative for Influenza A & B, NAAT
Negative results must be combined with clinical observations
and patient history.
Nucleic Acid Amplification test (NAAT)performed on the
[employer] platform.
12/29/24 17:21 Blood Culture - Final
Blood/Venous No Growth - Final Report
12/29/24 17:21 Blood Culture - Final
Blood/Venous No Growth - Final Report
01/09/25 AXR: Several dilated bowel loops seen within the left lower quadrant.
01/09/25 CT a/p: Dilated loops of proximal to mid small bowel with normal caliber distal small bowel, although a focal isolated transition zone is not demonstrated. Findings most likely represent an adynamic ileus. A partial small bowel obstruction
is still possible. As warranted, follow-up abdominal radiographs may be helpful to assess progression of intraluminal GI contrast through the bowel. Midline anterior abdominal and pelvic scar with skin valdemar. There is some soft tissue density
within the anterior abdominal and pelvic wall underlying the skin valdemar, including a rounded component. This may suggest hematoma/blood products. No evidence for a focal fluid collection at this time.Small amount of fluid in the posterior lower
right hemithorax, with mild loculation. Parenchymal opacity within both lower lobes, most likely atelectasis, although pneumonia is also possible. Moderate distention of the rectum with stool, transverse dimension of 6.4 cm. No evidence for
stercoral colitis.
Care Review
Plan reviewed with: Physician (Dr Bell- pt appears febrile)
[2025-01-16] MEDS: OASIS 2 SPRAY PO ×4 (09:39→22:27)
[2025-01-16 09:42] LABS: Hematocrit 40.3 % (39.0-52.0); Hemoglobin 13.2 g/dL (13.0-18.0); Mean Corp Hgb Conc. 32.8 g/dL (33.0-37.0); Mean Corpuscular Hgb 31.9 pg (27.0-31.0); Mean Corpuscular Volume 97.3 fL (80.0-94.0); Mean Platelet Volume 10.8 fL (7.4-10.4); Platelet Count 423 10^3/uL (130-400); Red Blood Cell Count 4.14 10^6/uL (4.70-6.10); Red Cell Dist. Width 14.2 % (11.5-14.5); White Blood Cell Count 14.3 10^3/uL (4.8-10.8)
[2025-01-16] MEDS: TORADOL 15 MG IV (09:50)
[2025-01-16 10:51] LABS: COVID-19 Antigen Negative (Negative)
[2025-01-16] MEDS: ATIVAN 0.5 MG IV ×2 (11:56→20:19)
[2025-01-16 12:33] LABS: Glucose - Point of Care 126 mg/dl (70-99)
--- NOTE | 2025-01-16 12:37 | PTCARENOTE ---
Patient is eating 100% of meals. No nausea or vomiting. TPN discontinued. PICC line removed for infection control. CHG bath was completed today. Patient complaining of fullness in rectal area. Surgery notified. Abdominal xray to be completed today.
Rectal temp is 98.6.
--- NOTE | 2025-01-16 12:59 | W.PN.PAL2 ---
Today's Communication
-
TPN discontinued, tolerating meals
finish abx course
Assessment / Plan
-
Assessment/Plan:
- last day of abx today
- eating 100% of meals, TPN discontinued as well as PICC
- dispo pending - agreeable to palliative home visits after discharge
Objective Data
-
Objective Data:
Vital Signs
Temp Pulse Resp BP Pulse Ox
98.6 F 89 19 146/86 98
01/16/25 10:43 01/16/25 12:01 01/16/25 12:00 01/16/25 12:01 01/16/25 12:00
Laboratory Results
01/16/25 09:28
01/16/25 05:55
Total Protein 5.8 g/dl (6.3-8.2) L 01/16/25 05:55
Albumin 3.0 g/dl (3.5-5.0) L 01/16/25 05:55
Urine Color Yellow 01/03/25 18:22
Urine Clarity Clear (Clear) 01/03/25 18:22
Urine pH 6.0 (5.0-9.0) 01/03/25 18:22
Ur Specific [place] 1.010 (<1.030) 01/03/25 18:22
Urine Ketones 3+ (Negative) A 01/03/25 18:22
Urine Bilirubin Negative (Negative) 01/03/25 18:22
Palliative Performance Scale
Palliative Performance Scale:
PPS Level Ambulation Activity & Evidence of Disease Self Care Intake Conscious Level
100% Full Normal Activity & Work; Full Intake Full
No Evidence of Disease
90% Full Normal Activity & Work; Full Normal Full
Some Evidence of Disease
80% Full Normal Activity with Effort Full Normal or Full
Some Evidence of Disease Reduced
70% Reduced Unable Normal Job/Work Full Normal or Full
Significant Disease Reduced
60% Reduced Unable Hobby/Housework Occasional Normal or Full or Confusion
Significant Disease Assistance Reduced
50% Mainly Sit/Lie Unable to do Any Work Considerable Normal or Full or Confusion
Extensive Disease Assistance Req'd Reduced
40% Mainly in Bed Unable to do Most Activity Mainly Assistance Normal or Full or Drowsy;
Extensive Disease Reduced +/- Confusion
30% Totally Bed Unable to do Any Activity Total Care Normal or Full or Drowsy;
Bound Extensive Disease Reduced +/- Confusion
20% Totally Bed Bound Unable to do Any Activity Total Care Minimal to Full or Drowsy;
Extensive Disease Sips +/- Confusion
10% Totally Bed Bound Unable to do Any Activity Total Care Mouth Care Drowsy or Coma;
Extensive Disease Only +/- Confusion
0%
PPS Score Level:
Physical Exam
-
General: Appears Chronically Ill
HEENT: Normocephalic
Respiratory: Clear to Auscultation
Cardiac: Regular Rhythm
Peripheral Vascular: No Edema
GI: Soft and Nondistended
Skin: Warm
Neuro: Awake and Alert
Care Reviewed
Data Reviewed
Medical Tests: I reviewed
Reviewed with: Patient
[2025-01-16 13:01] LABS: Urine Albumin 1+ (Neg - Trace); Urine Bilirubin Negative (Negative); Urine Character Clear (Clear); Urine Color Yellow; Urine Glucose Negative (Negative); Urine Ketone Negative (Negative); Urine Leukocyte Negative (Negative); Urine Nitrite Negative (Negative); Urine Occult Blood Negative (Negative); Urine Specific Gravity 1.015 (<1.030); Urine Urobilinogen Negative (Neg - 1+)
[2025-01-16 13:19] LABS: Urine Mucus Few; Urine Squamous Cell 0-2 /LPF (Few)
[2025-01-16 13:20] LABS: Urine Bacteria Few (Negative); Urine Red Blood Cell 0-2 /HPF (0-2); Urine White Cell 0-2 /HPF (0-5)
--- NOTE | 2025-01-16 14:25 | CM ---
CM following rte: discharge planning.
Reviewed pt's chart, met with pt. Pt's SO Walter and friend Love at bedside.
PT and OT evaluations noted - SNF level of care recommended. Pt's SO and pt's friend are aware, expressed their agreement. A list of SNFs provided to them. Following SNFs preferred: [facility], [facility], [facility]. A referral to above SNFs made.
D/C plan: preferred SNF: [facility], [facility], [facility].
CM will follow with discharge plan updates as hospitalization progresses
--- NOTE | 2025-01-16 14:52 | W.PN.UPDATE ---
Update Note
Progress Note Update
Pt seen, reviewed with nursing staff; pt doing much better, able to make his needs known, is more conversant. Pt was able to express feeling constipated, given enema. Pt eating meals, taking meds po. Pt reports feeling depressed; family
reportedly asking when pt's previous medications will be resumed. Pt still soft-spoken, with limited spontaneous speech, has jaw tremor, affect dysphoric. 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 No overt signs of psychosis. Pt
managing with Ativan IV prn only, took one dose today, did not need yesterday per nursing.
Imp: TME, with confusion, lethargy- improving, sensorium clearer. Pt c/o feeling depressed.
Hx of Bipolar d/o with h/o episodes of kandis in the past
Rec: Cont. low dose of Seroquel; re-start Wellbutrin SR 100 mg AM (starting dose); continue prn IV Ativan; Minimizing anticholinergic agents
Will follow
--- NOTE | 2025-01-16 15:40 | PTCARENOTE ---
Soap suds enema administered as per doctors orders. Liquid brown output observed, hard stool in rectum causing difficulty inserting enema. Notified surgery, repeat enema ordered for this evening.
[2025-01-16] MEDS: FLOMAX 0.4 MG PO (17:01)
[2025-01-16] MEDS: LOVENOX 40 MG SC (17:01)
[2025-01-16] MEDS: MIRALAX 17 GRAMS PO (17:02)
[2025-01-16] MEDS: LOPRESSOR 25 MG PO (20:19)
[2025-01-16] MEDS: NSS (PRESERVATIVE FREE) 0.25 ML IV (20:20)
[2025-01-16] MEDS: SEROQUEL 25 MG PO (22:52)
[2025-01-17] VITALS (13 sets, daily range): BP systolic 104–138; BP diastolic 63–88; BMI 28.9
--- NOTE | 2025-01-17 01:00 | PTCARENOTE ---
Pt can answer all orientation questions. anxious at times. makes needs known. Soap suds enema administered. scant output of stool produced. Assessment as documented. call light in reach.
[2025-01-17 05:07] LABS: Hematocrit 40.4 % (39.0-52.0); Hemoglobin 13.2 g/dL (13.0-18.0); Mean Corp Hgb Conc. 32.7 g/dL (33.0-37.0); Mean Corpuscular Hgb 31.6 pg (27.0-31.0); Mean Corpuscular Volume 96.7 fL (80.0-94.0); Mean Platelet Volume 11.2 fL (7.4-10.4); Platelet Count 375 10^3/uL (130-400); Red Blood Cell Count 4.18 10^6/uL (4.70-6.10); White Blood Cell Count 9.3 10^3/uL (4.8-10.8)
[2025-01-17 05:31] LABS: ALT (SGPT) 79 U/L (0-50); AST (SGOT) 83 U/L (17-59); Alkaline Phosphatase 143 U/L (38-126); Blood Urea Nitrogen 34 mg/dl (9-20); Calcium 8.8 mg/dl (8.4-10.2); Carbon Dioxide 24 mmol/L (22-30); Chloride 109 mmol/L (98-107); Estimated Creatinine Clearance 69 ml/min; Glucose 107 mg/dl (70-99); Magnesium 2.2 mg/dl (1.6-2.3); Phosphorus 3.2 mg/dl (2.5-4.5); Potassium 5.3 mmol/L (3.5-5.1); Sodium 140 mmol/L (135-145); Total Bilirubin 0.5 mg/dl (0.2-1.3); Total Protein 5.9 g/dl (6.3-8.2); eGFR > 60.00
--- NOTE | 2025-01-17 06:56 | W.PN.GS2 ---
Addendum entered and electronically signed by Andrew Dumont MD 01/17/25 11:26:
Patient seen and examined.
No complaints. No reports of worsening abdominal pain, nausea, or vomiting. Continues to pass flatus and stools.
Gen: NAD
Abd: soft, NT/ND, non-peritoneal, midline dressing c/d/i
74 yo male p/w SBO taken to OR with ileus noted
POD#13 ex lap and repair of small bowel enterotomy
01/09 CT with small fluid collection at midline incision. Several valdemar removed and old blood evacuated. Cx sent and with no growth to date
Leukocytosis resolved
No fever since 01/10, VSS
H/H stable
Psychiatry following and adjusting meds.
No issues. No changes from GS perspective.
-- AUTOMOTIVE GENERAL MANAGER following, continue IDDSI 5 diet, thin liquids, crushed pills as tolerated
-- Pain control: Tylenol, Toradol, Oxycodone PRN
-- ABX as per ID
-- Appreciate psychiatry recs
-- OOB as able. PT/OT following
-- Continue local incisional care, will need senior care plan - likely outpatient follow-up with removal of valdemar 3 weeks post-op
-- Lovenox and SCDs for VTE ppx
-- Medical management as per primary team
-- OK to transfer to [facility]
Original Note:
Today's Communication / Plan
-
The patient's leukocytosis is resolved with a value of 9.3 on 01/17/2025. Patient's ileus appears to be slowly resolving as he continues to pass flatus. Patient continues to have low stool output but this may be due to slowly resolving ileus or
recent resumption of oral intake. Abdomen not distended. Dressing in place without any oozing or irritation. Continue IDDSI 5 minced and moist diet as per AUTOMOTIVE GENERAL MANAGER recommendations.
Assessment / Plan
-
74 yo male p/w SBO taken to OR with ileus noted
POD#13 ex lap and repair of small bowel enterotomy
01/09 CT with small fluid collection at midline incision. Several valdemar removed and old blood evacuated. Cx sent and with no growth to date
Leukocytosis resolved
No fever since 01/10, VSS
H/H stable
Psychiatry following and adjusting meds.
Ileus appears to be resolving, patient received enema which produced small amount of stool. Abdomen does not appear to be distended.
-- AUTOMOTIVE GENERAL MANAGER following, continue IDDSI 5 diet, thin liquids, crushed pills as tolerated
-- Hold on further TPN
-- Pain control: Tylenol, Toradol, Oxycodone PRN
-- ABX as per ID
-- Appreciate psychiatry recs
-- OOB as able. PT/OT following
-- Continue local incisional care
-- Lovenox and SCDs for VTE ppx
-- Medical management as per primary team
-- OK to transfer to [facility]
Subjective Data
-
Date of Service: January 17, 2025
Met with the patient at the bedside. He was resting in bed comfortably watching television. Patient was able to engage in the encounter and was answering questions coherently. Patient states that he believes he has been passing flatus but cannot
recall if he has had a bowel movement. He states that his stomach is a little uncomfortable but he is not feeling any sharp pain or acute discomfort. He has mild irritation of the skin near the incision site when he touches it but he thinks that
it is healing. Patient polite and cooperative throughout entire encounter. Patient has received an enema because he felt constipated and there was no stool output. Enema produced only a small amount of stool.
Objective Data
-
Intake and Output
01/15/25 01/16/25 01/17/25
06:59 06:59 06:59
Intake Total 1428 / 1428 1228 / 1228 620 / 620
Output Total 50 / 50 200 / 200
Balance 1378 / 1378 1228 / 1228 420 / 420
Intake:
Oral fluids 840 / 840 540 / 540 620 / 620
IV fluids (Total) 100 / 100
TPN/PPN 588 / 588 588 / 588
Output:
Urine, Voided 50 / 50 200 / 200
Other:
How many times incontinent 1 1 2
MODERATE amount urine
How many times incontinent 1 1 2
SATURATED amount urine
Number of unmeasured liquid
stools
Rectum 1
Vital Signs
Temp Pulse Resp BP Pulse Ox
98.0 F 73 16 138/88 96
01/16/25 23:51 01/17/25 06:00 01/17/25 06:00 01/17/25 06:00 01/17/25 04:03
Lab Results
01/17/25 04:34
01/17/25 04:34
Calcium 8.8 mg/dl (8.4-10.2) 01/17/25 04:34
Phosphorus 3.2 mg/dl (2.5-4.5) 01/17/25 04:34
Magnesium 2.2 mg/dl (1.6-2.3) 01/17/25 04:34
Total Bilirubin 0.5 mg/dl (0.2-1.3) 01/17/25 04:34
AST 83 U/L (17-59) H 01/17/25 04:34
ALT 79 U/L (0-50) H 01/17/25 04:34
Alkaline Phosphatase 143 U/L (38-126) H 01/17/25 04:34
Total Protein 5.9 g/dl (6.3-8.2) L 01/17/25 04:34
Albumin 3.0 g/dl (3.5-5.0) L 01/17/25 04:34
Physical Exam
-
Gen: NAD
Abd: soft, minimal tenderness, stable minimal distension, non-peritoneal, incision c/d/i - no erythema, ecchymosis around umbilicus, wound dressing in place with no active drainage
Patient has a weaver catheter: No
Patient has a central line: Yes
--- NOTE | 2025-01-17 08:02 | W.PN.HOSP.TC ---
Today's Communication/Plan
-
-Follow up Temperature curve
-Follow CBC, CMP, LDH
-IV Lasix
-Diet upgraded to IDDSI 6
Assessment / Plan
Assessment / Plan
#Sepsis, unclear as to etiology possibly due to PNA
-Completed 14 days course of meropenem on 01/16/25
-Vancomycin and Zosyn and micafungin have been discontinued
-Previous blood culture and wound culture resulted negative
-Leukocytosis improving gradually
-ID on board
-Suspected possible Relapse of Fever on clinically on 01/16/25 by ID: Checking for a possible source of infection-influenza negative/ CXR unremarkable/ UA unremarkable
-No fever spikes since 01/10-01/16
-Leukocytosis resolved
#Ileus
-Resolved
-S/p ex lap with small bowel enterotomy
-S/p NGT, removed on 01/11
-Evaled by speech rec IDDSI 5-tolerating well his diet
-TPN discontinued by surgery team on 01/16
-PICC line removed-continue IV meds with peripheral arterial line on 01/16
-Meds planned to switch to oral form
-Follow for refeeding syndrome, Daily Ca, Phos, Mg and K
#TME likely multifactorial in the setting of sepsis and underlying psychiatric disorders
-Improving
-Psychiatry on board adjusting neuropsychiatric agents
-Continue Seroquel 25 mg
-Added Wellbutrin 100 mg
#Hyperkalemia
-K was found 5.3 this a.m.
-LDH ordered
-IV Lasix 20 mg was ordered
-Follow BMP
#Hyponatremia and MARIA ISABEL Resolved
#Transaminitis
-Improving
-Likely related to sepsis, viral panel negative
-Avoid hepatotoxin
Plan for palliative home visits after discharge.
PT/OT recommending rehab
Anticipated Discharge: 24 - 48 hours
Subjective/Interval History
-
Date of Service: January 17, 2025
Patient was found in his bed awake alert and oriented. He denied chest and back pain but complained having some abdominal pain pointing his surgery area. Care team reports the patient is tolerating oral taking well
Objective Data
-
Labs:
Laboratory Results
01/17/25
04:34
WBC 9.3
Hgb 13.2
Hct 40.4
Plt Count 375
Sodium 140
Potassium 5.3 H
Chloride 109 H
Carbon Dioxide 24
BUN 34 H
Creatinine 0.9
Glucose 107 H
Calcium 8.8
Total Bilirubin 0.5
AST 83 H
ALT 79 H
Alkaline Phosphatase 143 H
Vital Signs:
Vital Signs
Temp Pulse Resp BP Pulse Ox
98.1 F 73 16 138/88 96
01/17/25 07:30 01/17/25 06:00 01/17/25 06:00 01/17/25 06:00 01/17/25 04:03
I&O
01/16/25 01/17/25 01/18/25
06:59 06:59 06:59
Intake Total 1228 / 1228 620 / 620
Output Total 200 / 200
Balance 1228 / 1228 420 / 420
Review of Systems
-
History Source: Patient
EENT: Reports No Symptoms Reported
Respiratory: Reports No Symptoms
Cardiac: Reports No Symptoms
Abdomen/GI: Reports Abdominal Pain (Mild tenderness on surgery area )
Genitourinary: Reports No Symptoms
Musculoskeletal: Reports Muscle Weakness
Skin: Reports No Symptoms
Neuro: Reports Weakness
Physical Exam
-
General: Well Developed, Well Nourished, Appears Chronically Ill and Obese
HEENT: Normocephalic and Atraumatic
Respiratory: Clear to Auscultation
Cardiac: Regular Rhythm and S1/S2
GI: Soft, Nontender (Mild tenderness on midabdominal area) and Nondistended
Musculoskeletal: No Clubbing, No Cyanosis and No Edema
Skin: Warm and Other (peripheral arterial line )
Neuro: Awake, Alert, Oriented and AO x 3
[2025-01-17] MEDS: COZAAR 100 MG PO (08:54)
[2025-01-17] MEDS: PROTONIX 40 MG PO (08:54)
[2025-01-17] MEDS: LOPRESSOR 25 MG PO ×2 (08:56→20:28)
[2025-01-17] MEDS: FLOMAX 0.4 MG PO (08:56)
[2025-01-17] MEDS: WELLBUTRIN SR (12 hour sustained release) 100 MG PO (08:56)
[2025-01-17] MEDS: DESENEX/MITRAZOL/ZEASORB 1 APPLIC TOPICAL ×2 (08:56→20:28)
[2025-01-17] MEDS: OASIS 2 SPRAY PO ×4 (08:57→21:20)
[2025-01-17] MEDS: NON-FORMULARY ITEM 4 PUMP TRANSDERM (09:52)
--- NOTE | 2025-01-17 10:37 | W.PN.ID1 ---
Date of Service
Date of Service: January 17, 2025
Today's Communication
- double lumen PICC in the right arm - would remove prior to dc
- follow up with PCP
Assessment / Plan
Fever
Leukocytosis improving
High grade SBO s/p 01/03 Diagnostic laparoscopy, exploratory laparotomy, repair small bowel enterotomy
Encephalopathy
Anxiety
- remained afebrile overnight
- UA negative, CXR no infiltrates, covid/influenza screens - negative
- no phlebitis on exam, surgical site appears clean
- completed 14 day course of meropenem yesterday
- double lumen PICC in the right arm - would remove prior to dc
- follow up with PCP
����������������������������������������������������������
Chief Complaint
-: Leukocytosis and Other
Subjective / Review of Systems
remained afebrile overnight
bp stable
no complaints
Vital Signs / Physical Exam
Vital Signs
Vital Signs
Temp Pulse Resp BP Pulse Ox
98.1 F 97 16 125/73 96
01/17/25 07:30 01/17/25 08:56 01/17/25 06:00 01/17/25 08:56 01/17/25 04:03
Physical Exam
Constitutional: No Acute Distress and Chronically Ill
Cardiovascular: Regular Rate and S1/S2; Negative Murmur or Rub
Pulmonary: Clear and Symmetric; Negative Wheezes or Rales
Gastrointestinal: Soft, Non Tender, Non Distended and Normal Bowel Sounds
Skin: Warm and Dry; Negative Rash or Jaundice
Objective Data
Lab Data
Lab Results
01/17/25 04:34
01/17/25 04:34
Estimated Creat Clear 69 ml/min 01/17/25 04:34
Lactic Acid 0.7 mmol/L (0.7-2.0) 01/11/25 05:26
Total Bilirubin 0.5 mg/dl (0.2-1.3) 01/17/25 04:34
AST 83 U/L (17-59) H 01/17/25 04:34
ALT 79 U/L (0-50) H 01/17/25 04:34
Alkaline Phosphatase 143 U/L (38-126) H 01/17/25 04:34
Most recent labs reviewed.
Micro Results:
01/16/25 11:18 Influenza Types A & B ([place]) - Final
Nasal Swab Negative for Influenza A & B, NAAT
Negative results must be combined with clinical observations
and patient history.
Nucleic Acid Amplification test (NAAT)performed on the
[employer] platform.
01/16/25 10:28 Influenza Types A & B ([place]) - Final
Nasal Swab Test repeatedly invalid.
Nucleic Acid Amplification test (NAAT)performed on the
[employer] NOW platform.
01/10/25 10:04 Wound Culture - Final
Hematoma No growth
Gram Stain - Final
01/10/25 10:22 Anaerobic Culture - Final
Hematoma NO ANAEROBES ISOLATED
01/09/25 10:16 Influenza Types A & B ([place]) - Final
Nasal Swab Negative for Influenza A & B, NAAT
Negative results must be combined with clinical observations
and patient history.
Nucleic Acid Amplification test (NAAT)performed on the
[employer] platform.
01/03/25 18:36 Blood Culture - Final
Blood/Venous No Growth - Final Report
01/03/25 18:32 Blood Culture - Final
Blood/Venous No Growth - Final Report
01/03/25 18:32 MRSA Screen - Final
Nose No Methicillin Resistant Staphylococcus aureus isolated.
01/03/25 18:32 Legionella Urinary Antigen - Final
Urine Negative for Legionella pneumophila Serogroup 1 antigen.
A negative result does not rule out the possiblity of
Legionella infection due to other serogroups or species of
Legionella. Clinical correlation is recommended.
Streptococcus pneumoniae Antigen (M - Final
Negative for Streptococcus pneumoniae antigen.
A negative result does not exclude infection with
Streptococcus pneumoniae. Clinical correlation is
recommended.
01/03/25 18:32 Influenza Types A & B ([place]) - Final
Nasal Swab Negative for Influenza A & B, NAAT
Negative results must be combined with clinical observations
and patient history.
Nucleic Acid Amplification test (NAAT)performed on the
[employer] platform.
12/29/24 17:21 Blood Culture - Final
Blood/Venous No Growth - Final Report
12/29/24 17:21 Blood Culture - Final
Blood/Venous No Growth - Final Report
01/09/25 AXR: Several dilated bowel loops seen within the left lower quadrant.
01/09/25 CT a/p: Dilated loops of proximal to mid small bowel with normal caliber distal small bowel, although a focal isolated transition zone is not demonstrated. Findings most likely represent an adynamic ileus. A partial small bowel obstruction
is still possible. As warranted, follow-up abdominal radiographs may be helpful to assess progression of intraluminal GI contrast through the bowel. Midline anterior abdominal and pelvic scar with skin valdemar. There is some soft tissue density
within the anterior abdominal and pelvic wall underlying the skin valdemar, including a rounded component. This may suggest hematoma/blood products. No evidence for a focal fluid collection at this time.Small amount of fluid in the posterior lower
right hemithorax, with mild loculation. Parenchymal opacity within both lower lobes, most likely atelectasis, although pneumonia is also possible. Moderate distention of the rectum with stool, transverse dimension of 6.4 cm. No evidence for
stercoral colitis.
[2025-01-17] MEDS: ROXICODONE 5 MG PO ×2 (11:44→17:51)
--- NOTE | 2025-01-17 14:06 | W.PN.UPDATE ---
Update Note
Progress Note Update
I saw and evaluated the patient. I reviewed the resident�s note and agree with findings and plan as documented in the resident�s note.
Sepsis, unclear as to etiology but likely related to PNA,
-ID managing antibiotics and help appreciated
-Repeat infection workup negative. No further fever episode.
-Patient finished 14 days of meropenem therapy
-Repeat blood culture if patient starts to having fever again
Ileus - resolved
S/p ex lap with small bowel enterotomy
-S/p NGT, removed on 01/11
-Patient finished course of TPN
-Will need to follow for refeeding syndrome, Daily Ca, Phos, Mg and K
-Surgery was able to take some valdemar and drain hematoma - cx thus far negative
TME likely multifactorial in the setting of sepsis
Psychiatric disorders
Psychiatry adjusted neuropsychiatric agents and started Seroquel
Hyponatremia
MARIA ISABEL
-resolved
Hyperkalemia
-Hold IAN/ARB
-Change diet to low potassium diet
-IV Lasix 20 mg once
Dysphagia
-Patient cleared for IDDSI 6 diet
Transaminitis
-Likely related to sepsis, viral panel negative
-Avoid hepatotoxins.
Total time spent : 39mins
--- NOTE | 2025-01-17 14:24 | PTCARENOTE ---
Attempt to call report pt still in room and not leaving till 430. wcb
[2025-01-17] MEDS: LASIX 20 MG IV (14:53)
--- NOTE | 2025-01-17 16:41 | PTCARENOTE ---
Report to 4th floor
--- NOTE | 2025-01-17 17:15 | PTCARENOTE ---
01/17- Patient transferred and oriented to unit without issue. MedSurg. Patient is currently AAOX3 but flat affect, anxious, mildly diaphoretic in the face, but VSS. Skin Warm/[place] with +Pulses/Sensation X4 with Cap Refill<[id number]. Abdominal
dressing on surgical site CDI, freshly changed today by IMU RN. Testosterone creamsX2 placed in Lock Drawer witnessed by IMU RN. Patient c/o 10 tender pain at surgical site. Will administer PRN pain medication as ordered. Continue to monitor.
[2025-01-17] MEDS: LOVENOX 40 MG SC (17:46)
[2025-01-17] MEDS: MIRALAX 17 GRAMS PO (17:47)
[2025-01-17] MEDS: SEROQUEL 25 MG PO (21:23)
[2025-01-18 03:56] VITALS: BMI 29.4
[2025-01-18 07:00] VITALS: BP 130/68
--- NOTE | 2025-01-18 07:17 | W.PN.HOSP.TC ---
Today's Communication/Plan
-
- Follow BMP, CBC
-Follow neurology recc
-Follow psychiatry recc
-Neurology cons
Assessment / Plan
Assessment / Plan
#Sepsis, unclear as to etiology possibly due to PNA
-Completed 14 days course of meropenem on 01/16/25
-Vancomycin and Zosyn and micafungin had been discontinued
-Previous blood culture and wound culture resulted negative
-ID on board
-Suspected possible Relapse of Fever on clinically on 01/16/25 by ID: Checking for a possible source of infection-influenza negative/ CXR unremarkable/ UA unremarkable
-No fever spikes since 01/10
-Leukocytosis resolved since 01/17
#Ileus
-Resolved
-S/p ex lap with small bowel enterotomy-POD #14
-S/p NGT, removed on 01/11
-Surgery team on board
-Evaled by speech rec IDDSI 5-tolerating well his diet
-TPN discontinued by surgery team on 01/16
-PICC line removed-continue IV meds with peripheral arterial line on 01/16
-Meds switched to oral form
-Follow for refeeding syndrome, Daily Ca, Phos, Mg and K
#TME likely multifactorial in the setting of sepsis and underlying psychiatric disorders
-Improving
-Psychiatry on board adjusting neuropsychiatric agents
-Continue Seroquel 25 mg
-Continue Wellbutrin 100 mg
#Rigidity and tremor
-Hx of Right Basal Ganglia Stroke
-Amantadine 100 mg as home med?
-Unclear history of Parkinson
-Neurology was consulted
#Hyperkalemia
-Resolved
-Follow BMP
#Hyponatremia and MARIA ISABEL Resolved
#Transaminitis
-Improving
-Likely related to sepsis, viral panel negative
-Avoid hepatotoxin
Plan for palliative home visits after discharge.
PT/OT recommending rehab
Anticipated Discharge: 24 - 48 hours
Subjective/Interval History
-
Date of Service: January 18, 2025
Patient reports some abdominal discomfort on his surgery area. Otherwise denies chest pain and back pain. He was found awake, alert and oriented this morning. The patient had difficulty to drink and feed himself likely due to his rigidity and
resting tremor.
Objective Data
-
Labs:
Laboratory Results
01/18/25
06:14
WBC Pending
Hgb Pending
Hct Pending
Plt Count Pending
Sodium Pending
Potassium Pending
Chloride Pending
Carbon Dioxide Pending
BUN Pending
Creatinine Pending
Glucose Pending
Calcium Pending
Total Bilirubin Pending
AST Pending
ALT Pending
Alkaline Phosphatase Pending
Vital Signs:
Vital Signs
Temp Pulse Resp BP Pulse Ox
98.1 F 85 18 113/68 98
01/17/25 23:05 01/17/25 23:05 01/17/25 23:05 01/17/25 23:05 01/17/25 23:05
I&O
01/17/25 01/18/25 01/19/25
06:59 06:59 06:59
Intake Total 620 / 620 240 / 240
Output Total 200 / 200
Balance 420 / 420 240 / 240
Review of Systems
-
History Source: Patient
EENT: Reports No Symptoms Reported
Respiratory: Reports No Symptoms
Cardiac: Reports No Symptoms
Abdomen/GI: Reports Other (Abdominal discomfort on surgery area)
Genitourinary: Reports No Symptoms
Musculoskeletal: Reports Muscle Weakness
Skin: Reports No Symptoms
Neuro: Reports No Symptoms
Endocrine: Reports No Symptoms
Physical Exam
-
General: Well Developed, Well Nourished, Appears Chronically Ill and Obese
HEENT: Normocephalic and Atraumatic
Respiratory: Clear to Auscultation
Cardiac: Regular Rhythm and S1/S2
GI: Soft, Nondistended and Tender (Mild tenderness on midabdominal area)
Musculoskeletal: No Clubbing, No Cyanosis and No Edema
Skin: Warm
Neuro: Awake, Alert, Oriented, AO x 3 and Other
Psych: Calm
[2025-01-18 07:20] LABS: Hematocrit 41.1 % (39.0-52.0); Hemoglobin 13.6 g/dL (13.0-18.0); Mean Corp Hgb Conc. 33.1 g/dL (33.0-37.0); Mean Corpuscular Hgb 31.9 pg (27.0-31.0); Mean Corpuscular Volume 96.3 fL (80.0-94.0); Mean Platelet Volume 11.2 fL (7.4-10.4); Platelet Count 405 10^3/uL (130-400); Red Blood Cell Count 4.27 10^6/uL (4.70-6.10); Red Cell Dist. Width 14.2 % (11.5-14.5); White Blood Cell Count 9.5 10^3/uL (4.8-10.8)
[2025-01-18 07:59] LABS: ALT (SGPT) 72 U/L (0-50); AST (SGOT) 80 U/L (17-59); Albumin 3.4 g/dl (3.5-5.0); Alkaline Phosphatase 155 U/L (38-126); Blood Urea Nitrogen 41 mg/dl (9-20); Calcium 9.1 mg/dl (8.4-10.2); Carbon Dioxide 26 mmol/L (22-30); Chloride 104 mmol/L (98-107); Estimated Creatinine Clearance 52 ml/min; Glucose 119 mg/dl (70-99); LDH 230 U/L (120-246); Magnesium 2.3 mg/dl (1.6-2.3); Sodium 138 mmol/L (135-145); Total Bilirubin 0.5 mg/dl (0.2-1.3); Total Protein 6.4 g/dl (6.3-8.2); eGFR > 60.00
[2025-01-18 09:08] VITALS: BP 136/71; PULSE 98
[2025-01-18] MEDS: FLOMAX 0.4 MG PO (09:14)
[2025-01-18] MEDS: WELLBUTRIN SR (12 hour sustained release) 100 MG PO (09:15)
[2025-01-18] MEDS: LOPRESSOR 25 MG PO ×2 (09:15→21:12)
[2025-01-18] MEDS: PROTONIX 40 MG PO (09:15)
[2025-01-18] MEDS: CHLORASEPTIC/SORE THROAT SPRAY 1 SPRAY PO (09:16)
[2025-01-18] MEDS: DESENEX/MITRAZOL/ZEASORB 1 APPLIC TOPICAL ×2 (09:16→21:13)
[2025-01-18] MEDS: OASIS 2 SPRAY PO ×4 (09:20→21:13)
[2025-01-18 09:21] VITALS: BP 136/71; PULSE 98; O2SAT 96
[2025-01-18] MEDS: NON-FORMULARY ITEM 4 PUMP TRANSDERM (09:24)
--- NOTE | 2025-01-18 10:13 | W.PN.GS2 ---
Addendum entered and electronically signed by Madhu Xavier MD 01/18/25 14:46:
I saw and examined the patient.
The resident's note was reviewed and I agree with the note.
Comment: Continues to improve. Does not participate in encounter. Endorses abd pain when asked, unclear how reliable his answers are. OOBTC, sallie PO with help feeding from his caregivers, passing BMs, midline incision cdi with opening appearing
healthy without drainage, dressing changed. Cont daily packing changes with saline wet-to-dry. GS will s/o. For outpt f/u 11/26 in my office for wound check and staple removal
Original Note:
Today's Communication / Plan
-
Patient is tolerating his pur�ed diet. Continues to pass flatus and most recent stool was loose. Appreciate FLEXO PRESS OPERATOR recommendations in regards to diet. Continue medical management as per hospitalists. This patient will need outpatient follow-up with
plan to remove valdemar approximately 3 weeks postop if the incisional wound is healing adequately.
Assessment / Plan
-
74 yo male p/w SBO taken to OR with ileus noted
POD#14 ex lap and repair of small bowel enterotomy
01/09 CT with small fluid collection at midline incision. Several valdemar removed and old blood evacuated. Cx sent and with no growth to date
Leukocytosis resolved
No fever since 01/10, VSS
H/H stable
Psychiatry following and adjusting meds.
Ileus appears to be resolving, patient received enema which produced small amount of stool. Abdomen does not appear to be distended.
-- FLEXO PRESS OPERATOR following, continue IDDSI 5 diet, thin liquids, crushed pills as tolerated
-- Hold on further TPN
-- Pain control: Tylenol, Toradol, Oxycodone PRN
-- ABX as per ID
-- Appreciate psychiatry recs
-- OOB as able. PT/OT following
-- Continue local incisional care -this patient will need outpatient follow-up with plan to remove valdemar approximately 3 weeks postop if the incisional wound is healing adequately.
-- Lovenox and SCDs for VTE ppx
-- Medical management as per primary team
Subjective Data
-
Date of Service: January 18, 2025
Met with patient at the bedside. He is calm and comfortable lying in bed. Patient was able to participate in the encounter and stated that he was feeling better than he was last week. He has mild irritation and pain at the incisional site only on
palpation. He stated that he had vomited within the last 24 hours but upon asking nursing staff it appears that this may not be the case. Patient does not feel nausea at the present time. Tolerating his pur�ed diet.
Objective Data
-
Intake and Output
01/17/25 01/18/25 01/19/25
06:59 06:59 06:59
Intake Total 620 / 620 240 / 240
Output Total 200 / 200
Balance 420 / 420 240 / 240
Intake:
Oral fluids 620 / 620 240 / 240
Output:
Urine, Voided 200 / 200
Other:
How many times incontinent 2
MODERATE amount urine
How many times incontinent 2 1
SATURATED amount urine
Vital Signs
Temp Pulse Resp BP Pulse Ox
97.5 F 90 22 130/68 98
01/18/25 07:00 01/18/25 09:15 01/18/25 07:00 01/18/25 09:15 01/18/25 07:00
Lab Results
01/18/25 06:14
01/18/25 06:14
Calcium 9.1 mg/dl (8.4-10.2) 01/18/25 06:14
Phosphorus 4.0 mg/dl (2.5-4.5) 01/18/25 06:14
Magnesium 2.3 mg/dl (1.6-2.3) 01/18/25 06:14
Total Bilirubin 0.5 mg/dl (0.2-1.3) 01/18/25 06:14
AST 80 U/L (17-59) H 01/18/25 06:14
ALT 72 U/L (0-50) H 01/18/25 06:14
Alkaline Phosphatase 155 U/L (38-126) H 01/18/25 06:14
Total Protein 6.4 g/dl (6.3-8.2) 01/18/25 06:14
Albumin 3.4 g/dl (3.5-5.0) L 01/18/25 06:14
Physical Exam
-
Gen: NAD
Abd: soft, minimal tenderness, stable minimal distension, non-peritoneal, incision c/d/i - no erythema, ecchymosis around umbilicus, wound dressing in place with no active drainage
Patient has a weaver catheter: No
Patient has a central line: Yes
--- NOTE | 2025-01-18 11:56 | W.PN.UPDATE ---
Update Note
Progress Note Update
patient seen chart reviewed. discussed with nursing. 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 abbey for his partner and partner's d at bedside this am. he is awake sitting
in chair. more or less alert. he made one spontaneous comment that he does not smoke anymore which was out of the blue. nursing reports he cannot feed himself. he had three drinks in front of him and asked for something to drink . he is notable
rigid with signficant cogwheeling rigidity at wrists. resting tremor. mask like facies and his psychiatrist told me he had noted rigidity aircraft captain assumed it was from risperdal and added amantadine which may have contributed to his ileus which is
resolved. would suggest neuro consult which i communicated to dr thomas and perhaps neuro might suggest mri. stopped seroquel even though it has less eps than other antipsychotics it still can have some and not clear he needs any type of sedation
at this point. he last had ativan on january 16. still using some oxycodone will follow
--- NOTE | 2025-01-18 14:19 | W.PN.ID1 ---
Date of Service
Date of Service: January 18, 2025
Today's Communication
- completed 14 day course of meropenem 01/16
- double lumen PICC in the right arm - would remove prior to dc
- follow up with PCP
Assessment / Plan
Leukocytosis resolved
High grade SBO s/p 01/03 Diagnostic laparoscopy, exploratory laparotomy, repair small bowel enterotomy
Encephalopathy
Anxiety
- completed 14 day course of meropenem 01/16
- double lumen PICC in the right arm - would remove prior to dc
- follow up with PCP
����������������������������������������������������������
Chief Complaint
-: Leukocytosis and Other
Subjective / Review of Systems
afebrile
bp stable
no events overnight
Vital Signs / Physical Exam
Vital Signs
Vital Signs
Temp Pulse Resp BP Pulse Ox
97.5 F 90 22 130/68 98
01/18/25 07:00 01/18/25 09:15 01/18/25 07:00 01/18/25 09:15 01/18/25 09:00
Physical Exam
Constitutional: No Acute Distress
Cardiovascular: Regular Rate and S1/S2; Negative Murmur or Rub
Pulmonary: Clear and Symmetric; Negative Wheezes or Rales
Gastrointestinal: Soft, Non Tender, Non Distended and Normal Bowel Sounds
Skin: Warm and Dry; Negative Rash or Jaundice
Objective Data
Lab Data
Lab Results
01/18/25 06:14
01/18/25 06:14
Estimated Creat Clear 52 ml/min 01/18/25 06:14
Lactic Acid 0.7 mmol/L (0.7-2.0) 01/11/25 05:26
Total Bilirubin 0.5 mg/dl (0.2-1.3) 01/18/25 06:14
AST 80 U/L (17-59) H 01/18/25 06:14
ALT 72 U/L (0-50) H 01/18/25 06:14
Alkaline Phosphatase 155 U/L (38-126) H 01/18/25 06:14
Most recent labs reviewed.
Micro Results:
01/16/25 11:18 Influenza Types A & B ([place]) - Final
Nasal Swab Negative for Influenza A & B, NAAT
Negative results must be combined with clinical observations
and patient history.
Nucleic Acid Amplification test (NAAT)performed on the
[employer] NOW platform.
01/16/25 10:28 Influenza Types A & B ([place]) - Final
Nasal Swab Test repeatedly invalid.
Nucleic Acid Amplification test (NAAT)performed on the
[employer] NOW platform.
01/10/25 10:04 Wound Culture - Final
Hematoma No growth
Gram Stain - Final
01/10/25 10:22 Anaerobic Culture - Final
Hematoma NO ANAEROBES ISOLATED
01/09/25 10:16 Influenza Types A & B ([place]) - Final
Nasal Swab Negative for Influenza A & B, NAAT
Negative results must be combined with clinical observations
and patient history.
Nucleic Acid Amplification test (NAAT)performed on the
[employer] NOW platform.
01/03/25 18:36 Blood Culture - Final
Blood/Venous No Growth - Final Report
01/03/25 18:32 Blood Culture - Final
Blood/Venous No Growth - Final Report
01/03/25 18:32 MRSA Screen - Final
Nose No Methicillin Resistant Staphylococcus aureus isolated.
01/03/25 18:32 Legionella Urinary Antigen - Final
Urine Negative for Legionella pneumophila Serogroup 1 antigen.
A negative result does not rule out the possiblity of
Legionella infection due to other serogroups or species of
Legionella. Clinical correlation is recommended.
Streptococcus pneumoniae Antigen (M - Final
Negative for Streptococcus pneumoniae antigen.
A negative result does not exclude infection with
Streptococcus pneumoniae. Clinical correlation is
recommended.
01/03/25 18:32 Influenza Types A & B ([place]) - Final
Nasal Swab Negative for Influenza A & B, NAAT
Negative results must be combined with clinical observations
and patient history.
Nucleic Acid Amplification test (NAAT)performed on the
[employer] platform.
12/29/24 17:21 Blood Culture - Final
Blood/Venous No Growth - Final Report
12/29/24 17:21 Blood Culture - Final
Blood/Venous No Growth - Final Report
01/09/25 AXR: Several dilated bowel loops seen within the left lower quadrant.
01/09/25 CT a/p: Dilated loops of proximal to mid small bowel with normal caliber distal small bowel, although a focal isolated transition zone is not demonstrated. Findings most likely represent an adynamic ileus. A partial small bowel obstruction
is still possible. As warranted, follow-up abdominal radiographs may be helpful to assess progression of intraluminal GI contrast through the bowel. Midline anterior abdominal and pelvic scar with skin valdemar. There is some soft tissue density
within the anterior abdominal and pelvic wall underlying the skin valdemar, including a rounded component. This may suggest hematoma/blood products. No evidence for a focal fluid collection at this time.Small amount of fluid in the posterior lower
right hemithorax, with mild loculation. Parenchymal opacity within both lower lobes, most likely atelectasis, although pneumonia is also possible. Moderate distention of the rectum with stool, transverse dimension of 6.4 cm. No evidence for
stercoral colitis.
--- NOTE | 2025-01-18 14:29 | CM ---
Chart reviewed and pillowcase folder reviewed updated PT/OT notes, if patient continues to need skilled patient may require level II unless patient qualifies for 30 exemption. Per caregiver and partner, patient was at [facility] for 30 days last
year.
Plan; To follow with patient progress possible skilled placement. Level II.
[2025-01-18 15:00] VITALS: BP 116/66
--- NOTE | 2025-01-18 15:46 | CON.NEURO ---
Consultation
Order
Date of Consultation: 01/18/25
Requesting Provider:Donavon Bell MD
Reason for Consult: Parkinsonism
Neurology Consultation Note.
HPI: This is a 74-year-old man who presented to [facility] on 12/29/2024 with abdominal pain and distention.
Neurology consultation was requested for evaluation and management of suspected parkinsonism.
The patient complains of feeling 'full of water' and expresses nausea, stating he feels 'sick of food.'
EKG:NSR, QTc Int : 472 ms
PDMP:Clonazepam 1 Mg 60 tablets filled in on 11/13/2024, Dextroamp-Amphetam 7.5 Mg Tab 90 tablets filled in on 12/19/2024
CT head wo contrast(01/08/2025) 2.6 cm arachnoid cyst in the right anterolateral frontal lobe region, stable old right basal ganglia infarct, mild to moderate subcortical, deep, and periventricular white matter low-attenuation, mild atrophy.
MAR: Quetiapine 25 mg nightly
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
use
PSH: Left inguinal hernia repair,
SH: Lives with a roommate, former smoker, retired, uses a walker for ambulation
FH: Unknown
All: Chlorpromazine, statins�intolerant
ROS: Positive for abdominal discomfort, difficulties with writing, and tremor
General: Well developed. In no acute distress.
Cardio: Regular rate and rhythm. Extremities are without cyanosis or edema.
Neuro:
Mental Status: Alert, oriented to name, [facility], 2024, season. Impaired attention and comprehension. Follows requests intermittently. Nonfluent no hemineglect.
Cranial Nerves: Pupils are equally round and reactive to light. Impaired upgaze. Blinks to threat bilaterally. Mild left facial weakness.
Motor: Increased motor tone in upper and lower extremities. Moves upper extremities antigravity and lower extremities within bed plane
Reflexes: Limited exam due to increased motor tone
Sensory: Limited due to encephalopathy
Coordination: Intermittent oral mandibular dyskinesia
Gait: deferred
Assessment and Plan:
I. 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
II. Encephalopathy (toxic, vascular)
III. History of right basal ganglia/globus pallidus stroke.
-Continue Telemetry monitoring
-Aspiration and fall precautions
-Continue Plavix 75 mg once a day for secondary stroke prevention
-LDL goal less than 100, hemoglobin A1c goal less than 7
-Please follow-up vitamin B12 level, folate and TFTs tion, such as smoking cessation, exercise, and diet
-Avoid medications with dopamine blocking properties
-OP Jackson scan and neurology follow-up
-Start Sinemet 25/100 0.5 tab 3 times daily with titration by 0.5 tablets every 1-2 days as tolerated
-PT
-DVT prophylaxis.
I personally reviewed all radiology and labs along with past medical records pertinent to current medical problems. Total time spent in patient care is 60 minutes.
Thank you for allowing us to participate in the care of this patient. We will continue to follow. Please do not hesitate to contact us with any questions or concerns.
Subjective/Objective
Subjective Data
Date of Service: January 18, 2025
Objective Data
Vital Signs
Temp Pulse Resp BP Pulse Ox
36.4 C 90 22 130/68 98
01/18/25 07:00 01/18/25 09:15 01/18/25 07:00 01/18/25 09:15 01/18/25 09:00
Lab Results
01/18/25 06:14
01/18/25 06:14
Sodium 138 mmol/L (135-145) 01/18/25 06:14
Potassium 5.0 mmol/L (3.5-5.1) 01/18/25 06:14
BUN 41 mg/dl (9-20) H 01/18/25 06:14
Glucose 119 mg/dl (70-99) H 01/18/25 06:14
Calcium 9.1 mg/dl (8.4-10.2) 01/18/25 06:14
Phosphorus 4.0 mg/dl (2.5-4.5) 01/18/25 06:14
Patient Allergies
chlorpromazine [From Thorazine] Allergy (Verified 12/29/24 14:50)
paralysis
Medications
-
Active Medications
Generic Name Dose Route Start Last Admin
Trade Name Freq PRN Reason Stop Dose Admin
Acetaminophen 650 mg 01/13/25 09:54
Acetaminophen (Oral Solution) 650 Mg/20.3 Ml Cup PO 02/10/25 09:53
Q4HPRN PRN
mild pain
Artificial Tears 1 drops 01/08/25 04:45 01/12/25 15:01
Artificial Tears Pf (Refresh) 10 Drop Droperette OPHTH 02/05/25 04:44 1 drops
QIDPRN PRN Administration
dry eyes
Bupropion HCl 100 mg 01/17/25 08:00 01/18/25 09:15
Bupropion (12hr) Sustained Release 100 Mg Tablet PO 02/14/25 07:59 100 mg
DAILY BASIL Administration
Dextrose 12.5 grams 01/09/25 14:00
Dextrose 50% (0.5 Grams/Ml) 50 Ml Syringe IV 02/06/25 13:59
[id number] PRN
hypoglycemia
Protocol
Enoxaparin Sodium 40 mg 12/30/24 18:00 01/17/25 17:46
Enoxaparin Sodium 40 Mg/0.4 Ml Syringe SC 01/27/25 17:59 40 mg
QPM BASIL Administration
Glucagon 1 mg 01/09/25 14:00
Glucagon 1 Mg Vial IM 02/06/25 13:59
PRN PRN
hypoglycemia - no IV access
Protocol
Hydralazine HCl 5 mg 01/02/25 13:01 01/13/25 13:06
Hydralazine 20 Mg/Ml Vial IV 01/30/25 13:00 5 mg
Q6HPRN PRN Administration
SBP more than 165
Lorazepam 0.5 mg 12/29/24 21:38 01/16/25 20:19
Lorazepam 2 Mg/Ml Vial IV 01/26/25 21:37 0.5 mg
Q4HPRN PRN Administration
anxiety
Losartan Potassium 100 mg 01/17/25 08:00 01/17/25 08:54
Losartan 100 Mg Tablet PO 02/14/25 07:59 100 mg
DAILY BASIL Administration
Metoprolol Tartrate 25 mg 01/16/25 20:00 01/18/25 09:15
Metoprolol 25 Mg Regular Release Tablet PO 02/13/25 19:59 25 mg
BID BASIL Administration
Miconazole Nitrate 0 applic 12/29/24 21:38 01/18/25 09:16
Miconazole Powder Bottle TOPICAL 01/26/25 21:37 1 applic
BID BASIL Administration
Testosterone 20.25 0 pump 12/30/24 08:00 01/18/25 09:24
Mg/1.25 Gram (1.62 % TRANSDERM 01/27/25 07:59 4 pump
) Gel 4 Pumps Daily DAILY BASIL Administration
Ondansetron HCl 4 mg 01/16/25 10:06
Ondansetron 4 Mg/2 Ml Vial IV 02/13/25 10:05
Q6HPRN PRN
NAUSEA/VOMITING
Oxycodone HCl 5 mg 01/14/25 12:00 01/17/25 17:51
Oxycodone 5 Mg Regular Release Tablet PO 01/28/25 11:59 5 mg
Q6HPRN PRN Administration
severe pain
Pantoprazole Sodium 40 mg 01/17/25 08:00 01/18/25 09:15
Pantoprazole 40 Mg Delayed Release Tablet PO 02/14/25 07:59 40 mg
DAILY BASIL Administration
Phenol 0 spray 12/31/24 19:49 01/18/25 09:16
Chloraseptic (1.4% Phenol) Throat [place] PO 01/28/25 19:48 1 spray
Q2HPRN PRN Administration
throat irritation
Polyethylene Glycol 17 grams 01/14/25 18:00 01/17/25 17:47
Polyethylene Glycol Powder 17 Grams Packet PO 02/11/25 17:59 17 grams
QPM BASIL Administration
Saliva Substitute 2 spray 01/11/25 15:00 01/18/25 14:26
Saliva Substitute ([place]) Mouth [place] PO 02/08/25 14:59 2 spray
QID BASIL Administration
Sodium Chloride 0 flush 12/29/24 22:00 01/10/25 17:53
Sodium Chloride 0.9% (Flush) Syringe IV 01/26/25 21:59 2 flush
PER PROTOCOL BASIL Administration
Sodium Chloride 0.25 ml 12/29/24 21:38 01/16/25 20:20
Nss (Pf) 10 Ml Vial For Ativan 0.5 Mg Dose IV 01/26/25 21:37 0.25 ml
Q4HPRN PRN Administration
IV LORAZEPAM DILUTION
Tamsulosin HCl 0.4 mg 01/16/25 17:00 01/18/25 09:14
Tamsulosin 0.4 Mg Capsule PO 02/13/25 16:59 0.4 mg
DAILY BASIL Administration
Home Medications
�Medication �Instructions �Recorded
tadalafil 5 mg tablet 5 mg PO QPM BPH 01/19/24
tamsulosin 0.4 mg capsule 0.4 mg PO HS BPH 01/19/24
testosterone 4 pump transdermal DAILY 01/19/24
Hypogonadism
amantadine HCl 100 mg tablet 100 mg PO DAILY Parkinsons symptoms 12/29/24
atorvastatin 80 mg tablet (Lipitor) 80 mg PO QPM High Cholesterol 12/29/24
bupropion HCl 100 mg tablet,12 hr 100 mg PO DAILY Mental 12/29/24
sustained-release (Wellbutrin SR) Health/Anxiety
buspirone 10 mg tablet 10 mg PO DAILY Mental 12/29/24
Health/Anxiety
clonazepam 1 mg tablet 0.5 mg PO BID Mental Health/Anxiety 12/29/24
coenzyme Q10 100 mg capsule 200 mg PO DAILY Supplement 12/29/24
(CoQ-10)
dextroamphetamine-amphetamine 7.5 7.5 mg PO TID Mental Health/Anxiety 12/29/24
mg tablet (Adderall)
diphenhydramine 25 2 tab PO HS PAIN/SLEEP 12/29/24
mg-acetaminophen 500 mg tablet
(Acetaminophen PM)
doxepin 100 mg capsule 100 mg PO HS Mental Health/Anxiety 12/29/24
glucosamine-chondroitin 250 mg-200 1 tab PO DAILY Supplement 12/29/24
mg tablet (Osteo Bi-Flex)
losartan 100 mg tablet 100 mg PO DAILY Blood Pressure 12/29/24
oxcarbazepine 150 mg tablet 150 mg PO BID Mental Health/Anxiety 12/29/24
risperidone 2 mg tablet (Risperdal) 2 mg PO HS Mental Health/Anxiety 12/29/24
therapeutic multivitamin 1 tab PO DAILY Supplement 12/29/24
venlafaxine 75 mg capsule,extended 75 mg PO DAILY Mental 12/29/24
release 24 hr (Effexor XR) Health/Anxiety
aspirin 81 mg chewable tablet 81 mg PO DAILY Blood Clot 12/30/24
Prevention/Tx
Vital Signs and Labs
-
Vital Signs and Labs:
Vital Signs
Temp Pulse Resp BP Pulse Ox
36.4 C 90 22 130/68 98
01/18/25 07:00 01/18/25 09:15 01/18/25 07:00 01/18/25 09:15 01/18/25 09:00
Lab Results
01/18/25 06:14
01/18/25 06:14
Sodium 138 mmol/L (135-145) 01/18/25 06:14
Potassium 5.0 mmol/L (3.5-5.1) 01/18/25 06:14
BUN 41 mg/dl (9-20) H 01/18/25 06:14
Glucose 119 mg/dl (70-99) H 01/18/25 06:14
Calcium 9.1 mg/dl (8.4-10.2) 01/18/25 06:14
Phosphorus 4.0 mg/dl (2.5-4.5) 01/18/25 06:14
Medications
-
Medications:
Generic Name Dose Route Start Last Admin
Trade Name Freq PRN Reason Stop Dose Admin
Acetaminophen 650 mg 01/13/25 09:54
Acetaminophen (Oral Solution) 650 Mg/20.3 Ml Cup PO 02/10/25 09:53
Q4HPRN PRN
mild pain
Artificial Tears 1 drops 01/08/25 04:45 01/12/25 15:01
Artificial Tears Pf (Refresh) 10 Drop Droperette OPHTH 02/05/25 04:44 1 drops
QIDPRN PRN Administration
dry eyes
Bupropion HCl 100 mg 01/17/25 08:00 01/18/25 09:15
Bupropion (12hr) Sustained Release 100 Mg Tablet PO 02/14/25 07:59 100 mg
DAILY BASIL Administration
Dextrose 12.5 grams 01/09/25 14:00
Dextrose 50% (0.5 Grams/Ml) 50 Ml Syringe IV 02/06/25 13:59
[id number] PRN
hypoglycemia
Protocol
Enoxaparin Sodium 40 mg 12/30/24 18:00 01/17/25 17:46
Enoxaparin Sodium 40 Mg/0.4 Ml Syringe SC 01/27/25 17:59 40 mg
QPM BASIL Administration
Glucagon 1 mg 01/09/25 14:00
Glucagon 1 Mg Vial IM 02/06/25 13:59
PRN PRN
hypoglycemia - no IV access
Protocol
Hydralazine HCl 5 mg 01/02/25 13:01 01/13/25 13:06
Hydralazine 20 Mg/Ml Vial IV 01/30/25 13:00 5 mg
Q6HPRN PRN Administration
SBP more than 165
Lorazepam 0.5 mg 12/29/24 21:38 01/16/25 20:19
Lorazepam 2 Mg/Ml Vial IV 01/26/25 21:37 0.5 mg
Q4HPRN PRN Administration
anxiety
Losartan Potassium 100 mg 01/17/25 08:00 01/17/25 08:54
Losartan 100 Mg Tablet PO 02/14/25 07:59 100 mg
DAILY BASIL Administration
Metoprolol Tartrate 25 mg 01/16/25 20:00 01/18/25 09:15
Metoprolol 25 Mg Regular Release Tablet PO 02/13/25 19:59 25 mg
BID BASIL Administration
Miconazole Nitrate 0 applic 12/29/24 21:38 01/18/25 09:16
Miconazole Powder Bottle TOPICAL 01/26/25 21:37 1 applic
BID BASIL Administration
Testosterone 20.25 0 pump 12/30/24 08:00 01/18/25 09:24
Mg/1.25 Gram (1.62 % TRANSDERM 01/27/25 07:59 4 pump
) Gel 4 Pumps Daily DAILY BASIL Administration
Ondansetron HCl 4 mg 01/16/25 10:06
Ondansetron 4 Mg/2 Ml Vial IV 02/13/25 10:05
Q6HPRN PRN
NAUSEA/VOMITING
Oxycodone HCl 5 mg 01/14/25 12:00 01/17/25 17:51
Oxycodone 5 Mg Regular Release Tablet PO 01/28/25 11:59 5 mg
Q6HPRN PRN Administration
severe pain
Pantoprazole Sodium 40 mg 01/17/25 08:00 01/18/25 09:15
Pantoprazole 40 Mg Delayed Release Tablet PO 02/14/25 07:59 40 mg
DAILY BASIL Administration
Phenol 0 spray 12/31/24 19:49 01/18/25 09:16
Chloraseptic (1.4% Phenol) Throat [place] PO 01/28/25 19:48 1 spray
Q2HPRN PRN Administration
throat irritation
Polyethylene Glycol 17 grams 01/14/25 18:00 01/17/25 17:47
Polyethylene Glycol Powder 17 Grams Packet PO 02/11/25 17:59 17 grams
QPM BASIL Administration
Saliva Substitute 2 spray 01/11/25 15:00 01/18/25 14:26
Saliva Substitute ([place]) Mouth [place] PO 02/08/25 14:59 2 spray
QID BASIL Administration
Sodium Chloride 0 flush 12/29/24 22:00 01/10/25 17:53
Sodium Chloride 0.9% (Flush) Syringe IV 01/26/25 21:59 2 flush
PER PROTOCOL BASIL Administration
Sodium Chloride 0.25 ml 12/29/24 21:38 01/16/25 20:20
Nss (Pf) 10 Ml Vial For Ativan 0.5 Mg Dose IV 01/26/25 21:37 0.25 ml
Q4HPRN PRN Administration
IV LORAZEPAM DILUTION
Tamsulosin HCl 0.4 mg 01/16/25 17:00 01/18/25 09:14
Tamsulosin 0.4 Mg Capsule PO 02/13/25 16:59 0.4 mg
DAILY BASIL Administration
Home Medications
-
Home Medications
tadalafil 5 mg tablet 5 mg PO QPM BPH 01/19/24
tamsulosin 0.4 mg capsule 0.4 mg PO HS BPH 01/19/24
testosterone 4 pump transdermal DAILY Hypogonadism 01/19/24
amantadine HCl 100 mg tablet 100 mg PO DAILY Parkinsons symptoms 12/29/24
atorvastatin 80 mg tablet (Lipitor) 80 mg PO QPM High Cholesterol 12/29/24
bupropion HCl 100 mg tablet,12 hr sustained-release (Wellbutrin SR) 100 mg PO DAILY Mental Health/Anxiety 12/29/24
buspirone 10 mg tablet 10 mg PO DAILY Mental Health/Anxiety 12/29/24
clonazepam 1 mg tablet 0.5 mg PO BID Mental Health/Anxiety 12/29/24
coenzyme Q10 100 mg capsule (CoQ-10) 200 mg PO DAILY Supplement 12/29/24
dextroamphetamine-amphetamine 7.5 mg tablet (Adderall) 7.5 mg PO TID Mental Health/Anxiety 12/29/24
diphenhydramine 25 mg-acetaminophen 500 mg tablet (Acetaminophen PM) 2 tab PO HS PAIN/SLEEP 12/29/24
doxepin 100 mg capsule 100 mg PO HS Mental Health/Anxiety 12/29/24
glucosamine-chondroitin 250 mg-200 mg tablet (Osteo Bi-Flex) 1 tab PO DAILY Supplement 12/29/24
losartan 100 mg tablet 100 mg PO DAILY Blood Pressure 12/29/24
oxcarbazepine 150 mg tablet 150 mg PO BID Mental Health/Anxiety 12/29/24
risperidone 2 mg tablet (Risperdal) 2 mg PO HS Mental Health/Anxiety 12/29/24
therapeutic multivitamin 1 tab PO DAILY Supplement 12/29/24
venlafaxine 75 mg capsule,extended release 24 hr (Effexor XR) 75 mg PO DAILY Mental Health/Anxiety 12/29/24
aspirin 81 mg chewable tablet 81 mg PO DAILY Blood Clot Prevention/Tx 12/30/24
[2025-01-18] MEDS: LOVENOX 40 MG SC (17:24)
[2025-01-18] MEDS: MIRALAX 17 GRAMS PO (17:25)
[2025-01-18] MEDS: ZOFRAN 4 MG IV (19:58)
[2025-01-18] MEDS: SINEMET 25-100 0.5 TABLET PO (21:13)
[2025-01-18 22:07] LABS: Folate 12.4 ng/ml (2.76-20)
[2025-01-18 22:17] LABS: TSH Reflex To Free T4 2.36 uIU/ml (0.47-4.68); Vitamin B12 846 pg/ml (239-931)
[2025-01-18 23:05] VITALS: BP 136/75
[2025-01-19 06:00] VITALS: BMI 29.7
--- NOTE | 2025-01-19 06:10 | W.PN.HOSP.TC ---
Addendum entered and electronically signed by Donavon Bell MD 01/20/25 10:28:
Patient will require less than 30days at [facility] and patient's behavioral is stable.
Addendum entered and electronically signed by Donavon Bell MD 01/19/25 14:02:
I saw and evaluated the patient. I reviewed the resident�s note and agree with findings and plan as documented in the resident�s note.
Sepsis, unclear as to etiology but likely related to PNA
-Patient currently off of antibiotics, continue monitor.
-Repeat infection workup negative. No further fever episode.
-Patient finished 14 days of meropenem therapy
-Repeat blood culture if patient starts to having fever again
Ileus - resolved
S/p ex lap with small bowel enterotomy
-S/p NGT, removed on 01/11
-Patient finished course of TPN
-Will need to follow for refeeding syndrome, Daily Ca, Phos, Mg and K
-Surgery was able to take some valdemar and drain out
-remains on dys diet .
TME likely multifactorial in the setting of sepsis - Improved
Psychiatric disorders
Psychiatry adjusted neuropsychiatric agents and started Seroquel
No current behavioral issues.
Hyponatremia
MARIA ISABEL
-resolved
Hyperkalemia - Improved
-Hold IAN/ARB, got lasix as wll
-Change diet to low potassium diet
Dysphagia
-Patient cleared for IDDSI 6 diet
Transaminitis - improving
-Likely related to sepsis, viral panel negative
-Avoid hepatotoxins.
Discharge planning for snf rehab
Original Note:
Today's Communication/Plan
-
- Started Plavix
-Started Sinemet
-Follow up CMP and CBC
Assessment / Plan
Assessment / Plan
Assessment: Ms Worthy is a 74-year-old male who was admitted to hospital in 12/29 with abdominal pain and vomiting, initial CT suggestive of small bowel obstruction and pneumonia. His bowel obstruction was considered secondary to his antipsychotic
medications. Therefore his medications was changed by psychiatry. He failed conservative management for small bowel obstruction and had a repeat CT on 01/01 which was suggestive of persistent bowel obstruction. The patient underwent to laparotomy
on 01/03/25. Postsurgery he developed hypoxia and increasing oxygen requirement for which he was transferred to the ICU. Following abdominal surgery, he was placed on NG tube suction and maintained on TPN until started tolerating oral taking.
Additionally,the patient had been noted to have bilateral pneumonia at admission with a suspicion secondary to aspiration. He also developed toxic metabolic encephalopathy likely secondary to combination of sepsis and his underlying mental
disorders. The patient gradually recovered from the abdominal surgery and started to tolerate oral taking. His pneumonia gradually resolved and did not require any antibiotic treatments since 01/16/2025. His mental status also improved gradually
but he was not able to continue to have a meaningful conversation. Given his CVA and questionable Parkinson, he was seen by neurology and started on Sinemet and Plavix.
#Sepsis, unclear as to etiology possibly due to PNA
-Completed 14 days course of meropenem on 01/16/25
-Vancomycin and Zosyn and micafungin had been discontinued
-Previous blood culture and wound culture resulted negative
-ID on board--PICC line ordered to remove
-Suspected possible Relapse of Fever on clinically on 01/16/25 by ID: Checking for a possible source of infection-influenza negative/ CXR unremarkable/ UA unremarkable
-No fever spikes since 01/10
-Leukocytosis resolved
#Ileus
-Resolved
-S/p ex lap with small bowel enterotomy-POD #15
-S/p NGT, removed on 01/11
-Surgery will follow at OP seting to remove the staplers and check wound
-Evaled by speech rec IDDSI 6-tolerating well his diet
-TPN discontinued by surgery team on 01/16
-PICC line removed-continue IV meds with peripheral arterial line on 01/16
-Meds switched to oral form
-Follow for refeeding syndrome, Daily Ca, Phos, Mg and K
#TME likely multifactorial in the setting of sepsis and underlying psychiatric disorders
-Improving
-Psychiatry on board adjusting neuropsychiatric agents
-Continue Seroquel 25 mg
-Continue Wellbutrin 100 mg
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
-Neurology on board
-Rigidity and tremor
-Started on Sinemet on 01/18/25
-Avoid medications with dopamine blocking properties
-Continue plavix by neurology
-Outpatient neurology follow up
#Hyperkalemia
-Resolved
-Follow BMP
#Hyponatremia and MARIA ISABEL Resolved
#Transaminitis
-Improving
-Likely related to sepsis, viral panel negative
-Avoid hepatotoxin
Plan for palliative home visits after discharge.
PT/OT recommending rehab
operations support manager is working on his discharge placement
Anticipated Discharge: 24 - 48 hours
Subjective/Interval History
-
Date of Service: January 19, 2025
The patient was seen in his bed awake, alert and oriented. He complained some abdominal discomfort pointing at his surgical site. Surgical site was seen clean without any signs of infection.
Objective Data
-
Labs:
Laboratory Results
01/19/25
06:00
WBC Pending
Hgb Pending
Hct Pending
Plt Count Pending
Sodium Pending
Potassium Pending
Chloride Pending
Carbon Dioxide Pending
BUN Pending
Creatinine Pending
Glucose Pending
Calcium Pending
Total Bilirubin Pending
AST Pending
ALT Pending
Alkaline Phosphatase Pending
Vital Signs:
Vital Signs
Temp Pulse Resp BP Pulse Ox
98.2 F 102 16 136/75 97
01/18/25 23:05 01/18/25 23:05 01/18/25 23:05 01/18/25 23:05 01/18/25 23:05
I&O
01/17/25 01/18/25 01/19/25
06:59 06:59 06:59
Intake Total 620 / 620 240 / 240 480 / 480
Output Total 200 / 200
Balance 420 / 420 240 / 240 480 / 480
Review of Systems
-
History Source: Patient
EENT: Reports Dry Eyes
Respiratory: Reports No Symptoms
Cardiac: Reports No Symptoms
Abdomen/GI: Reports Other (Abdominal discomfort)
Genitourinary: Reports No Symptoms
Musculoskeletal: Reports Other (Generalized muscle weakness)
Skin: Reports No Symptoms
Neuro: Reports No Symptoms
Endocrine: Reports No Symptoms
Physical Exam
-
General: Well Developed, Well Nourished and Appears Chronically Ill
HEENT: Normocephalic, Atraumatic, Moist Mucous Membranes and Other (Bilateral hyperemic conjuktiva)
Respiratory: Clear to Auscultation
Cardiac: Regular Rhythm and S1/S2
GI: Soft, Nontender, Nondistended, Normal Bowel Sounds and Other (Abdominal discomfort to palpation on mid abdominal area)
Musculoskeletal: No Clubbing, No Cyanosis and No Edema
Skin: Warm, IV Access / Catheter Site (Peripheral IV line) and Other (Surgical site on abdominal area with staplers)
Neuro: Awake, Alert, Oriented, AO x 3 and Other (Generalized weakness)
Psych: Calm
[2025-01-19 07:00] VITALS: BP 134/69
[2025-01-19 08:01] LABS: Hematocrit 39.5 % (39.0-52.0); Hemoglobin 13.1 g/dL (13.0-18.0); Mean Corp Hgb Conc. 33.2 g/dL (33.0-37.0); Mean Corpuscular Hgb 31.8 pg (27.0-31.0); Mean Corpuscular Volume 95.9 fL (80.0-94.0); Mean Platelet Volume 11.1 fL (7.4-10.4); Platelet Count 383 10^3/uL (130-400); Red Blood Cell Count 4.12 10^6/uL (4.70-6.10); Red Cell Dist. Width 14.1 % (11.5-14.5); White Blood Cell Count 10.3 10^3/uL (4.8-10.8)
[2025-01-19] MEDS: REFRESH EYE DROPS (PF) 1 DROPS OPHTH (10:03)
[2025-01-19] MEDS: ROXICODONE 5 MG PO (10:03)
[2025-01-19] MEDS: WELLBUTRIN SR (12 hour sustained release) 100 MG PO (10:03)
[2025-01-19] MEDS: FLOMAX 0.4 MG PO (10:04)
[2025-01-19] MEDS: LOPRESSOR 25 MG PO ×2 (10:04→21:05)
[2025-01-19] MEDS: PROTONIX 40 MG PO (10:05)
[2025-01-19] MEDS: DESENEX/MITRAZOL/ZEASORB 1 APPLIC TOPICAL ×2 (10:07→21:04)
[2025-01-19] MEDS: OASIS 2 SPRAY PO ×4 (10:07→21:05)
[2025-01-19 10:08] LABS: ALT (SGPT) 18 U/L (0-50); AST (SGOT) 77 U/L (17-59); Albumin 3.4 g/dl (3.5-5.0); Alkaline Phosphatase 160 U/L (38-126); Blood Urea Nitrogen 42 mg/dl (9-20); Calcium 8.9 mg/dl (8.4-10.2); Carbon Dioxide 25 mmol/L (22-30); Chloride 103 mmol/L (98-107); Estimated Creatinine Clearance 52 ml/min; Glucose 111 mg/dl (70-99); Potassium 4.9 mmol/L (3.5-5.1); Sodium 138 mmol/L (135-145); Total Bilirubin 0.6 mg/dl (0.2-1.3); Total Protein 6.4 g/dl (6.3-8.2); eGFR > 60.00
[2025-01-19] MEDS: SINEMET 25-100 0.5 TABLET PO ×3 (10:08→21:05)
[2025-01-19] MEDS: NON-FORMULARY ITEM 4 PUMP TRANSDERM (10:29)
[2025-01-19] MEDS: CILOXAN 0.3% OPHTHALMIC SOLUTION 1 DROP OPHTH ×4 (10:30→21:05)
[2025-01-19] MEDS: PLAVIX 75 MG PO (10:32)
--- NOTE | 2025-01-19 11:59 | W.PN.UPDATE ---
Update Note
Progress Note Update
patient seen chart reviewed. spoke with nursing. dr colon's note appreciated. patient does have PD as well as a stroke in the region of the globus pallidus. he has been started on sinemet. i did note a bit more facial expression even at this
early stage. he continues to struggle w communicating but he was a bit more interactive. he told me the names of his partner and partner's d and told me she is 'my safety advisor' he did not infrequently revert to 'i am sick help me' . would continue w
meds as they are for now. hopefully his sensorium will start to clear. will follow
[2025-01-19] MEDS: ZOFRAN 4 MG IV (12:12)
[2025-01-19 15:00] VITALS: BP 132/59
--- NOTE | 2025-01-19 16:05 | CM ---
Chart reviewed and case technician spoke with admissions at [facility] and they can accept patient tomorrow, no Auth required, patient will be an exception and therefore physician will need to document 30 day exception in his note, physician
made aware, PASRR will need signed.
Plan; Skilled placement at [facility] tomorrow.
[2025-01-19] MEDS: MIRALAX 17 GRAMS PO (16:34)
[2025-01-19] MEDS: LOVENOX 40 MG SC (16:34)
--- NOTE | 2025-01-19 17:24 | W.PN.ID1 ---
Date of Service
Date of Service: January 19, 2025
Today's Communication
- completed 14 day course of meropenem 01/16
- double lumen PICC in the right arm - would remove prior to dc
- possible conjunctivitis of the R eye - erythromycin ointment x 5-7 days
- follow up with PCP
Assessment / Plan
Leukocytosis resolved
High grade SBO s/p 01/03 Diagnostic laparoscopy, exploratory laparotomy, repair small bowel enterotomy
Encephalopathy
Anxiety
- completed 14 day course of meropenem 01/16
- double lumen PICC in the right arm - would remove prior to dc
- possible conjunctivitis of the R eye - erythromycin ointment x 5-7 days
- follow up with PCP
����������������������������������������������������������
Chief Complaint
-: Leukocytosis and Other
Subjective / Review of Systems
afebrile
bp stable
conjunctivitis of the right eye with purulent drainage
remains confused
Vital Signs / Physical Exam
Vital Signs
Vital Signs
Temp Pulse Resp BP Pulse Ox
97.9 F 86 18 132/59 98
01/19/25 15:00 01/19/25 15:00 01/19/25 15:00 01/19/25 15:00 01/19/25 15:00
Physical Exam
Constitutional: No Acute Distress
Head: Other (conjunctivitis of the right eye with purulent drainage)
Cardiovascular: Regular Rate and S1/S2; Negative Murmur or Rub
Pulmonary: Clear and Symmetric; Negative Wheezes or Rales
Gastrointestinal: Soft, Non Tender, Non Distended and Normal Bowel Sounds
Skin: Warm and Dry; Negative Rash or Jaundice
Objective Data
Lab Data
Lab Results
01/19/25 07:12
01/19/25 07:12
Estimated Creat Clear 52 ml/min 01/19/25 07:12
Lactic Acid 0.7 mmol/L (0.7-2.0) 01/11/25 05:26
Total Bilirubin 0.6 mg/dl (0.2-1.3) 01/19/25 07:12
AST 77 U/L (17-59) H 01/19/25 07:12
ALT 18 U/L (0-50) 01/19/25 07:12
Alkaline Phosphatase 160 U/L (38-126) H 01/19/25 07:12
Most recent labs reviewed.
Micro Results:
01/16/25 11:18 Influenza Types A & B ([place]) - Final
Nasal Swab Negative for Influenza A & B, NAAT
Negative results must be combined with clinical observations
and patient history.
Nucleic Acid Amplification test (NAAT)performed on the
[employer] platform.
01/16/25 10:28 Influenza Types A & B ([place]) - Final
Nasal Swab Test repeatedly invalid.
Nucleic Acid Amplification test (NAAT)performed on the
[employer] platform.
01/10/25 10:04 Wound Culture - Final
Hematoma No growth
Gram Stain - Final
01/10/25 10:22 Anaerobic Culture - Final
Hematoma NO ANAEROBES ISOLATED
01/09/25 10:16 Influenza Types A & B ([place]) - Final
Nasal Swab Negative for Influenza A & B, NAAT
Negative results must be combined with clinical observations
and patient history.
Nucleic Acid Amplification test (NAAT)performed on the
[employer] platform.
01/03/25 18:36 Blood Culture - Final
Blood/Venous No Growth - Final Report
01/03/25 18:32 Blood Culture - Final
Blood/Venous No Growth - Final Report
01/03/25 18:32 MRSA Screen - Final
Nose No Methicillin Resistant Staphylococcus aureus isolated.
01/03/25 18:32 Legionella Urinary Antigen - Final
Urine Negative for Legionella pneumophila Serogroup 1 antigen.
A negative result does not rule out the possiblity of
Legionella infection due to other serogroups or species of
Legionella. Clinical correlation is recommended.
Streptococcus pneumoniae Antigen (M - Final
Negative for Streptococcus pneumoniae antigen.
A negative result does not exclude infection with
Streptococcus pneumoniae. Clinical correlation is
recommended.
01/03/25 18:32 Influenza Types A & B ([place]) - Final
Nasal Swab Negative for Influenza A & B, NAAT
Negative results must be combined with clinical observations
and patient history.
Nucleic Acid Amplification test (NAAT)performed on the
[employer] platform.
12/29/24 17:21 Blood Culture - Final
Blood/Venous No Growth - Final Report
12/29/24 17:21 Blood Culture - Final
Blood/Venous No Growth - Final Report
01/09/25 AXR: Several dilated bowel loops seen within the left lower quadrant.
01/09/25 CT a/p: Dilated loops of proximal to mid small bowel with normal caliber distal small bowel, although a focal isolated transition zone is not demonstrated. Findings most likely represent an adynamic ileus. A partial small bowel obstruction
is still possible. As warranted, follow-up abdominal radiographs may be helpful to assess progression of intraluminal GI contrast through the bowel. Midline anterior abdominal and pelvic scar with skin valdemar. There is some soft tissue density
within the anterior abdominal and pelvic wall underlying the skin valdemar, including a rounded component. This may suggest hematoma/blood products. No evidence for a focal fluid collection at this time.Small amount of fluid in the posterior lower
right hemithorax, with mild loculation. Parenchymal opacity within both lower lobes, most likely atelectasis, although pneumonia is also possible. Moderate distention of the rectum with stool, transverse dimension of 6.4 cm. No evidence for
stercoral colitis.
[2025-01-19] MEDS: ERYTHROMYCIN 0.5% OPHTHALMIC OINTMENT 1 APPLIC OPHTH ×2 (19:50→21:05)
[2025-01-19 23:22] VITALS: BP 131/74
[2025-01-20] MEDS: CILOXAN 0.3% OPHTHALMIC SOLUTION 1 DROP OPHTH ×3 (03:17→11:21)
--- NOTE | 2025-01-20 07:02 | W.PN.HOSP.TC ---
Today's Communication/Plan
-
-Discharge
Assessment / Plan
Assessment / Plan
Assessment: Ms Worthy is a 74-year-old male who was admitted to hospital in 12/29 with abdominal pain and vomiting, initial CT suggestive of small bowel obstruction and pneumonia. His bowel obstruction was considered secondary to his antipsychotic
medications. Therefore his medications was changed by psychiatry. He failed conservative management for small bowel obstruction and had a repeat CT on 01/01 which was suggestive of persistent bowel obstruction. The patient underwent to laparotomy
on 01/03/25. Postsurgery he developed hypoxia and increasing oxygen requirement for which he was transferred to the ICU. Following abdominal surgery, he was placed on NG tube suction and maintained on TPN until started tolerating oral taking.
Additionally,the patient had been noted to have bilateral pneumonia at admission with a suspicion secondary to aspiration. He also developed toxic metabolic encephalopathy likely secondary to combination of sepsis and his underlying mental
disorders. The patient gradually recovered from the abdominal surgery and started to tolerate oral taking. His pneumonia gradually resolved and did not require any antibiotic treatments since 01/16/2025. His mental status also improved gradually
but he was not able to continue to have a meaningful conversation. Given his CVA and questionable Parkinson, he was seen by neurology and started on Sinemet and Plavix.
#Sepsis, unclear as to etiology possibly due to PNA
-Completed 14 days course of meropenem on 01/16/25
-Vancomycin and Zosyn and micafungin had been discontinued
-Previous blood culture and wound culture resulted negative
-ID on board-PICC line removed-continue IV meds with peripheral arterial line on 01/16
-Suspected possible Relapse of Fever on clinically on 01/16/25 by ID: Checking for a possible source of infection-influenza negative/ CXR unremarkable/ UA unremarkable
-No fever spikes since 01/10
-Leukocytosis resolved
#Ileus
-Resolved
-S/p ex lap with small bowel enterotomy-POD #15
-S/p NGT, removed on 01/11
-Surgery will follow at OP seting to remove the staplers and check wound
-Evaled by speech rec IDDSI 6-tolerating well his diet
-TPN discontinued by surgery team on 01/16
-PICC line removed-continue IV meds with peripheral arterial line on 01/16
-Meds switched to oral form
#TME likely multifactorial in the setting of sepsis and underlying psychiatric disorders
-Improving
-Psychiatry on board adjusting neuropsychiatric agents
-Continue Seroquel 25 mg
-Continue Wellbutrin 100 mg
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
-Neurology on board
-Rigidity and tremor
-Started on Sinemet on 01/18/25
-Avoid medications with dopamine blocking properties
-Continue plavix by neurology
-Outpatient neurology follow up
#Possible conjunctivitis
-Continue Cipro eye drp
-Continue saline eye drop for dry eyes
#Hyperkalemia
-Resolved
-Follow BMP
#HL
-Continue statin
#Hyponatremia and MARIA ISABEL Resolved
#Transaminitis
-Improving
-Likely related to sepsis, viral panel negative
PT/OT recommending rehab
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
Planned to discharge to Skilled placement at [facility]
-The patient will require less than 30 days at nursing facility. Patient`s symptoms and behaviors are stable
Anticipated Discharge: Today
Subjective/Interval History
-
Date of Service: January 20, 2025
The patient was seen in his bed awake, alert and oriented. He complained some abdominal discomfort. Surgical site was seen clean without any signs of infection.
Objective Data
-
Labs:
Laboratory Results
01/20/25
06:00
WBC Pending
Hgb Pending
Hct Pending
Plt Count Pending
Sodium Pending
Potassium Pending
Chloride Pending
Carbon Dioxide Pending
BUN Pending
Creatinine Pending
Glucose Pending
Calcium Pending
Total Bilirubin Pending
AST Pending
ALT Pending
Alkaline Phosphatase Pending
Vital Signs:
Vital Signs
Temp Pulse Resp BP Pulse Ox
97.0 F 96 16 131/74 95
01/19/25 23:22 01/19/25 23:22 01/19/25 23:22 01/19/25 23:22 01/19/25 23:22
I&O
01/19/25 01/20/25 01/21/25
06:59 06:59 06:59
Intake Total 600 / 600
Balance 600 / 600
Review of Systems
-
History Source: Patient
EENT: Reports Dry Eyes
Cardiac: Reports No Symptoms
Abdomen/GI: Reports Other (Abdominal discomfort)
Genitourinary: Reports No Symptoms
Musculoskeletal: Reports Other (Generalized muscle weakness)
Skin: Reports No Symptoms
Neuro: Reports No Symptoms
Physical Exam
-
General: Well Developed, Well Nourished and Appears Chronically Ill
HEENT: Normocephalic, Atraumatic, Moist Mucous Membranes and Other (Bilateral hyperemic conjuktiva)
Respiratory: Clear to Auscultation
Cardiac: Regular Rhythm and S1/S2
GI: Soft, Nontender and Nondistended
Musculoskeletal: No Clubbing, No Cyanosis and No Edema
Skin: Warm, IV Access / Catheter Site (Peripheral IV line) and Other (Surgical site on abdominal area with staplers)
[2025-01-20 07:30] VITALS: BP 136/76
[2025-01-20] MEDS: ERYTHROMYCIN 0.5% OPHTHALMIC OINTMENT 1 APPLIC OPHTH ×2 (08:25→12:04)
[2025-01-20] MEDS: DESENEX/MITRAZOL/ZEASORB 1 APPLIC TOPICAL (08:25)
[2025-01-20] MEDS: FLOMAX 0.4 MG PO (08:28)
[2025-01-20] MEDS: LOPRESSOR 25 MG PO (08:28)
[2025-01-20] MEDS: PLAVIX 75 MG PO (08:28)
[2025-01-20] MEDS: WELLBUTRIN SR (12 hour sustained release) 100 MG PO (08:29)
[2025-01-20] MEDS: SINEMET 25-100 0.5 TABLET PO (08:29)
[2025-01-20] MEDS: PROTONIX 40 MG PO (08:29)
[2025-01-20] MEDS: OASIS 2 SPRAY PO ×2 (08:30→12:04)
[2025-01-20 08:39] LABS: Hematocrit 38.4 % (39.0-52.0); Hemoglobin 12.8 g/dL (13.0-18.0); Mean Corp Hgb Conc. 33.3 g/dL (33.0-37.0); Mean Corpuscular Hgb 31.8 pg (27.0-31.0); Mean Corpuscular Volume 95.5 fL (80.0-94.0); Mean Platelet Volume 11.2 fL (7.4-10.4); Platelet Count 302 10^3/uL (130-400); Red Blood Cell Count 4.02 10^6/uL (4.70-6.10); Red Cell Dist. Width 13.9 % (11.5-14.5); White Blood Cell Count 8.6 10^3/uL (4.8-10.8)
[2025-01-20] MEDS: NON-FORMULARY ITEM 1 PUMP TRANSDERM (08:54)
[2025-01-20 09:17] LABS: ALT (SGPT) 32 U/L (0-50); AST (SGOT) 72 U/L (17-59); Albumin 3.5 g/dl (3.5-5.0); Alkaline Phosphatase 140 U/L (38-126); Blood Urea Nitrogen 31 mg/dl (9-20); Carbon Dioxide 26 mmol/L (22-30); Chloride 103 mmol/L (98-107); Estimated Creatinine Clearance 52 ml/min; Glucose 117 mg/dl (70-99); Potassium 4.9 mmol/L (3.5-5.1); Sodium 139 mmol/L (135-145); Total Bilirubin 0.6 mg/dl (0.2-1.3); Total Protein 6.4 g/dl (6.3-8.2); eGFR > 60.00
--- NOTE | 2025-01-20 10:07 | W.DCSUMMARY ---
Discharge Summary
Discharge Data
Date of Admission: 12/29/24
Date of Discharge: 01/20/25
-
Pending Results: No
Hospital Course
Disposition : Nursing Facility ---The patient will require less than 30 days at nursing facility
Primary care physician : Jerome Mcfadden MD
Principal Discharge diagnosis : Sepsis, Pneumonia, Small Bowel Obstruction, Ileus, toxic metabolic encephalopathy, hyperkalemia, hyponatremia, Parkinson, dysphagia, transaminitis, bilateral conjunctivitis
Chronic Discharge diagnosis : History of bipolar disorder, history of cerebrovascular accident, hypertension, hyperlipidemia
Hospital Course :
# Sepsis possibly secondary to pneumonia versus small bowel obstruction/ileus: The patient was admitted to hospital on 12/29/24 with abdominal pain and vomiting, initial CT found suggestive of small bowel obstruction and pneumonia. His bowel
obstruction was considered secondary to his antipsychotic medications. Therefore his medications was changed by psychiatry. He failed conservative management for small bowel obstruction and had a repeat CT on 01/01 which was suggestive of
persistent bowel obstruction. The patient underwent to laparotomy on 01/03/25. Postsurgery he developed hypoxia and increasing oxygen requirement for which he was transferred to the ICU. Following abdominal surgery, he was placed on NG tube
suction and maintained on TPN until started tolerating oral taking. Additionally,the patient had been noted to have bilateral pneumonia at admission with a suspicion secondary to aspiration. He also developed toxic metabolic encephalopathy likely
secondary to combination of sepsis and his underlying mental disorders. The patient gradually recovered from the abdominal surgery and started to tolerate oral taking. His pneumonia gradually resolved and did not require any antibiotic treatments
since 01/16/2025. His mental status also improved gradually and patient`s symptoms and behaviors became stable. He was recommended to be seen by general surgery on 01/24/25 to be assessed for his wound and removing his valdemar from abdominal
surgery. It was recommended to continue daily packing changes with saline wet-to-dry until seen by general surgery for follow-up.
# Toxic metabolic encephalopathy: His mental status changed was considered secondary to his sepsis and additionally having underlying psychiatric problems. He had follow-up with psychiatrist and his psychiatric medications were adjusted by
psychiatrist. Anticholinergic medications was considered the possible main reason having small bowel obstruction and psychiatry did not continue his some previous medications
# Electrolyte abnormalities(hyponatremia, hyperkalemia): Resolved with IV fluids.
#Dysphagia: The patient had difficulty with swallowing and he had follow-up assessments by speech therapist during the admission. He was recommended to continue IDDSI 6 level of diet.
#Parkinson: The patient was seen by neurology to assess his rigidity and tremor. He also has a history of CVA and ambulatory issues following his stroke. The patient was recommended to start Sinemet and Plavix.
# Transaminitis: It was considered that his elevation with LFTs happened possibly secondary to his sepsis. His liver enzymes gradually trended down and almost come back to normal levels. It was recommended to have a follow-up in a week with his
PCP to check his liver enzymes.
#Bilateral conjunctivitis: Patient started on Cipro eyedrop on 01/19/2025 and received 2 days of treatment at the hospital. He was prescribed this drop for additional 3 days at discharge. He needs to use it through 01/23/2025. Additionally he has
history of dry eyes and needed to use saline eyedrops to address that problem.
Important imaging findings :
Abdominal pelvis CT 12/29/2024
FINDINGS:
CHEST: The heart is mildly enlarged. There is mild calcification in the aortic valve. There is calcific atherosclerotic plaque in the coronary arteries and descending thoracic aorta. There is mild to moderate circumferential wall thickening in the
distal esophagus. The distal esophagus is mildly distended with fluid.
There is a moderate amount of airspace consolidation in the left lower lobe involving both the superior and basilar segments which is predominantly centrilobular. There is a moderate amount of airspace consolidation in the medial segment of the
right middle lobe containing air bronchograms. There is a mild amount of subpleural airspace consolidation in the posterior basilar right lower lobe and multiple calcified pulmonary granulomas in the posterior basilar segment of the right lower lobe
ABDOMEN: The liver is normal in size measuring 16.0 cm in length. There is mild diffusely decreased attenuation throughout the liver suggesting mild diffuse hepatic steatosis. There is a 7 mm cyst in the left lobe of the liver. The gallbladder is
mildly distended without evidence for abnormal wall thickening or pericholecystic inflammation. There is no abnormal intrahepatic or extrahepatic biliary dilatation. There is mild diffuse pancreatic parenchymal atrophy. The spleen is mildly enlarged
measuring 13.6 cm in length and contains multiple small calcified granulomas.
The adrenal glands appear normal. There is mild bilateral renal cortical volume loss. There is mild left perinephric fat stranding around both kidneys. There is no hydronephrosis in either kidney. There is severe calcific and soft atherosclerotic
plaque in the abdominal aorta. The infrarenal abdominal aorta measures 2.5 cm in AP dimension consistent with mild aneurysmal dilatation. There is no retroperitoneal or mesenteric lymphadenopathy.
The stomach is severely distended with fluid and air. The duodenum is mildly distended. There is severe fluid and air distention of jejunal small bowel loops throughout the left side of the abdomen measuring up to 4.9 cm diameter. There is an abrupt
transition between distended jejunal loops and completely collapsed ileal small bowel loops in the center of the abdomen consistent with a small bowel obstruction, probably secondary to an obstructing adhesive band.
There is a small umbilical hernia containing fat and a small amount of fluid. There is a small volume of ascites in the left paracolic gutter. There is no pneumoperitoneum.
PELVIS: The ileal small bowel loops are completely collapsed. The appendix is not clearly visualized. There is no abnormal proximal colonic distention or abnormal colonic wall thickening. There is moderate diverticulosis throughout the descending
and sigmoid colon. There is a moderate amount of fecal material in the mid and distal sigmoid colon and in the rectum. The rectum is distended to 5.2 cm in diameter.
The prostate gland is moderately enlarged. The seminal vesicles appear normal. There is mild diffuse thickening of the urinary bladder wall. There is no pelvic lymphadenopathy. There is a minimal amount of peritoneal fluid in the pelvis.
SKELETON: There is a mild right convex curvature of the midlumbar spine. There is mild right lateral listhesis of L3 on L4. There are mild retrolistheses of L2 on L3, L3 on L4, and L4 on L5. There is severe discogenic degenerative disease along the
left side of L2/L3 and moderate discogenic degenerative disease at L3/L4 and L4/L5. There is severe bilateral facet joint arthrosis at L5/S1. There is mild bilateral osteoarthritis of the sacroiliac joints and minimal bilateral osteoarthritis of the
hips.
IMPRESSION:
1. ACUTE SMALL BOWEL OBSTRUCTION with a transition point between severely distended proximal jejunal small bowel loops and completely collapsed ileal small bowel loops in the center of the abdomen (probably an obstructing adhesive band).
2. Severely distended stomach with suggestion of gastroesophageal reflux and reflux esophagitis in the distal esophagus.
3. Large left lower lobe airspace consolidation and moderate right middle lobe airspace consolidation most consistent with BILATERAL PNEUMONIA (possibly aspiration pneumonia).
4. Small volume ascites.
5. Severe atherosclerotic plaque in the abdominal aorta and fusiform infrarenal abdominal aortic aneurysm (2.5 cm diameter).
6. Mild splenomegaly.
7. Chronic granulomatous disease infection with calcified pulmonary and splenic granulomas.
8. Moderately enlarged prostate gland.
9. Severe discogenic degenerative disease in the lumbar spine.
Abdominal pelvis CT 01/01/2025
COMPARISON: CT of the abdomen and pelvis from December 29, 2024. Abdominal radiographs, the most recent from December 31, 2024.
FINDINGS: CT of the abdomen and pelvis is performed. Water-soluble contrast agent administered into the stomach through nasogastric tube. Administered contrast mainly remains within the stomach, small amount passing into the duodenum and proximal
jejunum, but not reaching mid to distal small bowel loops. Intravenous contrast was also given.
Minimal bilateral pleural effusions. Mild to moderate parenchymal opacity within the visualized posterior lower lungs, which is likely atelectasis. 2 calcifications are seen within the medial right lower lobe, one measuring approximately 1 cm on
image 4 of series 201, and the second measuring 4 mm on image 10 of series 201. These are likely benign calcified granulomas.
There is no significant pericardial effusion.
Nasogastric tube is present with its tip within the stomach.
Significant dilation of proximal to mid small bowel loops with collapsed distal ileum. Findings are compatible with small bowel obstruction. Transition appears to be in the central anterior abdomen, probably best seen on images 17 through 20 of
series 202. No evidence for an obstructing mass, and this is likely on the basis of adhesion.
There is mild edema within the mesentery adjacent to the small bowel loops, likely mild transudation of fluid.
There is however no significant free fluid within the pelvis.
Minimal amount of free fluid adjacent to the anterior margin of the liver. There is a minimal amount of free fluid adjacent to the spleen in the left upper quadrant as well. Minimal fluid in the hepatorenal fossa.
There is no evidence for free intraperitoneal air.
No focal abnormality of the gallbladder by CT with no evidence for biliary ductal dilation.
The liver appears normal.
Splenic calcifications compatible with previous granulomatous disease. No other abnormality of the spleen.
Both adrenal glands appear normal.
The pancreas appears within normal limits.
Central vascular calcifications involving the right renal hilum. No other focal abnormality of the kidneys. The visualized pelvicalyceal systems and ureters appear normal. The bladder appears normal. Mild calcifications within the prostate gland.
Moderate to severe atherosclerotic disease of the abdominal and pelvic vasculature, with no evidence for abdominal aortic aneurysm.
No significantly enlarged abdominal or pelvic lymph nodes are identified.
Mild dextroconvex scoliosis centered in the upper lumbar spine. Changes of degenerative disc disease, greatest at L2-3. Vacuum disc phenomenon at L2-3 and L3-4. Mild retrolisthesis at L4-5, L3-4, and L2-3. No evidence for spondylolisthesis or
spondylolysis.
Mild degenerative change of both hip joints. Minimal degenerative changes sacroiliac joints.
IMPRESSION: CT findings compatible with persistent small bowel obstruction which appears to be high-grade. Mild mesenteric edema with minimal fluid adjacent to the liver and spleen within the upper quadrants.
No evidence of free intraperitoneal air.
Minimal bilateral pleural effusions. Mild to moderate parenchymal opacity within the visualized lower lungs, most likely atelectasis, although pneumonia is also possible.
Two calcifications within the visualized medial right lower lobe, most likely calcified granulomas.
01/03/[address]
IMPRESSION: Moderate respiratory motion artifact which limits evaluation of the inferior segmental and subsegmental pulmonary arteries.
There is no evidence for central pulmonary embolism.
Minimal bilateral posterior pleural effusions.
Parenchymal opacity within the posterior aspect of both lower lobes is most likely atelectasis. However, there are additional patchy areas of focal airspace opacity within both lungs, and findings would suggest that there is bilateral pneumonia as
well
Because of the patchy distribution and the lack of Maximino B lines, this is probably not a patchy pulmonary edema pattern, although also considered because of the recent surgery.
Electronically signed by Dallas Lowery MD,
01/08/[address]
IMPRESSION:
No acute intracranial abnormality noted.
01/09/[address]
IMPRESSION: Status post surgery for small bowel obstruction.
Dilated loops of proximal to mid small bowel with normal caliber distal small bowel, although a focal isolated transition zone is not demonstrated. Findings most likely represent an adynamic ileus. A partial small bowel obstruction is still
possible. As warranted, follow-up abdominal radiographs may be helpful to assess progression of intraluminal GI contrast through the bowel.
Midline anterior abdominal and pelvic scar with skin valdemar. There is some soft tissue density within the anterior abdominal and pelvic wall underlying the skin valdemar, including a rounded component. This may suggest hematoma/blood products. No
evidence for a focal fluid collection at this time.
Small amount of fluid in the posterior lower right hemithorax, with mild loculation. Parenchymal opacity within both lower lobes, most likely atelectasis, although pneumonia is also possible.
Moderate distention of the rectum with stool, transverse dimension of 6.4 cm. No evidence for stercoral colitis.
01/16/2025 abdominal x-ray
FINDINGS:
Bowel: Intestinal bowel gas pattern is nonobstructive.
Soft tissues: No pathologic soft tissue calcification is seen.
Osseous structures: Degenerative changes are seen in the hips and lumbar spine.
01/16/2025 chest x-ray
FINDINGS:
There is no vascular congestion. There are no findings to suggest pneumonia. The heart is at least top normal in size. There is no pneumothorax, pleural effusion or mediastinal shift.
IMPRESSION:
No findings to suggest pneumonia.
Procedure findings :
01/03/25
Primary Surgeon: Duc
Assisting: Macy BOUCHER
Pre-op Diagnosis: Small bowel obstruction
Post-op Diagnosis: Ileus
Procedure Performed: Diagnostic laparoscopy, exploratory laparotomy, repair small bowel enterotomy
Anesthesia Type: GETA + TAP block
Specimen / Cultures: None
Estimated Blood Loss: 5cc
Complications: Small bowel enterotomy, repaired in 2 layers with 2-0 silk suture
Operative Findings: Distended viable small bowel, run from ligament of treitz to cecum without any stricture, adhesions or sign of mechanical obstruction; smooth taper noted from dilated to decompressed; 3mm enterotomy mid jejunum at the mesenteric
border repaired in 2 layers with 2-0 silk suture. 2mm serosal tear repaired with 2-0 silk lembert sutures. NGT palpated in stomach. 4L warm saline washout.
Discharge Plan
-
Patient Disposition: Fpc/SNF
Discharge Diagnosis/Procedures: Sepsis
Pneumonia
Small Bowel Obstruction
Ileus
TME
Bipolar Disorder
Parkinson
Hx of CVA
Dysphagia
Transaminitis
Diet: Other diet
Additional Diets: IDDSI 6 diet-Soft and Bite sized solids-thin liquids
Activity: With assistance
Driving Restrictions: No driving
Activity Restrictions/Additional Instructions:
Wound Care Instructions Penis Wound- Clean with normal saline or soap and water. Apply Vaseline to penis BID
Referrals:
Jerome Mcfadden MD [Family Provider] - (Please check CMP in a week with your PCP )
Madhu Xavier MD [Active] - 01/24/25 (for wound check and staple removal. Please have rehab facility contact my office to arrange)
Prescriptions:
New
ciprofloxacin HCl 0.3 % Drops
1 drp ophthalmic (eye) Q4H 3 Days Qty: 5 0RF
clopidogrel 75 mg Tablet
75 mg PO DAILY 60 Days Qty: 60 0RF
carbidopa-levodopa 25-100 mg Tablet
0.5 tab PO TID 60 Days Qty: 90 0RF
Continued
tamsulosin 0.4 mg Capsule
0.4 mg PO HS
testosterone 20.25 mg/1.25 gram (1.62 %) gel in metered-dose pump
4 pump transdermal DAILY
Patient Comments:
01/03/25: Per PDMP, last filled 11/30/24 for 300g
atorvastatin [Lipitor] 80 mg Tablet
80 mg PO QPM
therapeutic multivitamin Tablet
1 tab PO DAILY
bupropion HCl [Wellbutrin SR] 100 mg Tablet Sustained-Release 12 Hr
100 mg PO DAILY
losartan 100 mg Tablet
100 mg PO DAILY
coenzyme Q10 [CoQ-10] 100 mg Capsule
200 mg PO DAILY
glucosamine-chondroitin [Osteo Bi-Flex] 250-200 mg Tablet
1 tab PO DAILY
Discontinued
tadalafil 5 mg Tablet
5 mg PO QPM
amantadine HCl 100 mg Tablet
100 mg PO DAILY
dextroamphetamine-amphetamine [Adderall] 7.5 mg Tablet
7.5 mg PO TID
oxcarbazepine 150 mg Tablet
150 mg PO BID
venlafaxine [Effexor XR] 75 mg Capsule,Extended Release 24hr
75 mg PO DAILY
clonazepam 1 mg Tablet
0.5 mg PO BID
risperidone [Risperdal] 2 mg Tablet
2 mg PO HS
doxepin 100 mg Capsule
100 mg PO HS
buspirone [BuSpar] 10 mg Tablet
10 mg PO DAILY
diphenhydramine-acetaminophen [Acetaminophen PM] 25-500 mg Tablet
2 tab PO HS
aspirin 81 MG tablet,chewable
81 mg PO DAILY
Discharge Orders:
Discharge Patient (As Directed); Ordered 01/20/25
Ordered By: Donavon Bell
Discharge Date and Time
Print Language: TURKMEN
--- NOTE | 2025-01-20 11:02 | CM ---
Thirty day exemption documentation completed and placed on chart, PASRR also faxed to to [facility], bed is available at [facility] [place] today, partner is aware.
[facility]
Report [phone]
fax [phone]
Plan; Skilled placement at [facility] today.
[2025-01-20 11:15] VITALS: BP 153/77
--- NOTE | 2025-01-20 12:40 | W.PN.UPDATE ---
Addendum entered and electronically signed by Sudheer Peter MD 01/20/25 12:47:
re psychiatric issues.....would discharge patient only on his current psychotropic medications NOT the list he was taking [employer]. he will also need psychiatric followup after discharge.
Original Note:
Update Note
Progress Note Update
patient seen chart reviewed. discussed with case monitor. the patient seems to me to be better although still somewhat confused. his speech is stronger and more fluid but he seems to be stuck on certain themes. he was very concerned about squirrels in
his bmw.. now rodents eating up car wiring is not unheard of although this is an unusual topic to be paramount in his mind at this time. he told me squirrel repellent needs to be applied 'every five or six years' ....he also is very worried about
the bill he will be getting from . tried to reassure him that he need not worry about the bill particularly today and he should focus on getting well. he is going to [facility] today. he will need neuro followup in addition to the usual
medical care.
--- NOTE | 2025-01-20 12:56 | W.PN.ID1 ---
Date of Service
Date of Service: January 20, 2025
Today's Communication
Continue off antibiotics.
Assessment / Plan
Leukocytosis resolved
High grade SBO s/p 01/03 Diagnostic laparoscopy, exploratory laparotomy, repair small bowel enterotomy
Encephalopathy
Anxiety
- completed 14 day course of meropenem 01/16
- possible conjunctivitis of the R eye - erythromycin ointment x 5-7 days
- follow up with PCP
����������������������������������������������������������
Chief Complaint
-: Leukocytosis and Other
Subjective / Review of Systems
Review of Systems: No Fever
Vital Signs / Physical Exam
Vital Signs
Vital Signs
Temp Pulse Resp BP Pulse Ox
97.9 F 73 18 153/77 98
01/20/25 11:15 01/20/25 11:15 01/20/25 11:15 01/20/25 11:15 01/20/25 11:15
Physical Exam
Constitutional: No Acute Distress
Head: Other (conjunctivitis of the right eye with decreased purulent drainage)
Cardiovascular: Regular Rate and S1/S2; Negative S3/S4
Pulmonary: Clear and Symmetric; Negative Wheezes or Rales
Gastrointestinal: Soft, Non Tender, Non Distended and Normal Bowel Sounds
Skin: Warm and Dry; Negative Rash or Jaundice
Psychological: Calm
Objective Data
Lab Data
Lab Results
01/20/25 07:54
01/20/25 07:54
Estimated Creat Clear 52 ml/min 01/20/25 07:54
Lactic Acid 0.7 mmol/L (0.7-2.0) 01/11/25 05:26
Total Bilirubin 0.6 mg/dl (0.2-1.3) 01/20/25 07:54
AST 72 U/L (17-59) H 01/20/25 07:54
ALT 32 U/L (0-50) 01/20/25 07:54
Alkaline Phosphatase 140 U/L (38-126) H 01/20/25 07:54
Most recent labs reviewed.
Micro Results:
01/16/25 11:18 Influenza Types A & B ([place]) - Final
Nasal Swab Negative for Influenza A & B, NAAT
Negative results must be combined with clinical observations
and patient history.
Nucleic Acid Amplification test (NAAT)performed on the
[employer] NOW platform.
01/16/25 10:28 Influenza Types A & B ([place]) - Final
Nasal Swab Test repeatedly invalid.
Nucleic Acid Amplification test (NAAT)performed on the
[employer] NOW platform.
01/10/25 10:04 Wound Culture - Final
Hematoma No growth
Gram Stain - Final
01/10/25 10:22 Anaerobic Culture - Final
Hematoma NO ANAEROBES ISOLATED
01/09/25 10:16 Influenza Types A & B ([place]) - Final
Nasal Swab Negative for Influenza A & B, NAAT
Negative results must be combined with clinical observations
and patient history.
Nucleic Acid Amplification test (NAAT)performed on the
[employer] NOW platform.
01/03/25 18:36 Blood Culture - Final
Blood/Venous No Growth - Final Report
01/03/25 18:32 Blood Culture - Final
Blood/Venous No Growth - Final Report
01/03/25 18:32 MRSA Screen - Final
Nose No Methicillin Resistant Staphylococcus aureus isolated.
01/03/25 18:32 Legionella Urinary Antigen - Final
Urine Negative for Legionella pneumophila Serogroup 1 antigen.
A negative result does not rule out the possiblity of
Legionella infection due to other serogroups or species of
Legionella. Clinical correlation is recommended.
Streptococcus pneumoniae Antigen (M - Final
Negative for Streptococcus pneumoniae antigen.
A negative result does not exclude infection with
Streptococcus pneumoniae. Clinical correlation is
recommended.
01/03/25 18:32 Influenza Types A & B ([place]) - Final
Nasal Swab Negative for Influenza A & B, NAAT
Negative results must be combined with clinical observations
and patient history.
Nucleic Acid Amplification test (NAAT)performed on the
[employer] platform.
12/29/24 17:21 Blood Culture - Final
Blood/Venous No Growth - Final Report
12/29/24 17:21 Blood Culture - Final
Blood/Venous No Growth - Final Report
Imaging:
01/09/25 AXR: Several dilated bowel loops seen within the left lower quadrant.
01/09/25 CT a/p: Dilated loops of proximal to mid small bowel with normal caliber distal small bowel, although a focal isolated transition zone is not demonstrated. Findings most likely represent an adynamic ileus. A partial small bowel obstruction
is still possible. As warranted, follow-up abdominal radiographs may be helpful to assess progression of intraluminal GI contrast through the bowel. Midline anterior abdominal and pelvic scar with skin valdemar. There is some soft tissue density
within the anterior abdominal and pelvic wall underlying the skin valdemar, including a rounded component. This may suggest hematoma/blood products. No evidence for a focal fluid collection at this time.Small amount of fluid in the posterior lower
right hemithorax, with mild loculation. Parenchymal opacity within both lower lobes, most likely atelectasis, although pneumonia is also possible. Moderate distention of the rectum with stool, transverse dimension of 6.4 cm. No evidence for
stercoral colitis.
--- NOTE | 2025-01-23 10:25 | OR.RPT ---
Operative Report
Operative Report
Primary Surgeon: Duc
Assisting: Macy BOUCHER
Pre-op Diagnosis: Small bowel obstruction
Post-op Diagnosis: Ileus
Procedure Performed: Diagnostic laparoscopy, exploratory laparotomy, repair small bowel enterotomy
Anesthesia Type: GETA + TAP block
Specimen / Cultures: None
Estimated Blood Loss: 5cc
Complications: Small bowel enterotomy, repaired in 2 layers with 2-0 silk suture
Operative Findings: Distended viable small bowel, run from ligament of treitz to cecum without any stricture, adhesions or sign of mechanical obstruction; smooth taper noted from dilated to decompressed; 3mm enterotomy mid jejunum at the mesenteric
border repaired in 2 layers with 2-0 silk suture. 2mm serosal tear repaired with 2-0 silk lembert sutures. NGT palpated in stomach. 4L warm saline washout.
Date of Surgery: 01/03/25
Indications: This 74M developed a suspected small bowel obstruction that failed medical management. Diagnostic laparoscopy, possible exploratory laparotomy, possible small bowel resection was planned.
Description of procedure: The patient was placed on the operating table in the supine position. General anesthesia was induced. A time-out was completed verifying correct patient, procedure, site, positioning, and special equipment prior to
beginning this procedure. An nasogastric tube was placed. The abdomen was prepped and draped in the usual sterile fashion. A stab incision was made in left upper quadrant and the Veress needle was inserted. Proper position was confirmed by
aspiration and saline meniscus test. The abdomen was insufflated with carbon dioxide to a pressure of 12 mmHg. The patient tolerated insufflation well.
A 5mm optical trocar was then inserted at the left lower quadrant. The laparoscope was inserted and the abdomen inspected. No injuries from initial trocar placement or Veress needle insertion were noted. 2 additional 5mm trocars were then placed
under direct vision a hand's breadth apart on the left side. The abdomen was inspected and dilated small bowel was found. The small bowel was run in distal and proximal directions and no adhesions nor transition point was found. The bowel was
dilated and very friable. An additional 2 5mm trocars were placed on the right and the bowel was run from this side as well. A small traction injury with limited bilious drainage was identified. The procedure was converted to open. A midline
incision was made with cut cautery and carried down tot he linea alba with coag cautery. The linea alba was divided and the abdomen entered. The enterotomy was identified and repaired in 2 layers with 2-0 silk suture.The small bowel was run from
ligament of treitz to terminal ileum and no transition point nor adhesive problem was found. The nasogastric tube was palpated in the stomach. A small serosal injury to the small bowel was identified and repaired with 2-0 silk lembert sutures. The
abdomen was thoroughly irrigated with warm sterile saline and a 19fr flores drain was placed near the repaired enterotomy and brought out through a lateral port site incision and secured to the skin with 2-0 nylon suture. The fascia was closed with
#1 PDS stratafix suture and the skin was closed with valdemar. Bandaids were placed over the port sites and an Aquacel dressing was used for the midline.
The patient tolerated the procedure well and was taken to the postanesthesia care unit in stable condition.
== END 2025-01-20 13:19 | DRG 329 ==
LOC: 4 WEST ACU 20:43
PROVIDERS: Hospitalist; Internal Medicine; Internal Medicine Infectious Disease; Nurse Practitioner Family; Physician Assistant Medical; Registered Nurse; Specialist; Student in an Organized Health Care Education/Training Program; Surgery; ADMITTING PHYSICIAN Internal Medicine; ATTENDING PHYSICIAN Hospitalist; CONSULT PHYSICIAN Internal Medicine; CONSULT PHYSICIAN Internal Medicine Hospice and Palliative Medicine; CONSULT PHYSICIAN Psychiatry & Neurology Neurology; CONSULT PHYSICIAN Psychiatry & Neurology Psychiatry; CONSULT PHYSICIAN Student in an Organized Health Care Education/Training Program; EMERGENCY PHYSICIAN Student in an Organized Health Care Education/Training Program; FAMILY PHYSICIAN Family Medicine; OTHER PHYSICIAN Surgery
PROC: 0WJG4ZZ Inspection of Peritoneal Cavity, Percutaneous Endoscopic Approach (ICD-10-PCS; 2025-01-03)
PROC: 0DQA0ZZ Repair Jejunum, Open Approach (ICD-10-PCS; 2025-01-03)
PROC: 02HV33Z Insertion of Infusion Device into Superior Vena Cava, Percutaneous Approach (ICD-10-PCS; 2025-01-04)
PROC: 3E0436Z Introduction of Nutritional Substance into Central Vein, Percutaneous Approach (ICD-10-PCS; 2025-01-04)
DX: K56.7 Ileus, unspecified (principal); A41.9 Sepsis, unspecified organism; G92.8 Other toxic encephalopathy; J69.0 Pneumonitis due to inhalation of food and vomit; J96.01 Acute respiratory failure with hypoxia; E87.1 Hypo-osmolality and hyponatremia; N17.9 Acute kidney failure, unspecified; K91.71 Accidental puncture and laceration of a digestive system organ or structure during a digestive system procedure; E87.5 Hyperkalemia; R13.10 Dysphagia, unspecified; G20.A1 Parkinson's disease without dyskinesia, without mention of fluctuations; T43.595A Adverse effect of other antipsychotics and neuroleptics, initial encounter; I10 Essential (primary) hypertension; F31.9 Bipolar disorder, unspecified; E78.00 Pure hypercholesterolemia, unspecified; F41.9 Anxiety disorder, unspecified; N40.0 Benign prostatic hyperplasia without lower urinary tract symptoms; F90.9 Attention-deficit hyperactivity disorder, unspecified type; M35.3 Polymyalgia rheumatica; H10.89 Other conjunctivitis; E83.41 Hypermagnesemia; E83.39 Other disorders of phosphorus metabolism; Y83.8 Other surgical procedures as the cause of abnormal reaction of the patient, or of later complication, without mention of misadventure at the time of the procedure; Z11.52 Encounter for screening for COVID-19; Z79.82 Long term (current) use of aspirin; Z79.899 Other long term (current) drug therapy; Z86.73 Personal history of transient ischemic attack (TIA), and cerebral infarction without residual deficits; Z87.891 Personal history of nicotine dependence; Z99.3 Dependence on wheelchair
CPT/HCPCS: 70450; 71045; 71046; 71275; 74018; 74177; 80048; 80051; 80053; 80202; 81003; 81015; 82330; 82607; 82746; 82805; 82962; 83605; 83615; 83690; 83735; 84100; 84145; 84443; 84450; 84460; 84478; 85025; 85027; 87040; 87070; 87075; 87205; 87449; 87502; 87811; 87899; 92526; 92610; 93005; 93970; 96361; 96374; 96375; 97163; 97167; 97530; 97535; 99285; C1776; J3480; Q9967

== ENCOUNTER 2025-01-21 18:53 | Inpatient (IN) | payer MEDICARE, SELFPAY ==
[2025-01-21] VITALS (17 sets, daily range): BP systolic 111–163; BP diastolic 68–104
--- NOTE | 2025-01-21 10:34 | ED.GENMED ---
History of Present Illness
General
Chief Complaint: Change in Mental Status
Source: patient
Time Seen by Provider: 01/21/25 10:05
History of Present Illness
History of Present Illness:
74-year-old male sent to the emergency room from a [facility] where he was just transferred to yesterday. Patient was admitted here at [facility] for an extended period of time with small bowel obstruction, bilateral lower lobe infiltrates and
sepsis. Patient had an exploratory laparotomy without any mechanical obstruction discovered. His small bowel obstruction was thought to be secondary to the anticholinergic effects of his psychiatric medications. He did have a enterotomy repaired
during his surgery. His pneumonia was thought to be secondary to aspiration. He completed 2 weeks of meropenem. Staff at the [facility] this morning thought he seemed confused. Patient's records indicate he has had waxing and waning confusion
during his hospitalization so it is unclear how much of a change this is. Patient was started on carbidopa levodopa while he was hospitalized for suspected Parkinson's disease.
Past History
Past History
ED Past Medical History: HTN, Hypercholesterolemia, Psychiatric (bipolar affective disorder with manic psychosis) and Other (attention deficit hyperactivity disorder, TESTICULAR HYPOFUNCTION, POLYMYALGIA rheumatica)
ED Past Surgical History: Other (Hernia repair)
Social History
Tobacco: Former smoker
Alcohol: Occasional
Drug: None
Living: with roommate
Employment: Retired
Family History
Family History: Other (reviewed and non-contributory)
Phy Exam
Physical Exam
Physical Exam:
General: Awake, Alert, Oriented X3. Appears chronically ill
Vitals: Tachycardic, normal rectal temp
Head: Atraumatic
Eyes: Pupils equal, EOMI
Throat: Airway intact, no exudates
Neck: Trachea midline
Lungs: Clear and equal b/l
Heart: Regular rate, no murmurs
Abd: Soft, abdominal incisions appear to be healing well. There is a small area in the center of his laparotomy incision which is opened. This appears clean and does not have any purulent appearing discharge. The remainder of his abdomen is
nontender and soft, No pulsatile mass
Neuro: Nonfocal
Skin: Warm, dry, no rash
Extremities: pulses equal b/l, no edema
Course
Orders/Labs/Results
Orders:
Orders
01/21/25 10:26
Lactated Ringers [Lr] 1,000 ml IV BOLUS
CR Chest - 2 Views Urgent
Comment:
Reason For Exam: altered mental status
01/21/25 10:35
COVID-19 Antigen Urgent
Source: Nasal Swab
Complete Blood Count/With Diff Urgent
Comprehensive Metabolic Panel Urgent
Lipase Urgent
Urinalysis Reflex To Culture Urgent
Date Specimen was Collected: 01/21/25
Time Specimen was Collected: 10:31
Urine Microscopic Reflex Cult Urgent
Influenza A+B Rapid Molecular Urgent
DEVORA Source: Nasal Swab
Specimen Description:
01/21/25 13:31
CT Head W/o Iv Contrast Urgent
Comment:
Reason For Exam: altered mental status
01/21/25 14:33
Admit/Transfer Patient As Directed
Co-Sign Provider:
Level of Care: Observation services
Assign to:: Medical/Surgical
Physician / Group: Ray Reaves MD
Diagnosis: Confusion
Reason for Hospitalization: Confusion
Expected length of stay greater than two midnights?: Yes
ELOS- Estimated Length of Stay in days: 3
I certify the patient meets the requirements for IP care: Yes
PRN Pain Medication Management As Directed
May give lesser potent ordered pain med per pt: Yes
preference::
Protocol:: Medication orders for pain may be administered in a
manner that supports deferring to patient preference
when the pt is:
-Requesting an ordered lesser potent pain medication.
Least to most potent pain medications are defined as:
acetaminophen < NSAID < tramadol < opioids (morphine,
oxycodone, hydromorphone).
- Requesting a lesser dose of the same medication IF
ORDERED.
- Requesting a less intrusive route of administration
if both routes are prescribed by the provider (PO <
IV).
01/21/25 14:35
Code Status As Directed
Resuscitation Status: Full Code
01/21/25 14:58
Ot Eval And Treat Routine
Pt Eval And Treat Routine
Activity Level: With Assistance
Speech Therapy Eval & Treat Routine
01/21/25 15:27
NEUROLOGY CONSULT Routine
Consulting Provider: Holly Leos
Was physician already notified: Yes
Reason for consult: confusion and ?seizure
01/21/25 15:28
PSYCHIATRY CONSULT Routine
Consulting Provider: Sudheer Peter
Was physician already notified: Yes
Reason for consult: confusion
Abnormal Lab Results
01/21/25
10:35
WBC 11.0 H 10^3/uL
(4.8-10.8)
RBC 4.52 L 10^6/uL
(4.70-6.10)
MCH 31.6 H pg
(27.0-31.0)
MPV 10.7 H fL
(7.4-10.4)
Abs Immat Gran (auto) 0.1 H 10^3/uL
(0-0.05)
Absolute Neuts (auto) 9.0 H 10^3/uL
(1.4-6.5)
Absolute Lymphs (auto) 1.1 L 10^3/uL
(1.2-3.4)
Absolute Monos (auto) 0.7 H 10^3/uL
(0.1-0.6)
Immature Gran % 0.7 H %
(0-0.5)
Neutrophils % 81.8 H %
(42.2-75.2)
Lymphocytes % 10.0 L %
(20.5-51.1)
BUN 24 H mg/dl
(9-20)
Glucose 162 H mg/dl
(70-99)
AST 82 H U/L
(17-59)
ALT 55 H U/L
(0-50)
Alkaline Phosphatase 166 H U/L
(38-126)
Urine Albumin (Reflex) 2+ A
(Neg - Trace)
01/21/25 10:35
01/21/25 10:35
Vital Signs
Initial and Last Documented VS:
Initial Vital Signs
Temp Pulse Resp BP Pulse Ox
99.2 F 116 18 125/79 98
01/21/25 10:07 01/21/25 10:07 01/21/25 10:07 01/21/25 10:07 01/21/25 10:07
Last Documented Vital Signs
Temp Pulse Resp BP Pulse Ox
99.2 F 103 17 142/81 98
01/21/25 10:07 01/21/25 14:45 01/21/25 14:45 01/21/25 14:04 01/21/25 14:45
MDM/Problems Addressed
Differential Diagnosis Includes:
Medication effect, effect from Parkinson's disease, infectious process, CVA
MDM/Problems Addressed:
Patient sent to the emergency room from [facility] with altered mental status and confusion. Patient was just discharged yesterday. Unclear how different today he is from his recent baseline but family feel he is much
different. Workup here does not reveal any clear cause. His urine is not suggestive of infection. His chemistries are unremarkable. White count is 11. Chest x-ray is quite abnormal but appears to be similar to previous. It is not clear to me
that he has the need for further antibiotics for pneumonia. Patient will require hospitalization for further workup and management.
*Radiology
Radiology exam reviewed: preliminary read by ED provider (Similar to most recent chest x-ray on my review) and radiology read reviewed
*Pulse Oximetry
Patient hypoxic: no
*Critical Care Note
Total Time (30-74mins, 75-104mins- exclusive of procedures): Not Applicable
ED Attending Note
-
Portions of this chart may have been created with voice recognition software.� Occasional wrong word or��sound alike� substitutions may have occurred due to the inherent limitations of voice recognition software.
Discharge Plan
Departure
Patient Disposition: Admit
Date of Disposition: 01/21/25
Time of Disposition: 13:34
Admit to: Med/Surg
Presentation/result/management discussed w/ accepting MD/DO: Hospitalist
Condition: Fair
Discharge Problem:
Altered mental status
Prescriptions:
No Action
tamsulosin 0.4 mg Capsule
0.4 mg PO HS
testosterone 20.25 mg/1.25 gram (1.62 %) gel in metered-dose pump
4 pump transdermal DAILY
Patient Comments:
01/03/25: Per PDMP, last filled 11/30/24 for 300g
atorvastatin [Lipitor] 80 mg Tablet
80 mg PO QPM
therapeutic multivitamin Tablet
1 tab PO DAILY
bupropion HCl [Wellbutrin SR] 100 mg Tablet Sustained-Release 12 Hr
100 mg PO DAILY
losartan 100 mg Tablet
100 mg PO DAILY
coenzyme Q10 [CoQ-10] 100 mg Capsule
200 mg PO DAILY
glucosamine-chondroitin [Osteo Bi-Flex] 250-200 mg Tablet
1 tab PO DAILY
ciprofloxacin HCl 0.3 % Drops
1 drp ophthalmic (eye) Q4H 3 Days Qty: 5 0RF
clopidogrel 75 mg Tablet
75 mg PO DAILY 60 Days Qty: 60 0RF
carbidopa-levodopa 25-100 mg Tablet
0.5 tab PO TID 60 Days Qty: 90 0RF
Referrals:
Raj Hunter MD [Family Provider] -
Interventions
Interventions:
*Risk Screen - Suicide Last Done: 01/21/25 10:07
*General Assessment Last Done: 01/21/25 10:55
*Neglect/Abuse Screening Last Done: 01/21/25 10:07
*ED- Fall Risk Assessment Last Done: 01/21/25 10:55
*ED COVID-19 Vaccine History Last Done: 01/21/25 10:55
ED- Neurological Assessment Last Done: 01/21/25 10:53
ED Swallowing Screen Last Done: 01/21/25 10:53
Discharge Date and Time
Print Language: DANISH
[2025-01-21 10:44] LABS: % Basophils 0.4 % (0-2); % Eosinophils 0.7 % (0-6); % Immature Granulocytes 0.7 % (0-0.5); % Monocytes 6.4 % (1.7-9.3); % Neutrophils 81.8 % (42.2-75.2); Absolute Eosinophils 0.1 10^3/uL (0-0.7); Absolute Immature Granulocytes 0.1 10^3/uL (0-0.05); Absolute Lymphocytes 1.1 10^3/uL (1.2-3.4); Absolute Monocytes 0.7 10^3/uL (0.1-0.6); Hematocrit 42.2 % (39.0-52.0); Hemoglobin 14.3 g/dL (13.0-18.0); Mean Corp Hgb Conc. 33.9 g/dL (33.0-37.0); Mean Corpuscular Hgb 31.6 pg (27.0-31.0); Mean Corpuscular Volume 93.4 fL (80.0-94.0); Mean Platelet Volume 10.7 fL (7.4-10.4); Nucleated Red Blood Cells % 0 % (-); Platelet Count 309 10^3/uL (130-400); Red Blood Cell Count 4.52 10^6/uL (4.70-6.10); Red Cell Dist. Width 13.6 % (11.5-14.5)
[2025-01-21 10:55] LABS: COVID-19 Antigen Negative (Negative)
[2025-01-21 10:59] LABS: Urine Albumin 2+ (Neg - Trace); Urine Bilirubin Negative (Negative); Urine Character Clear (Clear); Urine Color Yellow; Urine Glucose Negative (Negative); Urine Ketone Negative (Negative); Urine Leukocyte Negative (Negative); Urine Nitrite Negative (Negative); Urine Occult Blood Negative (Negative); Urine Urobilinogen Negative (Neg - 1+)
[2025-01-21 11:01] LABS: ALT (SGPT) 55 U/L (0-50); AST (SGOT) 82 U/L (17-59); Albumin 3.6 g/dl (3.5-5.0); Alkaline Phosphatase 166 U/L (38-126); Blood Urea Nitrogen 24 mg/dl (9-20); Calcium 9.4 mg/dl (8.4-10.2); Carbon Dioxide 24 mmol/L (22-30); Chloride 104 mmol/L (98-107); Glucose 162 mg/dl (70-99); Lipase 278 U/L (23-300); Potassium 4.2 mmol/L (3.5-5.1); Sodium 138 mmol/L (135-145); Total Bilirubin 0.6 mg/dl (0.2-1.3); Total Protein 6.7 g/dl (6.3-8.2); eGFR > 60.00
[2025-01-21] MEDS: LR 1000 IV (11:29)
[2025-01-21 14:08] LABS: Urine Red Blood Cell 0-2 /HPF (0-2)
--- NOTE | 2025-01-21 14:59 | HPS.HSE ---
Addendum entered and electronically signed by Donavon Bell MD 01/21/25 17:33:
I saw and evaluated the patient. I reviewed the resident�s note and agree with findings and plan as documented in the resident�s note.
Patient is a 74-year-old male with below mentioned complex past medical history was just discharged from hospital yesterday after extensive stay for ileus/small bowel obstruction/pneumonia to rehab was sent back by residential facility staff
after patient was noted to be more confused. No further details are available at this point. And at time of my visit in ER patient was communicative although at point talking incoherently. Patient not any discomfort and not voicing any complaints
to me. Vitally stable and afebrile.
HEENT: No pallor, cyanosis, or jaundice. Throat clear.
NECK: Supple. No JVD.
RESPIRATORY: Lungs clear to auscultation.
CVS: S1, S2 normal. RRR. No murmur, rub or gallop.
ABDOMEN: Soft, non-tender. Non distended. Midline dressing
EXTREMITIES: No peripheral cyanosis or edema.
DEPARTMENT TRAFFIC [employer]RE[employer] ROUTER: Awake, not oriented to time/place/person.
Acute toxic metabolic encephalopathy
-No signs of infection on screening, monitor for any vital check
-Reportedly concern of seizure per detention staff although no reported seizure-like activity
-Not on any sedating medication. Has been started on Sinemet for parkinson's disease
-Consult neurology and psychiatry
-Monitor under observation overnight
Recovered ileus
-Required laparotomy/small bowel enterotomy on last visit
-Continue monitoring bowel functions
-Continue diet if able to clear speech therapy evaluation
Parkinson's disease
-Unsure if component of dementia as well
-Continue current thearpy
DVT PPX - lovenox
Full code
Total time spent : 78 mins
I personally saw and examined the patient.
I have reviewed all diagnostic interpretations and treatment plans as written.
Time includes patient management by me, time spent at the patients bedside, time to review lab and imaging results, discussing patient care, documentation in the medical record, and time spent with the family or caregiver and discussing care plan
with RN/Consultants.
Original Note:
Family Physician
-
Family Physician: Raj Hunter
Chief Complaint
-
Confusion
History of Present Illness
The patient is a 74 year-old male with a past medical history of hypertension, CVA, bipolar disorder, ADHD, testicular hypofunction, hyperlipidemia and polymyalgia rheumatica who was brought to ER from SNF due confusion. correction staff saw the
patient confused this morning. He was recently discharged from the hospital yesterday after he recovered from pneumonia and small bowel obstruction for which he underwent surgery on 01/03/2025. The patient was also followed by neurology and
psychiatry during that admission. He was started on Plavix and Sinemet by neurology and he was started on Wellbutrin and Seroquel. The patient had a period of encephalopathy and gradually recovered. On the last week of his hospitalization, he was
found mostly awake but not fully oriented and repeating same words and phrases over and over.
Medical History
Past Medical History
Past Medical History: Reports CVA (History of CVA in 2021), HTN, Hypercholesterolemia, Psychiatric (History of bipolar disease, anxiety) and Other (History of ileus/SBO, BPH, spinal stenosis, hypogonadism)
Past Surgical History: Reports Other (Left Direct Inguinal Hernia Repair)
Additional Past Surgical History:
s/p small bowel obstruction 01/03/25
Social History
Tobacco: Former Smoker
Family History
Family History: Not pertinent
Allergies / Home Medications
Allergies reflects when Allergies were last updated in [facility].
Home Medications with original date entered in [facility]
Allergy/Medication List:
Allergies
Allergy/AdvReac Type Severity Reaction Status Date / Time
chlorpromazine Allergy paralysis Verified 12/29/24 14:50
[From Thorazine]
Home Medications
tamsulosin 0.4 mg capsule 0.4 mg PO DAILY 01/19/24
testosterone 4 pump transdermal DAILY Hypogonadism 01/19/24
atorvastatin 80 mg tablet (Lipitor) 80 mg PO HS High Cholesterol 12/29/24
bupropion HCl 100 mg tablet,12 hr sustained-release (Wellbutrin SR) 100 mg PO DAILY Mental Health/Anxiety 12/29/24
coenzyme Q10 100 mg capsule (CoQ-10) 200 mg PO DAILY Supplement 12/29/24
glucosamine-chondroitin 250 mg-200 mg tablet (Osteo Bi-Flex) 1 tab PO DAILY Supplement 12/29/24
losartan 100 mg tablet 100 mg PO DAILY Blood Pressure 12/29/24
therapeutic multivitamin 1 tab PO DAILY Supplement 12/29/24
carbidopa 25 mg-levodopa 100 mg tablet 0.5 tab PO TID 60 days #90 tabs 01/20/25
clopidogrel 75 mg tablet 75 mg PO DAILY 60 days #60 tabs 01/20/25
acetaminophen 325 mg tablet 650 mg PO Q6H PRN mild pain/temp>100 01/21/25
bisacodyl 10 mg rectal suppository (Dulcolax (bisacodyl)) 10 mg DE DAILYPRN PRN if MOM ineffective 01/21/25
ciprofloxacin HCl 0.3 % eye drops 1 drp BOTH EYES Q6H 01/21/25
magnesium hydroxide 400 mg/5 mL oral suspension (Milk of Magnesia) 2,400 mg PO DAILYPRN PRN if no bm x 3 days 01/21/25
sodium phosphates 19 gram-7 gram/118 mL enema (Fleet Enema) 118 ml DE DAILYPRN PRN if dulcolax ineffective 01/21/25
If medication reconciliation has not been performed, why?: Other (Not reliable due to patient's mental condition)
Review of Systems
-
History Source: Patient and Other (Not reliable due to patient's medical condition)
A 12 point ROS was completed and negative except as noted: No
Physical Exam
Vital Signs
Vital Signs
Temp Pulse Resp BP Pulse Ox
99.2 F 103 17 142/81 98
01/21/25 10:07 01/21/25 14:45 01/21/25 14:45 01/21/25 14:04 01/21/25 14:45
Physical Exam
General: Well Developed, Well Nourished and Appears Chronically Ill
HEENT: NormoCephalic and Anicteric
Respiratory: Clear
Cardiac: S1/S2, Regular Rhythm and Tachycardia
GI: Soft, Non Tender, Non Distended and Other (Some abdominal discomfort on abdominal surgical site area)
Musculoskeletal: No Clubbing and No Cyanosis
Skin: Warm and Other (Robert bandage on abdominal area-no signs of infection no pu)
Neuro: Awake, Alert and Oriented
Laboratory Results
-
01/21/25 10:35
01/21/25 10:35
Laboratory Results
Total Bilirubin 0.6 mg/dl (0.2-1.3) 01/21/25 10:35
AST 82 U/L (17-59) H 01/21/25 10:35
ALT 55 U/L (0-50) H 01/21/25 10:35
Alkaline Phosphatase 166 U/L (38-126) H 01/21/25 10:35
Lipase 278 U/L (23-300) 01/21/25 10:35
Impression/Plan
-
IMPRESSION: The patient had a recent hospitalization on 12/29/2024 with pneumonia and small bowel obstruction and stayed in extended period of time at the hospital and discharged yesterday. He had episodes of confusion during that time. He has
history of CVA, Parkinson and bipolar disorder which are possibly contributing to his waxing and waning on his mental condition. On his recent follow-up at the hospital during the last week, he was awake but not fully oriented and repeating the
same words or phrases over and over. He was obtained and head CT and chest x-ray at ER admission. His head CT was not remarkable for acute intracranial abnormality. His chest x-ray noted consolidation suggestive for multifocal pneumonia versus
bilateral atelectasis. His lab results showed elevated WBC to 11. He was not feverish and has been saturating 98% on room air.
Problem list
Mental status change
Leukocytosis
Transaminitis
History of CVA
Parkinson
Bipolar disorder
Hypertension
Bilateral conjunctivitis
Dysphagia
PLAN:
# Mental status change
- Head CT: No acute abnormality
- Neurology was consulted
- Psychiatry was consulted
- Hold Wellbutrin for now due to concern of seizure which is questionable--no one observed any event but reported concern
- No signs of acute infection/electrolyte abnormality
# Leukocytosis
- WBC 11
- Chest x-ray suspicious for pneumonia versus bilateral atelectasis
- No fever, follow-up temperature curve
- Follow-up CBC
- Hold on empiric antibiotic for now
- Aspiration precautions
- N.p.o. until seen by speech therapist
# Transaminitis
- Had been considered secondary to sepsis at recent hospitalization
- Gradually improving
- Follow-up BMP
# History of CVA
- Neurology saw him before the discharge
- On Plavix
- Continue Plavix after cleared by speech therapy
# Parkinson
- On Sinemet
- Continue after after ST assessment
# Bipolar disorder
-Hold Wellbutrin for now due possibility of seizure
- Psychiatry was consulted
# Hypertension
- Continue losartan after ST assessment
# Hyperlipidemia
- Continue atorvastatin after ST assessment
# Bilateral conjunctivitis
- Cipro drop
- Continue
# BPH
- Continue tamsulosin after ST assessment
# Dysphagia
- Speech therapy was consulted
#DVT prophylaxis
-Lovenox
CODE STATUS: Full code
[2025-01-21] MEDS: CILOXAN 0.3% OPHTHALMIC SOLUTION 1 DROP OPHTH ×2 (18:07→23:59)
[2025-01-21 18:21] LABS: Glucose - Point of Care 122 mg/dl (70-99)
[2025-01-21] MEDS: KEPPRA 1000 MG IV ×2 (18:42→20:12)
--- NOTE | 2025-01-21 18:48 | W.PN.UPDATE ---
Update Note
Progress Note Update
The patient was admitted to the hospital this afternoon with confusion. Nursing stuff saw the patient while seizing on his bed at the service. The nurse called hospitalist team and informed him about this event. Dr. Lin came to manage the
situation and the patient was given Ativan. Neurology was updated about the patient's condition and it was recommended to start Keppra. Another head CT was not recommended by neurology. Patient was transferred to IMU due to his worsening
condition and risk of having another episode of seizure for close follow-up/management.
[2025-01-21 19:00] LABS: AST (SGOT) 89 U/L (17-59); Albumin 3.9 g/dl (3.5-5.0); Alkaline Phosphatase 165 U/L (38-126); Blood Urea Nitrogen 18 mg/dl (9-20); Calcium 9.6 mg/dl (8.4-10.2); Carbon Dioxide 13 mmol/L (22-30); Chloride 104 mmol/L (98-107); Glucose 157 mg/dl (70-99); Potassium 4.2 mmol/L (3.5-5.1); Sodium 143 mmol/L (135-145); Total Bilirubin 0.7 mg/dl (0.2-1.3); Total Protein 6.9 g/dl (6.3-8.2); eGFR > 60.00
[2025-01-21 19:20] LABS: Erythrocyte Sed Rate 23 mm/hour (0-20)
--- NOTE | 2025-01-21 19:27 | PTCARENOTE ---
Received pt from ED with a change in MS. Recent SBO sx with post -op complications then to [facility]. Finished admission assessment. Pt unable to answer some, but not all questions. Left room for one minute, returned, and pt was in a tonic clonic seizure.
Arms were bent, fists and teeth clenched, tensed and leaning forward. Episode resolved 20 seconds after returning to room. Apneic rebreather was placed and rapid response was called. service trainer MD, Dr. Lin, was notified and ordered 2mg Ativan, which
was administered. ICU nurses and RT present and placed a 20g IV in the RA and 20g IV in the LA. Transferred to ICU for IMU Hold. Unable to obtain EKG d/t tacky, moist skin. EEG ordered.
[2025-01-21 19:51] LABS: ALT (SGPT) 60 U/L (0-50); Creatine Phosphokinase 190 U/L (55-170); Magnesium 2.3 mg/dl (1.6-2.3)
[2025-01-21] MEDS: SODIUM BICARBONATE 50 MEQ IV (20:12)
[2025-01-21] MEDS: LOVENOX 40 MG SC (20:12)
--- NOTE | 2025-01-21 20:13 | W.PN.UPDATE ---
Update Note
Progress Note Update
RN reported co2 13, Lactic acid 2.1, Sodium bicarbonate 50 meq IV x 1, will maintain IV fluids. labs in AM.
[2025-01-21 20:20] LABS: TSH Reflex To Free T4 3.36 uIU/ml (0.47-4.68)
[2025-01-21] MEDS: SODIUM BICARBONATE 1075 MEQ IV (20:25)
[2025-01-21 20:45] LABS: Lactic Acid 2.1 mmol/L (0.7-2.0)
[2025-01-21] MEDS: SINEMET 25-100 PO (20:59)
--- NOTE | 2025-01-21 21:22 | PTCARENOTE ---
Received patient drowsy, confused, mumbled/garbled speech. Follows commands, weak b/l hand grasps. NAKNEK b/l. Normal sinus/sinus tach 90s-100s, BP stable, normothermic. +1 generalized anasarca, weak pedal pulses b/l, SCDs applied. Came up on 7 liters
nasal cannula, now 96% on room air. Lung sounds diminished throughout, coarse. Hypoactive bowel sounds, abdomen soft, round. Loose BM, cleaned. Bladder scanned for 54 mls, #21 short condom cath applied. Midline abdominal incision, valdemar intact
approximated, open section in between valdemar and valdemar on LLQ. PIVs patent, WNL. Labs sent, blood cultures sent, CHG bath done, repositioned. EKG done, family updated over the phone. Hourly rounding and patient safety checks ongoing.
[2025-01-22] VITALS (16 sets, daily range): BP systolic 123–192; BP diastolic 62–103; PULSE 111; BMI 28.4
[2025-01-22] MEDS: CILOXAN 0.3% OPHTHALMIC SOLUTION 1 DROP OPHTH ×4 (03:59→22:08)
[2025-01-22 04:24] LABS: Amphetamines Negative (Negative); Barbiturates Negative (Negative); Benzodiazepines Positive (Negative); Buprenorphine Negative (Negative); Cocaine Negative (Negative); Marijuana Negative (Negative); Methadone Negative (Negative); Methamphetamines Negative (Negative); Opiates Negative (Negative); Phencyclidine Negative (Negative); Tricyclic Antidepressants Negative (Negative)
[2025-01-22 04:32] LABS: Lactic Acid 0.9 mmol/L (0.7-2.0)
[2025-01-22 04:42] LABS: Fentanyl, Urine Negative (Negative)
[2025-01-22 04:43] LABS: Hematocrit 36.6 % (39.0-52.0); Hemoglobin 12.3 g/dL (13.0-18.0); Mean Corp Hgb Conc. 33.6 g/dL (33.0-37.0); Mean Corpuscular Hgb 31.8 pg (27.0-31.0); Mean Corpuscular Volume 94.6 fL (80.0-94.0); Mean Platelet Volume 11.1 fL (7.4-10.4); Platelet Count 222 10^3/uL (130-400); Red Blood Cell Count 3.87 10^6/uL (4.70-6.10); Red Cell Dist. Width 13.6 % (11.5-14.5)
[2025-01-22 04:57] LABS: ALT (SGPT) 53 U/L (0-50); AST (SGOT) 72 U/L (17-59); Albumin 3.1 g/dl (3.5-5.0); Alkaline Phosphatase 140 U/L (38-126); Blood Urea Nitrogen 18 mg/dl (9-20); Calcium 8.5 mg/dl (8.4-10.2); Carbon Dioxide 28 mmol/L (22-30); Chloride 106 mmol/L (98-107); Estimated Creatinine Clearance 62 ml/min; Glucose 104 mg/dl (70-99); Potassium 4.2 mmol/L (3.5-5.1); Sodium 140 mmol/L (135-145); Total Bilirubin 0.6 mg/dl (0.2-1.3); Total Protein 5.8 g/dl (6.3-8.2); eGFR > 60.00
--- NOTE | 2025-01-22 07:00 | W.PN.HOSP.TC ---
Today's Communication/Plan
-
-Confusion resolved
-No fever spikes
- Follow-up CBC and BMP and temperature curve
Assessment / Plan
Assessment / Plan
01/22/24: Following the admission, Patient had an episode of seizure and given Ativan and Keppra. No events happen over the night.
# Acute toxic metabolic encephalopathy
-Improved
-Possibly related being postictal due to seizure at nursing facility
- Head CT: No acute abnormality
- Neurology on board
- No signs of acute infection/electrolyte abnormality
#Seizure
-Had an episode of seizure following the admission and given Ativan
-Keppra was started-continue
-Hold Wellbutrin for now due to concern of seizure which is questionable--no one observed any event but reported concern
-Psychiatry on board
-Neurology on board
-Brain MRI pending to be obtained
-EEG pending to be obtained
#Metabolic acidosis
-Resolved
-Possibly secondary to seizure episode
-Given Sodium bicarbonate 50 meq IV x 1
-Maintained IV fluids
# Leukocytosis
- Resolved
- Chest x-ray suspicious for pneumonia versus bilateral atelectasis
- No fever, follow-up temperature curve
- Follow-up CBC
- Hold on empiric antibiotic for now
- Aspiration precautions
- N.p.o. until seen by speech therapist
# Transaminitis
- Had been considered secondary to sepsis at recent hospitalization
- Gradually improving
- Follow-up BMP
#S/p ex lap with small bowel enterotomy
- Surgery was informed and will see the patient for abdominal surgical site care
# History of CVA
- Neurology saw him before the discharge
- On Plavix
# Parkinson
- On Sinemet
# Bipolar disorder
-Hold Wellbutrin for now due possibility of seizure
- Psychiatry was consulted
# Anxiety
- His home onopin medication had been changed to Ativan at previous hospitalization
- As needed Ativan can be given at 0.5 mg
# Hypertension
- Continue losartan
# Hyperlipidemia
- Continue atorvastatin
# Bilateral conjunctivitis
- Cipro drop
- Continue
# BPH
- Continue tamsulosin
# Dysphagia
- Speech therapy was consulted
#DVT prophylaxis
-Lovenox
Anticipated Discharge: 24 - 48 hours
Subjective/Interval History
-
Date of Service: January 22, 2025
The patient was seen oriented to himself and place. He follows 2 words commands.
Objective Data
-
Labs:
Laboratory Results
01/21/25 01/21/25 01/22/25
18:41 18:48 03:57
WBC 7.0
Hgb 12.3 L
Hct 36.6 L
Plt Count 222 D
Sodium 143 Cancelled 140
Potassium 4.2 Cancelled 4.2
Chloride 104 Cancelled 106
Carbon Dioxide 13 L* Cancelled 28
BUN 18 Cancelled 18
Creatinine 1.2 Cancelled 1.0
Glucose 157 H Cancelled 104 H
Calcium 9.6 Cancelled 8.5
Total Bilirubin 0.7 Cancelled 0.6
AST 89 H Cancelled 72 H
ALT 60 H Cancelled 53 H
Alkaline Phosphatase 165 H Cancelled 140 H
Vital Signs:
Vital Signs
Temp Pulse Resp BP Pulse Ox
97.9 F 89 11 135/88 96
01/22/25 03:15 01/22/25 06:15 01/22/25 06:15 01/22/25 06:01 01/22/25 06:15
I&O
01/21/25 01/22/25 01/23/25
06:59 06:59 06:59
Intake Total 825 / 825
Output Total 550 / 550
Balance 275 / 275
Review of Systems
-
History Source: Patient
Respiratory: Reports No Symptoms
Cardiac: Reports No Symptoms
Abdomen/GI: Reports Other (Reports some pain on abdominal surgical site)
Musculoskeletal: Reports No Symptoms
Skin: Reports No Symptoms
Neuro: Reports No Symptoms
Physical Exam
-
General: Well Developed, Well Nourished, Appears Chronically Ill and Obese
HEENT: Normocephalic and Atraumatic
Respiratory: Clear to Auscultation
Cardiac: Regular Rhythm, S1/S2 and Tachycardic
GI: Soft, Nontender, Nondistended and Other (abdominal discomfort on surgical site )
Musculoskeletal: No Clubbing, No Cyanosis and No Edema
Neuro: Awake, Alert and Other (oriented to himself and place. Not oriented to time. )
[2025-01-22] MEDS: SINEMET 25-100 PO (07:11)
[2025-01-22] MEDS: PLAVIX PO (07:11)
[2025-01-22] MEDS: COZAAR PO (07:11)
[2025-01-22] MEDS: FLOMAX PO (07:11)
[2025-01-22] MEDS: SODIUM BICARBONATE 1075 MEQ IV (08:03)
[2025-01-22] MEDS: PLAVIX 75 MG PO (08:13)
[2025-01-22] MEDS: FLOMAX 0.4 MG PO (08:13)
[2025-01-22] MEDS: COZAAR 100 MG PO (08:13)
[2025-01-22] MEDS: KEPPRA 1000 MG IV ×2 (08:14→20:14)
[2025-01-22] MEDS: SINEMET 25-100 0.5 TABLET PO ×3 (08:27→21:57)
--- NOTE | 2025-01-22 08:37 | CON.NEURO ---
Consultation
Order
Date of Consultation: 01/22/25
Requesting Provider: Radha Rowland MD, Resident
Reason for Consult: Seizure
Neurology Consultation Note.
HPI: This is a 74-year-old man who presented to [facility] on 01/21/2025 with encephalopathy.
Mr. Worthy was discharged from hospital following prolonged hospitalization following bowel obstruction.
The patient had witnessed a spell during ER stay and was treated with Ativan and loaded with Keppra. No clear description of suspected seizures available.
[facility] ER: 125/79, 116, 18, 98 on room air, 99.2
CT head-stable arachnoid cyst in the right anterolateral frontal lobe region. Stable old right basal ganglia infarct.
CXR-multifocal pneumonia
Labs: Glucose�104, WBC�11, CRP�5, magnesium 2.3, CK�190.
meropenem.
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
use
PSH: Left inguinal hernia repair, exploratory laparotomy
SH: Lives with a roommate, former smoker, retired, uses a walker for ambulation
FH: Unknown
All: Chlorpromazine, statins�intolerant
ROS: Positive for abdominal discomfort, difficulties with writing, and tremor
General: Well developed. In no acute distress.
Cardio: Regular rate and rhythm. Extremities are without cyanosis or edema.
Neuro:
Mental Status: Alert, oriented to name, [facility], 2024, season. Impaired attention and comprehension. Follows requests intermittently. No hemineglect.
Cranial Nerves: Pupils are equally round and reactive to light. Impaired upgaze. Blinks to threat bilaterally. Mild left facial weakness.
Motor: Increased motor tone in upper and lower extremities. Moves upper extremities antigravity and lower extremities within bed plane
Reflexes: Limited exam due to increased motor tone
Sensory: Limited due to encephalopathy
Coordination: Intermittent oral mandibular dyskinesia
Gait: deferred
Assessment and Plan:
I. Probable symptomatic seizure
II. 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
III. Encephalopathy (toxic, vascular)
IV. History of right basal ganglia/globus pallidus stroke.
-Continue Telemetry monitoring
-Seizure precautions
-Avoid medications known to lower seizure threshold
-Brain MRI without hattie
-Routine EEG
-Continue Keppra 500 mg once a day and Sinemet 25/100 1 tablet 3 times daily
-DVT prophylaxis.
I personally reviewed all radiology and labs along with past medical records pertinent to current medical problems. Total time spent in patient care is 60 minutes.
Thank you for allowing us to participate in the care of this patient. We will continue to follow. Please do not hesitate to contact us with any questions or concerns.
Subjective/Objective
Subjective Data
Date of Service: January 22, 2025
Objective Data
Vital Signs
Temp Pulse Resp BP Pulse Ox
36.8 C 89 11 135/88 96
01/22/25 07:38 01/22/25 06:15 01/22/25 06:15 01/22/25 06:01 01/22/25 06:15
Lab Results
01/22/25 03:57
01/22/25 03:57
Sodium 140 mmol/L (135-145) 01/22/25 03:57
Potassium 4.2 mmol/L (3.5-5.1) 01/22/25 03:57
BUN 18 mg/dl (9-20) 01/22/25 03:57
Glucose 104 mg/dl (70-99) H 01/22/25 03:57
Calcium 8.5 mg/dl (8.4-10.2) 01/22/25 03:57
Ur Buprenorphine Negative (Negative) 01/22/25 03:57
Patient Allergies
chlorpromazine [From Thorazine] Allergy (Verified 12/29/24 14:50)
paralysis
Medications
-
Active Medications
Generic Name Dose Route Start Last Admin
Trade Name Freq PRN Reason Stop Dose Admin
Bisacodyl 10 mg 01/21/25 17:24
Bisacodyl 10 Mg Rectal Suppository RECTAL 02/18/25 17:23
[id number] PRN
constipation
Carbidopa/Levodopa 0.5 tablet 01/21/25 22:00 01/22/25 08:27
Carbidopa (25 Mg)/Levodopa (100 Mg) Regular Release Tablet PO 02/18/25 21:59 0.5 tablet
TID BASIL Administration
Ciprofloxacin 0 drop 01/21/25 17:00 01/22/25 03:59
Ciprofloxacin 0.3% (Ophthalmic Solution) Bottle OPHTH 01/24/25 16:59 1 drop
Q6H BASIL Administration
Clopidogrel Bisulfate 75 mg 01/22/25 08:00 01/22/25 08:13
Clopidogrel 75 Mg Tablet PO 02/19/25 07:59 75 mg
DAILY BASIL Administration
Enoxaparin Sodium 40 mg 01/21/25 20:00 01/21/25 20:12
Enoxaparin Sodium 40 Mg/0.4 Ml Syringe SC 02/18/25 19:59 40 mg
QPM BASIL Administration
Sodium Bicarbonate 75 meq/ 1,075 mls @ 75 mls/hr 01/21/25 20:00 01/22/25 08:03
Sodium Chloride IV 1,075 mls
.[id number] BASIL Administration
Levetiracetam 1,000 mg 01/21/25 20:00 01/22/25 08:14
Levetiracetam (100 Mg/Ml) 500 Mg/5 Ml Vial IV 02/18/25 19:59 1,000 mg
Q12 BASIL Administration
Lorazepam 2 mg 01/21/25 18:28
Lorazepam 2 Mg/Ml Vial IV 02/18/25 18:27
Q4HPRN PRN
seizure activity
Losartan Potassium 100 mg 01/22/25 08:00 01/22/25 08:13
Losartan 100 Mg Tablet PO 02/19/25 07:59 100 mg
DAILY BASIL Administration
Polyethylene Glycol 17 grams 01/21/25 17:24
Polyethylene Glycol Powder 17 Grams Packet PO 02/18/25 17:23
DAILYPRN PRN
constipation
Senna/Docusate Sodium 1 tablet 01/21/25 17:24
Docusate W/Senna (Casie-Colace) Tablet PO 02/18/25 17:23
BIDPRN PRN
constipation
Sodium Chloride 0 flush 01/21/25 19:00
Sodium Chloride 0.9% (Flush) Syringe IV 02/18/25 18:59
PER PROTOCOL BASIL
Sodium Chloride 0 ml 01/21/25 19:00
Sodium Chloride 0.9% (Preservative Free) 10 Ml Vial IV 02/18/25 18:59
PRN PRN
IV Lorazepam dilution
Protocol
Tamsulosin HCl 0.4 mg 01/22/25 08:00 01/22/25 08:13
Tamsulosin 0.4 Mg Capsule PO 02/19/25 07:59 0.4 mg
DAILY BASIL Administration
Home Medications
�Medication �Instructions �Recorded
tamsulosin 0.4 mg capsule 0.4 mg PO DAILY 01/19/24
testosterone 4 pump transdermal DAILY 01/19/24
Hypogonadism
atorvastatin 80 mg tablet (Lipitor) 80 mg PO HS High Cholesterol 12/29/24
bupropion HCl 100 mg tablet,12 hr 100 mg PO DAILY Mental 12/29/24
sustained-release (Wellbutrin SR) Health/Anxiety
coenzyme Q10 100 mg capsule 200 mg PO DAILY Supplement 12/29/24
(CoQ-10)
glucosamine-chondroitin 250 mg-200 1 tab PO DAILY Supplement 12/29/24
mg tablet (Osteo Bi-Flex)
losartan 100 mg tablet 100 mg PO DAILY Blood Pressure 12/29/24
therapeutic multivitamin 1 tab PO DAILY Supplement 12/29/24
carbidopa 25 mg-levodopa 100 mg 0.5 tab PO TID 60 days #90 tabs 01/20/25
tablet
clopidogrel 75 mg tablet 75 mg PO DAILY 60 days #60 tabs 01/20/25
acetaminophen 325 mg tablet 650 mg PO Q6H PRN mild 01/21/25
pain/temp>100
bisacodyl 10 mg rectal suppository 10 mg WI DAILYPRN PRN if MOM 01/21/25
(Dulcolax (bisacodyl)) ineffective
ciprofloxacin HCl 0.3 % eye drops 1 drp BOTH EYES Q6H 01/21/25
magnesium hydroxide 400 mg/5 mL 2,400 mg PO DAILYPRN PRN if no bm 01/21/25
oral suspension (Milk of Magnesia) x 3 days
sodium phosphates 19 gram-7 118 ml WI DAILYPRN PRN if dulcolax 01/21/25
gram/118 mL enema (Fleet Enema) ineffective
Vital Signs and Labs
-
Vital Signs and Labs:
Vital Signs
Temp Pulse Resp BP Pulse Ox
36.8 C 89 11 135/88 96
01/22/25 07:38 01/22/25 06:15 01/22/25 06:15 01/22/25 06:01 01/22/25 06:15
Lab Results
01/22/25 03:57
01/22/25 03:57
Sodium 140 mmol/L (135-145) 01/22/25 03:57
Potassium 4.2 mmol/L (3.5-5.1) 01/22/25 03:57
BUN 18 mg/dl (9-20) 01/22/25 03:57
Glucose 104 mg/dl (70-99) H 01/22/25 03:57
Calcium 8.5 mg/dl (8.4-10.2) 01/22/25 03:57
Ur Buprenorphine Negative (Negative) 01/22/25 03:57
Medications
-
Medications:
Generic Name Dose Route Start Last Admin
Trade Name Freq PRN Reason Stop Dose Admin
Bisacodyl 10 mg 01/21/25 17:24
Bisacodyl 10 Mg Rectal Suppository RECTAL 02/18/25 17:23
[id number] PRN
constipation
Carbidopa/Levodopa 0.5 tablet 01/21/25 22:00 01/22/25 08:27
Carbidopa (25 Mg)/Levodopa (100 Mg) Regular Release Tablet PO 02/18/25 21:59 0.5 tablet
TID BASIL Administration
Ciprofloxacin 0 drop 01/21/25 17:00 01/22/25 03:59
Ciprofloxacin 0.3% (Ophthalmic Solution) Bottle OPHTH 01/24/25 16:59 1 drop
Q6H BASIL Administration
Clopidogrel Bisulfate 75 mg 01/22/25 08:00 01/22/25 08:13
Clopidogrel 75 Mg Tablet PO 02/19/25 07:59 75 mg
DAILY BASIL Administration
Enoxaparin Sodium 40 mg 01/21/25 20:00 01/21/25 20:12
Enoxaparin Sodium 40 Mg/0.4 Ml Syringe SC 02/18/25 19:59 40 mg
QPM BASIL Administration
Sodium Bicarbonate 75 meq/ 1,075 mls @ 75 mls/hr 01/21/25 20:00 01/22/25 08:03
Sodium Chloride IV 1,075 mls
.[id number] BASIL Administration
Levetiracetam 1,000 mg 01/21/25 20:00 01/22/25 08:14
Levetiracetam (100 Mg/Ml) 500 Mg/5 Ml Vial IV 02/18/25 19:59 1,000 mg
Q12 BASIL Administration
Lorazepam 2 mg 01/21/25 18:28
Lorazepam 2 Mg/Ml Vial IV 02/18/25 18:27
Q4HPRN PRN
seizure activity
Losartan Potassium 100 mg 01/22/25 08:00 01/22/25 08:13
Losartan 100 Mg Tablet PO 02/19/25 07:59 100 mg
DAILY BASIL Administration
Polyethylene Glycol 17 grams 01/21/25 17:24
Polyethylene Glycol Powder 17 Grams Packet PO 02/18/25 17:23
DAILYPRN PRN
constipation
Senna/Docusate Sodium 1 tablet 01/21/25 17:24
Docusate W/Senna (Casie-Colace) Tablet PO 02/18/25 17:23
BIDPRN PRN
constipation
Sodium Chloride 0 flush 01/21/25 19:00
Sodium Chloride 0.9% (Flush) Syringe IV 02/18/25 18:59
PER PROTOCOL BASIL
Sodium Chloride 0 ml 01/21/25 19:00
Sodium Chloride 0.9% (Preservative Free) 10 Ml Vial IV 02/18/25 18:59
PRN PRN
IV Lorazepam dilution
Protocol
Tamsulosin HCl 0.4 mg 01/22/25 08:00 01/22/25 08:13
Tamsulosin 0.4 Mg Capsule PO 02/19/25 07:59 0.4 mg
DAILY BASIL Administration
Home Medications
-
Home Medications
tamsulosin 0.4 mg capsule 0.4 mg PO DAILY 01/19/24
testosterone 4 pump transdermal DAILY Hypogonadism 01/19/24
atorvastatin 80 mg tablet (Lipitor) 80 mg PO HS High Cholesterol 12/29/24
bupropion HCl 100 mg tablet,12 hr sustained-release (Wellbutrin SR) 100 mg PO DAILY Mental Health/Anxiety 12/29/24
coenzyme Q10 100 mg capsule (CoQ-10) 200 mg PO DAILY Supplement 12/29/24
glucosamine-chondroitin 250 mg-200 mg tablet (Osteo Bi-Flex) 1 tab PO DAILY Supplement 12/29/24
losartan 100 mg tablet 100 mg PO DAILY Blood Pressure 12/29/24
therapeutic multivitamin 1 tab PO DAILY Supplement 12/29/24
carbidopa 25 mg-levodopa 100 mg tablet 0.5 tab PO TID 60 days #90 tabs 01/20/25
clopidogrel 75 mg tablet 75 mg PO DAILY 60 days #60 tabs 01/20/25
acetaminophen 325 mg tablet 650 mg PO Q6H PRN mild pain/temp>100 01/21/25
bisacodyl 10 mg rectal suppository (Dulcolax (bisacodyl)) 10 mg WI DAILYPRN PRN if MOM ineffective 01/21/25
ciprofloxacin HCl 0.3 % eye drops 1 drp BOTH EYES Q6H 01/21/25
magnesium hydroxide 400 mg/5 mL oral suspension (Milk of Magnesia) 2,400 mg PO DAILYPRN PRN if no bm x 3 days 01/21/25
sodium phosphates 19 gram-7 gram/118 mL enema (Fleet Enema) 118 ml WI DAILYPRN PRN if dulcolax ineffective 01/21/25
--- NOTE | 2025-01-22 09:12 | PTCARENOTE ---
pt received from previous rn- aox2, knows month and year and name. pts partner and family member at bedside- updated. pt able to make needs known. Dr. Rowland at bedside- speech consulted. pt turned and repositioned, am care provided. nsr on monitor,
room air. midline abdominal incision dressing c/d/i. all safety and seizure precautions in place, call kerns within reach.
[2025-01-22] MEDS: SENOKOT-S 1 TABLET PO (10:32)
--- NOTE | 2025-01-22 11:16 | CM ---
Placed a call to patient's S.O who stated that patient discharged from over the w/e, went to [facility] and today which would have been his first day, he was sent to the ER for stroke like symptoms and confusion.
Placed a call to Delmy in admissions at [facility] who confirmed that patient will have a bed upon return. Patient's S.O, Walter confirmed that is where he would like for patient to return when cleared for discharge.
Plan: Case management will continue to follow and assist with discharge planning. Back to [facility] when cleared for discharge.
[2025-01-22] MEDS: ATIVAN 0.5 MG IV ×2 (12:02→18:03)
[2025-01-22] MEDS: NSS (PRESERVATIVE FREE) 0.25 ML IV ×2 (12:02→18:04)
--- NOTE | 2025-01-22 12:43 | PTCARENOTE ---
pt bp elevated, stated feeling anxious- Dr. Rowland aware ativan given as per order, hydralazine if bp not to improve- bp improved post ativan. pt taken to mri.
--- NOTE | 2025-01-22 13:16 | PTCARENOTE ---
pt refused mri, aware.
--- NOTE | 2025-01-22 14:12 | PTOTSP ---
ST Acute Care Evaluation
Pt currently presents with clinical signs of mild oropharyngeal dysphagia characterized by prolonged mastication and bolus formation with hard solids, reduced bolus formation with diffuse oral residue with hard solids, and coughing during
mastication of dry hard solids which could indicate airway invasion.
Recommendations:
- Continue with soft bite sized solids, thin liquids, and meds as tolerated.
- Aspiration precautions: HOB upright for PO; encourage pt to alternate solids/liquids and take small bites.
- FENCE BUILDER to f/u re: diet tolerance, use of compensatory strategies, and to determine if pt would benefit from an instrumental swallow study.
--- NOTE | 2025-01-22 14:28 | CON.MD ---
Addendum entered and electronically signed by Teresa Stewart MD 01/23/25 09:09:
Update: Dr Rowland contacted me last night concerned about restarting Wellbutrin in patient. I reviewed the admission H and P and note that the long-term reported worry about seizure on Buproprion. It is not clear if pt did or did not have a
seizure there-
Neurology can be consulted to give an opinion.
Until this issue is clarified would hold Wellbutrin, although a dose of 150 mg is unlikely to lower seizure threshold. Most of the reported cases are 450 mg and above.
Original Note:
Consultation - Medical
-
Chart reviewed, pt seen.
Dr Peter's full Psychiatry Consult on 01/04/25 can be viewed from last admission. She summarized pt's past psych history and medication regimen.
This 74 year old white male was discharged 01/20/25 and readmitted on 01/21/25 for 'change in mental status.' It is unclear what mental status change the long-term observed.
Previous hospital stay was for small bowel obstruction, bilateral lower lobe infiltrates and sepsis. Bowel obstruction was thought to be secondary to anticholinergic meds, many of which were stopped in the prior admission. Sinemet was started for
new diagnosis of Parkinsons.
Pt is not a reliable historian given his right basal ganglia/globus pallidus stroke in 12/2021. Today he repeated 'I need to call Walter I need to call Walter.' Pt did not recall that he had been discharged and readmitted to , also told me he
'lives at home with Walter my partner and his daughter in law.'
Significant tremor of both hands and jaw noted.
MSE - unable to meaningfully participate due to his cognitive impairment.
A/P-Dx- Encephalopathy, Hx of Bipolar Disorder
Pt unable to make appropriate decisions about his medical care, in my opinion.
Would resume Buproprion, but not all the medications pt was on prior to last hospitalization.
--- NOTE | 2025-01-22 15:00 | PTCARENOTE ---
MDs notified of patients continued anxiety, see psych note, no further orders at this time. emotional support provided.
--- NOTE | 2025-01-22 15:50 | CON.GS ---
Consultation
-
Date/Time Consultation Performed: 01/22/25 1145
Medical History
-
Chief Complaint: 'i'm going to have a psychotic break'
History of Present Illness:
Mr Worthy is a 74 yo male presenting from [facility] with possible new seizure with a h/o CVA, Parkinson's, HTN, Bipolar who was recently admitted from 12/30/24 to 01/20/2025 initially with n/v and aspiration pna. His GI symptoms did not improve and he was
taken to the OR for diagnostic laparoscopy, exploratory laparotomy with enterotomy repair on 01/03/25 as initial imaging raised concern for a bowel obstruction. No obstruction was noted intraop with significant ileus present. Anticholinergics thought
to be contributing with medication adjustments made while inpatient. He was followed intraoperatively for return of bowel function at which point diet was able to be advanced and well tolerated prior to discharge. During his course of stay, he did
develop a hematoma along the mid portion of his midline incision and several valdemar were removed for evacuation of clot. The wound was evaluated today at bedside with clean wound bed noted down to fascia. No fascial dehiscence present. No purulence
noted. He is afebrile. He was eating his meal tray at time of exam without complaints of nausea. He is overall a quite poor historian and has been such throughout his last hospitalization.
Past Medical History
Past Medical History: CVA, Psychiatric (bipolar/anxiety) and Other (bph, hypogonadism, parkinsons)
Past Surgical History: Hernia Repair (left direct inguinal hernia repair) and Other (Exploratory laparotomy 01/03/25)
Social History
Tobacco: Non-Smoker
Alcohol: None
Personal: Partner (Walter)
Living: [facility]
Family History
Family History: Reviewed & Not Pertinent
Allergies / Home Medications
Allergy/AdvReac Type Severity Reaction Status Date / Time
chlorpromazine Allergy paralysis Verified 12/29/24 14:50
[From Thorazine]
�Medication �Instructions �Recorded �Confirmed �Type
tamsulosin 0.4 mg capsule 0.4 mg PO DAILY Urinary Issue 01/19/24 01/21/25 History
testosterone 4 pump transdermal DAILY 01/19/24 01/21/25 History
Hypogonadism
atorvastatin 80 mg tablet (Lipitor) 80 mg PO HS High Cholesterol 12/29/24 01/21/25 History
bupropion HCl 100 mg tablet,12 hr 100 mg PO DAILY Mental 12/29/24 01/21/25 History
sustained-release (Wellbutrin SR) Health/Anxiety
coenzyme Q10 100 mg capsule 200 mg PO DAILY Supplement 12/29/24 01/21/25 History
(CoQ-10)
glucosamine-chondroitin 250 mg-200 1 tab PO DAILY Supplement 12/29/24 01/21/25 History
mg tablet (Osteo Bi-Flex)
losartan 100 mg tablet 100 mg PO DAILY Blood Pressure 12/29/24 01/21/25 History
therapeutic multivitamin 1 tab PO DAILY Supplement 12/29/24 01/21/25 History
carbidopa 25 mg-levodopa 100 mg 0.5 tab PO TID 60 days #90 tabs 01/20/25 01/21/25 Rx
tablet
clopidogrel 75 mg tablet 75 mg PO DAILY 60 days #60 tabs 01/20/25 01/21/25 Rx
acetaminophen 325 mg tablet 650 mg PO Q6H PRN mild 01/21/25 01/21/25 History
pain/temp>100
bisacodyl 10 mg rectal suppository 10 mg CO DAILYPRN PRN if MOM 01/21/25 01/21/25 History
(Dulcolax (bisacodyl)) ineffective
ciprofloxacin HCl 0.3 % eye drops 1 drp BOTH EYES Q6H Eye Condition 01/21/25 01/21/25 History
magnesium hydroxide 400 mg/5 mL 2,400 mg PO DAILYPRN PRN if no bm 01/21/25 01/21/25 History
oral suspension (Milk of Magnesia) x 3 days
sodium phosphates 19 gram-7 118 ml CO DAILYPRN PRN if dulcolax 01/21/25 01/21/25 History
gram/118 mL enema (Fleet Enema) ineffective
Review of Systems
-
Unable to obtain full review of systems at this time due to: Other (confusion)
History Source: Patient
All other systems: Negative unless noted
A 10 point review of systems was completed, and was negative except as per HPI.
Physical Exam
Vital Signs
Temp Pulse Resp BP Pulse Ox
97.5 F 114 19 127/74 96
01/22/25 11:03 01/22/25 13:15 01/22/25 13:15 01/22/25 13:15 01/22/25 10:00
01/21/25 01/22/25 01/23/25
06:59 06:59 06:59
Actual Weight 82.3 kg
Body Mass Index (BMI) 28.4
Lab Results
01/22/25 03:57
01/22/25 03:57
WBC 7.0 10^3/uL (4.8-10.8) 01/22/25 03:57
Hgb 12.3 g/dL (13.0-18.0) L 01/22/25 03:57
Hct 36.6 % (39.0-52.0) L 01/22/25 03:57
Plt Count 222 10^3/uL (130-400) D 01/22/25 03:57
Abs Immat Gran (auto) 0.1 10^3/uL (0-0.05) H 01/21/25 10:35
Neutrophils % 81.8 % (42.2-75.2) H 01/21/25 10:35
Physical Exam
General: No Apparent Distress
HEENT: Moist Mucous Membranes
Respiratory: Non Labored Respirations
GI: Soft, Non Tender, Non Distended and Obese
Skin: Other (Midline incision with intact valdemar except for mid portion of wound where they have previously been removed. Wound down to fascia without purulence noted, clean. Tunnels upward (unchanged))
Neuro: Awake and Alert
Psych: Other (perseverates and difficult to redirect)
Data Reviewed
-
Old Records: Reviewed
Assessment / Plan
-
74 yo male presenting with mental state changes being worked up for possible new onset seizure who is status post OR for diagnostic laparoscopy, exploratory laparotomy with enterotomy repair on 01/03/25 which was done for suspected bowel obstruction.
No obstruction was noted intraop with significant ileus present. Anticholinergics thought to be contributing with medication adjustments made while inpatient.
Several valdemar were previously removed from mid portion of wound d/t hematoma and wound has been packed with saline moistened gauze since that time. Evaluated today, with no purulence. Healthy fascial tissue in wound bed.
AFVSS
Labs stable
--Continue daily dressing changes with saline moistened gauze packing to open area of incision
--Will facilitate removal of valdemar prior to discharge
Surgery to follow peripherally, please callw ith questions/concerns
[2025-01-22] MEDS: LOVENOX 40 MG SC (16:45)
[2025-01-22] MEDS: MIRALAX 17 GRAMS PO (16:45)
--- NOTE | 2025-01-22 19:45 | PTCARENOTE ---
Patient received lying in bed, awake and alert, oriented but forgetful. He is very anxious and requires much emotional support and encouragement. Respirations shallow but nonlabored. BBS diminshed t/o S1S2 distant. ST with 1st degree AVB and BBB on
CM. Abdomen soft and slightly tender to palpation. c/o mild gas pains, passing flatus. Midline abdominal incision approximated at upper and lower incision with valdemar. Mid incision is open. DSD changed via asceptic technique--saline soaked guaze
packing and covered with ABD. Positive pulses x 4 extremities, no edema. SCDs bilateral LEs. Seizure precautions. Sats 96% on RA. Bed in low and locked position, call kerns within reach. However, patient calls out and does not use call kerns.
--- NOTE | 2025-01-22 22:00 | PTCARENOTE ---
Patient removed condom catheter. Incontinent of stool. Complete cares given with G cloth bath, perineal care, complete linen change. Teeth brushed. New #21 condom cath donned. Readied for bed.
--- NOTE | 2025-01-22 23:00 | PTCARENOTE ---
Patient c/o feeling afraid. He is very anxious. Georgie CLEMENT contacted for something to help patient sleep. Melatonin ordered. When went to administer, patient appears to be sleeping comfortably. Holding Melatonin for now. Will continue to monitor.
[2025-01-23] VITALS (12 sets, daily range): BP systolic 136–162; BP diastolic 64–91; BMI 28.9
[2025-01-23] MEDS: CILOXAN 0.3% OPHTHALMIC SOLUTION 1 DROP OPHTH ×4 (06:00→22:02)
[2025-01-23 06:23] LABS: Hematocrit 37.3 % (39.0-52.0); Hemoglobin 12.5 g/dL (13.0-18.0); Mean Corp Hgb Conc. 33.5 g/dL (33.0-37.0); Mean Corpuscular Hgb 32.1 pg (27.0-31.0); Mean Corpuscular Volume 95.6 fL (80.0-94.0); Mean Platelet Volume 11.2 fL (7.4-10.4); Platelet Count 193 10^3/uL (130-400); Red Cell Dist. Width 13.8 % (11.5-14.5); White Blood Cell Count 7.3 10^3/uL (4.8-10.8)
[2025-01-23 06:49] LABS: ALT (SGPT) 23 U/L (0-50); AST (SGOT) 66 U/L (17-59); Albumin 3.2 g/dl (3.5-5.0); Alkaline Phosphatase 133 U/L (38-126); Blood Urea Nitrogen 19 mg/dl (9-20); Carbon Dioxide 26 mmol/L (22-30); Chloride 109 mmol/L (98-107); Estimated Creatinine Clearance 62 ml/min; Glucose 118 mg/dl (70-99); Potassium 4.3 mmol/L (3.5-5.1); Sodium 141 mmol/L (135-145); Total Bilirubin 0.6 mg/dl (0.2-1.3); Total Protein 5.7 g/dl (6.3-8.2); eGFR > 60.00
--- NOTE | 2025-01-23 07:06 | PTCARENOTE ---
Report given verbally to Alfred bustillos RN. Questions answered.
--- NOTE | 2025-01-23 07:43 | W.PN.HOSP.TC ---
Addendum entered and electronically signed by Karl Reddy MD 01/23/25 21:49:
Attending Addendum-
I saw and evaluated the patient. I reviewed the resident�s note and agree with findings and plan as documented in the resident�s note. Sub: Seen with POA partner present. I didnt sleep at all. 'I feel terrible I cant move my arms and i have a GEORGE'
Denies CP SOB vision changes. Full 12 point ROS reviewed and negative except as documented Exam: Vitals reviewed in chart GEN-NAD heart RRR lungs clear abd soft NT ND incision CDI LE no edema Neuro AAO x 3 MS / UE intention tremor masked facies
# Acute toxic metabolic encephalopathy
-Improved
-transfer to tele
-Possibly related being postictal
- Head CT: No acute abnormality
- Neurology on board
- cont keppra
- check EEG and MRI today
#Seizure
-Had an episode of seizure during hospitalization-given Ativan
-continue Keppra
-Wellbutrin on hold for now due to concern of seizure which is questionable
-Psychiatry input appreciated
-Neurology on board
-Brain MRI and EEG today
#Metabolic acidosis
-Resolved
-Possibly secondary to seizure episode
-Given Sodium bicarbonate 50 meq IV x 1
# Transaminitis
- Gradually improving
- Follow-up LFT
#S/p ex lap with small bowel enterotomy
- Surgery on 01/03
- wound care
# History of CVA
- On Plavix
# Parkinson Disease
- cont Sinemet
# Bipolar disorder
- per psych ok to restart low dose Wellbutrin (low likelihood to have induced a seizure)
- Psychiatry on board
- cont to monitor
# Anxiety
- His home Klonopin medication had been changed to Ativan at previous hospitalization
- As needed Ativan can be given at 0.5 mg
# Hypertension
- Continue losartan
# Hyperlipidemia
- Continue atorvastatin
# Bilateral conjunctivitis
- Cipro drop
- Continue
# BPH
- Continue tamsulosin
#DVT prophylaxis
-Lovenox
Code-FULL
Dispo DC to [facility] in am
Patient consented to discuss, was with partner Joshua /DIGNA, time spent explanation of advance directives, changes in health status, patient�s health care wishes if the patient becomes unable to make health decisions, goals of care, code status, and
prognosis 'Yes i want everything'- 16 minutes
Time spent coordinating care, review of plan of care with resident, personally reviewed previous records in EMR, med rec, labs, radiology, d/w nursing, family total time documented is exclusive of any additional time listed that was spent in advance
care planning discussion -�52 minutes
Original Note:
Today's Communication/Plan
-
Pt's caregivers updated with results and plan.
- DC planning
Assessment / Plan
Assessment / Plan
74 year old male with history of hypertension, CVA, bipolar/anxiety, SBO/ileus status post ex-lap 12/31, Parkinson's, with acute toxic metabolic encephalopathy, seizure
# Acute toxic metabolic encephalopathy
-Improved, appears only mildly confused today
-Likely postictal state from unwitnessed seizure at nursing facility, and witnessed seizure during this admission
-Head CT: No acute abnormality
-Appreciate neurology on board
-EEG suggestive of diffuse cortical dysfunction without focal abnormality. No seizures were recorded.
-No signs of acute infection/electrolyte abnormality
#Seizure
-Had an episode of seizure following the admission and given Ativan
-Continue Keppra. Appreciate neuro recs
-Psychiatry on board, Wellbutrin discontinued due to concern of seizure
-Neurology on board
-Brain MRI with no evidence of acute intracranial abnormality.
-EEG showed no evidence of current seizure
#Metabolic acidosis
-Resolved
-Possibly secondary to seizure episode. Lactate mildly elevated on arrival. Given Sodium bicarbonate 50 meq IV x 1
# Leukocytosis
- Likely reactive. Resolved without empiric antibiotics
- Chest x-ray suspicious for pneumonia versus bilateral atelectasis
- Remains afebrile. No indication for ABX
# Transaminitis
- Had been considered secondary to sepsis at recent hospitalization
- Gradually improving
- Follow-up BMP
#S/p ex lap with small bowel enterotomy
- Surgery saw patient, no new recs
- Patient continues to tolerate diet with no abdominal pain/nausea/vomiting, and normal bowel movement
# History of CVA
- Neurology saw him before the discharge
- On Plavix
# Parkinson
- On Sinemet
# Bipolar disorder
-Hold Wellbutrin for now due possibility of seizure
- Psychiatry consulted, Wellbutrin discontinued
# Anxiety
- His home Klonopin medication had been changed to Ativan at previous hospitalization
- As needed Ativan can be given at 0.5 mg
# Hypertension
- Continue losartan
# Hyperlipidemia
- Continue atorvastatin
# Bilateral conjunctivitis
-Right eye resolved, left eye ongoing
-Continue Cipro eye drops
# BPH
- Continue tamsulosin
# Dysphagia
- Speech therapy was consulted, IDD 6 diet recommended
#DVT prophylaxis
-Lovenox
Anticipated Discharge: Within 24 hours
Subjective/Interval History
-
Date of Service: January 23, 2025
Anxiety overnight, melatonin not administered because patient fell asleep.
Was seen enjoying/tolerating breakfast
Objective Data
-
Labs:
Laboratory Results
01/23/25
05:46
WBC 7.3
Hgb 12.5 L
Hct 37.3 L
Plt Count 193
Sodium 141
Potassium 4.3
Chloride 109 H
Carbon Dioxide 26
BUN 19
Creatinine 1.0
Glucose 118 H
Calcium 9.0
Total Bilirubin 0.6
AST 66 H
ALT 23
Alkaline Phosphatase 133 H
Vital Signs:
Vital Signs
Temp Pulse Resp BP Pulse Ox
98.4 F 97 17 158/64 96
01/22/25 23:01 01/23/25 06:00 01/23/25 06:00 01/23/25 06:00 01/23/25 04:00
I&O
01/22/25 01/23/25 01/24/25
06:59 06:59 06:59
Intake Total 825 / 900 585 / 585
Output Total 550 / 550 2700 / 2700
Balance 275 / 350 -2115 / -2114
Review of Systems
-
History Source: Patient and Other (significant other)
Constitutional: Denies No Appetite
Respiratory: Denies Trouble Breathing
Cardiac: Denies Chest Pain
Abdomen/GI: Denies Abdominal Pain, Nausea, Vomiting or Constipated
Genitourinary: Reports No Symptoms
Neuro: Reports Weakness (Arms)
Physical Exam
-
General: No Apparent Distress and Comfortable; Negative Respiratory Distress
HEENT: Normocephalic, Moist Mucous Membranes and PERRLA
Respiratory: Clear to Auscultation and Non Labored Respirations; Negative Wheezes, Rales, Rhonchi or Crackles
Cardiac: Regular Rhythm and S1/S2; Negative Murmur, Rub or Calf Tenderness
GI: Soft, Nondistended, Normal Bowel Sounds and Tender (LLQ)
Musculoskeletal: No Clubbing, No Cyanosis and No Edema
Skin: Warm and Dry
Neuro: Awake, Alert, Oriented, Tremors and Other (upper extremities strength preserved, involuntary lower jaw movement noted)
Psych: Calm and Confused (mildly)
[2025-01-23] MEDS: COZAAR 100 MG PO (07:55)
[2025-01-23] MEDS: FLOMAX 0.4 MG PO (07:55)
[2025-01-23] MEDS: KEPPRA 1000 MG IV ×2 (07:56→20:17)
[2025-01-23] MEDS: SINEMET 25-100 0.5 TABLET PO ×3 (07:56→22:01)
[2025-01-23] MEDS: PLAVIX 75 MG PO (07:56)
--- NOTE | 2025-01-23 08:58 | EEG.RPT ---
Electroencephalogram Report
Recording
Date of EE01/23/25
Type of EEG: Routine
Length of EEG recordin minutes
Done with Video Recording: Yes
Patient Status: Inpatient
Recording Conditions: Awake and Drowsy
Hyperventilation Performed: No
Photic Stimulation Performed: Yes
Report
LESS THAN 1 HOUR EEG REPORT
LESS THAN 1 HOUR EEG INTERPRETATION:
Moderately abnormal EEG for age due to diffuse bihemispheric slowing
CLINICAL CORRELATION:
This study was suggestive of diffuse cortical dysfunction without focal abnormality. No seizures were recorded.
Clinical correlation is advised.
METHODS:
A 21 channel digitized electroencephalogram (EEG) was performed at the bedside. The 10/20 international system of electrode placement was used with ECG and lateral/vertical eye movements recorded. Persyst QEEG monitoring was performed.
QUALITY OF STUDY:
Fair due to muscle artifact
ELECTROENCEPHALOGRAPHER IMPRESSION(S):
Background
There was a low to medium amplitude fairly well organized at times anterior-posterior voltage gradient of theta frequency
There were no significant asymmetries of background activity noted.
Sleep
Drowsiness present
Photic Stimulation
Failed to activate the record.
ECG
Normal sinus rhythm
[2025-01-23 11:53] LABS: Lyme Antibody Screen, EIA Negative (Negative)
[2025-01-23] MEDS: ATIVAN 0.5 MG IV (14:35)
[2025-01-23] MEDS: LOVENOX 40 MG SC (17:15)
--- NOTE | 2025-01-23 21:45 | PTCARENOTE ---
Pt received from previous shift in bed (downgraded to tele). Tele = ST. AAOx3, confused conversation, slow speech, extremely anxious. Full physical assessment documented (refer to worklist). Pt argumentative w/staff, states 'I am overmedicated,
I haven't slept in days, all you want to do is cause pain'. Assisted w/HS hygiene, incontinent bowel/bladder, care completed. Midline abdominal dressing c/d/i. Sacral foam intact. #20 RAC/LAC PIVs patent. Call kerns w/in reach (although does not
utilize --> calls out 'help me, help me'). Laceration to L thumb noted, cleansed and dressed, ? if family cut finger nails --> pt denies, yet nails are short. Bed alarm active, pillows padded on bed for seizure precautions.
--- NOTE | 2025-01-23 22:32 | TRANSFER ---
Pt transferred to in bed w/belongings. Telephone report to receiving RN. Prior to transfer pt observed resting with eyes closed and even respirations. After transport, pt states this RN did not administer eye gtts. Eye gtts were administered
prior to transfer (refer to MAR)
[2025-01-24] VITALS (7 sets, daily range): BP systolic 151–174; BP diastolic 69–100; PULSE 101–103; O2SAT 98; BMI 28.4
--- NOTE | 2025-01-24 00:45 | PTCARENOTE ---
received pt from ICU via bed. pt placed on tele #28. attempted to orient pt to room, call kerns and POC. Pt AAOX3 but has confused conversation and is forgetful. admission assessment completed
[2025-01-24] MEDS: CILOXAN 0.3% OPHTHALMIC SOLUTION 1 DROP OPHTH ×2 (04:14→12:23)
[2025-01-24 07:57] LABS: Hematocrit 38.8 % (39.0-52.0); Hemoglobin 13.5 g/dL (13.0-18.0); Mean Corp Hgb Conc. 34.8 g/dL (33.0-37.0); Mean Corpuscular Hgb 32.8 pg (27.0-31.0); Mean Corpuscular Volume 94.2 fL (80.0-94.0); Mean Platelet Volume 11.5 fL (7.4-10.4); Platelet Count 190 10^3/uL (130-400); Red Blood Cell Count 4.12 10^6/uL (4.70-6.10); Red Cell Dist. Width 13.7 % (11.5-14.5); White Blood Cell Count 6.8 10^3/uL (4.8-10.8)
[2025-01-24 08:00] LABS: ALT (SGPT) 28 U/L (0-50); AST (SGOT) 66 U/L (17-59); Albumin 3.5 g/dl (3.5-5.0); Alkaline Phosphatase 154 U/L (38-126); Blood Urea Nitrogen 18 mg/dl (9-20); Calcium 9.2 mg/dl (8.4-10.2); Carbon Dioxide 25 mmol/L (22-30); Chloride 107 mmol/L (98-107); Estimated Creatinine Clearance 62 ml/min; Glucose 117 mg/dl (70-99); Potassium 4.4 mmol/L (3.5-5.1); Sodium 141 mmol/L (135-145); Total Bilirubin 0.7 mg/dl (0.2-1.3); Total Protein 6.3 g/dl (6.3-8.2); eGFR > 60.00
--- NOTE | 2025-01-24 08:09 | PN.CDI ---
CDI
- -
CDI:
Physician Documentation Request
Admit Date: 01/21/25 18:53
Dear Doctor Rossy,
Patient admitted with acute toxic metabolic encephalopathy.
/ Nursing skin assessment, 'Stage 2 middle back pressure injury, POA.'
Physician documentation of the type and location of wounds is required for compliant documentation. Based on the above clinical findings and your assessment, please provide the following in your progress note:
Type (etiology) of ulcer/wound:
- Pressure (decubitus) ulcer
- Other
- Unable to determine
For a pressure ulcer, please also include the stage* of the ulcer:
- Stage 1 - Skin intact, non-blanchable redness
- Stage 2 - Partial thickness loss of dermis, includes intact or open blister
- Stage 3 - Full thickness tissue not including bone, tendon or muscle
- Stage 4 - Full thickness tissue loss, including exposed bone, tendon or muscle
- Unstageable - Full thickness loss in which the base of the ulcer is covered by slough (yellow, dawn, meza, green or brown) and/or eschar (dawn, brown or black) in the wound bed.
- Unable to determine
Use of terms such as suspected, likely, concern for, or probable (associated with a specific diagnosis that is being evaluated, monitored, or treated as if it exists) are acceptable and can be coded in the inpatient setting, when documented at the
time of discharge.
Thank you,
Oma MONTES,RN,CCDS
CDI Specialist
Available via tiger text
Please use your independent medical judgment in providing your response.
*Source: National Pressure Ulcer Advisory Panel (NPUAP)
[2025-01-24] MEDS: SINEMET 25-100 0.5 TABLET PO ×3 (08:17→20:48)
[2025-01-24] MEDS: PLAVIX 75 MG PO (08:18)
[2025-01-24] MEDS: FLOMAX 0.4 MG PO (08:18)
[2025-01-24] MEDS: COZAAR 100 MG PO (08:18)
[2025-01-24] MEDS: KEPPRA 1000 MG IV ×2 (08:18→20:45)
[2025-01-24 11:53] LABS: Syphilis/T. pallidum Ab Reflex Positive (Negative)
--- NOTE | 2025-01-24 13:17 | W.PN.HOSP.TC ---
Addendum entered and electronically signed by Karl Reddy MD 01/24/25 22:40:
Attending Addendum-
I saw and evaluated the patient. I reviewed the resident�s note and agree with findings and plan as documented in the resident�s note. Sub: Seen with POA partner and partners daughter present. Feels improved but still weak. Per daughter having
worsening short term memory loss. 'hes got dementia he doesnt want to accept it' Denies CP SOB vision changes. Full 12 point ROS reviewed and negative except as documented Exam: Vitals reviewed in chart GEN-NAD heart RRR lungs clear abd soft NT ND
incision CDI LE no edema Neuro AAO x 2 MS 01/21 UE intention tremor masked facies
Plan:
# Acute toxic metabolic encephalopathy
-improving
- underlying dementia
- cont ativan prn
- cont care in med surg
- Possibly related being postictal
- was on Adderall for undocumented reasons, was DC's last admission, withdrawal likely contributing to sxs
- Neurology on board
- cont keppra change to PO and decrease dose
- MRI no acute chances old CVA
- EEG nonspecific
#Seizure
-Had an episode of seizure during hospitalization-given Ativan
-continue Keppra
-Wellbutrin on hold for now due to concern of seizure which is questionable
-Psychiatry input appreciated
-Neurology on board
-EEG non spec no seizure
-MRI no acute abnormalities
#Metabolic acidosis
-Resolved
# Stage 2 middle back pressure injury
- POA
- wound care
# Transaminitis
- trending down
- Follow-up LFT as OP
#S/p ex lap with small bowel enterotomy
- Surgery on 01/03
- wound care
# History of CVA
- On Plavix
# Parkinson Disease
- cont Sinemet
# Bipolar disorder
- per psych likely ok to restart low dose Wellbutrin (low likelihood to have induced a seizure) - POA refusing
- Psychiatry on board
- cont to monitor
- cont ativan prn
# Anxiety
- His home Klonopin medication had been changed to Ativan at previous hospitalization
- As needed Ativan can be given at 0.5 mg prn
# Hypertension
- Continue losartan
# Hyperlipidemia
- Continue atorvastatin
# Bilateral conjunctivitis
-resolving
- Cipro drop
- Continue
# BPH
- Continue tamsulosin
#DVT prophylaxis
-Lovenox
Code-FULL
Dispo DC to SNF in am
Time spent coordinating care, review of plan of care with resident, personally reviewed records in EMR, med rec, consults, notes, labs, radiology, d/w nursing POA� 51mins
Original Note:
Today's Communication/Plan
-
DC planning
Assessment / Plan
Assessment / Plan
74 year old male with history of hypertension, CVA, bipolar/anxiety, SBO/ileus status post ex-lap 12/31, Parkinson's, with acute toxic metabolic encephalopathy, seizure
# Acute toxic metabolic encephalopathy
-Improved
-Likely postictal state from unwitnessed seizure at nursing facility, and witnessed seizure during this admission
-Head CT no acute abnormality, brain MRI with no acute abnormality
-Appreciate neurology recs
-DC telemetry
#Seizure
-Had an episode of seizure following the admission and given Ativan
-Continue Keppra. Appreciate neuro recs
-Psychiatry on board, Wellbutrin discontinued due to concern of seizure
-Neurology on board
-Brain MRI with no evidence of acute intracranial abnormality.
-EEG showed no evidence of current seizure
#Metabolic acidosis
-Resolved
-Possibly secondary to seizure episode. Lactate mildly elevated on arrival. Given Sodium bicarbonate 50 meq IV x 1
#Leukocytosis
- Likely reactive. Resolved without empiric antibiotics
- Chest x-ray suspicious for pneumonia versus bilateral atelectasis
- Remains afebrile. No indication for ABX
# Transaminitis
- Likely secondary to sepsis at recent hospitalization
- continues to improve
- Follow LFT
#S/p ex lap with small bowel enterotomy
- Surgery saw patient, no new recs
- Patient continues to tolerate diet with no abdominal pain/nausea/vomiting, and normal bowel movement
-wound care
# History of CVA
- On Plavix
# Parkinson
- On Sinemet
# Bipolar disorder
-Hold Wellbutrin for now due possibility of seizure
- Psychiatry consulted, Wellbutrin discontinued
# Anxiety
- His home Klonopin medication had been changed to Ativan at previous hospitalization
- As needed Ativan can be given at 0.5 mg
# Hypertension
- Continue losartan
# Hyperlipidemia
- Continue atorvastatin
# Bilateral conjunctivitis
-both eyes significantly improved
-Continue Cipro eye drops
# BPH
- Continue tamsulosin
# Dysphagia
- Speech therapy was consulted, IDD 6 diet recommended
#DVT prophylaxis
-Lovenox
Code status: Full code
Dispo: DC to [facility] tomorrow
Anticipated Discharge: Within 24 hours
Subjective/Interval History
-
Date of Service: January 24, 2025
Complains of constipation
No acute overnight events
Objective Data
-
Labs:
Laboratory Results
01/24/25
07:00
WBC 6.8
Hgb 13.5
Hct 38.8 L
Plt Count 190
Sodium 141
Potassium 4.4
Chloride 107
Carbon Dioxide 25
BUN 18
Creatinine 1.0
Glucose 117 H
Calcium 9.2
Total Bilirubin 0.7
AST 66 H
ALT 28
Alkaline Phosphatase 154 H
Vital Signs:
Vital Signs
Temp Pulse Resp BP Pulse Ox
97.4 F 106 20 156/100 98
01/24/25 11:10 01/24/25 11:10 01/24/25 11:10 01/24/25 11:10 01/24/25 11:10
I&O
01/23/25 01/24/25 01/25/25
06:59 06:59 06:59
Intake Total 585 / 585 240 / 240 280 / 280
Output Total 2700 / 2700 225 / 225
Balance -2114 / -2114 280 / 280
Review of Systems
-
History Source: Patient
Constitutional: Denies No Appetite
EENT: Denies Blurry Vision or Eye Pain
Respiratory: Denies Trouble Breathing
Cardiac: Denies Chest Pain
Abdomen/GI: Reports Constipated; Denies Abdominal Pain, Nausea or Vomiting
Genitourinary: Denies Dysuria or Difficulty Voiding
Neuro: Denies Dizzy, Headache, Weakness or Numbness
Physical Exam
-
General: Well Nourished, No Apparent Distress and Comfortable
HEENT: Normocephalic
Respiratory: Clear to Auscultation and Non Labored Respirations; Negative Wheezes, Rales, Rhonchi or Crackles
Cardiac: Regular Rhythm and S1/S2; Negative Murmur, Rub or Calf Tenderness
GI: Soft, Normal Bowel Sounds, Tender (mild, lower quadrants) and Other (incision dressing dry and intact)
Musculoskeletal: No Clubbing, No Cyanosis and No Edema
Skin: Warm and Dry
Neuro: Awake and Alert
Psych: Confused
--- NOTE | 2025-01-24 13:25 | W.PN.UPDATE ---
Update Note
Progress Note Update
Patient seems somewhat anxious but responds to reassurance as well as redirection. Given the possibility of symptomatic seizure ( has normal EEG ) Wellbutrin was D/C'd.
Patients partner who lived with him past 15 years as well as electric motor assembler and tester were visiting. They understand that any psychotropic medication has potential side effects and given his medical problems now including PD reintroducing any presents a challenge.
Currently mood is reasonably stable and he is not agitated albeit anxious.
I would continue the prn Ativan, we will continue F/U.
Discussed with partner and electric motor assembler and tester.
[2025-01-24 14:36] LABS: RPR, Progressive Non-Reactive (NonReactive)
--- NOTE | 2025-01-24 16:44 | CM ---
Plan for patient to return to [facility] when medically appropriate pending bed availability. CM will continue to follow for discharge planning needs.
Plan; SNF
[2025-01-24] MEDS: LOVENOX 40 MG SC (18:07)
[2025-01-24] MEDS: ATIVAN 0.5 MG IV (20:46)
[2025-01-24] MEDS: NSS (PRESERVATIVE FREE) 0.25 ML IV (20:47)
[2025-01-25] MEDS: LIDOCAINE 4% PATCH 1 PATCH TOPICAL (02:35)
--- NOTE | 2025-01-25 04:41 | PTCARENOTE ---
Pt remains extremely anxious t/o shift. Calling out 'help, help me' constantly after visitors left. Nonspecific complaints/requests whenever staff enters room. Medicated w/PRN ativan per orders (refer to MAR), + effect. Refuses to utilize call
kerns despite multiple instructions/demonstrations. Complaining of abdominal pain, unable to rate, requesting tyelenol. Contacted JOB SERVICE SPECIALIST covering house contacted, tylenol not ordered at this time 2/2 elevation in LFTs. Alternatively lidocaine patch
ordered and placed to L abdomen (pt requested 'put it on my arm'). Call kerns remains in reach, bed alarm active.
[2025-01-25 06:00] VITALS: BMI 28.3
[2025-01-25 07:10] VITALS: BP 170/98
[2025-01-25] MEDS: KEPPRA 500 MG PO (08:30)
[2025-01-25] MEDS: COZAAR 100 MG PO (08:30)
[2025-01-25] MEDS: SINEMET 25-100 0.5 TABLET PO ×2 (08:30→17:04)
[2025-01-25] MEDS: PLAVIX 75 MG PO (08:31)
[2025-01-25] MEDS: FLOMAX 0.4 MG PO (08:31)
[2025-01-25 11:40] VITALS: BP 164/89
[2025-01-25] MEDS: APRESOLINE 5 MG IV (11:44)
--- NOTE | 2025-01-25 12:02 | W.PN.UPDATE ---
Update Note
Progress Note Update
patient seen chart reviewed. discussed with partner sherin and his d at bedside. mr mohamud is known to me and appears to be in somewhat better shape mentally then when last seen by this scientific technical writer. he admits he feels depressed. given the ? of sz would
not restart wellbutrin as it has more risk for sz albeit usually at higher doses. discussed w patient and family to try another antidepressant, zoloft, which patient does not think he took before at 25 mg dose this can be increased depending on
efficacy and tolerance. i also called social media content specialist ms denise. the patient and family are eager for him to be dc and were under the impression that their hospitalist said yesterday it was too late to arrange and that it would be arranged today.
relayed this info to ms denise who will talk to hospitalist and wv to see if this can be done today. patient wants to go 'Home' family explained that he needs to be stronger physically before coming home. total time 20 minutes.
--- NOTE | 2025-01-25 12:03 | CM ---
Addendum entered by Delmy Ramey 01/25/25 16:43:
[facility] admission faxed, AYAZ sent to fax [phone] along with physician paperwork.
Original Note:
Chart reviewed and patient's plan is to return to [facility] today block and case maker reached out to physician, and patient will be cleared for discharge today. No auth required.
Plan; Patient to transfer to [facility] today
[facility]
Report [phone]
fax [phone]
--- NOTE | 2025-01-25 13:24 | W.PN.NEURO.1 ---
Today's Communication / Plan
-
d/c keppra
Neuro Assessment/Plan
Assessment
likely symptomatic seizures in the setting of acute illness
EEG slowing of PDR
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
can d/c keppra as there is no history of unprovoked seizures
Parkinson's continue Sinemet 25/100 TID
Subjective/Objective
Subjective Data
Date of Service: January 25, 2025
confirmed with patient and family - he had a seizure at rehab that prompted transfer to ED, and a second seizure shortly after being admitted. both occurred in the setting of acute illness (bowel obstruction)
Objective Data
Vital Signs
Temp Pulse Resp BP Pulse Ox
36.6 C 98 18 164/89 97
01/25/25 07:10 01/25/25 11:44 01/25/25 11:40 01/25/25 11:44 01/25/25 11:40
Lab Results
01/24/25 07:00
01/24/25 07:00
Sodium 141 mmol/L (135-145) 01/24/25 07:00
Potassium 4.4 mmol/L (3.5-5.1) 01/24/25 07:00
BUN 18 mg/dl (9-20) 01/24/25 07:00
Glucose 117 mg/dl (70-99) H 01/24/25 07:00
Calcium 9.2 mg/dl (8.4-10.2) 01/24/25 07:00
Ur Buprenorphine Negative (Negative) 01/22/25 03:57
Patient Allergies
chlorpromazine [From Thorazine] Allergy (Verified 12/29/24 14:50)
paralysis
Physical Exam
-
AAOx3, speech clear, slow to process
face symmetric
[2025-01-25] MEDS: ZOLOFT 25 MG PO (14:38)
--- NOTE | 2025-01-25 15:14 | W.PN.HOSP.TC ---
Addendum entered and electronically signed by Karl Reddy MD 01/25/25 23:38:
Attending Addendum-
I saw and evaluated the patient. I reviewed the resident�s note and agree with findings and plan as documented in the resident�s note. Sub: Seen with POA partner neuro and partners daughter present. Feels improved. repeating 'I feel nauseous but i
can go to rehab today' Denies CP SOB vision changes. Full 12 point ROS reviewed and negative except as documented Exam: Vitals reviewed in chart GEN-NAD heart RRR lungs clear abd soft NT ND incision CDI valdemar in place LE no edema Neuro AAO x 2
MS 4/5 UE intention tremor masked facies
Plan:
# Acute toxic metabolic encephalopathy
- improving
- probable underlying dementia
- was on Adderall for undocumented reasons, was DC'd last admission, withdrawal likely contributing to sxs, may take weeks to resolve
- Neurology on board
- DC keppra - provoked per neuro
- MRI no acute chances old CVA
- EEG nonspecific
#Seizure - provoked while sick
-Had an episode of seizure during hospitalization
-DC Keppra per neuro
-Wellbutrin on hold
-Psychiatry input appreciated
-Neurology on board
-EEG non spec no seizure
-MRI no acute abnormalities
#Metabolic acidosis
-Resolved
# Stage 2 middle back pressure injury
- POA
- wound care
# Transaminitis
- trending down
- Follow-up LFT as OP
#S/p ex lap with small bowel enterotomy
- Surgery on 01/03
- wound care
# History of CVA
- On Plavix
# Parkinson Disease
- cont Sinemet
# Anxiety
- His home Klonopin medication had been changed to Ativan at previous hospitalization
- start Seroquel new per psych
# Hypertension
- Continue losartan
# Hyperlipidemia
- Continue atorvastatin
# Bilateral conjunctivitis
-resolving
- Cipro drop
- Continue
# BPH
- Continue tamsulosin
#DVT prophylaxis
-Lovenox
Code-FULL
Dispo DC to SNF
Time spent coordinating care, DC planning, review of DC plan of care with resident, transition of care, review of records, med rec/scripts sent electronically, consults, notes, d/w consultants, nursing, family, and CM� 33 mins
Original Note:
Today's Communication/Plan
-
DC planning
Assessment / Plan
Assessment / Plan
74 year old male with history of hypertension, CVA, bipolar/anxiety, SBO/ileus status post ex-lap 12/31, Parkinson's, with acute toxic metabolic encephalopathy, seizure
# Acute toxic metabolic encephalopathy
-Improved, behavior stable
-Likely postictal state from unwitnessed seizure at nursing facility, and witnessed seizure during this admission
-Head CT no acute abnormality, brain MRI with no acute abnormality
-Appreciate neurology recs.
-Pt will require less than 30 days skilled care
#Seizure
-Had an episode of seizure following the admission and given Ativan
-Continue Keppra. Appreciate neuro recs
-Psychiatry on board, Wellbutrin discontinued due to concern of seizure
-Neurology on board
-Brain MRI with chronic right lentiform infarct, and no evidence of acute intracranial abnormality.
-EEG showed no evidence of current seizure
-Keppra discontinued
#Metabolic acidosis
-Resolved
-Possibly secondary to seizure episode. Lactate mildly elevated on arrival. Given Sodium bicarbonate 50 meq IV x 1
#Leukocytosis
- Chest x-ray was suspicious for pneumonia versus bilateral atelectasis. Patient with no resp sx and chest clear. Remains afebrile. No indication for ABX
- Reactive. Resolved without empiric antibiotics
# Transaminitis
- Likely secondary to sepsis at recent hospitalization
- continues to improve
- Follow LFT
#S/p ex lap with small bowel enterotomy
- Surgery saw patient, no new recs
- Patient continues to tolerate diet with no abdominal pain/nausea/vomiting, and normal bowel movement
- wound care
#Wound:
Stage 2 middle back pressure injury, POA
-wound care
# History of CVA
- On Plavix
# Parkinson
- On Sinemet
# Bipolar disorder
-Hold Wellbutrin for now due possibility of seizure
- Psychiatry consulted, Wellbutrin discontinued
# Anxiety/depression
# Bipolar disorder
- His home Klonopin medication had been changed to Ativan at previous hospitalization
- As needed Ativan can be given at 0.5 mg
- Appreciate psych recs. Start sertraline 25 mg daily
# Hypertension
- Continue losartan
# Hyperlipidemia
- Continue atorvastatin
# Bilateral conjunctivitis
-both eyes improved significantly
-Continue Cipro eye drops
# BPH
- Continue tamsulosin
# Dysphagia
- Speech therapy was consulted, IDD 6 diet recommended
#DVT prophylaxis
-Lovenox
Code status: Full code
Dispo: DC to [facility]
Anticipated Discharge: Today
Subjective/Interval History
-
Date of Service: January 25, 2025
Pt noted to be anxious overnight
Objective Data
-
Vital Signs:
Vital Signs
Temp Pulse Resp BP Pulse Ox
97.9 F 98 18 164/89 97
01/25/25 07:10 01/25/25 11:44 01/25/25 11:40 01/25/25 11:44 01/25/25 11:40
I&O
01/24/25 01/25/25 01/26/25
06:59 06:59 06:59
Intake Total 240 / 240 1000 / 1000
Output Total 225 / 225
Balance 1000 / 999
Review of Systems
-
History Source: Patient
EENT: Denies Blurry Vision
Respiratory: Denies Trouble Breathing
Cardiac: Denies Chest Pain
Abdomen/GI: Denies Abdominal Pain, Nausea or Vomiting
Physical Exam
-
General: Well Developed, Well Nourished and Comfortable
HEENT: Normocephalic, Atraumatic and Moist Mucous Membranes
Respiratory: Clear to Auscultation and Non Labored Respirations; Negative Wheezes, Rales, Rhonchi or Crackles
Cardiac: Regular Rhythm and S1/S2; Negative Murmur, Rub or Calf Tenderness
GI: Soft, Nontender, Nondistended and Normal Bowel Sounds
Musculoskeletal: No Clubbing, No Cyanosis and No Edema
Skin: Warm and Dry
Neuro: Awake, Alert, No Motor Deficits and Nonfocal/Grossly Intact
Psych: Anxious
[2025-01-25 15:26] VITALS: BP 150/86
[2025-01-25] MEDS: LOVENOX 40 MG SC (17:04)
--- NOTE | 2025-01-25 20:05 | W.DCSUMMARY ---
Addendum entered and electronically signed by Karl Reddy MD 01/25/25 23:40:
Read, reviewed, and agree. See same day progress note for additional details.
Jase Reddy MD
Original Note:
Documented by User: Sabine Blair MD, Resident 01/25/25 20:54
Discharge Summary
Discharge Data
Date of Admission: 01/21/25
Date of Discharge: 01/25/25
-
Pending Results: Yes
Additional Pending Results:
Treponema palladium antibody (TP�PA)
Hospital Course
Discharging Physician : Sabine Blair MD.; Karl Reddy MD.
Disposition : SNF
Primary care physician : Raj Hunter MD.
Principal Discharge diagnosis : Acute toxic metabolic encephalopathy, tonic-clonic seizure, metabolic acidosis, lactic acidosis
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
polymyalgia rheumatica
Hospital Course :
74 year old male with above PMH who was brought to the ED from SNF after nursing staff found him to be confused. In the ED, pulse 116, with other vitals stable, WBC 11.0, with CBC and BMP unremarkable. Elevated transaminases and mildly elevated
lactate. CT head with no acute abnormality.
While admitted, patient had a witnessed generalized tonic-clonic seizure which was treated with IV Ativan, and Keppra was started. There was no recurrence of seizure, and EEG showed. MRI brain without contrast showed old infarct and microvascular
changes but no acute abnormality. Encephalopathy continued to improve while admitted. Syphilis antibody was positive with RPR nonreactive. TSH normal. Lyme screen and covid antigen was negative.
Lactate and metabolic acidosis resolved with bicarb admin. Transaminitis with noted downtrend continuous from prior admission with SBO/ileus and sepsis secondary to pneumonia.
He had recent exploratory laparotomy with enterotomy for SBO/ileus at prior admission. There was expected mild abdominal tenderness on physical exam with patient continuing to tolerate p.o. intake with normal bowel output. Surgery team assessed
patient with no change in management.
Mild leukocytosis was likely reactive resolved without antibiotics. CXR PNA vs atelectasis was considered, and patient reported no symptoms and remained with normal lung PE. Pt remained afebrile throughout stay.
Home bupropion was held due to potential cause of seizure. With history of anxiety/depression and seizure, psych consult was placed and sertraline 25mg daily was started on day of discharge. IV keppra was converted to oral, and discontinued upon
discharge.
Other chronic home medications were continued as appropriate.
He was deemed stable for discharge to SNF. He is to follow up with PCP shortly, and follow up with neurology in 4-6 weeks.
Important imaging findings :
Chest x-ray 01/21/2025:
1. Moderate size left lower lobe airspace consolidation. Mild airspace opacities in the right lower, middle, and upper lobes. MULTIFOCAL PNEUMONIA is considered most likely. Multifocal bilateral atelectasis is a less likely diagnostic possibility.
2. Moderate cardiomegaly.
3. Moderately decreased lung volumes.
Head CT 01/21/2025:
The ventricles are normal in size, configuration, and position for age. Stable arachnoid cyst in the right anterolateral frontal lobe region. Stable old right basal ganglia infarct. There is no new intra- or extra-axial mass, hemorrhage, or fluid
collection. No new areas of abnormal mass effect or attenuation are noted. There is stable moderate subcortical, deep, and periventricular white matter low-attenuation, compatible with changes of chronic small vessel ischemic disease. Visualized
paranasal sinuses are free of mucosal disease. No depressed calvarial fracture.
Brain MRI :
No evidence of acute intracranial abnormality.
Small focus of CSF signal intensity within the medial aspect of the right lentiform nucleus, near the junction of the internal capsule, stable and likely from old infarction.
Moderate to severe T2 and FLAIR white matter hyperintensities, commonly seen with aging and usually attributed to small vessel ischemic disease. These hyperintensities have not been shown to correlate with a focal neurologic deficit.
2.5 cm arachnoid cyst in the right frontal region, stable.
Partially empty sella. This is often an incidental finding of no clinical significance, although it does have an association with idiopathic intracranial hypertension. Many patients are asymptomatic and endocrinologically normal, although with some
increasing reports of variable hypopituitarism and hyperprolactinemia.
On sagittal images, suggestion of compression of the cervical spinal cord at C3-4 from disc/osteophyte complex. If further imaging evaluation is desired, consideration for full cervical spine MRI.
Discharge Plan
-
Patient Disposition: Residential/SNF
Discharge Diagnosis/Procedures: Acute toxic metabolic encephalopathy, seizure, metabolic acidosis
Condition: Good
Diet: Low Sodium
Activity: With assistance
Driving Restrictions: No driving
Bathing Restrictions: None
Blood Work: Pending test: T. Pallidum Ab
Referrals:
Henrry Perla MD [Active] - in four to six weeks
Raj Hunter MD [Family Provider] - in less than 1 week
Prescriptions:
New
sertraline 25 mg Tablet
25 mg PO DAILY Qty: 30 0RF
Continued
tamsulosin 0.4 mg Capsule
0.4 mg PO DAILY
testosterone 20.25 mg/1.25 gram (1.62 %) gel in metered-dose pump
4 pump transdermal DAILY
atorvastatin [Lipitor] 80 mg Tablet
80 mg PO HS
therapeutic multivitamin Tablet
1 tab PO DAILY
losartan 100 mg Tablet
100 mg PO DAILY
Rx Instructions:
hold for SBP below 100
coenzyme Q10 [CoQ-10] 100 mg Capsule
200 mg PO DAILY
glucosamine-chondroitin [Osteo Bi-Flex] 250-200 mg Tablet
1 tab PO DAILY
clopidogrel 75 mg Tablet
75 mg PO DAILY 60 Days Qty: 60 0RF
carbidopa-levodopa 25-100 mg Tablet
0.5 tab PO TID 60 Days Qty: 90 0RF
acetaminophen 325 mg Tablet
650 mg PO Q6H MDD 3000mg PRN (Reason: mild pain/temp>100)
magnesium hydroxide [Milk of Magnesia] 400 mg/5 mL Suspension
2,400 mg PO DAILYPRN PRN (Reason: if no bm x 3 days)
bisacodyl [Dulcolax (bisacodyl)] 10 mg Suppository
10 mg WI DAILYPRN PRN (Reason: if MOM ineffective)
Fleet Enema 19-7 gram/118 mL Enema
118 ml WI DAILYPRN PRN (Reason: if dulcolax ineffective)
ciprofloxacin HCl 0.3 % drops
1 drp BOTH EYES Q6H
Rx Instructions:
start 01/20/25, end 01/23/25
Discontinued
bupropion HCl [Wellbutrin SR] 100 mg Tablet Sustained-Release 12 Hr
100 mg PO DAILY
Discharge Orders:
Discharge Patient (As Directed); Ordered 01/25/25
Ordered By: Sabine Blair
Discharge Date and Time
Discharge Date/Time: 01/25/25 18:31
Print Language: [place]

Documented by User: Karl Reddy MD 01/25/25 23:30
Discharge Summary
Discharge Data
Date of Admission: 01/21/25
Date of Discharge: 01/25/25
Discharge Plan
-
Patient Disposition: Residential/SNF
Discharge Diagnosis/Procedures: Acute toxic metabolic encephalopathy, seizure, metabolic acidosis
Condition: Good
Diet: Low Sodium
Activity: With assistance
Driving Restrictions: No driving
Bathing Restrictions: None
Blood Work: Pending test: T. Pallidum Ab
Referrals:
Henrry Perla MD [Active] - in four to six weeks
Raj Hunter MD [Family Provider] - in less than 1 week
Prescriptions:
New
sertraline 25 mg Tablet
25 mg PO DAILY Qty: 30 0RF
Continued
tamsulosin 0.4 mg Capsule
0.4 mg PO DAILY
testosterone 20.25 mg/1.25 gram (1.62 %) gel in metered-dose pump
4 pump transdermal DAILY
atorvastatin [Lipitor] 80 mg Tablet
80 mg PO HS
therapeutic multivitamin Tablet
1 tab PO DAILY
losartan 100 mg Tablet
100 mg PO DAILY
Rx Instructions:
hold for SBP below 100
coenzyme Q10 [CoQ-10] 100 mg Capsule
200 mg PO DAILY
glucosamine-chondroitin [Osteo Bi-Flex] 250-200 mg Tablet
1 tab PO DAILY
clopidogrel 75 mg Tablet
75 mg PO DAILY 60 Days Qty: 60 0RF
carbidopa-levodopa 25-100 mg Tablet
0.5 tab PO TID 60 Days Qty: 90 0RF
acetaminophen 325 mg Tablet
650 mg PO Q6H MDD 3000mg PRN (Reason: mild pain/temp>100)
magnesium hydroxide [Milk of Magnesia] 400 mg/5 mL Suspension
2,400 mg PO DAILYPRN PRN (Reason: if no bm x 3 days)
bisacodyl [Dulcolax (bisacodyl)] 10 mg Suppository
10 mg WI DAILYPRN PRN (Reason: if MOM ineffective)
Fleet Enema 19-7 gram/118 mL Enema
118 ml WI DAILYPRN PRN (Reason: if dulcolax ineffective)
ciprofloxacin HCl 0.3 % drops
1 drp BOTH EYES Q6H
Rx Instructions:
start 01/20/25, end 01/23/25
Discontinued
bupropion HCl [Wellbutrin SR] 100 mg Tablet Sustained-Release 12 Hr
100 mg PO DAILY
Discharge Orders:
Discharge Patient (As Directed); Ordered 01/25/25
Ordered By: Sabine Blair
Discharge Date and Time
Discharge Date/Time: 01/25/25 18:31
Print Language: [place]
[2025-01-26 19:24] LABS: T. pallidum Ab By TP-PA Reactive (Non Reactive)
== END 2025-01-25 18:31 | DRG 100 ==
LOC: 2 NORTH 18:53
PROVIDERS: Nurse Practitioner Gerontology; Student in an Organized Health Care Education/Training Program; ADMITTING PHYSICIAN Hospitalist; ATTENDING PHYSICIAN Family Medicine; CONSULT PHYSICIAN Psychiatry & Neurology Neurology; EMERGENCY PHYSICIAN Emergency Medicine; FAMILY PHYSICIAN Internal Medicine; OTHER PHYSICIAN Psychiatry & Neurology Psychiatry; OTHER PHYSICIAN Surgery
DX: R56.9 Unspecified convulsions (principal); G92.8 Other toxic encephalopathy; G20.B1 Parkinson's disease with dyskinesia, without mention of fluctuations; Z86.73 Personal history of transient ischemic attack (TIA), and cerebral infarction without residual deficits; F31.9 Bipolar disorder, unspecified; M40.209 Unspecified kyphosis, site unspecified; M48.061 Spinal stenosis, lumbar region without neurogenic claudication; E29.1 Testicular hypofunction; M35.3 Polymyalgia rheumatica; N40.0 Benign prostatic hyperplasia without lower urinary tract symptoms; I11.9 Hypertensive heart disease without heart failure; Z87.891 Personal history of nicotine dependence; Z79.02 Long term (current) use of antithrombotics/antiplatelets; H10.9 Unspecified conjunctivitis; R13.10 Dysphagia, unspecified; F41.9 Anxiety disorder, unspecified; F90.9 Attention-deficit hyperactivity disorder, unspecified type; Z79.891 Long term (current) use of opiate analgesic; Z79.899 Other long term (current) drug therapy; Z11.52 Encounter for screening for COVID-19; L89.102 Pressure ulcer of unspecified part of back, stage 2
CPT/HCPCS: 51701; 51798; 70450; 70553; 71046; 80053; 80306; 80307; 81003; 81015; 82550; 82728; 82962; 83605; 83690; 83735; 84443; 85025; 85027; 85652; 86140; 86592; 86618; 86780; 87040; 87070; 87502; 87811; 92526; 92610; 93005; 95816; 96360; 97163; 97167; 97530; 97535; 99285; A9575; J7030

== ENCOUNTER → 2025-03-03 10:39 | Outpatient (REF) | payer MEDICARE, SELFPAY ==
[2025-03-03 11:27] LABS: % Basophils 0.5 % (0-2); % Eosinophils 2.2 % (0-6); % Immature Granulocytes 0.3 % (0-0.5); % Lymphocytes 33.6 % (20.5-51.1); % Neutrophils 54.4 % (42.2-75.2); Absolute Eosinophils 0.2 10^3/uL (0-0.7); Absolute Lymphocytes 2.6 10^3/uL (1.2-3.4); Absolute Monocytes 0.7 10^3/uL (0.1-0.6); Absolute Neutrophils 4.2 10^3/uL (1.4-6.5); Hematocrit 42.6 % (39.0-52.0); Hemoglobin 14.6 g/dL (13.0-18.0); Mean Corp Hgb Conc. 34.3 g/dL (33.0-37.0); Mean Corpuscular Hgb 32.2 pg (27.0-31.0); Mean Corpuscular Volume 93.8 fL (80.0-94.0); Mean Platelet Volume 11.1 fL (7.4-10.4); Nucleated Red Blood Cells % 0 % (-); Platelet Count 173 10^3/uL (130-400); Red Blood Cell Count 4.54 10^6/uL (4.70-6.10); Red Cell Dist. Width 13.3 % (11.5-14.5); White Blood Cell Count 7.8 10^3/uL (4.8-10.8)
[2025-03-03 11:59] LABS: ALT (SGPT) 32 U/L (0-50); AST (SGOT) 57 U/L (17-59); Albumin 4.2 g/dl (3.5-5.0); Alkaline Phosphatase 88 U/L (38-126); Blood Urea Nitrogen 15 mg/dl (9-20); Calcium 9.6 mg/dl (8.4-10.2); Carbon Dioxide 28 mmol/L (22-30); Chloride 108 mmol/L (98-107); Glucose 96 mg/dl (70-99); Potassium 4.5 mmol/L (3.5-5.1); Sodium 143 mmol/L (135-145); Total Bilirubin 0.5 mg/dl (0.2-1.3); Total Protein 6.8 g/dl (6.3-8.2); eGFR > 60.00
== END ==
LOC: REG 10:39
PROVIDERS: ATTENDING PHYSICIAN Family Medicine
DX: K56.609 Unspecified intestinal obstruction, unspecified as to partial versus complete obstruction (principal); I10 Essential (primary) hypertension; F90.0 Attention-deficit hyperactivity disorder, predominantly inattentive type; F32.9 Major depressive disorder, single episode, unspecified; F31.70 Bipolar disorder, currently in remission, most recent episode unspecified
CPT/HCPCS: 36415; 80053; 85025

== ENCOUNTER → 2025-04-07 10:57 | Outpatient (REF) | payer MEDICARE, SELFPAY ==
[2025-04-07 11:34] LABS: % Basophils 0.5 % (0-2); % Eosinophils 2.5 % (0-6); % Immature Granulocytes 0.4 % (0-0.5); % Lymphocytes 28.3 % (20.5-51.1); % Monocytes 11.1 % (1.7-9.3); % Neutrophils 57.2 % (42.2-75.2); Absolute Eosinophils 0.2 10^3/uL (0-0.7); Absolute Lymphocytes 2.4 10^3/uL (1.2-3.4); Absolute Monocytes 0.9 10^3/uL (0.1-0.6); Absolute Neutrophils 4.8 10^3/uL (1.4-6.5); Mean Corp Hgb Conc. 33.3 g/dL (33.0-37.0); Mean Corpuscular Hgb 31.7 pg (27.0-31.0); Mean Corpuscular Volume 95.1 fL (80.0-94.0); Mean Platelet Volume 10.3 fL (7.4-10.4); Nucleated Red Blood Cells % 0 % (-); Platelet Count 174 10^3/uL (130-400); Red Blood Cell Count 4.73 10^6/uL (4.70-6.10); Red Cell Dist. Width 13.2 % (11.5-14.5); White Blood Cell Count 8.4 10^3/uL (4.8-10.8)
[2025-04-07 11:55] LABS: ALT (SGPT) 25 U/L (0-50); AST (SGOT) 64 U/L (17-59); Albumin 4.5 g/dl (3.5-5.0); Alkaline Phosphatase 94 U/L (38-126); Blood Urea Nitrogen 20 mg/dl (9-20); Calcium 9.7 mg/dl (8.4-10.2); Carbon Dioxide 24 mmol/L (22-30); Chloride 109 mmol/L (98-107); Glucose 90 mg/dl (70-99); Potassium 4.5 mmol/L (3.5-5.1); Sodium 141 mmol/L (135-145); Total Bilirubin 0.6 mg/dl (0.2-1.3); eGFR > 60.00
== END ==
LOC: REG 10:57
PROVIDERS: ATTENDING PHYSICIAN Family Medicine
DX: I10 Essential (primary) hypertension (principal); G20.A1 Parkinson's disease without dyskinesia, without mention of fluctuations; M35.3 Polymyalgia rheumatica; E87.5 Hyperkalemia; E87.20 Acidosis, unspecified
CPT/HCPCS: 36415; 80053; 85025

== ENCOUNTER 2025-07-22 22:14 | Observation (INO) | payer MEDICARE, SELFPAY ==
[2025-07-22 18:21] VITALS: BP 139/94
[2025-07-22 18:22] VITALS: BMI 30.4
--- NOTE | 2025-07-22 18:39 | ED.GENMED ---
History of Present Illness
<Jennifer Salgado NP - Last Filed: 07/23/25 02:15>
General
Chief Complaint: Seizure
Source: patient
Exam Limitations: none
Time Seen by Provider: 07/22/25 18:34
Nursing documentation reviewed up to this point in time: agreed with
History of Present Illness
History of Present Illness:
Patient to ED after witnessed seizure at home. According to EMS seizure lasted less than 1min. He has a history of seizures, associated with sepsis. Has been on keppra in the past. . Brought to ED via EMS, incident occurred just POT TENDER
Past History
<Jennifer Salgado NP - Last Filed: 07/23/25 02:15>
Past History
ED Past Medical History: HTN, Hypercholesterolemia, Seizures, Psychiatric (bipolar affective disorder with manic psychosis) and Other (attention deficit hyperactivity disorder, TESTICULAR HYPOFUNCTION, POLYMYALGIA rheumatica)
ED Past Surgical History: Other (Hernia repair)
Social History
Tobacco: Former smoker
Alcohol: Occasional
Drug: None
Living: with roommate
Employment: Retired
Family History
Family History: Other (reviewed and non-contributory)
Review of Systems
<Jennifer Salgado NP - Last Filed: 07/23/25 02:15>
Review of Systems
Allergies reviewed?: Yes
All Other Systems: ROS reviewed and negative except as documented in HPI and ROS
Constitutional: Reports no symptoms
EENT: Reports no symptoms
Respiratory: Reports no symptoms
Cardiac: Reports no symptoms
ABD/GI: Reports no symptoms
: Reports no symptoms
Musculoskeletal: Reports no symptoms
Skin: Reports no symptoms
Neurological: Reports other (seizure POT TENDER)
Psychiatric: Reports no symptoms
Phy Exam
<Jennifer Salgado NP - Last Filed: 07/23/25 02:15>
General Physical Exam
General Presentation: moderate distress
General age: appears stated age
General Skin: warm and dry
General Habitus: normal
General Mental: other (post ictal on arrival. Now following commands)
Cardiovascular Exam
Cardiovascular Exam: regular rate/rhythm
Pulmonary Exam
Pulmonary Exam: lungs clear and no respiratory distress
Gastrointestinal Exam
Gastrointestinal Exam: normal bowel sounds, non tender, soft and no organomegaly
Neurological Exam
Neurological Exam: alert, oriented x3, CN II-XII intact, no motor deficits and no sensory deficits
Musculoskeletal Exam
Musculoskeletal Exam: full ROM and neuro vasc intact
Skin Exam
Skin Exam: normal color and warm/dry
Course
<Jennifer Salgado RESORT MANAGER - Last Filed: 07/23/25 02:15>
Orders/Labs/Results
Orders:
Orders
07/22/25 Dinner
Regular
At Your Request: Limited, Fisher Trammel Net Required
07/22/25 18:23
EKG [Electrocardiogram (*1)] Urgent
Reason for Study: Chest Pain
EKG- Treatment ONCE
07/22/25 18:33
Complete Blood Count/With Diff Urgent
Comprehensive Metabolic Panel Urgent
Lactate Level [Lactic Acid] Urgent
07/22/25 18:41
Ceribell [Rapid Point of Care EEG (ED/ICU ONLY)] Q1H
Indications for use:: Altered Mental Status
07/22/25 18:[address] [CT Head W/o Iv Contrast] Urgent
Comment:
Reason For Exam: altered mental status
07/22/25 18:54
Blood Culture Urgent
DEVORA Source: Blood/Venous
Specimen Description:
07/22/25 18:55
Levetiracetam Injectable [Keppra] 4,500 mg IV NOW STA
07/22/25 21:26
Admit/Transfer Patient As Directed
Co-Sign Provider:
Level of Care: Observation services
Assign to:: Telemetry
Physician / Group: andrés
Diagnosis: seizure
Reason for Telemetry: Arrhythmia
Date to Stop Telemetry: 07/25/25
Time to Stop Telemetry: 11:00
Code Status As Directed
Resuscitation Status: Full Code
PRN Pain Medication Management As Directed
May give lesser potent ordered pain med per pt: Yes
preference::
Protocol:: Medication orders for pain may be administered in a
manner that supports deferring to patient preference
when the pt is:
- Requesting an ordered lesser potent pain medication.
Least to most potent pain medications are defined
as: acetaminophen < NSAID < tramadol < opioids
(morphine, oxycodone, hydromorphone).
- Requesting a lesser dose of the same medication IF
ORDERED.
- Requesting a less intrusive route of administration
if both routes are prescribed by the provider (PO <
IV).
07/22/25 22:52
Urinalysis Reflex To Culture Urgent
Date Specimen was Collected: 07/22/25
Time Specimen was Collected: 22:50
07/22/25 23:48
NEUROLOGY CONSULT Routine
Consulting Provider: Ector Hunter
Was physician already notified: Yes
Activity As Directed
Activity Level: As Tolerated
Vital Signs As Directed
Frequency: Per unit guidelines
DX Deep Vein Thrombosis Video Routine
07/23/25 06:00
Complete Blood Count/With Diff IN AM
Comprehensive Metabolic Panel IN AM
Keppra (Levetiracetam) [S] IN AM
07/23/25 08:00
Heparin 5,000 units SC Q12
Levetiracetam Injectable [Keppra] 500 mg IV Q12
07/25/25 11:00
DC Protocol for Telemetry ONCE
Abnormal Lab Results
07/22/25
18:33
MCH 31.8 H pg
(27.0-31.0)
Abs Immat Gran (auto) 0.1 H 10^3/uL
(0-0.05)
Absolute Monos (auto) 0.9 H 10^3/uL
(0.1-0.6)
Immature Gran % 1.1 H %
(0-0.5)
Monocytes % 12.5 H %
(1.7-9.3)
Glucose 108 H mg/dl
(70-99)
Lactic Acid 2.5 H mmol/L
(0.7-2.0)
AST 63 H U/L
(17-59)
ALT 51 H U/L
(0-50)
07/22/25 18:33
07/22/25 18:33
Vital Signs
Initial and Last Documented VS:
Initial Vital Signs
Temp
97.6 F
07/22/25 18:18
Last Documented Vital Signs
Temp Pulse Resp BP Pulse Ox
98.1 F 79 18 151/77 95
07/22/25 23:44 07/22/25 23:44 07/22/25 23:44 07/22/25 23:44 07/22/25 23:44
<Erica Kenny, DO - Last Filed: 07/22/25 18:56>
Orders/Labs/Results
Orders:
Orders
07/22/25 Dinner
Regular
At Your Request: Limited, Fisher Trammel Net Required
07/22/25 18:23
EKG [Electrocardiogram (*1)] Urgent
Reason for Study: Chest Pain
EKG- Treatment ONCE
07/22/25 18:33
Complete Blood Count/With Diff Urgent
Comprehensive Metabolic Panel Urgent
Lactate Level [Lactic Acid] Urgent
07/22/25 18:41
Ceribell [Rapid Point of Care EEG (ED/ICU ONLY)] Q1H
Indications for use:: Altered Mental Status
07/22/25 18:[address] [CT Head W/o Iv Contrast] Urgent
Comment:
Reason For Exam: altered mental status
07/22/25 18:54
Blood Culture Urgent
DEVORA Source: Blood/Venous
Specimen Description:
07/22/25 18:55
Levetiracetam Injectable [Keppra] 4,500 mg IV NOW STA
07/22/25 21:26
Admit/Transfer Patient As Directed
Co-Sign Provider:
Level of Care: Observation services
Assign to:: Telemetry
Physician / Group: andrés
Diagnosis: seizure
Reason for Telemetry: Arrhythmia
Date to Stop Telemetry: 07/25/25
Time to Stop Telemetry: 11:00
Code Status As Directed
Resuscitation Status: Full Code
PRN Pain Medication Management As Directed
May give lesser potent ordered pain med per pt: Yes
preference::
Protocol:: Medication orders for pain may be administered in a
manner that supports deferring to patient preference
when the pt is:
- Requesting an ordered lesser potent pain medication.
Least to most potent pain medications are defined
as: acetaminophen < NSAID < tramadol < opioids
(morphine, oxycodone, hydromorphone).
- Requesting a lesser dose of the same medication IF
ORDERED.
- Requesting a less intrusive route of administration
if both routes are prescribed by the provider (PO <
IV).
07/22/25 22:52
Urinalysis Reflex To Culture Urgent
Date Specimen was Collected: 07/22/25
Time Specimen was Collected: 22:50
07/22/25 23:48
NEUROLOGY CONSULT Routine
Consulting Provider: Ector Hunter
Was physician already notified: Yes
Activity As Directed
Activity Level: As Tolerated
Vital Signs As Directed
Frequency: Per unit guidelines
DX Deep Vein Thrombosis Video Routine
07/23/25 06:00
Complete Blood Count/With Diff IN AM
Comprehensive Metabolic Panel IN AM
Keppra (Levetiracetam) [S] IN AM
07/23/25 08:00
Heparin 5,000 units SC Q12
Levetiracetam Injectable [Keppra] 500 mg IV Q12
07/25/25 11:00
DC Protocol for Telemetry ONCE
Abnormal Lab Results
07/22/25
18:33
MCH 31.8 H pg
(27.0-31.0)
Abs Immat Gran (auto) 0.1 H 10^3/uL
(0-0.05)
Absolute Monos (auto) 0.9 H 10^3/uL
(0.1-0.6)
Immature Gran % 1.1 H %
(0-0.5)
Monocytes % 12.5 H %
(1.7-9.3)
Glucose 108 H mg/dl
(70-99)
Lactic Acid 2.5 H mmol/L
(0.7-2.0)
AST 63 H U/L
(17-59)
ALT 51 H U/L
(0-50)
07/22/25 18:33
07/22/25 18:33
Vital Signs
Initial and Last Documented VS:
Initial Vital Signs
Temp
97.6 F
07/22/25 18:18
Last Documented Vital Signs
Temp Pulse Resp BP Pulse Ox
98.1 F 79 18 151/77 95
07/22/25 23:44 07/22/25 23:44 07/22/25 23:44 07/22/25 23:44 07/22/25 23:44
<Jennifer Salgado NP - Last Filed: 07/23/25 02:15>
*Pulse Oximetry
Patient hypoxic: no
*Critical Care Note
Total Time (30-74mins, 75-104mins- exclusive of procedures): Not Applicable
<Jennifer Salgado NP - Last Filed: 07/23/25 02:15>
Update Note
Update Note:
Patient to ED from home after witnessed seizure. He had a second seizure on arrival to ED. Initial report of no current seizure medication. He was given loading dose of Keppra after 2nd seizure. No further seizure activity. CT, Labs reviewed. No
new findings. No evidence of infection/sepsis. Family arrived bedside. Now indicate that he is taking Keppra 500mg daily. WIll admit to hospitalist. Dr. Hunter consulted, will see in AM. COntinue maintenance dose keppra.
ED Attending Note
<Jennifer Salgado NP - Last Filed: 07/23/25 02:15>
-
Portions of this chart may have been created with voice recognition software.� Occasional wrong word or��sound alike� substitutions may have occurred due to the inherent limitations of voice recognition software.
<Erica Kenny DO - Last Filed: 07/22/25 18:56>
ED Attending Note
Patient seen and examined by attending physician: Yes
I performed the substantive portion of visit, reviewed & personally made and approve the management plan that is documented in note by myself or MICHELLE.: Yes
I performed a history and physical exam of patient and discussed management with resident, I reviewed resident's note and agree with documented findings and plan of care.: Yes
ED Attending Note:
75-year-old male with multiple comorbidities including Parkinson's disease, seizure disorder, tardive dyskinesia, bipolar disorder, prior CVA presenting to the emergency department for seizure prior to arrival. Patient arrives from nursing facility
where he allegedly had a tonic-clonic seizure lasting about a minute. Per facility, last time patient had a seizure, was septic. Patient postictal on arrival, very limited historian. On review of EMR, patient recently admitted in January for
altered mental status. At that time patient found to be encephalopathic, concern for underlying infection. Patient did have a seizure and was started on Keppra, which was since discontinued upon discharge and ultimate return to baseline.
Vital signs here show tachycardic, ____. Called to bedside after patient had witnessed seizure upon arrival. Seizure stopped on its own. Will Keppra load. Patient is slowly returning to baseline. Given prior history of seizure after sepsis and
encephalopathy, will investigate for possible underlying infection with laboratory analysis, chest x-ray, urinalysis. Prior history of stroke, so also obtain CT brain imaging. Will continue to closely monitor with likely plan for admission.
Discharge Plan
Departure
Patient Disposition: Admit
Date of Disposition: 07/22/25
Time of Disposition: 20:59
Presentation/result/management discussed w/ accepting MD/DO: Hospitalist
Condition: Fair
Covid-19: Not Applicable
Discharge Problem:
Seizure
Interventions
Interventions:
*Risk Screen - Suicide Last Done: 07/23/25 00:06
*General Assessment Last Done: 07/22/25 19:28
*Neglect/Abuse Screening Last Done: 07/22/25 19:28
*ED- Fall Risk Assessment Last Done: 07/22/25 19:28
*ED COVID-19 Vaccine History Last Done: 07/22/25 19:28
*ED Influenza Vaccine History Last Done: 07/22/25 19:28
*Nursing Disposition Last Done: 07/22/25 23:20
ED- Cardiac Assessment Last Done: 07/22/25 19:28
ED- Neurological Assessment Last Done: 07/22/25 19:28
ED- Pulmonary Assessment Last Done: 07/22/25 19:28
Discharge Date and Time
Discharge Date/Time: 07/22/25 23:20
[2025-07-22 18:53] LABS: Hematocrit 45.5 % (39.0-52.0); Hemoglobin 15.7 g/dL (13.0-18.0); Mean Corp Hgb Conc. 34.5 g/dL (33.0-37.0); Mean Corpuscular Volume 92.1 fL (80.0-94.0); Nucleated Red Blood Cells % 0 % (-); Platelet Count 152 10^3/uL (130-400); Red Cell Dist. Width 13.2 % (11.5-14.5)
[2025-07-22] MEDS: KEPPRA 4500 MG IV (19:06)
[2025-07-22 19:14] LABS: ALT (SGPT) 51 U/L (0-50); AST (SGOT) 63 U/L (17-59); Albumin 4.4 g/dl (3.5-5.0); Alkaline Phosphatase 84 U/L (38-126); Blood Urea Nitrogen 15 mg/dl (9-20); Calcium 9.2 mg/dl (8.4-10.2); Carbon Dioxide 24 mmol/L (22-30); Chloride 105 mmol/L (98-107); Estimated Creatinine Clearance 85 ml/min; Glucose 108 mg/dl (70-99); Potassium 4.4 mmol/L (3.5-5.1); Sodium 138 mmol/L (135-145); Total Protein 6.8 g/dl (6.3-8.2); eGFR > 60.00
[2025-07-22 19:25] VITALS: BP 151/71
[2025-07-22 20:00] VITALS: BP 140/73
[2025-07-22 21:00] VITALS: BP 141/83
--- NOTE | 2025-07-22 21:30 | HPS.HSE ---
Family Physician
-
Family Physician: Don Vergara
Chief Complaint
-
seizure
History of Present Illness
75-year-old male past medical history of Parkinson's disease, tardive dyskinesia, seizure, bipolar affective disorder, ADHD, history of CVA, anxiety, hypertension, hyperlipidemia, BPH, small bowel obstruction status post exploratory laparoscopy with
small bowel enterotomy, spinal stenosis, presenting for witnessed seizure at home today. As per EMS seizure lasted less than 1 minute. He states he has been in good health recently and denies any infection or fever. He denies any changes in his
medications although he is not sure exactly what he is given.
He denies any headache, blurry vision, numbness or tingling, focal weakness or any other complaints at this time. Denies vomiting or diarrhea.
Patient was recently admitted in January for acute toxic metabolic encephalopathy, tonic-clonic seizure. Seizure was treated with Ativan and Keppra was started. There is no recurrence of seizure and EEG was unremarkable. MRI did not show any new
infarct. Syphilis antibody was positive and RPR nonreactive. Wellbutrin was held due to seizure and patient was seen by psychiatry and started on sertraline. Keppra was stopped upon discharge.
He is a former smoker. He denies alcohol at this time.
Medical History
Past Medical History
Past Medical History: Reports Other (Parkinson's disease, tardive dyskinesia, seizure, bipolar affective disorder, ADHD, history of CVA, anxiety, hypertension, hyperlipidemia, BPH, small bowel obstruction status post exploratory laparoscopy with
small bowel enterotomy, spinal stenosis)
Past Surgical History: Reports Other (exploratory laparotomy and small bowel enterotomy in January of this year)
Social History
Tobacco: Non-smoker
Alcohol: None
Drug: None
Family History
Family History: Not pertinent
Allergies / Home Medications
Allergies reflects when Allergies were last updated in [facility].
Home Medications with original date entered in [facility]
Allergy/Medication List:
Allergies
Allergy/AdvReac Type Severity Reaction Status Date / Time
chlorpromazine (From Allergy paralysis Verified 12/29/24 14:50
Thorazine)
Home Medications
tamsulosin 0.4 mg capsule 0.4 mg PO DAILY Urinary Issue 01/19/24
testosterone 4 pump transdermal DAILY Hypogonadism 01/19/24
atorvastatin 80 mg tablet (Lipitor) 80 mg PO HS High Cholesterol 12/29/24
coenzyme Q10 100 mg capsule (CoQ-10) 200 mg PO DAILY Supplement 12/29/24
glucosamine-chondroitin 250 mg-200 mg tablet (Osteo Bi-Flex) 1 tab PO DAILY Supplement 12/29/24
losartan 100 mg tablet 100 mg PO DAILY Blood Pressure 12/29/24
therapeutic multivitamin 1 tab PO DAILY Supplement 12/29/24
carbidopa 25 mg-levodopa 100 mg tablet 0.5 tab PO TID 60 days #90 tabs 01/20/25
clopidogrel 75 mg tablet 75 mg PO DAILY 60 days #60 tabs 01/20/25
acetaminophen 325 mg tablet 650 mg PO Q6H PRN mild pain/temp>100 01/21/25
bisacodyl 10 mg rectal suppository (Dulcolax (bisacodyl)) 10 mg MI DAILYPRN PRN if MOM ineffective 01/21/25
ciprofloxacin HCl 0.3 % eye drops 1 drp BOTH EYES Q6H Eye Condition 01/21/25
magnesium hydroxide 400 mg/5 mL oral suspension (Milk of Magnesia) 2,400 mg PO DAILYPRN PRN if no bm x 3 days 01/21/25
sodium phosphates 19 gram-7 gram/118 mL enema (Fleet Enema) 118 ml MI DAILYPRN PRN if dulcolax ineffective 01/21/25
sertraline 25 mg tablet 25 mg PO DAILY Depression #30 tabs 01/25/25
Review of Systems
-
Constitutional: Reports No Symptoms
EENT: Reports No Symptoms
Respiratory: Reports No Symptoms
Cardiac: Reports No Symptoms
Abdomen/GI: Reports No Symptoms
: Reports No Symptoms
Musculoskeletal: Reports No Symptoms
Skin: Reports No Symptoms
Neurological: Reports See HPI
Endocrine: Reports No Symptoms
Hematologic/Lymphatic: Reports No Symptoms
Psych: Reports No Symptoms
Physical Exam
Vital Signs
Vital Signs
Temp Pulse Resp BP Pulse Ox
97.6 F 91 27 141/83 97
07/22/25 18:18 07/22/25 21:15 07/22/25 21:15 07/22/25 21:00 07/22/25 21:15
Physical Exam
General: Well Developed, Well Nourished and No Apparent Distress
HEENT: NormoCephalic, Moist mucous membranes and Atraumatic
Respiratory: Clear
Cardiac: S1/S2 and Regular Rhythm; No Murmur or Rub
GI: Soft, Non Tender, Non Distended and Normal Bowel Sounds; No Organomegaly
Rectal: Deferred by Provider
Musculoskeletal: No Clubbing, No Cyanosis and No Edema
Skin: No Rash
Neuro: Nonfocal/grossly intact
Laboratory Results
-
07/22/25 18:33
07/22/25 18:33
Laboratory Results
Lactic Acid 2.5 mmol/L (0.7-2.0) H 07/22/25 18:33
Total Bilirubin 0.4 mg/dl (0.2-1.3) 07/22/25 18:33
AST 63 U/L (17-59) H 07/22/25 18:33
ALT 51 U/L (0-50) H 07/22/25 18:33
Alkaline Phosphatase 84 U/L (38-126) 07/22/25 18:33
Data Reviewed
-
Lab Data: Labs Reviewed by me
Old Records: Reviewed
Impression/Plan
-
IMPRESSION:
PLAN:
# Second seizure
# Prior history of seizure in January
-CT head today shows 1.1 cm chronic infarct in the posterior limb of the right internal capsule, 2.2 cm arachnoid cyst overlying the anterior convexity of the right frontal lobe which appears unchanged
- 4.5 g of Keppra given, continue 500 twice daily
- Check Keppra level in the a.m. before morning dose although patient has not been on Keppra since January
- Neurology consulted
History of Parkinson disease
- Continue carbidopa levodopa
History of tardive dyskinesia
Bipolar disorder/anxiety
- Continue sertraline
ADHD
History of CVA
- Continue statin
- Continue Plavix
Essential hypertension
- Continue losartan
Hyperlipidemia
BPH
- Continue tamsulosin
Small bowel obstruction status post exploratory laparotomy and small bowel enterotomy in January of this year
Hypogonadism
- Continue testosterone
Polymyalgia rheumatica
Stage II sacral pressure injury
Spinal stenosis
Full code
DVT prophylaxis heparin
Regular diet
[2025-07-22 22:00] VITALS: BP 161/74
[2025-07-22 23:00] LABS: Urine Character Clear (Clear)
[2025-07-22 23:25] LABS: Urine Red Blood Cell 0-2 /HPF (0-2); Urine Squamous Cell None seen /LPF (Few)
[2025-07-22 23:44] VITALS: BP 151/77; BMI 32.2
--- NOTE | 2025-07-23 00:30 | PTCARENOTE ---
Pt arrived to floor via stretcher and transferred to bed. Pt aox3. pt repeating words, states he doesn't know why he's doing this. Also with residual slight right sided facial droop from previous CVA. Pt also with hx of PD and TD. ED states pt
presented this way and that family reported that repeated speech started a few days leading up to seizure that brought him in. pt tense guarded and anxious with initial care, but calmer with orientation to staff and room. forgetful with some
historical details and nervous because of issues he states occurred during a previous visit. Pt with a hx of depression, stated feeling depressed but no current ideations or plans to hurt himself. PRINTING AGENT HS aware, no 1:1 needed at this time. pt states
he uses rw at home, no one at bedside to confirm. able to move himself in bed when directed. Pt hungry, meal provided. Pt placed on tele, seizure precautions.Will review chart and follow plan of care.
[2025-07-23 03:00] VITALS: BP 112/61
--- NOTE | 2025-07-23 03:28 | W.PN.UPDATE ---
Update Note
Progress Note Update
RN reports patient Ox3 with mild suicide risk upon assessment. Patient has hx of Depression and is on Zoloft, thoughts of suicide in past two weeks with no plans. patient saying he will never do that or is planning on it. Patient does not require
1:1 at present.
[2025-07-23 07:47] VITALS: BP 126/63
[2025-07-23 08:04] LABS: ALT (SGPT) 55 U/L (0-50); AST (SGOT) 56 U/L (17-59); Albumin 3.8 g/dl (3.5-5.0); Alkaline Phosphatase 74 U/L (38-126); Blood Urea Nitrogen 14 mg/dl (9-20); Calcium 8.5 mg/dl (8.4-10.2); Carbon Dioxide 26 mmol/L (22-30); Chloride 108 mmol/L (98-107); Estimated Creatinine Clearance 72 ml/min; Glucose 90 mg/dl (70-99); Potassium 4.1 mmol/L (3.5-5.1); Sodium 139 mmol/L (135-145); Total Protein 6.0 g/dl (6.3-8.2); eGFR > 60.00
[2025-07-23 08:15] LABS: Hematocrit 43.2 % (39.0-52.0); Hemoglobin 14.2 g/dL (13.0-18.0); Mean Corp Hgb Conc. 32.9 g/dL (33.0-37.0); Mean Corpuscular Volume 92.9 fL (80.0-94.0); Nucleated Red Blood Cells % 0 % (-); Platelet Count 150 10^3/uL (130-400); Red Cell Dist. Width 13.4 % (11.5-14.5)
--- NOTE | 2025-07-23 08:53 | CON.NEURO4 ---
Consultation - Neurology 4
-
CONSULTING PHYSICIAN: Ector Hunter MD
REFERRING PHYSICIAN: Scott Frias MD
DICTATED BY: Ector Hunter MD
DATE/TIME OF REQUEST: 07/22/2025
DATE/TIME OF CONSULTATION: 07/23/2025
Reason for Consultation: Seizure
Assessment and Plan:
The patient is a 75 years old male with a past medical history of Parkinson disease, tardive dyskinesia, seizure, bipolar affective disorder, ADHD, hypertension and hyperlipidemia, who presented to the hospital for a witnessed seizure at home.
According to the patient, his roommate saw him having a seizure. It appears that the patient also has a history of a seizure in January of this year. The plan is to get MRI of the brain with and without contrast and also to get an EEG. The patient
will be on Keppra 500 mg twice a day. He will follow-up up with neurology as an outpatient in 3 weeks.
Seizure precautions to be taken including the precautions regarding driving according to the [place] law. The patient should not drive for [address] with Dr[address] Niko Mujica.
History of Present Illness:
The patient is a 75 years old male with a past medical history of Parkinson disease, tardive dyskinesia, seizure, bipolar affective disorder, ADHD, hypertension and hyperlipidemia, who presented to the hospital for a witnessed seizure at home.
According to the patient, his roommate saw him having a seizure. As per EMS the seizure lasted less than a minute. The patient says that he does not remember the event. There is a history of a tongue bite with a seizure. The patient is not a
good historian. Patient was admitted in January of this year for acute toxic metabolic encephalopathy and tonic-clonic seizure. MRI brain was done on 01/23/2025 that did not show any acute intracranial abnormality. EEG at that time was reported to be
unremarkable.
CT of head does not show an acute infarct but it shows a chronic infarct in the posterior limb of the right internal capsule.
Past Medical History: As given in the history of present illness.
Review of Symptoms:
The patient denies any headache, dizziness, chest pain, shortness of breath, fever, chills, nausea and vomiting.
Neurologic Examination:
The patient is awake, alert and oriented x 3. He is able to follow commands and answer questions appropriately.
There is no aphasia or dysarthria.
The cranial nerves II to XII are grossly intact.
The motor examination shows that the strength in bilateral upper and lower extremities is grossly 5/5. Motor strengths are 5/5 bilateral upper and lower extremities.
The sensations are intact bilaterally.
The [id number] and [id number] tests do not show ataxia.
Medications
-
Home Medications
�Medication �Instructions �Recorded
tamsulosin 0.4 mg capsule 0.4 mg PO DAILY Urinary Issue 01/19/24
testosterone 4 pump transdermal DAILY 01/19/24
Hypogonadism
atorvastatin 80 mg tablet (Lipitor) 80 mg PO HS High Cholesterol 12/29/24
coenzyme Q10 100 mg capsule 200 mg PO DAILY Supplement 12/29/24
(CoQ-10)
glucosamine-chondroitin 250 mg-200 1 tab PO DAILY Supplement 12/29/24
mg tablet (Osteo Bi-Flex)
losartan 100 mg tablet 100 mg PO DAILY Blood Pressure 12/29/24
therapeutic multivitamin 1 tab PO DAILY Supplement 12/29/24
carbidopa 25 mg-levodopa 100 mg 0.5 tab PO TID 60 days #90 tabs 01/20/25
tablet
clopidogrel 75 mg tablet 75 mg PO DAILY 60 days #60 tabs 01/20/25
acetaminophen 325 mg tablet 650 mg PO Q6H PRN mild 01/21/25
(Tylenol) pain/temp>100
bisacodyl 10 mg rectal suppository 10 mg ND DAILYPRN PRN if MOM 01/21/25
(Dulcolax (bisacodyl)) ineffective
magnesium hydroxide 400 mg/5 mL 2,400 mg PO DAILYPRN PRN if no bm 01/21/25
oral suspension (Milk of Magnesia) x 3 days
sodium phosphates 19 gram-7 118 ml ND DAILYPRN PRN if dulcolax 01/21/25
gram/118 mL enema (Fleet Enema) ineffective
EEG #1 ea 07/23/25
dextroamphetamine-amphetamine 10 10 mg PO BID 07/23/25
mg tablet (Adderall)
levetiracetam 500 mg tablet 500 mg PO BID #60 tabs 07/23/25
(Keppra)
sertraline 25 mg tablet 50 mg PO DAILY Depression 07/23/25
Vital Signs and Labs
-
Vital Signs and Labs:
Vital Signs
Temp Pulse Resp BP Pulse Ox
36.9 C 86 16 146/72 94
07/23/25 12:11 07/23/25 12:11 07/23/25 12:11 07/23/25 12:11 07/23/25 12:11
Lab Results
07/23/25 06:47
07/23/25 06:47
Sodium 139 mmol/L (135-145) 07/23/25 06:47
Potassium 4.1 mmol/L (3.5-5.1) 07/23/25 06:47
BUN 14 mg/dl (9-20) 07/23/25 06:47
Glucose 90 mg/dl (70-99) 07/23/25 06:47
Calcium 8.5 mg/dl (8.4-10.2) 07/23/25 06:47
[2025-07-23] MEDS: KEPPRA 500 MG IV (09:56)
--- NOTE | 2025-07-23 11:26 | CM ---
CM met with pt at bedside.
Pt reports living in a 2SH with sig other Maryjane Watson daughter and son-in-law.
Ind with RW for ambulation. Sleeps in bedroom on 1st floor. MI on 1st floor. Chair lift to 2nd floor shower. Walter's daughter assists with adl's. Pt does not drive.
Pt has no HC history. Has been to a SNF- can not recall name.
PCP Don Vergara and pharmacy is [facility] [place].
Pt gave CM permission to call Walter. Did so and Walter confirms all above. Walter also does not recall the name of the SNF stating it was a recent stay.
CM reviewed ALVAREZ/observation status with Walter over the phone.
CM to follow and assist with dc needs.
[2025-07-23] MEDS: FLOMAX 0.4 MG PO (11:47)
[2025-07-23] MEDS: ZOLOFT 50 MG PO (11:47)
[2025-07-23] MEDS: PLAVIX 75 MG PO (11:47)
[2025-07-23] MEDS: COZAAR 100 MG PO (11:48)
[2025-07-23 12:11] VITALS: BP 146/72
--- NOTE | 2025-07-23 13:13 | W.PN.HOSP.TC ---
Today's Communication/Plan
-
Discharge
Assessment / Plan
Assessment / Plan
Gen-AAOx3, NAD
HEENT-NC, AT, anicteric, clear oral mm
Neck-supple
CV-reg, no M, +S1/S2
Lungs-clear B/L
Abd-soft, NT, ND
Ext-no edema
Musculoskeletal-no cyanosis, clubbing
Skin-warm and dry
Neuro-grossly non-focal
Psych-calm, cooperative
Seizure recurrence -patient had a seizure during his last hospitalization in January 2025. During that previous hospitalization, he was evaluated by neurology and it was felt that his seizure may have been provoked due to use of bupropion. Brain MRI
with and without contrast in January did not show acute disease. He was briefly treated with Keppra in the hospital but not discharged on Keppra. Bupropion was discontinued.
According to family, he has been on Keppra 500 mg once daily prior to the current admission on 07/22. Family does not know exact details but they suspect that when the patient was discharged from the hospital in January 2025 and went to SNF, Keppra
once a day was started then.
He now returns to the hospital with a witnessed seizure noted by family.
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
moderate white matter leukoaraiosis in the parietal lobes, 2.2 cm arachnoid cyst overlying the anterior convexity of the right frontal lobe which appears unchanged.
I spoke with neurology, Dr. Hunter, he recommends Keppra twice daily on discharge with outpatient follow-up in the neurology clinic. Outpatient EEG.
No indication to repeat brain MRI as it was just done in January of this year.
Prescription for EEG provided to patient on discharge.
Prescription for Keppra twice daily sent to his pharmacy.
No seizures in the hospital.
Lactic acidosis noted on admission, possibly due to seizure.
Medically stable for discharge today with outpatient follow-up.
Elevated transaminases -mild. AST normalized.
History of suspected small bowel obstruction/ileus -underwent exploratory laparotomy 01/03/2025, Dr. Xavier. Repair of small bowel enterotomy. No obstruction found in the OR. Postoperative diagnosis was ileus.
History of stroke
Parkinson's disease -stable on carbidopa/levodopa.
Bipolar disorder
ADHD
Tardive dyskinesia
Essential hypertension -stable.
Hyperlipidemia -atorvastatin.
Spinal stenosis
Polymyalgia rheumatica
Stage II sacral pressure injury -present on admission.
Functional paraparesis -minimal ambulation reportedly with walker.
Obesity due to excess calories
Full code
Dispo -medically stable for discharge today. Outpatient follow-up with PCP and neurology.
Updated family on the phone.
35 minutes spent in discharge process.
Anticipated Discharge: Today
Subjective/Interval History
-
Date of Service: July 23, 2025
Patient seen and examined, no complaints. Wants to go home.
Objective Data
-
Labs:
Laboratory Results
07/23/25
06:47
WBC 8.1
Hgb 14.2
Hct 43.2
Plt Count 150
Sodium 139
Potassium 4.1
Chloride 108 H
Carbon Dioxide 26
BUN 14
Creatinine 1.0
Glucose 90
Calcium 8.5
Total Bilirubin 0.3
AST 56
ALT 55 H
Alkaline Phosphatase 74
Vital Signs:
Vital Signs
Temp Pulse Resp BP Pulse Ox
98.4 F 86 16 146/72 94
07/23/25 12:11 07/23/25 12:11 07/23/25 12:11 07/23/25 12:11 07/23/25 12:11
I&O
07/22/25 07/23/25 07/24/25
06:59 06:59 06:59
Intake Total 480 / 480
Output Total 400 / 400
Balance 80 / 80
Review of Systems
-
History Source: Patient
All other systems: Reviewed and negative
--- NOTE | 2025-07-23 13:35 | CM ---
DC order in.
Offered VN. Pt declines. Walter/[place] other aware.
Family to transport home.
--- NOTE | 2025-07-23 13:35 | W.DS.TRANS ---
DC Summary - Sample Sawyer
-
Discharge Instructions:
Discharge Diagnosis/Procedures Seizure
Diet Regular
Activity As tolerated
Driving Restrictions No driving
Bathing Restrictions None
Instructions:
Stand-Alone Forms:
Changes to Home Medications: Yes
Discharge Medications:
DC Medications w/original date entered in Setup
tamsulosin 0.4 mg capsule 0.4 mg PO DAILY Urinary Issue 01/19/24
testosterone 4 pump transdermal DAILY Hypogonadism 01/19/24
atorvastatin 80 mg tablet (Lipitor) 80 mg PO HS High Cholesterol 12/29/24
coenzyme Q10 100 mg capsule (CoQ-10) 200 mg PO DAILY Supplement 12/29/24
glucosamine-chondroitin 250 mg-200 mg tablet (Osteo Bi-Flex) 1 tab PO DAILY Supplement 12/29/24
losartan 100 mg tablet 100 mg PO DAILY Blood Pressure 12/29/24
therapeutic multivitamin 1 tab PO DAILY Supplement 12/29/24
carbidopa 25 mg-levodopa 100 mg tablet 0.5 tab PO TID 60 days #90 tabs 01/20/25
clopidogrel 75 mg tablet 75 mg PO DAILY 60 days #60 tabs 01/20/25
acetaminophen 325 mg tablet (Tylenol) 650 mg PO Q6H PRN mild pain/temp>100 01/21/25
bisacodyl 10 mg rectal suppository (Dulcolax (bisacodyl)) 10 mg [place] DAILYPRN PRN if MOM ineffective 01/21/25
magnesium hydroxide 400 mg/5 mL oral suspension (Milk of Magnesia) 2,400 mg PO DAILYPRN PRN if no bm x 3 days 01/21/25
sodium phosphates 19 gram-7 gram/118 mL enema (Fleet Enema) 118 ml [place] DAILYPRN PRN if dulcolax ineffective 01/21/25
EEG #1 ea 07/23/25
dextroamphetamine-amphetamine 10 mg tablet (Adderall) 10 mg PO BID 07/23/25
levetiracetam 500 mg tablet (Keppra) 500 mg PO BID #60 tabs 07/23/25
sertraline 25 mg tablet 50 mg PO DAILY Depression 07/23/25
Home Medication Changes
Keppra dose increased to twice daily.
Pending Results: No
--- NOTE | 2025-07-23 15:16 | W.PN.NEURO.1 ---
Subjective/Objective
Subjective Data
Date of Service: July 23, 2025
Objective Data
Vital Signs
Temp Pulse Resp BP Pulse Ox
36.9 C 86 16 146/72 94
07/23/25 12:11 07/23/25 12:11 07/23/25 12:11 07/23/25 12:11 07/23/25 12:11
Lab Results
07/23/25 06:47
07/23/25 06:47
Sodium 139 mmol/L (135-145) 07/23/25 06:47
Potassium 4.1 mmol/L (3.5-5.1) 07/23/25 06:47
BUN 14 mg/dl (9-20) 07/23/25 06:47
Glucose 90 mg/dl (70-99) 07/23/25 06:47
Calcium 8.5 mg/dl (8.4-10.2) 07/23/25 06:47
Patient Allergies
chlorpromazine (From Thorazine) Allergy (Verified 12/29/24 14:50)
paralysis
--- NOTE | 2025-07-23 15:43 | CON.NEURO4 ---
Consultation - Neurology 4
-
CONSULTING PHYSICIAN: Ector Hunter MD
REFERRING PHYSICIAN: Scott Frias MD
DICTATED BY: Ector Hunter MD
DATE/TIME OF REQUEST: 07/22/2025
DATE/TIME OF CONSULTATION: 07/23/2025
Reason for Consultation: Seizure
Assessment and Plan:
The patient is a 75 years old male with a past medical history of Parkinson disease, seizure, bipolar affective disorder, anxiety, hypertension, hyperlipidemia and BPH, who presented for a witnessed seizure at home. The patient was admitted in January
of this year for acute toxic metabolic encephalopathy and a tonic-clonic seizure. The MRI done in January of this year did not show any new infarct. The EEG was also remarkable in January of this year.
The plan is to keep the patient on Keppra 500 mg twice a day.
Seizure precautions including the precautions regarding driving according to the [place] law.
The patient will follow-up in the neurology clinic in [address] Niko Mujica.
History of Present Illness:
The patient is a 75 years old male with a past medical history of Parkinson disease, seizure, bipolar affective disorder, anxiety, hypertension, hyperlipidemia and BPH, who presented for a witnessed seizure at home.As per EMS the seizure lasted less
than a minute. The patient does not remember the event and he says that he does have a tongue bite on the left side. The patient's seizure was witnessed by his friend. The patient was admitted in January of this year for acute toxic metabolic
encephalopathy and a tonic-clonic seizure. The MRI done in January of this year did not show any new infarct. The EEG was also remarkable in January of this year.
The patient is a poor historian and the history was obtained mainly from the patient's medical records.
Review of Symptoms:
The patient denies any headache, dizziness, chest pain, shortness of breath, fever, chills, nausea and vomiting.
Neurologic Examination:
The patient is awake, alert and oriented x 3. He is able to follow commands and answer questions appropriately.
The speech is intact.
The cranial nerves II to XII are grossly intact.
The strength is about 5/5 bilaterally in the upper and lower extremities.
The sensations are intact bilaterally.
The [id number] and [id number] tests did not show ataxia.
Total Time Spent with Patient (in minutes): 40
Medications
-
Home Medications
�Medication �Instructions �Recorded
tamsulosin 0.4 mg capsule 0.4 mg PO DAILY Urinary Issue 01/19/24
testosterone 4 pump transdermal DAILY 01/19/24
Hypogonadism
atorvastatin 80 mg tablet (Lipitor) 80 mg PO HS High Cholesterol 12/29/24
coenzyme Q10 100 mg capsule 200 mg PO DAILY Supplement 12/29/24
(CoQ-10)
glucosamine-chondroitin 250 mg-200 1 tab PO DAILY Supplement 12/29/24
mg tablet (Osteo Bi-Flex)
losartan 100 mg tablet 100 mg PO DAILY Blood Pressure 12/29/24
therapeutic multivitamin 1 tab PO DAILY Supplement 12/29/24
carbidopa 25 mg-levodopa 100 mg 0.5 tab PO TID 60 days #90 tabs 01/20/25
tablet
clopidogrel 75 mg tablet 75 mg PO DAILY 60 days #60 tabs 01/20/25
acetaminophen 325 mg tablet 650 mg PO Q6H PRN mild 01/21/25
(Tylenol) pain/temp>100
bisacodyl 10 mg rectal suppository 10 mg [place] DAILYPRN PRN if MOM 01/21/25
(Dulcolax (bisacodyl)) ineffective
magnesium hydroxide 400 mg/5 mL 2,400 mg PO DAILYPRN PRN if no bm 01/21/25
oral suspension (Milk of Magnesia) x 3 days
sodium phosphates 19 gram-7 118 ml [place] DAILYPRN PRN if dulcolax 01/21/25
gram/118 mL enema (Fleet Enema) ineffective
EEG #1 ea 07/23/25
dextroamphetamine-amphetamine 10 10 mg PO BID 07/23/25
mg tablet (Adderall)
levetiracetam 500 mg tablet 500 mg PO BID #60 tabs 07/23/25
(Keppra)
sertraline 25 mg tablet 50 mg PO DAILY Depression 07/23/25
Vital Signs and Labs
-
Vital Signs and Labs:
Vital Signs
Temp Pulse Resp BP Pulse Ox
36.9 C 86 16 146/72 94
07/23/25 12:11 07/23/25 12:11 07/23/25 12:11 07/23/25 12:11 07/23/25 12:11
Lab Results
07/23/25 06:47
07/23/25 06:47
Sodium 139 mmol/L (135-145) 07/23/25 06:47
Potassium 4.1 mmol/L (3.5-5.1) 07/23/25 06:47
BUN 14 mg/dl (9-20) 07/23/25 06:47
Glucose 90 mg/dl (70-99) 07/23/25 06:47
Calcium 8.5 mg/dl (8.4-10.2) 07/23/25 06:47
--- NOTE | 2025-07-23 15:51 | W.RAPID.EEG ---
Rapid EEG
-
Procedure Date: 07/22/25
Results:
IMPRESSION:
No evidence of status epilepticus
Disclaimer: EEG findings should be interpreted in the context of clinical history and other tests. A normal EEG does not rule out epilepsy or other conditions, and an abnormal EEG is not diagnostic on its own. Technical factors may affect
interpretation. Clinical context is required.
Patient Demographics
Patient Name: ABIMBOLA SAUNDERS Date of : 1950
Location: ED Age: 75
Primary Indication: Prior Seizure
Site: [facility] Ordering Physician: FARIDA
Recording Information:
Diagnostic Recording Time: 00:13:30 (14 minutes)
Recording 1:
Start Time: Jul 22, 2025 19:40 PM End Time: Jul 22, 2025 19:53 PM
Recording Technique: This EEG was obtained using a 10 lead, 8 channel system positioned circumferentially without any parasagittal coverage (rapid EEG).
Computer selected EEG is reviewed as well as background features and all clinically significant events.
Clarity algorithm utilized and implemented to provide analysis of underlying activity and seizure detection used to facilitate reading. ICD-10 Code FR37B04
Clinical History: ABIMBOLA SAUNDERS is a 75 year old Prior Seizure patient undergoing EEG to screen for non-convulsive status epilepticus.
--- NOTE | 2025-07-24 18:15 | W.PN.UPDATE ---
Addendum entered and electronically signed by Scott Frias MD 07/24/25 19:16:
Notified patient's primary care physician Jerome Mcfadden about blood culture and he will follow-up on blood culture.
Original Note:
Update Note
Progress Note Update
Was notified about positive blood culture and anaerobic blood culture bottle revealing gram-positive bacilli. Culture in progress. Called patient and notified him and he denies any symptoms of infection such as fever, abdominal pain nausea
vomiting or respiratory symptoms or urinary symptoms. I told him to go to ER if he develops any symptoms of infection. Will follow up on the speciation and determine next course of action.
--- NOTE | 2025-07-25 12:19 | W.PN.UPDATE ---
Update Note
Progress Note Update
Blood culture speciation shows diphtheroids which is likely a contaminant. I updated primary care physician Jerome Mcfadden and recommended repeat outpatient blood cultures.
== END 2025-07-23 15:12 | disposition home or self-care (01) ==
LOC: 3 WEST ACU 22:14
PROVIDERS: Nurse Practitioner; ADMITTING PHYSICIAN Hospitalist; ATTENDING PHYSICIAN Hospitalist; CONSULT PHYSICIAN Psychiatry & Neurology Neurology; EMERGENCY PHYSICIAN Student in an Organized Health Care Education/Training Program; FAMILY PHYSICIAN Internal Medicine
DX: R56.9 Unspecified convulsions (principal); R07.9 Chest pain, unspecified; R74.01 Elevation of levels of liver transaminase levels; E78.00 Pure hypercholesterolemia, unspecified; F31.9 Bipolar disorder, unspecified; I10 Essential (primary) hypertension; M35.3 Polymyalgia rheumatica; F90.9 Attention-deficit hyperactivity disorder, unspecified type; G20.B1 Parkinson's disease with dyskinesia, without mention of fluctuations; I49.9 Cardiac arrhythmia, unspecified; F41.9 Anxiety disorder, unspecified; N40.0 Benign prostatic hyperplasia without lower urinary tract symptoms; G82.20 Paraplegia, unspecified; M48.00 Spinal stenosis, site unspecified; G93.0 Cerebral cysts; L89.152 Pressure ulcer of sacral region, stage 2; I67.81 Acute cerebrovascular insufficiency; E87.20 Acidosis, unspecified; E66.09 Other obesity due to excess calories; Z68.32 Body mass index [BMI] 32.0-32.9, adult; Z79.899 Other long term (current) drug therapy; Z87.891 Personal history of nicotine dependence; Z79.890 Hormone replacement therapy; Z79.02 Long term (current) use of antithrombotics/antiplatelets; Z86.73 Personal history of transient ischemic attack (TIA), and cerebral infarction without residual deficits
CPT/HCPCS: 95819; 70450; 80053; 80177; 81003; 81015; 83605; 85025; 87040; 87086; 87205; 93005; 96365; 99285; G0378

== ENCOUNTER → 2025-08-04 10:03 | Outpatient (REF) | payer MEDICARE, SELFPAY | LOC: REG 10:03 | PROVIDERS: ATTENDING PHYSICIAN Nurse Practitioner Family; FAMILY PHYSICIAN Family Medicine | DX: Z09 Encounter for follow-up examination after completed treatment for conditions other than malignant neoplasm (principal); G40.909 Epilepsy, unspecified, not intractable, without status epilepticus; R78.81 Bacteremia | CPT/HCPCS: 36415; 87040 ==